=== PATIENT | female | born 1945 | race Caucasian/White ===

== ENCOUNTER → 2018-01-15 12:26 | Outpatient (CLI) | payer MEDICARE, OTHER, SELFPAY ==
--- NOTE | 2018-01-15 12:28 | ECHOD_ITS ---
Reason For Study: MURMUR Procedure This was a 2D Doppler, Color Flow transthoracic echocardiogram. The exam was of adequate technical quality. Exam performed portable in patient room. Left Ventricle Normal LV size. Left ventricular systolic function is normal. The estimated ejection fraction is 65 %. Normal diastology for age. No regional wall motion abnormalities noted. Right Ventricle Normal RV size. Normal systolic function. Atria Normal left atrium. Normal right atrium. No doppler evidence for ASD. Mitral Valve There is no mitral annular calcification. Normal mitral valve. Trivial mitral valve insufficiency. Tricuspid Valve Normal tricuspid valve. Mild tricuspid valve insufficiency. Right ventricular systolic pressure estimated to be 24 mmHg. Aortic Valve Trisinus/trileaflet aortic valve. Mild diffuse aortic valve thickening. Mild focal aortic valve calcification. Aortic sclerosis, no stenosis. Pulmonic Valve The pulmonic valve is not well visualized. Great Vessels Normal sized aortic root. Pericardium/Pleural No pericardial effusion. MMode/2D Measurements & Calculations LVIDd: 3.6 cm IVSd: 0.97 cm LVOT diam: 2.0 cm LVIDs: 2.6 cm LVPWd: 0.94 cm LVOT area: 3.0 cm2 RVDd: 3.1 cm FS: 27.6 % Ao root diam: 3.1 cm LAV(MOD-bp): 38.9 ml LA A4 area: 16.8 cm2 LAV(MOD-bp) Indexed: 23.2 ml/m2 LAV(MOD-sp2): 34.3 ml LAV(MOD-sp4): 38.6 ml RA A4 area: 14.5 cm2 Time Measurements MV dec time: 0.23 sec Doppler Measurements & Calculations MV E max trav: 62.5 cm/sec Ao V2 max: 131.4 cm/sec LV V1 max: 135.5 cm/sec MV A max trav: 80.3 cm/sec Ao max P.9 mmHg LV V1 max P.3 mmHg MV E/A: 0.78 GAMALIEL(V,D): 3.1 cm2 PA V2 max: 63.9 cm/sec TR max trav: 227.2 cm/sec TR max P.8 mmHg Interpretation Summary Left ventricular systolic function is normal. The estimated ejection fraction is 65 %. Trivial mitral valve insufficiency. Mild tricuspid valve insufficiency. Aortic sclerosis, no stenosis. Right ventricular systolic pressure estimated to be 24 mmHg. Normal diastology for age. Ordering Physician: Gerber Humphries Referring Physician: SAMANTHA SRINIVASAN Performed By: Lissy العلي RDCS, RVT
== END ==
PROVIDERS: Family Provider Family Medicine; PCP Family Medicine; Visit Provider Family Medicine
DX: R01.1 Cardiac murmur, unspecified (principal)
CPT/HCPCS: 93306

== ENCOUNTER → 2018-01-29 12:41 | Outpatient (CLI) | payer MEDICARE, OTHER, SELFPAY ==
[2018-01-29 14:15] LABS: Absolute Lymphocyte Count 1.58 X10^3/ul (0.83-4.51); Basophil# 0.02 X10^3/uL; Basophil% 0.3 % (0-1); Eosinophil# 0.13 X10^3/uL; Eosinophils% 2.1 % (0-5); Hematocrit 45.6 % (37-47); Lymphocyte # 1.58 X10^3/ul (4.0); Mean Corp Hgb Conc 32.9 g/gl (32-36); Mean Corpuscular Hgb 29.6 pg (27.0-32.0); Mean Corpuscular Volume 90.1 fL (81-99); Mean Platelet Vol. 11.5 fl (6.2-12.0); Monocyte% 9.5 % (0-10); Neutrophil # 3.98 X10^3/uL (2.7-7.7); Neutrophil % 62.9 % (47-70); POSITIVE COUNT NO; POSITIVE DIFFERENTIAL NO; POSITIVE MORPHOLOGY NO; Platelet Count 265 K/mm3 (150-450); RBC Distribution Width CV 13.4 % (11.6-14.6); RBC Distribution Width SD 43.8 fl (35.1-43.9); Red Blood Count 5.06 M/mm3 (4.2-5.4); White Blood Count 6.3 K/mm3 (4.4-11.0)
[2018-01-29 14:40] LABS: AST(SGOT) 17 U/L (15-37); Alanine Aminotransfer ALT/SGPT 32 U/L (13-56); Albumin, Serum 3.9 g/dL (3.2-5.0); Alkaline Phosphatase 86 U/L (45-117); BUN 15 mg/dL (7-18); BUN/Creat Ratio 16.2 RATIO (10-20); Calcium,Total 9.4 mg/dL (8.5-10.1); Chloride 103 mmol/L (98-107); Creatinine, Serum 0.93 mg/dL (0.55-1.02); EST Glomerular Filtration Rate 63 mL/min (>60); Est Glom Filt Rate - Afr Amer 76 mL/min (>60); Globulin 3.8 g/dL (2.2-4.2); Glucose 93 mg/dL (74-106); Potassium 3.9 mmol/L (3.5-5.1); Protein, Total 7.7 g/dL (6.4-8.2); Sodium Level 139 mmol/L (136-145)
[2018-01-29 14:41] LABS: Anion Gap 6 (5-15); Thyroid Stim Hormone (TSH) 1.49 uIU/mL (0.358-3.74)
== END ==
PROVIDERS: Family Provider Family Medicine; PCP Family Medicine; Visit Provider Family Medicine
DX: R53.81 Other malaise (principal); R53.83 Other fatigue
CPT/HCPCS: 36415; 80053; 84443; 85025

== ENCOUNTER 2019-01-04 19:29 | Emergency (ER) | payer MEDICARE, SELFPAY ==
[2018-05-11 09:46] VITALS: BMI 30.4
[2019-01-04 19:29] VITALS: BP 127/79; PULSE 88; RESP 20; TEMP 37.1; O2SAT 95; BMI 30.5
--- NOTE | 2019-01-04 19:55 | RAD_ITS ---
STUDY: X-RAY CHEST REASON FOR EXAM: Female, 73 years old. Chest tightness TECHNIQUE: Single AP portable view of the chest. COMPARISON: April 25, 2017 FINDINGS: There are interstitial fibrotic changes of the lungs. There is left lower lung granuloma. Follow There is no demonstrated pleural abnormality. Normal size heart. Normal mediastinum and soy. Normal visualized pulmonary arteries. There is atherosclerotic tortuosity of the aortic arch and descending thoracic aorta. There is demineralization of the osseous structures. Degenerative change of the spine. Normal visualized ribs, clavicles, and shoulders. There is no demonstrated abnormality of the visualized soft tissue structures of the upper abdomen. RAD/Chest 1 View (Portable) IMPRESSION: Degenerative changes, as described above. No demonstrated acute cardiopulmonary process. Electronically Signed: Jacobo Mohr MD at 20:37 EDT , Service support ,
[2019-01-04 20:27] VITALS: O2SAT 95
[2019-01-04] MEDS: Ipratropium/Albuterol Sulfate 3 ML AMPUL.NEB INHALATION (22:11)
[2019-01-04 22:12] VITALS: PULSE 75; RESP 16
[2019-01-04 22:27] VITALS: O2SAT 96
[2019-01-04] MEDS: predniSONE 20 MG Tablet 40 MG PO (22:27)
--- NOTE | 2019-01-04 22:51 | EKG12_ITS ---
Test Reason : SOB Blood Pressure : / mmHG Vent. Rate : 077 BPM Atrial Rate : 077 BPM P-R Int : 150 ms QRS Dur : 086 ms QT Int : 406 ms P-R-T Axes : 000 069 -07 degrees QTc Int : 459 ms Normal sinus rhythm Low voltage QRS Abnormal QRS-T angle, consider primary T wave abnormality Abnormal ECG Confirmed by NORMA MIDDLETON, ELDER ([id number]), food editor SAMUEL WOO ([id number]) on 01/07/2019 1:47:41 PM Referred By: RIKY Confirmed By:MARYANA GREEN MD
--- NOTE | 2019-01-04 23:11 | ED.VIS.GEN ---
History of Present Illness Chief Complaint: Cough Detail of Chief Complaint: Cough, congestion, wheezing Informant: Patient, Significant Other Onset: - - 10 days Quality: Wheezing, cough, Current Severity: Mild Maximum Severity: Moderate Narrative: Patient has history of asthma. She uses her pro-air inhaler twice a day. Patient reports cough, chills, and wheezing over the past 10 days. She was seen by her PCP at onset and states she took a Z-Jose and some prednisone. She was slightly improved on taking the medication but symptoms worsened again after completing the course. She states today she had some vomiting which was largely posttussive. She has not noted fever. - Past Medical History (1) Asthma Status: Chronic (2) HTN (hypertension) Status: Chronic (3) Obstructive sleep apnea Status: Chronic Past Medical History - Allergies and Home Meds Allergies/Adverse Reactions: Allergies strawberry Allergy (Verified 01/04/19 19:31) Food Allergy Primary Care Physician: Nabila Paris MD [Primary Care Provider] - 1 Week if not improving Prior records reviewed: Yes Past Medical History: - - Reviewed Surgical History: - - section Lives: Spouse/ Significant Other Smoking Status: Never smoker - Family History Sibling Family History: Family History (Last Reviewed 05/11/18 @ 15:52 by MARIPOSA Renteria) Father Heart disease Family History: Reports: Heart Disease - Her sister who is younger than she is has CAD. Paternal Family History: Family History (Last Reviewed 05/11/18 @ 15:52 by MARIPOSA Renteria) Father Heart disease Family History: Reports: Heart Disease Maternal Family History: Family History (Last Reviewed 05/11/18 @ 15:52 by MARIPOSA Renteria) Father Heart disease Family History: Reports: No pertinent history Review of Systems General: Reports: Chills. Denies: Fever Cardiovascular: Reports: - - Chest soreness from coughing Respiratory: Reports: Dyspnea, Cough, Sputum - Occasional yellow sputum production. Gastrointestinal: Denies: Abdominal pain, Nausea, Vomiting, Diarrhea Neurological: Denies: Headache Physical Exam Vital Signs/Narrative: Vital Signs Temp Pulse Resp BP Pulse Ox 01/04/19 22:27 96 01/04/19 22:12 75 16 01/04/19 20:27 95 01/04/19 19:29 98.7 F 88 20 H 127/79 H 95 General: Well nourished, Well developed ENT: Moist mucous membranes Cardiovascular: Regular rate, Regular rhythm Respiratory: No distress, - - Lungs are clear with slightly diminished air movement throughout. Abdomen: Soft, Nontender Extremities: Nontender, No edema Skin: Normal color, No rash Neurological: Alert, Oriented x3 Diagnostic/Tx/Re-eval Impressions Chest X-Ray 01/04/19 19:55 IMPRESSION: Degenerative changes, as described above. No demonstrated acute cardiopulmonary process. Electronically Signed: Jacobo Mohr MD at 20:37 EDT , Service support , 01/04/19 19:55 Chest 1 View (Portable) [RAD] Stat - EKG Initial EKG Interpretation: Sinus Rhythm, - - Sinus at [address] change. She does have inverted P waves noted in multiple leads. QTC is 459. - Medical Decision Making Patient was given a DuoNeb treatment along with p.o. prednisone. On repeat evaluation she felt like she was breathing significantly better. She will be treated with a prednisone burst along with Levaquin as she previously did not do well with Zithromax. Patient is given a spacer for her inhaler at home. ED Disposition - Plan for ED Patient: Disposition: Home or Assisted Living Diagnosis: Bronchitis Instructions: BRONCHITIS, Antiobiotic Treatment (Adult) Prescriptions: Prednisone [Deltasone] 40 mg PO DAILY #10 tab Prescription Printed Levofloxacin [Levaquin] 750 mg PO DAILY #4 tab Prescription Printed Referrals: Nabila Paris MD [Primary Care Provider] - 1 Week if not improving
[2019-01-04] MEDS: levoFLOXacin 750 MG Tablet PO (23:17)
== END 2019-01-04 23:19 | disposition home or self-care (01) ==
PROVIDERS: Emergency Provider Emergency Medicine; Family Provider Family Medicine; PCP Family Medicine
DX: J40 Bronchitis, not specified as acute or chronic (principal); I10 Essential (primary) hypertension; G47.33 Obstructive sleep apnea (adult) (pediatric)
CPT/HCPCS: 71045; 93005; 94640; 94760; 99283

== ENCOUNTER → 2019-05-13 12:38 | Outpatient (CLI) | payer MEDICARE, SELFPAY ==
[2019-05-13 14:41] LABS: Anion Gap 7 (5-15); BUN 20 mg/dL (7-18); BUN/Creat Ratio 24.9 RATIO (10-20); Chloride 106 mmol/L (98-107); EST Glomerular Filtration Rate 74 mL/min (>60); Est Glom Filt Rate - Afr Amer 89 mL/min (>60); Glucose 93 mg/dL (74-106); Sodium Level 140 mmol/L (136-145)
== END ==
PROVIDERS: Family Provider Family Medicine; PCP Family Medicine; Referring Provider Family Medicine; Visit Provider Family Medicine
DX: I10 Essential (primary) hypertension (principal)
CPT/HCPCS: 36415; 80048

== ENCOUNTER 2019-05-28 21:14 | Emergency (ER) | payer MEDICARE, SELFPAY ==
[2019-05-27 17:43] VITALS: BMI 30.5
[2019-05-28 21:15] VITALS: BP 100/57; PULSE 108; RESP 18; TEMP 36.4; O2SAT 96; BMI 28.7
--- NOTE | 2019-05-28 21:49 | ED.DCSUM_ITS ---
- ER Visit Summary Date of Service: 05/28/19 Chief Complaint: Nausea, vomiting and diarrhea History of Present Illness: The patient is a 74 F 3 of hypertension and asthma. Patient states since Thursday she has had nausea, vomiting diarrhea. Feels little dehydrated. No documented fever. Only abdominal cramping. Only prior abdominal surgery was for hysterectomy. Denies any dysuria or hematuria or frequency. Physical Examination: Older female no acute distress vital signs are stable afebrile. Clinically she looks mildly dehydrated. HEENT exam unremarkable except dry extremities. Pupils are unreactive laser motions are intact. No facial droop. Neck nontender no lymphadenopathy. Lungs clear to auscultation bilaterally. Heart tachycardic rate about 110 no murmur. Abdomen is soft. Nondistended. Normal bowel sounds no peritoneal signs. Minimal right upper quadrant tenderness. Right lower quadrant completely unremarkable. No signs of obstruction. Normal bowel sounds. Patient is moving all 4 extremities. Calves are nontender without edema or cords. Equal symmetrical texture artist strength. Dorsi plantarflexion intact. Skin unremarkable. Back nontender. Neurologically she is awake alert with no focal motor deficits. Answering questions and following commands. Test Results: CBC shows an elevated white count of 14,800. No bands. Normal hemoglobin of 15. Electrolytes show potassium of 3.2. Normal creatinine and gap. Lipase normal. Liver enzymes are elevated total bilirubin of 5. Direct bilirubin 3.75. Alkaline phosphatase of 401 ALT at 471 and AST at 387. A CAT scan of the abdomen pelvis was obtained with IV contrast which shows a duodenal diverticulum causing obstruction of the distal common bile duct. Emergency Department Course and Treatment: Nausea, vomiting and diarrhea down her fourth day. Clinically looks dehydrated. Pt will be treated with IV fluids and IV Zofran. Labs to be obtained. At this time I do not think she needs any imaging. He did total of 3 doses of Zofran. Currently her nausea is improved. Her abdomen is benign at 12:05 AM. Treatment Plan: I discussed with her general surgeon on-call. Patient needs an ERCP. We do not have anyone available to do that this weekend. I discussed this with the patient and she like to be transferred to [facility]. I have them on page. Disposition: Transfer to [facility] Impression: Nausea, vomiting and diarrhea Right upper quadrant abdominal pain. 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 It may contain incorrect words, spelling, and punctuation that were not noted in review of the chart prior to signing ED Disposition - Plan for ED Patient: Referrals: Nabila Paris MD [Primary Care Provider] -
[2019-05-28] MEDS: 0.9% Normal Saline 1,000 ML 1000 ML IV (21:58)
[2019-05-28] MEDS: Ondansetron 4 MG/2 ML Vial IV ×3 (21:58→23:53)
[2019-05-28 22:08] LABS: Absolute Lymphocyte Count 0.74 X10^3/uL (0.83-4.51); Absolute Neutrophil Count 13.2 X10^3/uL (2.0-7.7); Basophil# 0.03 X10^3/uL; Basophil% 0.2 % (0-1); Eosinophil# 0.36 X10^3/uL; Eosinophils% 2.4 % (0-5); Hematocrit 47.2 % (37-47); Hemoglobin 15.7 g/dL (12.0-15.0); Lymphocyte # 0.74 X10^3/ul (4.0); Mean Corp Hgb Conc 33.3 g/dL (32-36); Mean Corpuscular Hgb 29.6 pg (27.0-32.0); Mean Corpuscular Volume 88.9 fL (81-99); Monocyte# 0.43 X10^3/uL; Monocyte% 2.9 % (0-10); NRBC Flagged by Analyzer 0 % (0-5); Neutrophil # 13.16 X10^3/uL (2.7-7.7); Neutrophil % 89.2 % (47-70); Platelet Count 227 K/mm3 (150-450); RBC Distribution Width CV 13.2 % (11.6-14.6); RBC Distribution Width SD 42.5 fl (35.1-43.9); Red Blood Count 5.31 M/mm3 (4.2-5.4); White Blood Count 14.8 K/mm3 (4.4-11.0)
[2019-05-28 22:25] LABS: AST(SGOT) 387 U/L (15-37); Alanine Aminotransfer ALT/SGPT 471 U/L (13-56); Albumin, Serum 3.7 g/dL (3.2-5.0); Alkaline Phosphatase 401 U/L (45-117); Anion Gap 7 (5-15); BUN 18 mg/dL (7-18); BUN/Creat Ratio 17.8 RATIO (10-20); Bilirubin, Direct 3.75 mg/dL (0.00-0.30); Calcium,Total 9.4 mg/dL (8.5-10.1); Chloride 103 mmol/L (98-107); Creatinine, Serum 1.01 mg/dL (0.55-1.02); EST Glomerular Filtration Rate 57 mL/min (>60); Est Glom Filt Rate - Afr Amer 69 mL/min (>60); Estimated Creatinine Clearance 42.64 ml/min; Globulin 3.8 g/dL (2.2-4.2); Glucose 152 mg/dL (74-106); Lipase 101 U/L (73-393); Potassium 3.2 mmol/L (3.5-5.1); Protein, Total 7.5 g/dL (6.4-8.2); Sodium Level 137 mmol/L (136-145)
--- NOTE | 2019-05-28 22:41 | CT_ITS ---
STUDY: CT ABDOMEN AND PELVIS WITH CONTRAST REASON FOR EXAM: Female, 74 years old. Right upper quadrant pain. Elevated liver enzymes. Nausea and vomiting. Diarrhea. Symptoms since Thursday. RADIATION DOSAGE (If Supplied By Facility): CTDIvol = ( 016.97 ) mGy, DLP = ( 1040.72 ) mGycm TECHNIQUE: Transaxial images were obtained from the dome of the diaphragm to the symphysis pubis without oral contrast. IV 100mL Isovue-370 was administered. Sagittal and coronal images were reconstructed. Individualized dose optimization techniques were used for this CT. COMPARISON: None. FINDINGS: Minimal linear scarring versus atelectasis of the lung bases. The visualized portions of the heart are within normal limits. Normal liver. There is mild intra and extrahepatic biliary ductal dilatation without filling defect. Normal gallbladder. Normal spleen. Normal pancreas. Normal bilateral adrenal glands. There is a 1.5 x 1.7 x 1.7 cm soft tissue mass off the upper pole of the right kidney which straightens incomplete enhancement. Small cysts are noted in the lower renal cortex. No renal calculi or hydronephrosis. Normal right ureter. Normal left kidney. Normal left ureter. Normal visualized stomach. There is a duodenal diverticulum which invaginates into the pancreatic head. This is thought to be the cause of the mild biliary ductal dilatation. Otherwise normal small intestine. There is scattered colonic diverticuli without acute inflammatory change. There is no mass or obstruction. There is non-visualization of the appendix. There is diffuse atherosclerotic calcification of the abdominal aorta, without a demonstrated aneurysm. Normal inferior vena cava. Normal retroperitoneum. Normal urinary bladder. Normal vaginal cuff. There is no pelvic lymphadenopathy or mass. No free air or free fluid is seen within the peritoneal cavity. Normal abdominal wall. Normal osseous structures. CT/Abdomen/Pelvis W IV Cont ONLY IMPRESSION: 1. Duodenal diverticulum. This is thought to partially obstruct the distal CBD and cause mild biliary ductal dilatation. 2. Minimal linear atelectasis at the lung bases. 3. Scattered colonic diverticulosis. 4. Status post hysterectomy. 5. Degenerative changes of lumbar spine. 6. Atherosclerotic changes of the abdominal aorta. Electronically Signed: Leon Trevino DO at 23:31 EST Tel [phone], Service support ,
[2019-05-28 23:54] VITALS: BP 166/60; PULSE 74; RESP 18; O2SAT 97
--- NOTE | 2019-05-28 23:55 | ED.RN ---
PT ASSISTED TO THE BATHROOM WITH THIS NURSE'S HELP. IN THE BATHROOM, PT BEGAN VOMITING. PT RETURNED TO THE ROOM IN A W/C
[2019-05-29 00:51] VITALS: BP 119/78; PULSE 84; RESP 20; O2SAT 98
[2019-05-29 02:17] VITALS: BP 106/59; PULSE 72; RESP 18; O2SAT 98
[2019-05-29] MEDS: proMETHazine 25 MG/ML Syringe 6.25 MG IV (03:21)
[2019-05-29 04:13] VITALS: BP 120/72; PULSE 90; RESP 14; O2SAT 94
== END 2019-05-29 04:30 | disposition short-term general hospital (02) ==
PROVIDERS: Emergency Provider Emergency Medicine; Family Provider Family Medicine; PCP Family Medicine
DX: K57.10 Diverticulosis of small intestine without perforation or abscess without bleeding (principal); K83.1 Obstruction of bile duct; E86.0 Dehydration; R11.2 Nausea with vomiting, unspecified; R19.7 Diarrhea, unspecified; I10 Essential (primary) hypertension; J45.909 Unspecified asthma, uncomplicated; Z90.710 Acquired absence of both cervix and uterus
CPT/HCPCS: 74177; 80048; 80076; 83690; 85025; 96361; 96374; 96375; 96376; 99284; J7030; Q9967; A4216; J2405

== ENCOUNTER → 2020-02-13 11:57 | Outpatient (CLI) | payer MEDICARE, SELFPAY ==
[2020-02-07 13:48] VITALS: BMI 30.1
[2020-02-13 16:20] LABS: Anion Gap 3 (5-15); BUN 14 mg/dL (7-18); BUN/Creat Ratio 16.6 RATIO (10-20); Calcium,Total 9.1 mg/dL (8.5-10.1); Chloride 109 mmol/L (98-107); Creatinine, Serum 0.84 mg/dL (0.55-1.02); EST Glomerular Filtration Rate 70 mL/min (>60); Est Glom Filt Rate - Afr Amer 84 mL/min (>60); Glucose 99 mg/dL (74-106); Potassium 4.2 mmol/L (3.5-5.1); Sodium Level 138 mmol/L (136-145)
== END ==
PROVIDERS: PCP Family Medicine; Referring Provider Family Medicine; Visit Provider Family Medicine
DX: I10 Essential (primary) hypertension (principal)
CPT/HCPCS: 36415; 80048

== ENCOUNTER → 2020-04-02 07:26 | Outpatient (CLI) | payer MEDICARE, SELFPAY ==
[2020-02-07 13:48] VITALS: BMI 30.1
--- NOTE | 2020-04-02 07:31 | CT_ITS ---
STUDY: CT ABDOMEN AND PELVIS WITH CONTRAST REASON FOR EXAM: Female, 75 years old. NEOPLASM OF UNCERTAIN BEHAVIOR, RT KIDNEY RADIATION DOSAGE (If Supplied By Facility): CTDIvol = ( 18.45 ) mGy, DLP = ( 963.37 ) mGycm TECHNIQUE: Transaxial images were obtained from the dome of the diaphragm to the symphysis pubis without oral contrast. 100 CC ISOVUE 300 was administered. Sagittal and coronal images were reconstructed. Individualized dose optimization techniques were used for this CT. COMPARISON: 05/28/2019 FINDINGS: The visualized lung bases are unremarkable. The visualized portions of the heart are within normal limits. The liver is normal in size. There is an 8 mm enhancing lesion in the LEFT lobe of liver. This could be an adenoma or atypical hemangioma. Metastatic lesion cannot excluded. There is also a 17 mm hypodense lesion in the RIGHT lobe of liver. Again metastasis not excluded. There has been a cholecystectomy. Normal spleen. Normal pancreas. Normal bilateral adrenal glands. There is a 2 cm enhancing mass in the upper pole of the RIGHT kidney suspicious for malignancy. There are NO kidney stones. There is NO hydronephrosis. Normal visualized stomach. Normal small intestine. Normal colon. There is non-visualization of the appendix. There is diffuse atherosclerotic calcification of the abdominal aorta, without a demonstrated aneurysm. Normal inferior vena cava. Normal retroperitoneum. Normal urinary bladder. There has been a hysterectomy. There is NO ascites or free air, abscess or adenopathy. Normal abdominal wall. Normal osseous structures. CT/Abdomen/Pelvis W IV Cont ONLY IMPRESSION: The liver is normal in size. There is an 8 mm enhancing lesion in the LEFT lobe of liver. This could be an adenoma or atypical hemangioma. Metastatic lesion cannot excluded. There is also a 17 mm hypodense lesion in the RIGHT lobe of liver. Again metastasis not excluded. There has been a cholecystectomy. There is a 2 cm enhancing mass in the upper pole of the RIGHT kidney suspicious for malignancy. There are NO kidney stones. There is NO hydronephrosis. Normal visualized stomach. Normal small intestine. Normal colon. There is non-visualization of the appendix. There has been a hysterectomy. There is NO ascites or free air, abscess or adenopathy. Electronically Signed: Kamaljit Kerr MD at 5:56 EDT , Service support ,
[2020-04-02 07:40] LABS: CREATININE FINGERSTICK 0.7 mg/dL (0.55-1.02)
== END ==
LOC: CT 07:29
PROVIDERS: PCP Family Medicine; Referring Provider Urology; Visit Provider Urology
DX: D41.01 Neoplasm of uncertain behavior of right kidney (principal)
CPT/HCPCS: 74177; Q9967; A4216

== ENCOUNTER 2020-07-18 07:40 | Observation (INO) | payer MEDICARE, SELFPAY ==
[2020-02-07 13:48] VITALS: BMI 30.1
--- NOTE | 2020-07-16 14:15 | EKG12_ITS ---
Test Reason : PREOP Blood Pressure : / mmHG Vent. Rate : 071 BPM Atrial Rate : 071 BPM P-R Int : 146 ms QRS Dur : 084 ms QT Int : 398 ms P-R-T Axes : 024 077 045 degrees QTc Int : 432 ms Normal sinus rhythm Normal ECG Confirmed by NICOLE MIDDLETON, AVA ([id number]), editor producer SAMUEL WOO ([id number]) on 07/17/2020 10:56:19 AM Referred By: Joseph Ballard Confirmed By:AVA RIVERA MD
[2020-07-16 15:04] LABS: Hematocrit 49.7 % (37-47); Hemoglobin 15.8 g/dL (12.0-15.0); Mean Corp Hgb Conc 31.8 g/dL (32-36); Mean Corpuscular Hgb 28.9 pg (27.0-32.0); Mean Platelet Vol. 11.9 fl (6.2-12.0); Platelet Count 278 K/mm3 (150-450); RBC Distribution Width CV 13.2 % (11.6-14.6); RBC Distribution Width SD 43.9 fl (35.1-43.9); Red Blood Count 5.46 M/mm3 (4.2-5.4); White Blood Count 7.1 K/mm3 (4.4-11.0)
[2020-07-16 16:10] LABS: Anion Gap 6 (5-15); BUN 17 mg/dL (7-18); BUN/Creat Ratio 17.9 RATIO (10-20); Calcium,Total 9.2 mg/dL (8.5-10.1); Chloride 106 mmol/L (98-107); Creatinine, Serum 0.95 mg/dL (0.55-1.02); EST Glomerular Filtration Rate 61 mL/min (>60); Est Glom Filt Rate - Afr Amer 73 mL/min (>60); Glucose 90 mg/dL (74-106); Potassium 4.2 mmol/L (3.5-5.1); Sodium Level 141 mmol/L (136-145)
[2020-07-18] VITALS (15 sets, daily range): BP systolic 109–143; BP diastolic 48–83; PULSE 70–89; RESP 14–18; TEMP 36.2–37.2; O2SAT 89–98; BMI 31.5
--- NOTE | 2020-07-18 | KID_PTH ---
PATIENT: JASON DUNCAN LOC: MS3 U#:[id number] AGE/SX: 75/F ROOM: MS311 RE07/18/[address]: Dr. Joseph Ballard MD : 1945 BED: 1 DIS: 07/20/2020 SPEC #: [id number] RECD: 07/18/20 14:11 STATUS: NARESH GALAVIZ #: [id number] KULDIP: 07/18/20 00:[address]: Joseph Ballard DEPT: SURGICAL PATHOLOGY RECD BY: Al Martinez ENTERED: 07/19/20 07:47 SP TYPE: KIDNEY OTHR DR: Dr. 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 See cancer checklist below. AM:claudia 07/20/2020 COMMENT KIDNEY CANCER SUMMARY Procedure - partial nephrectomy Specimen laterality - right kidney Tumor site - not specified Tumor size - 2 x 1.8 x 1.5 cm Tumor focality - unifocal Histologic type - clear cell renal cell carcinoma Sarcomatoid features - not identified Rhabdoid features - not identified Histologic grade - (WHO) G1 Tumor necrosis - not identified Tumor extension - tumor limited to kidney Margins - uninvolved by invasive carcinoma Lymphvascular invasion - not identified Regional lymph nodes - not present Pathologic findings in non-neoplastic kidney - insufficient tissue Additional pathologic findings - minimal chronic inflammation. PATHOLOGIC STAGE: pT1 Nx Mx The above summary is in compliance with [employer] (CAP) Cancer Protocols Checklist and [place] Joint Committee on Cancer (AJCC), Staging Manual, 8th Ed. MICROSCOPIC DESCRIPTION Slides are reviewed. GROSS DESCRIPTION Received in fixative is one container labeled with the patient's name and designated right renal mass. The specimen consists of an ovoid, lobulated fragment of dark christian soft tissue measuring 2 x 1.5 x 1.8 cm and containing an attached fragment of yellow fatty tissue measuring 3 x 2 x 1 cm. The specimen is inked and serially sectioned to reveal yellow-christian cut surfaces with foci of hemorrhage. The specimen is submitted in its entirety in three cassettes. / AM:claudia 07/19/20 TC:0 CPT: 79920
[2020-07-18] MEDS: Lactated Ringers 1,000 ML 100 ML IV ×3 (06:43→09:30)
[2020-07-18] MEDS: Cefazolin 2 GM in 0.9% Normal Saline 100 ML IV (07:30)
--- NOTE | 2020-07-18 07:34 | HP.PCM_ITS ---
Problem List (1) Right renal mass Status: Acute History of Present Illness Date of Admission: 07/18/20 Chief Complaint: Right renal mass The patient is a 75 year old female with a history of a 2.5 cm renal mass that increasing in size so because of this and very likely this is a malignancy renal proceed with a right partial nephrectomy she does have a history of atrial fibrillation and her Eliquis has been on hold she understands not to go home and hold the Eliquis after discharge the risk of bleeding. Past Medical History Past Medical History (Chronic Problems): Chronic Problems (Last Reviewed 02/07/20 @ 14:[address] Bj Doyle MD) Renal lesion (Chronic) Paroxysmal atrial fibrillation (Chronic) Essential hypertension (Chronic) Asthma (Chronic) Obesity (Chronic) Hypokalemia (Chronic) Seasonal allergies (Chronic) Obstructive sleep apnea (Chronic) Noncompliance with CPAP treatment (Chronic) Medical History: Medical History (Last Reviewed 07/18/20 @ 07:[address] Joseph Ballard MD) Renal lesion (Chronic) N28.9 Paroxysmal atrial fibrillation (Chronic) I48.0 Essential hypertension (Chronic) I10 Asthma (Chronic) J45.909 Obesity (Chronic) E66.9 Hypokalemia (Chronic) E87.6 Seasonal allergies (Chronic) J30.2 Obstructive sleep apnea (Chronic) G47.33 Noncompliance with CPAP treatment (Chronic) Z91.14 Arthritis M19.90 Chronic cough R05 Hay fever J30.1 Shortness of breath R06.02 Bronchitis J40 Diarrhea R19.7 Eosinophilia (Resolved) D72.1 Gastroenteritis (Resolved) K52.9 Hypoxemia (Resolved) R09.02 Wheezing R06.2 Asthma with acute exacerbation in adult (Inactive) J45.901 Allergies dog dander Allergy (Verified 07/13/20 12:13) Unknown strawberry Allergy (Verified 07/13/20 12:13) Food Allergy tree and shrub pollen Allergy (Verified 07/13/20 12:13) Unknown Home Medications: Ambulatory Orders Medication Instructions Recorded Sertraline HCl [Zoloft] 50 mg PO DAILY 10/09/16 ipratropium bromide 0.03 % nasal 2 spray INTRANASAL Q6H PRN ml 07/18/19 spray sennosides 8.6 mg-docusate sodium 1 tab-cap PO BID PRN tab 07/18/19 50 mg tablet triamcinolone acetonide 0.1 % 1 applic TOPICAL TID PRN 07/18/19 topical cream apixaban 5 mg tablet 5 mg PO BID #60 tab 07/19/19 fluticasone propionate 50 2 spray INTRANASAL DAILY PRN 07/19/19 mcg/actuation nasal spray,suspension albuterol sulfate 90 mcg/actuation 2 puff INHALATION PRN PRN g 02/07/20 aerosol inhaler mometasone 100 mcg/actuation HFA 2 puff INHALATION BID PRN g 02/07/20 aerosol inhaler vit C 250 mg-vit E 200 unit-zinc 1 cap PO BID 02/07/20 ox 12.5 [id number]-yxpluw-zeax capsule metoprolol succinate 50 mg 50 mg PO DAILY #90 tab 07/09/20 tablet,extended release 24 hr Lisinopril 5 mg PO DAILY 07/13/20 Surgical History: Surgical History (Last Reviewed 02/07/20 @ 14:[address] 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 Bj Doyle MD) Father Heart disease Sister CAD (coronary artery disease) History Items: Heart Disease - Her sister who is younger than she is has CAD. Paternal Family History: Family History (Last Reviewed 02/07/20 @ 14:[address] Bj Doyle MD) Father Heart disease Sister CAD (coronary artery disease) History Items: Heart Disease Maternal Family History: Family History (Last Reviewed 02/07/20 @ 14:[address] Bj Doyle MD) Father Heart disease Sister CAD (coronary artery disease) History Items: No pertinent history Review of Systems Constitutional: Denies: Chills, Fever, Weight Change HEENT: Denies: Head Aches, Sinus Congestion, Sinus Drainage Cardiovascular: Denies: Chest Pain, Palpitations Respiratory: Denies: Cough, Shortness of breath at rest, Sputum production Gastrointestinal: Denies: Abdominal Pain, Nausea, Vomiting Genitourinary: Denies: Dysuria Musculoskeletal: Denies: Joint Pain, Joint Tenderness Skin: Denies: Rash, Wounds Neurological: Denies: Numbness, Tingling, Focal weakness Psychiatric: Denies: Anxiety, Depression, Homicidal Ideations, Suicidal Ideations Hematologic/ Lymphatic: Denies: Easy Bruising, Easy Bleeding VTE Information - Inpt Only VTE Present on Admission: No VTE Mechan Device Prophylaxis: SCD's - Physical Exam Vitals/I&O's: Vital Signs Temp Pulse Resp BP Pulse Ox 98.8 F 89 16 116/79 97 07/18/20 06:30 07/18/20 06:30 07/18/20 06:30 07/18/20 06:30 07/18/20 06:30 Oxygen Delivery Method Room Air Weight: 83.3 kg Body Mass Index (BMI) 31.5 General: Alert, Oriented x3, Cooperative HEENT: Atraumatic, PERRLA, EOMI, Normocephalic Neck: Supple, No JVD, Negative Carotid Bruits Lungs: Clear to auscultation, Normal air movement Cardiovascular: Regular rate, No murmurs Abdomen: Bowel Sounds Present, Soft, Non Tender Extremities: No edema, Capillary Refill Less than 3 Seconds Skin: No rashes, No breakdown Musculoskeletal: No Tenderness to Palpation of Joints or Extremities Neurological: Cranial nerves II-XII grossly intact Psych/Mental Status: Normal Affect, Appropriate Microbiology Past 72 Hours 07/16/20 14:00 Interface Orders SARS-CoV-2 Antigen (Rapid) - Final Current Medications Cefazolin Sodium 2 gm/ Sodium (Chloride) 110 mls @ 150 mls/hr IV PREOP ONE Stop: 07/18/20 08:13 Lactated Ringer's () 1,000 mls @ 100 mls/hr IV .Q10H [facility] Last Admin: 07/18/20 06:43 Dose: 100 mls/hr Documented by: Lactated Ringer's () 1,000 mls @ 100 mls/hr IV .Q10H [facility] Last Admin: 07/18/20 07:01 Dose: 100 mls/hr Documented by: Assessment/Plan All Active Problems (Last Reviewed 02/07/20 @ 14:[address] Bj Doyle MD) Right renal mass (Acute) Dehydration (Resolved) Diarrhea (Resolved) Eosinophilia (Resolved) Gastroenteritis (Resolved) Hypoxemia (Resolved) Plan to proceed with a right laparoscopic robotic assisted partial nephrectomy.
--- NOTE | 2020-07-18 07:37 | DCINST_ITS ---
Discharge Diet: Light diet - advance as tolerated Discharge Activity: Return to Normal Activity Lifting Restrictions: <10 lbs Call your doctor if your incision/area has: Continuous Slow Oozing, Sudden Increased Bleeding, Increased Pain/ Swelling, Increased Redness, Foul Smelling Discharge, Swelling at the incision site Call your doctor if you observe: Fever of 101 or Higher Suture Line Care: Avoid Pulling/Pushing, Avoid Pinching/Bending Additional Instructions: HOLD all blood thinners for 2 weeks Allergies/Adverse Reactions: Allergies dog dander Allergy (Verified 07/13/20 12:13) Unknown strawberry Allergy (Verified 07/13/20 12:13) Food Allergy tree and shrub pollen Allergy (Verified 07/13/20 12:13) Unknown Medications to take at Discharge Sertraline HCl [Zoloft] 50 mg PO DAILY 10/09/16 ipratropium bromide 0.03 % nasal spray 2 spray INTRANASAL Q6H PRN ml 07/18/19 sennosides 8.6 mg-docusate sodium 50 mg tablet 1 tab-cap PO BID PRN tab 0 07/18/19 triamcinolone acetonide 0.1 % topical cream 1 applic TOPICAL TID PRN 07/18/19 fluticasone propionate 50 mcg/actuation nasal spray,suspension 2 spray INTRANASAL DAILY PRN 07/19/19 albuterol sulfate 90 mcg/actuation aerosol inhaler 2 puff INHALATION PRN PRN g 02/07/20 mometasone 100 mcg/actuation HFA aerosol inhaler 2 puff INHALATION BID PRN g 02/07/20 vit C 250 mg-vit E 200 unit-zinc ox 12.5 ts-yecwii-hpouhl-zeax capsule 1 cap PO BID 02/07/20 metoprolol succinate 50 mg tablet,extended release 24 hr 50 mg PO DAILY #90 tab 07/09/20 Lisinopril 5 mg PO DAILY 07/13/20 Docusate Sodium [Colace] 100 mg PO BID #20 cap 07/18/20 Hydrocodone Bitart/Apap 5-325 [Haworth 5MG-325MG] 1 tablet PO Q4H PRN PRN 7 Days #20 tablet 07/18/20 The following prescriptions were given: Docusate Sodium [Colace] 100 mg PO BID #20 cap Transmission Status: Pending to [facility] Hydrocodone Bitart/Apap 5-325 [Haworth 5MG-325MG] 1 tablet PO Q4H PRN PRN 7 Days #20 tablet PRN Reason: Pain Transmission Status: Sent to [facility] Orders to be completed after discharge: 12 Lead EKG [CVS] Time Frame: 07/16/20, Location: None Selected Primary Care Physician: Nabila Paris MD [Primary Care Provider] - Test Results: Test results from this visit will be discussed in further detail at your follow- up appointment, if applicable. Please Follow Up With: Joseph Ballard MD When: in 2 weeks, please call to make an appointment.
--- NOTE | 2020-07-18 09:37 | PCM.OPRPT ---
Problem List (1) Right renal mass Status: Acute Report of Operation Date of Procedure: 07/18/20 Pre-Operative Diagnosis: Right renal mass Post-Operative Diagnosis: Same Surgery/Procedure Performed:: Laparoscopic robotic assisted right partial nephrectomy Description of Surgical Findings:: 75-year-old female was taken back to the operating room she underwent general anesthesia. Her right side was marked for the tumor was she underwent a timeout procedure. She underwent general anesthesia we placed a Blanchard catheter. Then she was placed in full flank with the table flexed all her pressure points padded and secured to the table appropriately. We then made an incision in the abdomen placed a Veress needle into the peritoneal cavity insufflated the peritoneal cavity CO2 gas we placed the car camera trocar right arm left arm and second left arm air seal port and also portal tract the liver. We docked the robot I first reflected the colon off the kidney I then kocherized the duodenum off the kidney I then identified the vena cava and went high above the vena cava and then reflected the liver off the kidney we used the extra port and a grasper to hold the liver off the kidney. I then dissected to the upper pole the kidney identified the tumor circumferentially dissected the tumor off the fat freed up the upper pole the kidney I then used the extra port fourth arm with the long Raptor to hold the kidney up in the air. I then did an off clamp resection of the tumor in the upper part of the kidney this was done by enucleate in the tumor off the kidney. Once the tumor was enucleated and off clamp action without clamping the vessels then this was tumors put in Endo Catch bag I then ran a 3 0 V-Loc stitch on the resection site placed FloSeal and Surgicel on this we lowered the pressure to 7 mmHg and there was no active bleeding. We then extracted the tumor through the air seal port we then closed the air seal port and our camera port which are took both 10 mm ports with a Pelon Viveros stitch. We looked back at the kidney and there was no active bleeding we irrigated around the kidney suction all the loose blood and then extracted all the ports and then closed the port sites with 4-0 Monocryl stitch. Patient anesthetic is being reversed and minimal blood loss and successful removal of a tumor in the upper part of the kidney. Type of Anesthesia:: General Drains: blanchard - Admit VTE Documentation VTE Present on Admission: No
[2020-07-18] MEDS: Bupivacaine Mpf 0.5% 30 ML VIAL (09:50)
[2020-07-18 10:54] LABS: Hematocrit 46.1 % (37-47); Hemoglobin 14.8 g/dL (12.0-15.0); Mean Corp Hgb Conc 32.1 g/dL (32-36); Mean Corpuscular Hgb 29.1 pg (27.0-32.0); Mean Corpuscular Volume 90.7 fL (81-99); Mean Platelet Vol. 11.3 fl (6.2-12.0); Platelet Count 229 K/mm3 (150-450); RBC Distribution Width CV 12.8 % (11.6-14.6); RBC Distribution Width SD 42.5 fl (35.1-43.9); Red Blood Count 5.08 M/mm3 (4.2-5.4); White Blood Count 10.1 K/mm3 (4.4-11.0)
[2020-07-18 11:14] LABS: Anion Gap 8 (5-15); BUN 16 mg/dL (7-18); BUN/Creat Ratio 19.2 RATIO (10-20); Calcium,Total 8.6 mg/dL (8.5-10.1); Chloride 108 mmol/L (98-107); Creatinine, Serum 0.83 mg/dL (0.55-1.02); EST Glomerular Filtration Rate 71 mL/min (>60); Est Glom Filt Rate - Afr Amer 85 mL/min (>60); Estimated Creatinine Clearance 49.02 ml/min; Glucose 169 mg/dL (74-106); Potassium 4.3 mmol/L (3.5-5.1); Sodium Level 140 mmol/L (136-145)
[2020-07-18] MEDS: Ketorolac 15 MG/ML Vial IV ×3 (13:47→23:55)
[2020-07-18] MEDS: Pantoprazole Sodium 20 MG Tablet PO (13:47)
[2020-07-18] MEDS: Sertraline 50 MG Tablet PO (13:47)
[2020-07-18] MEDS: Lactated Ringers 1,000 ML 125 ML IV ×2 (16:02→23:55)
[2020-07-18] MEDS: Ondansetron 4 MG/2 ML Vial IV (16:20)
[2020-07-18] MEDS: Acetaminophen 500 MG Tablet PO (16:22)
[2020-07-18] MEDS: Multivitamin (Healthy Eyes) Capsule 1 CAP PO (16:23)
[2020-07-18] MEDS: Albuterol 2.5 MG/3 ML VIAL.NEB. INHALATION (20:12)
[2020-07-18] MEDS: Budesonide Respules 0.5 MG/2 ML AMPUL.NEB. INHALATION (20:12)
[2020-07-18] MEDS: Docusate Sodium 100 MG Capsule PO (21:08)
[2020-07-18] MEDS: Morphine 2 MG/ML Syringe IV (21:09)
[2020-07-19] VITALS (7 sets, daily range): BP systolic 97–140; BP diastolic 52–70; PULSE 65–76; RESP 14–18; TEMP 36.8–37; O2SAT 92–95
[2020-07-19] MEDS: Ketorolac 15 MG/ML Vial IV ×3 (06:01→18:44)
[2020-07-19 06:42] LABS: Hematocrit 36.1 % (37-47); Hemoglobin 11.6 g/dL (12.0-15.0); Mean Corp Hgb Conc 32.1 g/dL (32-36); Mean Corpuscular Hgb 29.1 pg (27.0-32.0); Mean Corpuscular Volume 90.7 fL (81-99); Mean Platelet Vol. 11.2 fl (6.2-12.0); Platelet Count 192 K/mm3 (150-450); RBC Distribution Width CV 13.1 % (11.6-14.6); RBC Distribution Width SD 43.7 fl (35.1-43.9); Red Blood Count 3.98 M/mm3 (4.2-5.4); White Blood Count 7.2 K/mm3 (4.4-11.0)
[2020-07-19 07:17] LABS: Anion Gap 5 (5-15); BUN 14 mg/dL (7-18); BUN/Creat Ratio 18.1 RATIO (10-20); Calcium,Total 7.9 mg/dL (8.5-10.1); Chloride 110 mmol/L (98-107); Creatinine, Serum 0.78 mg/dL (0.55-1.02); EST Glomerular Filtration Rate 77 mL/min (>60); Est Glom Filt Rate - Afr Amer 93 mL/min (>60); Estimated Creatinine Clearance 40.68 ml/min; Glucose 97 mg/dL (74-106); Potassium 3.9 mmol/L (3.5-5.1); Sodium Level 141 mmol/L (136-145)
[2020-07-19] MEDS: Lactated Ringers 1,000 ML 125 ML IV (07:59)
[2020-07-19] MEDS: Pantoprazole Sodium 20 MG Tablet PO (09:34)
[2020-07-19] MEDS: Docusate Sodium 100 MG Capsule PO (09:34)
[2020-07-19] MEDS: Multivitamin (Healthy Eyes) Capsule 1 CAP PO ×2 (09:34→18:44)
[2020-07-19] MEDS: Metoprolol(XL)Succ 50 MG Tablet PO (09:35)
[2020-07-19] MEDS: Lisinopril 5 MG Tablet PO (09:36)
[2020-07-19] MEDS: Sertraline 50 MG Tablet PO (09:36)
--- NOTE | 2020-07-19 11:55 | CASEMGMT ---
RN CM SUPERVISOR WOOL SHEARING CM to room to meet with patient for initial transition planning/care coordination assessment. BENNIE NOE introduced self and role at [facility]. Pt voices understanding and consents to assessment at this time. Pt resting in bed in no distress at this time. Pt is A/O at this time and answers all questions appropriately. Care providers, pharmacy, and demographics verified/updated at this time. MOSQUERA form also reviewed/explained at this time re: Observation status for treatment of right renal mass. Explained hospitalization will be paid per insurance policy for Outpatient billing and condition will continue to be evaluated for Inpt necessity. Also let pt know that [facility] sends paper in the billing packet with their phone number if questions arise. Pt verbalizes understanding and denies having any questions. Form signed, copy made and placed in chart, and original given to pt. PCP: Dr Paris Specialists: Dr Ballard--urologist, Dr Doyle @ [facility]-cardiology Preferred Pharmacy: [facility] Retail Insurance: [employer] [facility] Prescription Benefit: Yes Living Will/HPOA: Has both LW and Healthcare POA, who is her , Brock LNOK: Brock Living Arrangements:Lives w/her in one-story home w/basement. One step to enter. Independent w/ADL's and IADL's. Transportation: Pt states drives self and states no transportation concerns at this time. will take her home @ d/c. DME: Has a CPAP. Pt states would like to get rails/grab bars installed. She was made aware these are not covered by insurance. She states she will talk with her to see if they get get these put in. HHC/SNF: No history of either. Denies needs for HHC and no needs identified. Pt also denies need for OP therapy. Pt wishes to return home and states has no concerns with going home at time of discharge. CM to follow for any discharge planning/needs. Pt voices no concerns/needs at this time. Advised pt to ask for CM if any questions/concerns/needs arise. Voices understanding. PLAN: Home w/spousal support and discharge plans in place. Ean CHASE RN, CM
--- NOTE | 2020-07-19 12:14 | PCM.PROGNOTE ---
Patient Problems: Active and Suspected Problems (Last Reviewed 07/18/20 @ 07:[address] Joseph Ballard MD) Right renal mass (Acute) Subjective: doing well sp partial nephrectomy - Physical Exam Vitals/I&O's: Vital Signs Temp Pulse Resp BP Pulse Ox 98.3 F 65 14 112/54 L 94 07/19/20 08:15 07/19/20 09:35 07/19/20 08:15 07/19/20 09:35 07/19/20 08:18 Oxygen Flow Rate (L/min) 2 Oxygen Delivery Method Nasal Cannula Weight: 83.3 kg Body Mass Index (BMI) 31.5 Intake and Output for Last 24 Hours 07/17/20 07/18/20 07/19/20 23:59 23:59 23:59 Intake Total 3483.76 / 3483.76 1250 / 1250 Output Total 335 / 585 700 / 700 Balance 3148.76 / 2898.76 550 / 550 General: Alert, Oriented x3, Cooperative HEENT: Atraumatic, PERRLA, EOMI, Normocephalic Neck: Supple, No JVD, Negative Carotid Bruits Lungs: Clear to auscultation, Normal air movement Cardiovascular: Regular rate, No murmurs Abdomen: Bowel Sounds Present, Soft, Non Tender Extremities: No edema, Capillary Refill Less than 3 Seconds Skin: No rashes, No breakdown Musculoskeletal: No Tenderness to Palpation of Joints or Extremities Neurological: Cranial nerves II-XII grossly intact Psych/Mental Status: Normal Affect, Appropriate Microbiology Past 72 Hours 07/16/20 14:00 Interface Orders SARS-CoV-2 Antigen (Rapid) - Final Laboratory Results 07/19/20 06:16: WBC 7.2, RBC 3.98 L, Hgb 11.6 L, Hct 36.1 L, MCV 90.7, MCH 29.1, MCHC 32.1, RDW Std Deviation 43.7, RDW Coeff of [place]rett 13.1, Plt Count 192, MPV 11.2 07/19/20 06:16: Sodium 141, Potassium 3.9, Chloride 110 H, Carbon Dioxide 26.0, Anion Gap 5, BUN 14, Creatinine 0.78, Estim Creat Clear Calc 40.68, Est GFR (MDRD) Af Amer 93, Est GFR (MDRD) Non-Af 77, BUN/Creatinine Ratio 18.1, Glucose 97, Calcium 7.9 L Current Medications Acetaminophen (Acetaminophen 500 Mg Tablet) 500 mg PO Q4H PRN PRN PRN Reason: Pain Score 1-10/10 /Headache Last Admin: 07/18/20 16:22 Dose: 500 mg Documented by: Albuterol Sulfate (Albuterol 2.5 Mg/3 Ml Vial.Neb.) 2.5 mg INHALATION Q4H PRN PRN Reason: SOB &/OR WHEEZING Last Admin: 07/18/20 20:12 Dose: 2.5 mg Documented by: Betamethasone Valerate (Betamethasone Valerate 0.1% Cream) 1 applic TOPICAL TID PRN PRN Reason: skin irritation Budesonide (Budesonide Respules 0.5 Mg/2 Ml Ampul.Neb.) 0.5 mg INHALATION Q12H.RT PRN PRN Reason: SOB &/OR WHEEZING Last Admin: 07/18/20 20:12 Dose: 0.5 mg Documented by: Docusate Sodium (Docusate Sodium 100 Mg Capsule) 100 mg PO BID [facility] Last Admin: 07/19/20 09:34 Dose: 100 mg Documented by: Fluticasone Propionate (Fluticasone 0.05% 1 [place] Nasal.Sry) 2 spray NASAL DAILY PRN PRN Reason: NASAL CONGESTION Sodium Chloride () 250 mls @ 15 mls/hr IV .[id number] PRN PRN Reason: Saline Flush Sodium Chloride () 250 mls @ 15 mls/hr IV .[id number] PRN PRN Reason: Additional IVPB Infusion Ketorolac Tromethamine (Ketorolac 15 Mg/Ml Vial) 15 mg IV Q6 [facility] Stop: 07/23/20 12:01 Last Admin: 07/19/20 06:01 Dose: 15 mg Documented by: Lisinopril (Lisinopril 5 Mg Tablet) 5 mg PO DAILY [facility] Last Admin: 07/19/20 09:36 Dose: 5 mg Documented by: Magnesium Hydroxide (Magnesium Hydroxide 30 Ml Udc) 15 ml PO DAILY [facility] Last Admin: 07/19/20 09:36 Dose: Not Given Documented by: Metoprolol Succinate (Metoprolol(Xl)Succ 50 Mg Tablet) 50 mg PO DAILY [facility] Last Admin: 01/28/21 09:35 Dose: 50 mg Documented by: Morphine Sulfate (Morphine 2 Mg/Ml Syringe) 2 mg IV Q2H PRN PRN PRN Reason: Pain Score 6-10 Last Admin: 07/18/20 21:09 Dose: 2 mg Documented by: Multivitamins/Minerals (Multivitamin (Healthy Eyes) Capsule) [facility] Last Admin: 07/19/20 09:34 Dose: 1 capsule Documented by: Non-Formulary Medication (Ipratropium [place]) 2 spray INTRANASAL Q6H PRN PRN Reason: NASAL CONGESTION Ondansetron HCl (Ondansetron 4 Mg/2 Ml Vial) 4 mg IV Q6H PRN PRN PRN Reason: Nausea Last Admin: 07/18/20 16:20 Dose: 4 mg Documented by: Pantoprazole Sodium (Pantoprazole Sodium 20 Mg Tablet) 20 mg PO DAILY [facility] Last Admin: 07/19/20 09:34 Dose: 20 mg Documented by: Senna/Docusate Sodium (Senna/Docusate Sodium 1 Tablet) 1 tablet PO BID PRN PRN Reason: Constipation Sertraline HCl (Sertraline 50 Mg Tablet) 50 mg PO DAILY [facility] Last Admin: 07/19/20 09:36 Dose: 50 mg Documented by: Sodium Chloride (0.9% Saline Lock 10 Ml Syringe) 10 - 40 ml IV UD PRN PRN Reason: SALINE FLUSH Medical Necessity - Tobacco Use Smoking Status: Never smoker Tobacco Use: Non-smoker Assessment/Plan All Active Problems (Last Reviewed 07/18/20 @ 07:[address] Joseph Ballard MD) Right renal mass (Acute) Dehydration (Resolved) Diarrhea (Resolved) Eosinophilia (Resolved) Gastroenteritis (Resolved) Hypoxemia (Resolved) discharge home tomorrow
[2020-07-19] MEDS: 0.9% Saline Lock 10 ML Syringe IV (18:45)
--- NOTE | 2020-07-19 18:56 | NURSING ---
reviewed and agree with all documentation by AARON Bird
[2020-07-20] MEDS: Ketorolac 15 MG/ML Vial IV ×3 (00:06→12:08)
[2020-07-20] MEDS: 0.9% Saline Lock 10 ML Syringe IV ×3 (00:07→12:08)
[2020-07-20 02:01] VITALS: BP 115/61; PULSE 72; RESP 16; TEMP 37.1; O2SAT 93
[2020-07-20 07:45] VITALS: BP 116/62; PULSE 73; RESP 18; TEMP 37.2; O2SAT 92; O2SAT 93
[2020-07-20] MEDS: Pantoprazole Sodium 20 MG Tablet PO (08:53)
[2020-07-20] MEDS: Lisinopril 5 MG Tablet PO (08:53)
[2020-07-20] MEDS: Sertraline 50 MG Tablet PO (08:53)
[2020-07-20] MEDS: Docusate Sodium 100 MG Capsule PO (08:54)
[2020-07-20 08:56] VITALS: BP 116/71; PULSE 71; RESP 16; TEMP 36.9; O2SAT 92
[2020-07-20 08:59] VITALS: BP 116/71; PULSE 71
[2020-07-20] MEDS: Multivitamin (Healthy Eyes) Capsule 1 CAP PO (08:59)
[2020-07-20] MEDS: Metoprolol(XL)Succ 50 MG Tablet PO (08:59)
[2020-07-20 13:10] VITALS: BP 116/67; PULSE 71; RESP 18; TEMP 36.9; O2SAT 93
== END 2020-07-20 13:11 | disposition home or self-care (01) ==
LOC: SDC 10:33 → MS3 07-19 09:20
PROVIDERS: Anesthesiology; Admitting Provider Urology; PCP Family Medicine; Referring Provider Urology; Visit Provider Urology
PROC: (CPT 50543; principal; 2020-07-18 07:10)
DX: C64.1 Malignant neoplasm of right kidney, except renal pelvis (principal); Z20.828 Contact with and (suspected) exposure to other viral communicable diseases; Z23 Encounter for immunization; I48.0 Paroxysmal atrial fibrillation; I10 Essential (primary) hypertension; J45.20 Mild intermittent asthma, uncomplicated; E66.9 Obesity, unspecified; G47.33 Obstructive sleep apnea (adult) (pediatric); M19.90 Unspecified osteoarthritis, unspecified site; F32.9 Major depressive disorder, single episode, unspecified; Z91.19 Patient's noncompliance with other medical treatment and regimen; Z79.899 Other long term (current) drug therapy; Z79.01 Long term (current) use of anticoagulants; Z68.31 Body mass index [BMI] 31.0-31.9, adult
CPT/HCPCS: 00862; 50543; S2900; 36415; 80048; 85027; 87426; 88305; 93005; 94640; 94762; 96361; 96374; 96375; 96376; 99218; C9803; G0008; J7120; 90686; A4216; G0378; G0379; J2405

== ENCOUNTER → 2020-12-04 11:27 | Outpatient (CLI) | payer MEDICARE, SELFPAY ==
[2020-08-14 14:14] VITALS: BMI 30.4
--- NOTE | 2020-12-04 11:41 | RAD_ITS ---
STUDY: X-RAY CHEST REASON FOR EXAM: Female, 75 years old. R KIDNEY CA,EXCEPT RENAL PELVIS TECHNIQUE: Frontal and lateral views of the chest. COMPARISON: 01/04/2019. FINDINGS: The lungs are hyperexpanded. There are coarsened interstitial markings suggestive of mild chronic fibrosis. No gross focal infiltrates. No gross effusions. Normal size heart. Normal mediastinum and soy. Normal visualized pulmonary arteries. Normal visualized aortic arch and descending thoracic aorta. There are diffuse degenerative changes of the visualized thoracic spine. Normal visualized ribs, clavicles, and shoulders. There is no demonstrated abnormality of the visualized soft tissue structures of the upper abdomen. RAD/Chest PA and Lateral IMPRESSION: There are findings consistent with COPD. There is no evidence of acute chest disease. Electronically Signed: Won Lu MD at 17:07 EDT , Service support ,
[2020-12-04 12:30] LABS: Hematocrit 46.8 % (37-47); Hemoglobin 15.2 g/dL (12.0-15.0); Mean Corp Hgb Conc 32.5 g/dL (32-36); Mean Corpuscular Volume 89.3 fL (81-99); Mean Platelet Vol. 11.5 fl (6.2-12.0); Platelet Count 266 K/mm3 (150-450); RBC Distribution Width CV 13.2 % (11.6-14.6); RBC Distribution Width SD 42.5 fl (35.1-43.9); Red Blood Count 5.24 M/mm3 (4.2-5.4)
[2020-12-04 13:27] LABS: Anion Gap 5 (5-15); BUN 17 mg/dL (7-18); BUN/Creat Ratio 18.6 RATIO (10-20); Calcium,Total 8.9 mg/dL (8.5-10.1); Chloride 107 mmol/L (98-107); Creatinine, Serum 0.91 mg/dL (0.55-1.02); EST Glomerular Filtration Rate 63 mL/min (>60); Est Glom Filt Rate - Afr Amer 77 mL/min (>60); Glucose 95 mg/dL (74-106); Potassium 4.1 mmol/L (3.5-5.1); Sodium Level 140 mmol/L (136-145)
== END ==
LOC: CT 11:30 → RAD 11:33
PROVIDERS: PCP Family Medicine; Referring Provider Urology; Visit Provider Urology
DX: C64.1 Malignant neoplasm of right kidney, except renal pelvis (principal)
CPT/HCPCS: 36415; 71046; 80048; 85027

== ENCOUNTER → 2021-04-11 | Outpatient (CLI) | payer MEDICARE, SELFPAY | END | disposition home or self-care (01) | PROVIDERS: PCP Family Medicine; Referring Provider Family Medicine; Visit Provider Family Medicine | DX: Z20.822 Contact with and (suspected) exposure to COVID-19 (principal) | CPT/HCPCS: 87635; U0005; U0003 ==

== ENCOUNTER → 2021-05-20 13:07 | Outpatient (CLI) | payer MEDICARE, SELFPAY ==
--- NOTE | 2021-05-20 13:09 | CT_ITS ---
EXAM: CT ABDOMEN AND PELVIS WITH INTRAVENOUS CONTRAST : 1945 CLINICAL INDICATION: RT KIDNEY CA TECHNIQUE: Helically acquired images were obtained of the abdomen and pelvis with intravenous contrast. This CT exam was performed using one or more of the following dose reduction techniques: automated exposure control, adjustment of the mA and/or kV according to patient size, and/or use of iterative reconstruction technique. This report was created using Vool[employer] report generation technology. CONTRAST: IV 75mL Isovue-300 COMPARISON: None. FINDINGS: LOWER THORAX: There is minimal scarring in the lung bases. No cardiomegaly. No significant pericardial effusion. ABDOMEN: LIVER: Unremarkable. Homogeneous. No focal mass. GALLBLADDER AND BILE DUCTS: There are surgical clips from a cholecystectomy. No intra- or extrahepatic biliary ductal dilation. PANCREAS: Unremarkable. No focal cystic or solid mass. SPLEEN: Unremarkable. Normal size without focal cystic or solid mass. ADRENALS: Unremarkable. No nodules. KIDNEYS AND URETERS: Unremarkable. Normal renal size and position. No hydronephrosis. STOMACH AND BOWEL: Unremarkable. No stomach or bowel distention. No focal inflammatory change. PELVIS: APPENDIX: No evidence of acute appendicitis. BLADDER: Unremarkable. REPRODUCTIVE: Unremarkable as visualized. No mass. ABDOMEN and PELVIS: INTRAPERITONEAL SPACE: Unremarkable. No ascites or other fluid collection. No free air. BONES/JOINTS: Unremarkable. No suspicious lytic or blastic abnormality. SOFT TISSUES: Unremarkable. No discrete abdominal or pelvic wall hernia. VASCULATURE: Unremarkable. Abdominal aorta is non-dilated. LYMPH NODES: Unremarkable. No enlarged lymph nodes. CT/Abdomen/Pelvis WITH Contrast IMPRESSION: No acute findings in the abdomen or pelvis. Individualized dose optimization techniques were used for this CT. at 1727 Reported and signed by: Sukumar Wilhelm MD Electronically Signed: Sukumar Wilhelm MD at 17:26 EST Tel , Service support ,
[2021-05-20 13:20] LABS: CREATININE FINGERSTICK 0.9 mg/dL (0.55-1.02); EGFR FINGERSTICK > 60.0000 mL/min (>60)
== END ==
PROVIDERS: PCP Family Medicine; Referring Provider Urology; Visit Provider Urology
DX: C64.1 Malignant neoplasm of right kidney, except renal pelvis (principal)
CPT/HCPCS: 74177; Q9967; A4216

== ENCOUNTER 2021-09-23 15:07 | Outpatient (CLI) | payer MEDICARE, SELFPAY | END 2021-09-23 23:59 | disposition home or self-care (01) | LOC: MFPLAB 15:07 | PROVIDERS: PCP Family Medicine; Visit Provider Family Medicine | DX: Z00.00 Encounter for general adult medical examination without abnormal findings (principal) ==

== ENCOUNTER → 2021-12-17 | Outpatient (CLI) | payer MEDICARE, SELFPAY ==
--- NOTE | 2021-12-17 10:13 | RAD_ITS ---
STUDY: X-RAY CHEST REASON FOR EXAM: Female, 76 years old. Personal history of other malignant neoplasm of kidney TECHNIQUE: PA and lateral views of the chest. COMPARISON: 12/04/2020 FINDINGS: 1 cm nodular opacity projected over the lower right lung worrisome for pulmonary nodule correlation with CT of the chest with contrast is recommended. There is no demonstrated pleural abnormality. Normal size heart. Normal mediastinum and soy. Normal visualized pulmonary arteries. Normal visualized aortic arch and descending thoracic aorta. Normal visualized thoracic spine. Normal visualized ribs, clavicles, and shoulders. There is no demonstrated abnormality of the visualized soft tissue structures of the upper abdomen. RAD/Chest PA and Lateral IMPRESSION: Possible right lower lobe pulmonary nodule and correlation with CT of the chest with contrast is recommended. Electronically Signed: Ryan Parkinson MD at 17:02 EDT ,
== END | disposition home or self-care (01) ==
LOC: RAD 10:11
PROVIDERS: PCP Family Medicine; Referring Provider Urology; Visit Provider Urology
DX: Z85.528 Personal history of other malignant neoplasm of kidney (principal)
CPT/HCPCS: 71046

== ENCOUNTER → 2022-01-02 | Outpatient (CLI) | payer MEDICARE, SELFPAY ==
--- NOTE | 2022-01-02 14:32 | CT_ITS ---
INDICATION: LUNG NODULE FOUND ON XRAY EXAMINATION: CT CHEST WITH CONTRAST - CT Chest W/ Contrast Injection TECHNIQUE: Helically acquired images were obtained of the chest following IV contrast. A radiation dose optimization technique was used for this scan. IV Contrast dosage and agent: 75 cc ISOVUE-300 COMPARISON: None. FINDINGS: LUNGS, PLEURA AND LARGE AIRWAYS: No masses, consolidation, or edema. No pleural effusion or thickening. No pneumothorax. Subtle scarring in both lung bases. THYROID: Heterogeneous thyroid nodule in the right lobe measuring 1.8 x 1.3 cm HEART AND PERICARDIUM: Heart size is normal. No pericardial effusion. VESSELS: Thoracic aorta is not dilated. No aortic dissection. No obvious central pulmonary embolism although this study was not performed with the pulmonary embolism protocol. MEDIASTINUM AND CORIE: No mediastinal or hilar adenopathy. Esophagus is unremarkable. No hiatal hernia. UPPER ABDOMEN: No acute pathology. BONES: No suspicious lytic or blastic abnormality. CT/Chest WITH Contrast IMPRESSION: No suspicious masses or nodules. Lungs are adequately inflated and clear. Subtle scarring in both lung bases. Electronically Signed: Mu Adair DO at 5:33 EDT ,
[2022-01-02 15:11] LABS: CREATININE FINGERSTICK < 0.9 mg/dL (0.55-1.02); EGFR FINGERSTICK > 60.0000 mL/min (>60)
== END | disposition home or self-care (01) ==
PROVIDERS: PCP Family Medicine; Referring Provider Urology; Visit Provider Urology
DX: Z01.812 Encounter for preprocedural laboratory examination (principal); R91.8 Other nonspecific abnormal finding of lung field
CPT/HCPCS: 71260; Q9967

== ENCOUNTER → 2022-04-30 | Outpatient (CLI) | payer MEDICARE, SELFPAY ==
--- NOTE | 2022-04-30 08:04 | NM_ITS ---
CLINICAL: 77-year-old female with history of thyroid nodularity. I-123 THYROID UPTAKE and SCAN COMPARISON: None available FINDINGS: The patient was administered a 323 uCi I-123 capsule by mouth. The 4-hour I-123 radioactive iodine thyroidal uptake was calculated to be 9.5 % (normal 5 to 25 %). The 24-hour I-123 radioactive iodine thyroidal uptake was calculated to be 32.8 % (normal 5 to 40 %). The I-123 thyroid scan demonstrates homogeneous radiopharmaceutical concentration throughout right lobe of a vaguely U-shaped thyroid gland. Diffuse hypofunction is defined throughout the left lobe thyroid parenchyma relative to the right. NM/Thyroid Image Quant Measure IMPRESSION: 1. NORMAL 4- and 24-hour I-123 radioactive iodine thyroidal uptakes. 2. The I-123 thyroid scan is consistent with hypofunction throughout the left lobe thyroid colloid which may be secondary to localized thyroiditis, diffuse parenchymal infiltration. Correlation with thyroid ultrasound is recommended. Electronically Signed: Ryan Willett, at 21:00 EST ,
== END | disposition home or self-care (01) ==
LOC: NM 08:02
PROVIDERS: PCP Family Medicine; Referring Provider Family Medicine; Visit Provider Family Medicine
DX: E04.1 Nontoxic single thyroid nodule (principal)
CPT/HCPCS: 78014; A9516

== ENCOUNTER → 2022-05-09 | Outpatient (CLI) | payer MEDICARE, SELFPAY ==
--- NOTE | 2022-05-09 15:17 | US_ITS ---
STUDY: THYROID ULTRASOUND REASON FOR EXAM: Female, 77 years old. Thyroid nodule. TECHNIQUE: Ultrasound evaluation of the thyroid was performed with real-time and static yin-scale imaging. COMPARISON: Nuclear medicine thyroid scan, April 30, 2022. CT of the chest, January 02, 2022 FINDINGS: RIGHT LOBE: The right lobe of the thyroid gland measures 4.9 x 2.4 x 2.6 cm. There is a heterogeneous echotexture. In the lower pole there is a solid iso to mildly hyperechoic nodule measuring 2.7 x 1.7 x 1.5 cm. This contains internal cystic changes. This is wider than it is tall and poorly marginated. Posterior to this nodule is a 1.6 x 1.3 x 1.5 cm heterogenous isoechoic nodule which is relatively round in shape and slightly taller than it is wide. This is poorly marginated. LEFT LOBE: The left lobe of the thyroid gland measures 3.9 x 1.3 x 1.7 cm. There is a heterogeneous echotexture. In the upper pole there is a 0.5 x 0.4 x 0.5 cm isoechoic nodule. This is wider than it is tall and demonstrates a hyperechoic rim. In the lower pole there is a 0.3 x 0.2 x 0.2 cm cyst. ISTHMUS: The isthmus measures 0.5 cm. In the left isthmus there is a 0.4 x 0.6 x 0.3 cm minimally hypoechoic nodule. This is wider than is tall and smoothly marginated The regional lymph nodes are normal. US/Thyroid IMPRESSION: 1. Small cyst or small nodule in the left thyroid. This does not account for the difference in function seen on the nuclear medicine study. Neither require follow-up due to their small size. 2. Large nodule in the right thyroid this is considered mildly suspicious, TR 3, by TI-RADS categorization FNA is recommended. 3. A second right nodule posterior to the larger nodule. This is moderately suspicious, TR 4. FNA is also recommended. Electronically Signed: Leon Trevino DO at 21:49 EST ,
== END | disposition home or self-care (01) ==
LOC: US 15:16
PROVIDERS: PCP Family Medicine; Referring Provider Family Medicine; Visit Provider Family Medicine
DX: E04.1 Nontoxic single thyroid nodule (principal)
CPT/HCPCS: 76536

== ENCOUNTER → 2022-06-04 | Outpatient (CLI) | payer MEDICARE, SELFPAY ==
[2022-06-04 14:11] LABS: Free T3 2.7 pg/mL (2.18-3.98); T4 Total, Thyroxin 10.4 ug/dL (4.8-13.9); Thyroid Stim Hormone (TSH) 1.26 uIU/mL (0.358-3.74)
== END | disposition home or self-care (01) ==
LOC: PAVLAB 13:33
PROVIDERS: PCP Family Medicine; Referring Provider Surgery; Visit Provider Surgery
DX: E04.1 Nontoxic single thyroid nodule (principal)
CPT/HCPCS: 36415; 84436; 84443; 84481

== ENCOUNTER → 2022-10-21 | Outpatient (CLI) | payer MEDICARE, SELFPAY ==
[2022-10-21 11:04] LABS: Anion Gap 4 (5-15); BUN 15 mg/dL (7-18); Chloride 110 mmol/L (98-107); Cholesterol 183 mg/dL (200); Creatinine, Serum 0.79 mg/dL (0.55-1.02); EST Glomerular Filtration Rate 75 mL/min (>60); Est Glom Filt Rate - Afr Amer 90 mL/min (>60); Glucose 101 mg/dL (74-106); High Density Lipoprotein 33 mg/dL; Potassium 3.8 mmol/L (3.5-5.1); Sodium Level 142 mmol/L (136-145); Triglycerides 185 mg/dL; Very Low Density Lipoprotein 37 mg/dL (5-40)
== END | disposition home or self-care (01) ==
LOC: MFPLAB 09:02
PROVIDERS: PCP Family Medicine; Visit Provider Family Medicine
DX: I10 Essential (primary) hypertension (principal)
CPT/HCPCS: 36415; 80048; 80061

== ENCOUNTER 2023-06-13 16:30 | Emergency (ER) | payer MEDICARE, SELFPAY ==
[2023-06-13 16:31] VITALS: BP 143/73; PULSE 95; RESP 17; TEMP 36.7; O2SAT 95; BMI 29.8
--- NOTE | 2023-06-13 16:41 | EX.ED.DYSGE1 ---
HPI <THALIA Urena - Last Filed: 06/13/23 17:31> History of Present Illness Chief Complaint: Cold Sx Narrative Narrative: 78-year-old female with PMH of HTN, A-fib, asthma presents with 1 week of productive cough and wheezing. Last night she had a subjective fever. She states yesterday she went to urgent care was prescribed a Z-Jose and Medrol Dosepak. She is taken 2 doses but does not feel better so presents for evaluation. She denies chest pain. No GI symptoms. She does not smoke but states she has asthma from her parents smoking when she was a child. PFSH <THALIA Urena - Last Filed: 06/13/23 17:31> [facility] Medical History Arthritis Asthma Asthma with acute exacerbation in adult Bronchitis Chronic cough Chronic neck and back pain COVID-19 Diarrhea Eosinophilia Essential hypertension Gastroenteritis Hay fever Hypokalemia Hypoxemia Noncompliance with CPAP treatment Obesity Obstructive sleep apnea Paroxysmal atrial fibrillation Renal lesion Right renal mass Right shoulder strain Seasonal allergies Shortness of breath Shoulder pain Strain of right rotator cuff capsule Wheezing Home Medications sertraline 50 mg tablet 50 mg PO DAILY 10/09/16 [History Last Taken Unknown] cyclobenzaprine 5 mg tablet 5 mg PO TID PRN muscle spasm #30 tabs 07/10/21 [Rx Last Taken Unknown] famotidine 10 mg tablet (Acid Orthophotography Technician (famotidine)) 10 mg PO DAILY 07/10/21 [History Last Taken Unknown] methylprednisolone 4 mg tablets in a dose pack (Medrol (Jose)) 4 mg PO DAILY #21 tabs 07/10/21 [Rx Last Taken Unknown] dexamethasone 6 mg tablet 6 mg PO DAILY #5 tabs 04/14/22 [Rx Last Taken Unknown] lisinopril 5 mg tablet 5 mg PO DAILY #90 tabs 07/01/22 [Rx Last Taken Unknown] apixaban 5 mg tablet (Eliquis) See Rx Instructions .Route .COMPLEX #60 tabs 12/15/22 [Rx Last Taken Unknown] metoprolol succinate 50 mg tablet,extended release 24 hr 50 mg PO DAILY #90 tabs 12/29/22 [Rx Last Taken Unknown] azithromycin 250 mg tablet See Rx Instructions PO .COMPLEX #6 tabs 06/12/23 [Rx Last Taken Unknown] methylprednisolone 4 mg tablets in a dose pack (Medrol (Jose)) 4 mg PO PER PKG DIR 6 days #21 tabs 06/12/23 [Rx Last Taken Unknown] albuterol sulfate 90 mcg/actuation aerosol inhaler (Ventolin HFA) 1 - 2 puff inhalation Q4H PRN PRN Wheezing 30 days #6.7 grams 06/13/23 [Rx Last Taken Unknown] Allergy/AdvReac Type Severity Reaction Status Date / Time dog dander Allergy Unknown Verified 06/13/23 16:33 strawberry Allergy Food Verified 06/13/23 16:33 Allergy tree and shrub pollen Allergy Unknown Verified 06/13/23 16:33 Family History Father Heart disease Sister CAD (coronary artery disease) stent Surgical History H/O section History of cholecystectomy (05/2019) History of hysterectomy Social History Smoking Status: Never smoker second hand exposure: No alcohol intake: current alcohol intake frequency: holidays/special occasions only substance use type: does not use caffeine: Yes Type: coffee Number of servings: 1 what type of physical activity do you participate in: none ROS <THALIA Urena - Last Filed: 06/13/23 17:31> ROS ED ROS Narrative Constitutional: Positive for fever, malaise. CVS: Negative for palpitations, chest pain, syncope. Respiratory: Positive for cough. GI: Negative for abdominal pain, nausea, vomiting. EXAM <THALIA Urena - Last Filed: 06/13/23 17:31> Physical Exam Narrative Exam Narrative: CONST: Patient sitting in no acute distress. EYES: Normal inspection. NECK: Normal inspection. RESP: No respiratory distress, CTAB. CVS: Regular rate and rhythm, no murmur, no gallop. SKIN: Color normal, no rash, warm, dry, intact. EXTREMITIES: Normal appearance, no pedal edema. NEURO: Oriented x4. PSYCH: Normal affect. Const Vital Signs: 06/13/23 16:31 06/13/23 16:48 Temperature 98.1 F Temperature Source Temporal Pulse Rate 95 Respiratory Rate 17 Respiratory Effort Short of Breath Respiratory Pattern Normal Blood Pressure 143/73 H Blood Pressure Mean 96 Pulse Ox 95 Oxygen Delivery Method Room Air <Dr. Tc Chanel MD - Last Filed: 06/13/23 17:06> Physical Exam Const Vital Signs: 06/13/23 16:31 06/13/23 16:48 Temperature 98.1 F Temperature Source Temporal Pulse Rate 95 Respiratory Rate 17 Respiratory Effort Short of Breath Respiratory Pattern Normal Blood Pressure 143/73 H Blood Pressure Mean 96 Pulse Ox 95 Oxygen Delivery Method Room Air MDM <THALIA Urena - Last Filed: 06/13/23 17:31> [facility] Narrative Medical decision making narrative: Patient reports 1 week of cough and wheezing. She has a history of asthma. She has taken 2 doses of azithromycin and a Medrol Dosepak but does not feel improved. She appears well and nontoxic. Afebrile with normal vital signs. She is speaking in full sentences in no distress and has clear lung sounds. Heart is regular rate and rhythm with no murmurs. Differential includes viral URI versus pneumonia. CXR shows no acute process and COVID/flu is negative. I recommended she continue the treatment plan of Z-Jose and Medrol Dosepak and I refilled her albuterol inhaler. Return precautions were discussed and she was discharged in stable condition. I have personally performed a face to face assessment of the patient and have reviewed the LIU Note. I performed a substantive portion of the visit including all aspects of the following. My anderson findings include: History is 78-year-old female URI symptoms since Thursday. Cough and wheezing. Treated in urgent care no testing done. Started on a Zithromax Z-JOSE she is on day 2 of that and a Medrol Dosepak. Denies vomiting or diarrhea. Exam is [well-appearing 78-year-old. Vital signs stable afebrile. HEENT exam unremarkable. Neck nontender no JVD. No distress. Lungs clear to auscultation bilaterally. Heart regular rhythm no murmur. Rate about 90. Chest wall and ribs nontender. Abdomen soft nontender. Moving all 4 extremities. Calves are nontender without edema. Neurologically she is awake and alert no focal motor deficits.] Medical Decision Making [patient most likely has a viral URI. Chest x-ray 2 views AP and lateral interpreted ourselves showed no pneumonia. Viral studies are pending. Will keep her on the Medrol Dosepak. She can finish the antibiotic.] Other additions or changes: [None] Lab Data Attestation: I reviewed the patient's lab results. Radiography Diagnostic Testing: Clinical Impression(s) from Imaging Studies Chest X-Ray 06/13/23 16:50 IMPRESSION: Emphysema without pneumonia or atelectasis. Electronically Signed: Ryan Parkinson MD at 17:27 EST , <Dr. Tc Chanel MD - Last Filed: 06/13/23 17:06> [facility] Narrative Medical decision making narrative: Patient reports 1 week of cough and wheezing. She has a history of asthma. She has taken 2 doses of azithromycin and a Medrol Dosepak but does not feel improved. She appears well and nontoxic. Afebrile with normal vital signs. She is speaking in full sentences in no distress and has clear lung sounds. Heart is regular rate and rhythm with no murmurs. Differential includes viral URI versus pneumonia. I have personally performed a face to face assessment of the patient and have reviewed the LIU Note. I performed a substantive portion of the visit including all aspects of the following. My anderson findings include: History is 78-year-old female URI symptoms since Thursday. Cough and wheezing. Treated in urgent care no testing done. Started on a Zithromax Z-JOSE she is on day 2 of that and a Medrol Dosepak. Denies vomiting or diarrhea. Exam is [well-appearing 78-year-old. Vital signs stable afebrile. HEENT exam unremarkable. Neck nontender no JVD. No distress. Lungs clear to auscultation bilaterally. Heart regular rhythm no murmur. Rate about 90. Chest wall and ribs nontender. Abdomen soft nontender. Moving all 4 extremities. Calves are nontender without edema. Neurologically she is awake and alert no focal motor deficits.] Medical Decision Making [patient most likely has a viral URI. Chest x-ray 2 views AP and lateral interpreted ourselves showed no pneumonia. Viral studies are pending. Will keep her on the Medrol Dosepak. She can finish the antibiotic.] Other additions or changes: [None] History & Record Review Discussion w/independent historian: Patient Additional record(s) reviewed:: Prior inpatient record, Prior outpatient record, Prior ED visit and Prior labs Radiography Chest X-Ray - ED: 2 View, Heart, Lungs, Mediastinum, Bony Structures, No Acute Disease and Chronic Changes Diagnostic Testing: Clinical Impression(s) from Imaging Studies Chest X-Ray 06/13/23 16:50 IMPRESSION: Emphysema without pneumonia or atelectasis. Electronically Signed: Ryan Parkinson MD at 17:27 EST , Chest x-ray, 2 views, AP and lateral shows no acute abnormality. No pneumonia. No effusion. Normal cardiac silhouette. Interpreted by myself. Discharge Plan Triage Chief Complaint: Cold Sx ED Midlevel Provider: Dinora Moura ED Provider: Tc Chanel Dx/Rx/DC Orders Clinical Impression: History of asthma, Viral upper respiratory tract infection Instructions: ED Bronchitis with Wheezing (Adult) Prescriptions: New albuterol sulfate [Ventolin HFA] 90 mcg/actuation HFA aerosol inhaler 1 - 2 puff inhalation Q4H PRN PRN (Reason: Wheezing) 30 Days Qty: 6.7 0RF No Action famotidine [Acid Orthophotography Technician (famotidine)] 10 mg tablet 10 mg PO DAILY methylprednisolone [Medrol (Jose)] 4 mg tablets,dose pack 4 mg PO DAILY Qty: 21 0RF Rx Instructions: per package instructions cyclobenzaprine 5 mg tablet 5 mg PO TID PRN (Reason: muscle spasm) Qty: 30 0RF dexamethasone 6 mg tablet 6 mg PO DAILY Qty: 5 0RF azithromycin 250 mg tablet See Rx Instructions PO .COMPLEX Qty: 6 0RF Rx Instructions: take 500 mg today (day 1), then 250 mg for 4 days (days 2-5) PO methylprednisolone [Medrol (Jose)] 4 mg tablets,dose pack 4 mg PO PER PKG DIR 6 Days Qty: 21 0RF sertraline 50 MG tablet 50 mg PO DAILY lisinopril 5 mg tablet 5 mg PO DAILY Qty: 90 3RF Rx Instructions: Take 1 tablet by mouth once daily Eliquis 5 mg tablet See Rx Instructions .ROUTE .COMPLEX Qty: 60 12RF Dose Instruction: Take 1 tablet by mouth twice daily Rx Instructions: Take 1 tablet by mouth twice daily metoprolol succinate 50 mg tablet extended release 24 hr 50 mg PO DAILY Qty: 90 3RF Primary Care Provider: Nabila Paris Referrals: Nabila Paris MD [Primary Care Provider] - Activity Restrictions/Additional Instructions: Continue the azithromycin and Medrol Dosepak prescribed by urgent care. I refilled your albuterol inhaler. If you become significantly more short of breath return to the ER. Disposition Disposition: Home, Self Care
--- NOTE | 2023-06-13 16:50 | RAD_ITS ---
STUDY: X-RAY CHEST REASON FOR EXAM: Female, 78 years old. cough TECHNIQUE: PA and lateral views of the chest. COMPARISON: 12/17/2021 FINDINGS: There is hyperinflation of the lungs consistent with chronic obstructive lung disease (COPD). There is no demonstrated pleural abnormality. Normal size heart. Normal mediastinum and soy. Normal visualized pulmonary arteries. Normal visualized aortic arch and descending thoracic aorta. Normal visualized thoracic spine. Normal visualized ribs, clavicles, and shoulders. There is no demonstrated abnormality of the visualized soft tissue structures of the upper abdomen. RAD/Chest PA and Lateral IMPRESSION: Emphysema without pneumonia or atelectasis. Electronically Signed: Ryan Parkinson MD at 17:27 EST ,
== END 2023-06-13 17:32 | disposition home or self-care (01) ==
PROVIDERS: Emergency Provider Emergency Medicine; PCP Family Medicine; Visit Provider Emergency Medicine
DX: J06.9 Acute upper respiratory infection, unspecified (principal); I48.0 Paroxysmal atrial fibrillation; Z11.52 Encounter for screening for COVID-19; I10 Essential (primary) hypertension; J45.909 Unspecified asthma, uncomplicated; Z79.01 Long term (current) use of anticoagulants; Z79.899 Other long term (current) drug therapy
CPT/HCPCS: 71046; 87428; 99282

== ENCOUNTER 2024-04-07 02:27 | Emergency (ER) | payer MEDICARE, SELFPAY ==
[2024-04-07 02:28] VITALS: BP 163/80; PULSE 63; RESP 18; TEMP 36.2; O2SAT 96; BMI 31.4
[2024-04-07] MEDS: diazePAM 5 MG Tablet 2.5 MG PO (03:00)
[2024-04-07] MEDS: Gabapentin 300 MG Capsule PO (03:01)
[2024-04-07] MEDS: HYDROcodone Bitartrate/Apap 5/325 Tablet PO (03:01)
--- NOTE | 2024-04-07 03:15 | RAD_ITS ---
EXAM: XR LEFT HIP WITH PELVIS WHEN PERFORMED, 2 OR 3 VIEWS CLINICAL INDICATION: pain TECHNIQUE: Two or three views of the left hip with pelvis when performed. COMPARISON: No relevant prior studies available. FINDINGS: BONES/JOINTS: Diffuse demineralization of the osseous structures. No displaced fracture. No destructive or sclerotic lesions. Note that overlapping bowel shadows may however obscure fine detail. Sacroiliac joint is unremarkable. No widening of the pubic symphysis. The articular structures are unremarkable. SOFT TISSUES: Unremarkable. No soft tissue swelling or gas. RAD/HIP, UNI W/ Pelvis 2-3 Views IMPRESSION: No evidence of displaced pelvic or hip fracture. Follow up with additional imaging if clinically indicated. Electronically Signed: Scotty Gomez MD at 4:08 EDT ,
--- NOTE | 2024-04-07 04:07 | EX.ED.DYSGE1 ---
HPI History of Present Illness Chief Complaint: Back Informant: patient and spouse/S.O. Narrative Narrative: Patient is a 79-year-old female with past medical history of hypertension paroxysmal atrial fibrillation currently on Eliquis as well as asthma. She states that she recently saw her family doctor secondary to pain in her right low back/hip and received a cortisone injection. She states that she is a 9-year-old grandson and has been going to his baseball games and climbing up and down the bleachers. She denies any direct trauma or fall but states that she now has noticed pain in the left buttock/hip region that radiates down her left leg. She states she cannot sleep this evening so she comes in for evaluation. She denies any loss of bowel or bladder control or IV drug use. [facility] Medical History COVID-19 Strain of right rotator cuff capsule Right shoulder strain Chronic neck and back pain Shoulder pain Right renal mass Renal lesion Paroxysmal atrial fibrillation Essential hypertension Gastroenteritis Diarrhea Hay fever Arthritis Asthma Shortness of breath Chronic cough Bronchitis Wheezing Eosinophilia Obesity Hypokalemia Asthma with acute exacerbation in adult Hypoxemia Noncompliance with CPAP treatment Obstructive sleep apnea Seasonal allergies Home Medications ?Medication ?Instructions ?Recorded ?Last Taken ?Type sertraline 50 mg tablet 50 mg PO DAILY 10/09/16 Unknown History cyclobenzaprine 5 mg tablet 5 mg PO TID PRN muscle spasm #30 07/10/21 Unknown Rx tabs famotidine 10 mg tablet (Acid 10 mg PO DAILY 07/10/21 Unknown History Accounts Payable Technician (famotidine)) methylprednisolone 4 mg tablets in 4 mg PO DAILY #21 tabs 07/10/21 Unknown Rx a dose pack (Medrol (Jose)) dexamethasone 6 mg tablet 6 mg PO DAILY #5 tabs 04/14/22 Unknown Rx azithromycin 250 mg tablet See Rx Instructions PO .COMPLEX #6 06/12/23 Unknown Rx tabs albuterol sulfate 90 mcg/actuation 1 - 2 puff inhalation Q4H PRN PRN 06/13/23 Unknown Rx aerosol inhaler (Ventolin HFA) Wheezing 30 days #6.7 grams lisinopril 5 mg tablet 5 mg PO DAILY #90 tabs 06/26/23 Unknown Rx metoprolol succinate 50 mg 50 mg PO DAILY #90 tabs 12/21/23 Unknown Rx tablet,extended release 24 hr apixaban 5 mg tablet (Eliquis) 5 mg PO BID #60 tabs 03/11/24 Unknown Rx diazepam 2 mg tablet (Valium) 2 mg PO TID PRN muscle spasm/pain 04/07/24 Unknown Rx 5 days #15 tabs gabapentin 300 mg capsule 300 mg PO TID 14 days #42 caps 04/07/24 Unknown Rx hydrocodone-acetaminophen 5-325mg 1 tab PO Q6H PRN pain 5 days #20 04/07/24 Unknown Rx 5mg-325mg tabs Allergy/AdvReac Type Severity Reaction Status Date / Time dog dander Allergy Unknown Verified 06/13/23 16:33 strawberry Allergy Food Verified 06/13/23 16:33 Allergy tree and shrub pollen Allergy Unknown Verified 06/13/23 16:33 Family History Father Heart disease Sister CAD (coronary artery disease) stent Surgical History H/O section History of cholecystectomy (05/2019) History of hysterectomy Social History Smoking Status: Never smoker second hand exposure: No alcohol intake: current alcohol intake frequency: holidays/special occasions only substance use type: does not use caffeine: Yes Type: coffee Number of servings: 1 what type of physical activity do you participate in: none ROS ROS ED Constitutional Constitutional ED: Denies chills or fever(s) ENT ENT ED: Denies sore throat Cardiovascular Cardiovascular: Denies chest pain Respiratory/Chest Respiratory/Chest: Denies cough or dyspnea Gastrointestinal Gastrointestinal: Denies abdominal pain, diarrhea, nausea or vomiting Genitourinary Genitourinary ED: Denies dysuria Musculoskeletal Musculoskeletal: Reports back pain and other Details: Positive left hip/buttock pain Integumentary Denies Abrasions or rash Neurologic Neurologic: Denies headache(s) or paresthesias Hematologic/Lymphatic Hematologic/Lymphatic: Reports easy bleeding and easy bruising EXAM Physical Exam Const Vital Signs: 04/07/24 02:28 04/07/24 04:24 Temperature 97.2 F L 97.2 F L Temperature Source Oral Pulse Rate 63 65 Respiratory Rate 18 18 Blood Pressure 163/80 H 143/75 H Blood Pressure Mean 107 97 Pulse Ox 96 96 Oxygen Delivery Method Room Air Positive well nourished and well developed General Appearance ED: well developed; Negative for pallor HEENT HEENT Narrative: Normocephalic atraumatic Eyes PERRL and EOMs intact bilaterally Neck supple Resp normal respiratory effort and clear to auscultation bilaterally Cardio regular rate and regular rhythm Back/Spine Back/Spine Narrative: No bony deformity or step-off of the thoracic or lumbar spine no midline tenderness to palpation No saddle anesthesia. Negative straight leg raise. No clonus or Babinski. Patellar reflexes are plus 1 out of 4 bilaterally. Extremity Extremity Narrative: Pelvis is stable there is no shortening or external rotation of either lower extremity There is pain with palpation along the left piriformis muscle belly that worsens with hip flexion. There is a positive Daniel sign noted. No overlying soft tissue changes to suggest trauma or infection. Compartments are soft and compressible going against compartment syndrome. Neuro oriented x3, CN's II-XII intact bilaterally and no sensory deficits noted Sensorium / Orientation: alert Psych mental status grossly normal Skin no rashes or lesions noted and no wounds General Skin Exam: Negative for jaundice or pallor MDM MDM MDM Narrative Medical decision making narrative: Patient arrived to ER hypertensive but has a past medical history of this. She denied any recent trauma but there has been excessive activity with her walking up and down bleachers. Also she reported that she was having right hip/leg pain previously which could lead to a compensation injury on left. She denied any loss of bowel or bladder control or IV drug use going against cauda equina or epidural abscess. There is no recent surgical procedure to suggest discitis. She has no overlying erythema or warmth to suggest cellulitis or abscess. She has not had a fever or sick symptoms going against concern for a septic joint. The patient's exam is most consistent piriformis syndrome as there is tenderness to palpation over this muscle belly with positive Daniel sign. An x-ray was obtained to rule out avulsion fracture or spontaneous/pathologic fracture or avascular necrosis. This revealed no acute findings. After receiving [place] gabapentin and Valium she had improvement of her pain and was able to walk better. Therefore at this time as symptoms can be more musculoskeletal in nature and not infectious or neurologic I do not feel there is need for further workup and she is otherwise safe for discharge History & Record Review Discussion w/independent historian: Patient and Significant other Radiography Diagnostic Testing: Clinical Impression(s) from Imaging Studies Hip/Pelvis X-Ray 04/07/24 03:15 IMPRESSION: No evidence of displaced pelvic or hip fracture. Follow up with additional imaging if clinically indicated. Electronically Signed: Scotty Gomez MD at 4:08 EDT , Left hip x-ray with 1 view pelvis as interpreted by the emergency medicine physician reveals arthritic changes without acute fracture or dislocation or joint effusion Discharge Plan Triage Chief Complaint: Back ED Provider: Demetrius Cam Dx/Rx/DC Orders Clinical Impression: Piriformis syndrome, Essential hypertension, Paroxysmal atrial fibrillation, Current use of medical terminologist anticoagulation, Asthma Instructions: Back Exercises: Hip Rotator Stretch, ED Back Sprain/Strain Prescriptions: New gabapentin 300 mg capsule 300 mg PO TID 14 Days Qty: 42 0RF diazepam [Valium] 2 mg tablet 2 mg PO TID PRN (Reason: muscle spasm/pain) 5 Days Qty: 15 0RF hydrocodone-acetaminophen 5-325 mg tablet 1 tab PO Q6H PRN (Reason: pain) 5 Days Qty: 20 0RF No Action famotidine [Acid Accounts Payable Technician (famotidine)] 10 mg tablet 10 mg PO DAILY methylprednisolone [Medrol (Jose)] 4 mg tablets,dose pack 4 mg PO DAILY Qty: 21 0RF Rx Instructions: per package instructions cyclobenzaprine 5 mg tablet 5 mg PO TID PRN (Reason: muscle spasm) Qty: 30 0RF dexamethasone 6 mg tablet 6 mg PO DAILY Qty: 5 0RF azithromycin 250 mg tablet See Rx Instructions PO .COMPLEX Qty: 6 0RF Rx Instructions: take 500 mg today (day 1), then 250 mg for 4 days (days 2-5) PO sertraline 50 MG tablet 50 mg PO DAILY albuterol sulfate [Ventolin HFA] 90 mcg/actuation HFA aerosol inhaler 1 - 2 puff inhalation Q4H PRN PRN (Reason: Wheezing) 30 Days Qty: 6.7 0RF lisinopril 5 mg tablet 5 mg PO DAILY Qty: 90 3RF Rx Instructions: Take 1 tablet by mouth once daily metoprolol succinate 50 mg tablet extended release 24 hr 50 mg PO DAILY Qty: 90 3RF Eliquis 5 mg tablet 5 mg PO BID Qty: 60 12RF Primary Care Provider: Nabila Paris Referrals: Nabila Paris MD [Primary Care Provider] - Activity Restrictions/Additional Instructions: Please continue to stretch and heat the low back/hip to help reduce pain and speed healing. Take the prescribed medications as directed for pain control. If you develop a fever over 100.4 you notice soft tissue skin changes or you have any further concerns please return for repeat evaluation Print Language: Swedish Disposition Disposition: Home, Self Care Discharge Date/Time: 04/07/24 04:31
[2024-04-07 04:24] VITALS: BP 143/75; PULSE 65; RESP 18; TEMP 36.2; O2SAT 96
== END 2024-04-07 04:31 | disposition home or self-care (01) ==
PROVIDERS: Emergency Provider Emergency Medicine; PCP Family Medicine; Visit Provider Emergency Medicine
DX: G57.02 Lesion of sciatic nerve, left lower limb (principal); I48.0 Paroxysmal atrial fibrillation; I10 Essential (primary) hypertension; Z79.01 Long term (current) use of anticoagulants; Z79.899 Other long term (current) drug therapy; Z86.16 Personal history of COVID-19
CPT/HCPCS: 73502; 99283

== ENCOUNTER 2024-04-12 12:22 | Emergency (ER) | payer MEDICARE, SELFPAY ==
[2024-04-12 12:23] VITALS: BP 152/79; PULSE 66; RESP 15; TEMP 36.1; O2SAT 97
--- NOTE | 2024-04-12 14:04 | RAD_ITS ---
STUDY: X-RAY - LEFT FOOT CLINICAL: Female, 79 years old. Left foot pain following trauma. TECHNIQUE: 3 view(s) of the foot. COMPARISON: None. FINDINGS: There is a plantar calcaneal spur. Normal visualized subtalar, talonavicular, calcaneocuboid, tarsal and tarsometatarsal articulations. Normal metatarsi. Normal metatarsophalangeal joint of the great toe. Normal tibial and fibular sesamoid bones. Normal interphalangeal joint of the great toe. Normal phalanges of the great toe. Normal second through fifth metatarsophalangeal joints. Normal interphalangeal joints and phalanges of the lesser toes. The soft tissue structures are unremarkable. RAD/Foot min 3 Views IMPRESSION: No acute abnormality is seen. Electronically Signed: Darren Ayala MD at 14:28 EDT ,
--- NOTE | 2024-04-12 14:05 | EDS_ITS ---
HPI History of Present Illness Chief Complaint: Lower Extremity Injury Narrative Narrative: 79-year-old female past medical history of atrial fibrillation, hypertension, on Eliquis presents with pain in her left foot with bruising and pain in her left hip that she had from a fall 2 days ago. She relates history that she was having right hip pain initially. She received a Kenalog injection from her primary care provider, but ended up vomiting from it. She started having pain in her left hip. It is mainly in her buttocks and radiates downward on the side of her leg. She came to the emergency department about a week ago and was diagnosed with piriformis syndrome. She was doing okay, but 2 days ago went to her garage to get an ice cream cone, and had a mechanical fall. She denies hitting her head or loss of consciousness. Since then she has had pain in her lateral left foot with bruising, and continued pain in her left hip. She has been able to ambulate. She denies any loss of bowel or bladder, no red flags for cauda equina. No back pain. [facility] Medical History COVID-19 Strain of right rotator cuff capsule Right shoulder strain Chronic neck and back pain Shoulder pain Right renal mass Renal lesion Paroxysmal atrial fibrillation Essential hypertension Gastroenteritis Diarrhea Hay fever Arthritis Asthma Shortness of breath Chronic cough Bronchitis Wheezing Eosinophilia Obesity Hypokalemia Asthma with acute exacerbation in adult Hypoxemia Noncompliance with CPAP treatment Obstructive sleep apnea Seasonal allergies Home Medications ?Medication ?Instructions ?Recorded ?Last Taken ?Type sertraline 50 mg tablet 50 mg PO DAILY 10/09/16 Unknown History cyclobenzaprine 5 mg tablet 5 mg PO TID PRN muscle spasm #30 07/10/21 Unknown Rx tabs famotidine 10 mg tablet (Acid 10 mg PO DAILY 07/10/21 Unknown History Rn Occupational (famotidine)) methylprednisolone 4 mg tablets in 4 mg PO DAILY #21 tabs 07/10/21 Unknown Rx a dose pack (Medrol (Jose)) dexamethasone 6 mg tablet 6 mg PO DAILY #5 tabs 04/14/22 Unknown Rx azithromycin 250 mg tablet See Rx Instructions PO .COMPLEX #6 06/12/23 Unknown Rx tabs albuterol sulfate 90 mcg/actuation 1 - 2 puff inhalation Q4H PRN PRN 06/13/23 Unknown Rx aerosol inhaler (Ventolin HFA) Wheezing 30 days #6.7 grams lisinopril 5 mg tablet 5 mg PO DAILY #90 tabs 06/26/23 Unknown Rx metoprolol succinate 50 mg 50 mg PO DAILY #90 tabs 12/21/23 Unknown Rx tablet,extended release 24 hr apixaban 5 mg tablet (Eliquis) 5 mg PO BID #60 tabs 03/11/24 Unknown Rx diazepam 2 mg tablet (Valium) 2 mg PO TID PRN muscle spasm/pain 04/07/24 Unknown Rx 5 days #15 tabs gabapentin 300 mg capsule 300 mg PO TID 14 days #42 caps 04/07/24 Unknown Rx hydrocodone-acetaminophen 5-325mg 1 tab PO Q6H PRN pain 5 days #20 04/07/24 Unknown Rx 5mg-325mg tabs Allergy/AdvReac Type Severity Reaction Status Date / Time dog dander Allergy Unknown Verified 04/12/24 12:22 strawberry Allergy Food Verified 04/12/24 12:22 Allergy tree and shrub pollen Allergy Unknown Verified 04/12/24 12:22 Family History Father Heart disease Sister CAD (coronary artery disease) stent Surgical History History of hysterectomy History of cholecystectomy (05/2019) H/O section Social History Smoking Status: Never smoker second hand exposure: No alcohol intake: current alcohol intake frequency: holidays/special occasions only substance use type: does not use caffeine: Yes Type: coffee Number of servings: 1 what type of physical activity do you participate in: none ROS ROS ED ROS Narrative Constitutional: No fever, no chills. HEENT: No sore throat. No neck pain. No loss of vision. No rhinorrhea. Cardiovascular: No chest pain. No palpitations. No pedal edema. Respiratory: No cough, no shortness of breath. Abdominal: No abdominal pain. No nausea. No vomiting. Genitourinary: No dysuria. No hematuria. Musculoskeletal: No myalgias. Left buttocks and hip pain. Left foot pain. Neurologic: No headaches. No dizziness. No lightheadedness. Skin: No rash. Positive bruising across dorsum of left foot laterally. Psychiatric: No depression. No anxiety. EXAM Physical Exam Narrative Exam Narrative: Afebrile. Vital signs noted. Focused examination reveals no pain with logrolling of femur. Positive tenderness to palpation left sciatic notch. Flexion extension left hip and left knee intact. Palpable dorsalis pedis pulse left. Positive ecchymosis with mild tenderness across dorsum of left foot. No palpable Achilles tendon deficit. No pain at the base of the fifth metatarsal. No malleoli tenderness, left. Const Vital Signs: 04/12/24 12:23 Temperature 97 F L Temperature Source Temporal Pulse Rate 66 Respiratory Rate 15 Blood Pressure 152/79 H Blood Pressure Mean 103 Pulse Ox 97 Oxygen Delivery Method Room Air MDM MDM MDM Narrative Medical decision making narrative: Differential diagnosis includes but not limited to foot contusion versus fracture of left foot. Regarding her hip pain, differential includes continued pain from piriformis syndrome/sciatica. I have low suspicion for hip fracture or pelvic fracture based on her physical examination although as those are in the differential as well. I discussed the use of [id number] medications for her pain. X-rays were obtained of the left hip and pelvis as well as the left foot to rule out fracture. X-rays of the left hip and pelvis interpreted by myself independently show degenerative changes but no evidence of acute fracture. I reviewed the radiology report which confirms my independent interpretation. On my interpretation of the three-view foot x-rays, left, there is no evidence of an acute fracture. I reviewed the radiology report which confirms my independent interpretation as well. Patient was given morphine for analgesia here in the emergency department. States initially she did have improvement of her pain. In discussing home medications, when she was seen in the emergency department last time, she was put on diazepam, gabapentin, and Cameron. I do not feel that she needs additional narcotic pain medication and she was told that the benzodiazepines should be continued by her primary care provider. At this point in time, I feel she can be discharged to follow-up. Return instructions to the emergency department were reviewed. Disposition is discharged home in stable condition. History & Record Review Discussion w/independent historian: Patient and Family () Radiography Diagnostic Testing: Clinical Impression(s) from Imaging Studies Foot X-Ray 04/12/24 14:04 IMPRESSION: No acute abnormality is seen. Electronically Signed: Darren Ayala MD at 14:28 EDT , Hip/Pelvis X-Ray 04/12/24 14:10 IMPRESSION: Degenerative changes. No acute abnormality is seen. Stable examination. Electronically Signed: Darren Ayala MD at 14:30 EDT , Discharge Plan Triage Chief Complaint: Lower Extremity Injury ED Provider: Lj Rizvi Dx/Rx/DC Orders Clinical Impression: Sciatica, Hip pain, left, Contusion of foot, left Instructions: ED Foot Contusion, ED Sciatica Prescriptions: No Action famotidine [Acid Rn Occupational (famotidine)] 10 mg tablet 10 mg PO DAILY methylprednisolone [Medrol (Jose)] 4 mg tablets,dose pack 4 mg PO DAILY Qty: 21 0RF Rx Instructions: per package instructions cyclobenzaprine 5 mg tablet 5 mg PO TID PRN (Reason: muscle spasm) Qty: 30 0RF dexamethasone 6 mg tablet 6 mg PO DAILY Qty: 5 0RF azithromycin 250 mg tablet See Rx Instructions PO .COMPLEX Qty: 6 0RF Rx Instructions: take 500 mg today (day 1), then 250 mg for 4 days (days 2-5) PO sertraline 50 MG tablet 50 mg PO DAILY albuterol sulfate [Ventolin HFA] 90 mcg/actuation HFA aerosol inhaler 1 - 2 puff inhalation Q4H PRN PRN (Reason: Wheezing) 30 Days Qty: 6.7 0RF gabapentin 300 mg capsule 300 mg PO TID 14 Days Qty: 42 0RF diazepam [Valium] 2 mg tablet 2 mg PO TID PRN (Reason: muscle spasm/pain) 5 Days Qty: 15 0RF hydrocodone-acetaminophen 5-325 mg tablet 1 tab PO Q6H PRN (Reason: pain) 5 Days Qty: 20 0RF lisinopril 5 mg tablet 5 mg PO DAILY Qty: 90 3RF Rx Instructions: Take 1 tablet by mouth once daily metoprolol succinate 50 mg tablet extended release 24 hr 50 mg PO DAILY Qty: 90 3RF Eliquis 5 mg tablet 5 mg PO BID Qty: 60 12RF Primary Care Provider: Nabila Paris Referrals: Nabila Paris MD [Primary Care Provider] - As soon as possible Activity Restrictions/Additional Instructions: Continue the medications you are prescribed from the ED. You are given diazepam, gabapentin, and hydrocodone-acetaminophen. Print Language: Persian Disposition Disposition: Home, Self Care
--- NOTE | 2024-04-12 14:10 | RAD_ITS ---
STUDY: X-RAY - PELVIS AND LEFT HIP REASON FOR EXAM: Female, 79 years old. Trauma TECHNIQUE: 3 views of the pelvis and hip. COMPARISON: Comparison is made with prior study April 07, 2024. FINDINGS: There is a non-specific bowel gas pattern. Normal visualized soft tissue structures. There is a 1.2 cm rounded sclerotic density in the medial aspect of the right iliac bone most likely representing a small bone island. Normal bilateral superior and inferior pubic rami. There are degenerative changes of the pubic symphysis with articular narrowing and sclerosis. Normal bilateral ischial tuberosities. Normal visualized femoral head. Normal acetabulum. There is moderate articular joint space narrowing of the hip. RAD/HIP, UNI W/ Pelvis 2-3 Views IMPRESSION: Degenerative changes. No acute abnormality is seen. Stable examination. Electronically Signed: Darren Ayala MD at 14:30 EDT ,
[2024-04-12] MEDS: Morphine 4 MG/ML Syringe IM (14:25)
[2024-04-12 15:27] VITALS: BP 135/74; PULSE 65; RESP 16; TEMP 37; O2SAT 99
== END 2024-04-12 15:28 | disposition home or self-care (01) ==
PROVIDERS: Emergency Provider Emergency Medicine; PCP Family Medicine; Visit Provider Emergency Medicine
DX: S90.32XA Contusion of left foot, initial encounter (principal); I48.0 Paroxysmal atrial fibrillation; W18.30XA Fall on same level, unspecified, initial encounter; Y92.007 Garden or yard of unspecified non-institutional (private) residence as the place of occurrence of the external cause; Y93.89 Activity, other specified; Y99.8 Other external cause status; M25.552 Pain in left hip; M54.32 Sciatica, left side; I10 Essential (primary) hypertension; Z79.01 Long term (current) use of anticoagulants; Z79.899 Other long term (current) drug therapy; Z86.16 Personal history of COVID-19
CPT/HCPCS: 73502; 73630; 96372; 99282

== ENCOUNTER 2024-04-21 12:12 | Emergency (ER) | payer MEDICARE, SELFPAY ==
[2024-04-21 12:13] VITALS: BP 85/72; PULSE 96; RESP 19; TEMP 36.4; O2SAT 95
--- NOTE | 2024-04-21 13:20 | CT_ITS ---
STUDY: CT ABDOMEN AND PELVIS WITHOUT CONTRAST REASON FOR EXAM: Female, 79 years old. left hip buttock pain RADIATION DOSAGE (If Supplied By Facility): CTDIvol = ( 10.39 ) mGy, DLP = ( 571.01 ) mGycm TECHNIQUE: Transaxial images were obtained from the dome of the diaphragm to the symphysis pubis without oral contrast, and without intravenous contrast. Sagittal and coronal images were reconstructed. Individualized dose optimization techniques were used for this CT. COMPARISON: 05/20/2021. FINDINGS: The visualized lung bases are unremarkable. The visualized portions of the heart are within normal limits. Normal liver. There are surgical clips in the gallbladder fossa consistent with a prior cholecystectomy. Normal spleen. Normal pancreas. Normal bilateral adrenal glands. No acute abnormality of the kidneys. Stable postsurgical changes in the upper pole of the right kidney. 1 mm nonobstructing right lower pole renal stone. No hydronephrosis. Evaluation of the GI tract is limited by absence of oral contrast. Cannot exclude stomach wall thickening. No dilated loops of bowel or evidence for obstruction. Cannot exclude segmental thickening of the goel of the small or large bowel. Cannot exclude enteritis or colitis. Moderate diffuse fecal retention. Diverticulosis without definite diverticulitis. Appendix within normal limits. There is diffuse atherosclerotic calcification of the abdominal aorta, without a demonstrated aneurysm. Normal inferior vena cava. Normal retroperitoneum. Normal urinary bladder. There is absence of the uterus consistent with a prior hysterectomy. Normal abdominal wall. There are diffuse degenerative changes of the visualized lumbar spine. CT/Abdomen/Pelvis without Cont IMPRESSION: No definite acute or significant abnormality seen. Electronically Signed: Won Lu MD at 14:18 EDT ,
[2024-04-21] MEDS: HYDROmorphone 0.5 MG/0.5 ML SYRINGE IM (13:28)
[2024-04-21] MEDS: Ketorolac 30 MG/ML Syringe IM (13:28)
[2024-04-21 15:01] VITALS: BP 163/94; PULSE 74; RESP 14; TEMP 36.8; O2SAT 98
--- NOTE | 2024-04-21 15:10 | EDS_ITS ---
HPI History of Present Illness Chief Complaint: Back Informant: patient and family Narrative Narrative: 79-year-old female presenting to the emergency room with left buttock pain. Patient states that she has been to her primary care doctor the emergency department several times recently for buttock pain. The patient is a very poor historian and is not able to provide a linear story of the events. I see that the patient was seen in the emergency department and at that time had atraumatic buttock pain was felt to have piriformis syndrome. She had a fall and came back and was diagnosed with sciatica. She has had a Kenalog injection through primary care. She states she has been taking gabapentin as well as hydrocodone is not helping. She is unable to sleep last night. She notes some pain in the leg but is unable to really tell me if it is radiating from the buttock. She notes an injury to her foot when I ask if the leg is hurting her. She denies any muscle weakness or sensory changes. She denies any low back or midline pain. She points directly over the left buttock as the area that hurts. The patient has not been taking anti-inflammatories due to current apixaban use. She denies any constipation sedation issues. [facility] Medical History COVID-19 Strain of right rotator cuff capsule Right shoulder strain Chronic neck and back pain Shoulder pain Right renal mass Renal lesion Paroxysmal atrial fibrillation Essential hypertension Gastroenteritis Diarrhea Hay fever Arthritis Asthma Shortness of breath Chronic cough Bronchitis Wheezing Eosinophilia Obesity Hypokalemia Asthma with acute exacerbation in adult Hypoxemia Noncompliance with CPAP treatment Obstructive sleep apnea Seasonal allergies Home Medications ?Medication ?Instructions ?Recorded ?Last Taken ?Type sertraline 50 mg tablet 50 mg PO DAILY 10/09/16 Unknown History cyclobenzaprine 5 mg tablet 5 mg PO TID PRN muscle spasm #30 07/10/21 Unknown Rx tabs famotidine 10 mg tablet (Acid 10 mg PO DAILY 07/10/21 Unknown History [employer] (famotidine)) methylprednisolone 4 mg tablets in 4 mg PO DAILY #21 tabs 07/10/21 Unknown Rx a dose pack (Medrol (Jose)) dexamethasone 6 mg tablet 6 mg PO DAILY #5 tabs 04/14/22 Unknown Rx azithromycin 250 mg tablet See Rx Instructions PO .COMPLEX #6 06/12/23 Unknown Rx tabs albuterol sulfate 90 mcg/actuation 1 - 2 puff inhalation Q4H PRN PRN 06/13/23 Unknown Rx aerosol inhaler (Ventolin HFA) Wheezing 30 days #6.7 grams lisinopril 5 mg tablet 5 mg PO DAILY #90 tabs 06/26/23 Unknown Rx metoprolol succinate 50 mg 50 mg PO DAILY #90 tabs 12/21/23 Unknown Rx tablet,extended release 24 hr apixaban 5 mg tablet (Eliquis) 5 mg PO BID #60 tabs 03/11/24 Unknown Rx diazepam 2 mg tablet (Valium) 2 mg PO TID PRN muscle spasm/pain 04/07/24 Unknown Rx 5 days #15 tabs gabapentin 300 mg capsule 300 mg PO TID 14 days #42 caps 04/07/24 Unknown Rx hydrocodone-acetaminophen 5-325mg 1 tab PO Q6H PRN pain 5 days #20 04/07/24 Unknown Rx 5mg-325mg tabs oxycodone-acetaminophen 5 mg-325 1 tab PO Q6H PRN pain 3 days #12 04/21/24 Unknown Rx mg tablet (Percocet) tabs prednisone 20 mg tablet See Rx Instructions .Route 04/21/24 Unknown Rx .COMPLEX #24 tabs Allergy/AdvReac Type Severity Reaction Status Date / Time dog dander Allergy Unknown Verified 04/21/24 12:13 strawberry Allergy Food Verified 04/21/24 12:13 Allergy tree and shrub pollen Allergy Unknown Verified 04/21/24 12:13 Family History Father Heart disease Sister CAD (coronary artery disease) stent Surgical History History of hysterectomy History of cholecystectomy (05/2019) H/O section Social History Smoking Status: Never smoker second hand exposure: No alcohol intake: current alcohol intake frequency: holidays/special occasions only substance use type: does not use caffeine: Yes Type: coffee Number of servings: 1 what type of physical activity do you participate in: none ROS ROS ED Constitutional Constitutional ED: Denies chills, fever(s) or weight loss Eyes Eyes: Denies change in vision or diplopia ENT ENT ED: Denies ear pain, rhinorrhea or sore throat Cardiovascular Cardiovascular: Denies chest pain, orthopnea, palpitations or racing heartbeat Respiratory/Chest Respiratory/Chest: Denies cough, dyspnea or orthopnea Gastrointestinal Gastrointestinal: Denies abdominal pain, diarrhea, nausea or vomiting Genitourinary Genitourinary ED: Denies dysuria, hematuria or urinary frequency Musculoskeletal Musculoskeletal: Reports other Details: See history of present illness ; Denies arthralgias, back pain or myalgias Integumentary Denies abscess or rash Neurologic Neurologic: Denies headache(s) or weakness Psychiatric Psychiatric: Denies anxiety, depression, suicidal ideation or suicidal thoughts Endocrine Endocrinology: Denies polydipsia, polyphagia or polyuria Allergic/Immunologic Allergic/Immunologic ED: Denies mouth swelling, tongue swelling or urticaria EXAM Physical Exam Const Vital Signs: 04/21/24 12:13 04/21/24 15:01 Temperature 97.5 F L 98.3 F Temperature Source Temporal Pulse Rate 96 74 Respiratory Rate 19 H 14 Blood Pressure 85/72 L 163/94 H Blood Pressure Mean 76 117 Pulse Ox 95 98 Oxygen Delivery Method Room Air Positive well nourished and well developed General Appearance ED: well developed HEENT Reports normocephalic, head/scalp atraumatic and moist mucous membranes Eyes PERRL and EOMs intact bilaterally Neck no lymphadenopathy, supple and no JVD Resp normal respiratory effort and clear to auscultation bilaterally Cardio regular rate, regular rhythm and no murmurs GI normal to inspection, nondistended, normoactive bowel sounds and non-tender Palpation: soft Back/Spine no CVA tenderness and normal ROM Extremity Extremity Narrative: Patient with focal buttock tenderness near the piriformis muscle on the left side. There is no rash or contusion or swelling noted. Bony prominence of the greater trochanter is nontender. There is no midline lumbar pain. No iliac crest pain. Neurovascularly she is intact distally with no deficits normal strength. General Extremety ED: Negative for edema General Extremity: Negative for edema Neuro oriented x3 and CN's II-XII intact bilaterally Sensorium / Orientation: alert Motor Exam: strength 5/5 throughout Deep Tendon Reflexes: Rt Patellar (L4): 2+, Lt Patellar (L4): 2+, Rt Ankle (S1): 2+ and Lt Ankle (S1): 2+ Deep Tendon Reflexes Back: Rt Patellar (L4): 2+, Lt Patellar (L4): 2+, Rt Ankle (S1): 2+ and Lt Ankle (S1): 2+ Psych mental status grossly normal Mood & Affect: Negative for depressed or tearful Skin no rashes or lesions noted and no wounds MDM MDM MDM Narrative Medical decision making narrative: Differential diagnosis includes but not limited to muscle hematoma tendinitis muscle spasm fracture radiculopathy shingles A CT of the pelvis without contrast was obtained. I do not see any large hematoma. Might be some calcifications just adjacent to her ischial tuberosity on the left but no definitive fracture. Patient received a dose of Toradol as well as Dilaudid here in the department. I spoke with her primary care doctor. Provider prescribed a tapering dose of prednisone and I will change her to oxycodone. We talked about not mixing the hydrocodone and the oxycodone as well as adverse effects from oxycodone the patient notes understanding. If she is not improving when she sees primary care early next week we will talk about physical therapy versus referral to pain management/orthopedics. Patient is comfortable with this plan History & Record Review Discussion w/independent historian: Patient and Significant other Radiography Diagnostic Testing: Clinical Impression(s) from Imaging Studies Abdomen/Pelvis CT 04/21/24 13:20 IMPRESSION: No definite acute or significant abnormality seen. Electronically Signed: Won Lu MD at 14:18 EDT , Discharge Plan Triage Chief Complaint: Back ED Provider: Rayshawn Diaz Dx/Rx/DC Orders Clinical Impression: Piriformis syndrome of left side, Left buttock pain Instructions: ED Sciatica Prescriptions: New oxycodone-acetaminophen [Percocet] 5-325 mg tablet 1 tab PO Q6H PRN (Reason: pain) 3 Days Qty: 12 0RF prednisone 20 mg tablet See Rx Instructions .ROUTE .COMPLEX Qty: 24 0RF Rx Instructions: 3 tabs p.o. daily x 4 days then 2 tabs p.o. daily x 4 days then 1 tab p.o. daily x 4 days No Action famotidine [Acid [employer] (famotidine)] 10 mg tablet 10 mg PO DAILY methylprednisolone [Medrol (Jose)] 4 mg tablets,dose pack 4 mg PO DAILY Qty: 21 0RF Rx Instructions: per package instructions cyclobenzaprine 5 mg tablet 5 mg PO TID PRN (Reason: muscle spasm) Qty: 30 0RF dexamethasone 6 mg tablet 6 mg PO DAILY Qty: 5 0RF azithromycin 250 mg tablet See Rx Instructions PO .COMPLEX Qty: 6 0RF Rx Instructions: take 500 mg today (day 1), then 250 mg for 4 days (days 2-5) PO sertraline 50 MG tablet 50 mg PO DAILY albuterol sulfate [Ventolin HFA] 90 mcg/actuation HFA aerosol inhaler 1 - 2 puff inhalation Q4H PRN PRN (Reason: Wheezing) 30 Days Qty: 6.7 0RF gabapentin 300 mg capsule 300 mg PO TID 14 Days Qty: 42 0RF diazepam [Valium] 2 mg tablet 2 mg PO TID PRN (Reason: muscle spasm/pain) 5 Days Qty: 15 0RF hydrocodone-acetaminophen 5-325 mg tablet 1 tab PO Q6H PRN (Reason: pain) 5 Days Qty: 20 0RF lisinopril 5 mg tablet 5 mg PO DAILY Qty: 90 3RF Rx Instructions: Take 1 tablet by mouth once daily metoprolol succinate 50 mg tablet extended release 24 hr 50 mg PO DAILY Qty: 90 3RF Eliquis 5 mg tablet 5 mg PO BID Qty: 60 12RF Primary Care Provider: Nabila Paris Referrals: Nabila Paris MD [Primary Care Provider] - 5-7 Days Activity Restrictions/Additional Instructions: Do not take the Percocet (oxycodone) if you are taking the hydrocodone. It is one of the other as they can be additive and cause respiratory depression sedation constipation etc. You are being prescribed prednisone. This can cause some indigestion or inflammation of the stomach lining. I would recommend discontinuing if that occurs. Please see your family doctor early next week. If you are not improving they may recommend physical therapy or referral to pain management Print Language: Anguillan Disposition Disposition: Home, Self Care Discharge Date/Time: 04/21/24 15:05
== END 2024-04-21 15:05 | disposition home or self-care (01) ==
PROVIDERS: Emergency Provider Emergency Medicine; PCP Family Medicine; Visit Provider Emergency Medicine
DX: G57.02 Lesion of sciatic nerve, left lower limb (principal); I48.0 Paroxysmal atrial fibrillation; G47.33 Obstructive sleep apnea (adult) (pediatric); Z79.51 Long term (current) use of inhaled steroids; Z79.01 Long term (current) use of anticoagulants; Z86.16 Personal history of COVID-19
CPT/HCPCS: 74176; 96372; 99282

== ENCOUNTER 2024-05-04 16:45 | Outpatient (RCR) | payer MEDICARE, SELFPAY ==
--- NOTE | 2024-06-07 09:49 | HP.PT.NRP ---
Patient Information Patient Information: JASON DUNCAN was seen in my office for initial evaluation on 05/04/24. The following Plan of Care was established for this patient: POC Established Initial Frequency: 1x/Week Initial Duration: 2 Months Anticipated Interventions Patient/Client Instruction: Educate patient on: Condition and Plan of Care For the Purpose of:: To decrease pain, To increase ROM, To improve nutrient delivery to tissue, To improve muscle performance and motor function, To improve ability to perform ADL's, To increase tolerance to activity/condition/position, To improve performance and independence with ADL's, To decrease level of supervision to perform tasks, To improve ability of physical actions for home/community/work/leisure, To improve gait and locomotor functions, To improve health of tissue, To decrease soft tissue restriction, To increase flexibility/ROM, To improve balance and To improve safety with gait Therapeutic Exercise to Include: Strength training, Endurance training, Balance training, Body mechanics, Postural training, Flexibilty training, Gait and locomotor training, Passive ROM, Active ROM and Dynamic Lumbar Stabilization For the Purpose of:: To decrease pain, To increase ROM, To improve nutrient delivery to tissue, To increase oxygenation perfusion, To improve muscle performance and motor function, To improve ability to perform ADL's, To increase tolerance to activity/condition/position, To improve performance and independence with ADL's, To decrease level of supervision to perform tasks, To improve ability of physical actions for home/community/work/leisure, To improve gait and locomotor functions, To improve health of tissue, To decrease soft tissue restriction, To increase flexibility/ROM, To improve endurance, To improve balance and To improve safety with gait Functional Training to Include: Gait training For the Purpose of:: To improve gait and locomotor functions and To improve safety with gait Manual Therapy Techniques to Include: Passive ROM and Soft tissue mobilization For the Purpose of:: To decrease pain, To decrease swelling/inflammation, To increase ROM, To improve nutrient delivery to tissue, To improve muscle performance and motor function, To improve ability to perform ADL's, To improve health of tissue, To decrease soft tissue restriction and To increase flexibility/ROM Cryotherapy (ice pack, ice massage): Yes Thermo therapy (hot pack): Yes Ultrasound (thermal/non thermal): Yes For the Purpose of:: To decrease pain, To decrease swelling/inflammation, To increase ROM, To improve nutrient delivery to tissue, To improve muscle performance and motor function, To improve ability to perform ADL's, To improve performance and independence with ADL's, To decrease level of supervision to perform tasks, To improve ability of physical actions for home/community/work/leisure, To improve gait and locomotor functions, To improve health of tissue, To decrease soft tissue restriction and To increase flexibility/ROM Last Seen Last Seen: This patient was last seen in our office 05/04/24. Pertinent comments regarding their Physical therapy will appear below: [facility] At this point I will be discontinuing this patient from physical therapy. I would be happy to see this patient again in the future if found appropriate by the physician. Thank you! Valerie Richey, JOSS Balance/Gait/Functional tests Balance/Special Test Scores Lower Extremity Functional Score: 31
== END 2024-05-04 19:00 | disposition home or self-care (01) ==
LOC: PT 16:45
PROVIDERS: PCP Family Medicine; Referring Provider Family Medicine; Visit Provider Family Medicine
DX: S76.319D Strain of muscle, fascia and tendon of the posterior muscle group at thigh level, unspecified thigh, subsequent encounter (principal)
CPT/HCPCS: 97161

== ENCOUNTER → 2024-12-01 | Outpatient (CLI) | payer MEDICARE, SELFPAY ==
--- NOTE | 2024-12-01 12:33 | RAD_ITS ---
PROCEDURE: FOOT MIN 3 VIEWS 12/01/2024 REASON FOR EXAM: RIGHT FOOT PAIN AFTER FALL TECHNIQUE: 3 views of the right foot. COMPARISON: None FINDINGS: Bones: No visible fracture. No suspicious bone lesion. Joints: Normal alignment. Soft tissues: Soft tissue swelling. Other: RAD/Foot min 3 Views IMPRESSION: Soft tissue swelling. Reading Location: [place] [id number]
--- OUTSIDE RECORDS SUMMARY | 2024-12-01 20:49 | XMS RPT_ITS | CCD ---
Author Organization [facility]ini[facility] Care Team Providers Care Dynamometer Tester Engine Name Role Phone Sujata Santa LPN Unavailable Unavailab Dr. Nabila Santacruz Primary Care Provider Dr. Nabila Paris Referring Provider [phone] THALIA Edward Attending Provider Dr. Jonh Heller Attending Provider THALIA Edward Referring Provider Dr. Nabila Paris Primary Care Provider Dr. Nabila Paris Referring Provider [phone] THALIA Edward Attending Provider THALIA Harris Attending Provider Dr. Minnie House Attending Provider Dr. Nabila Paris Primary Care Provider Dr. Nabila Paris Referring Provider [phone] THALIA Arroyo Attending Provider JoNabila howe Primary Care Unavailable Demetrius Cam Attending Unavailable Wellington, Nabila S Primary Care Unavailable Rayshawn Diaz Attending Unavailable Wellington, Nabila S Primary Care Unavailable Lj Rizvi Attending Unavailable Josandraiff, Nabila S Primary Care Unavailable Jolliff, Nabila S Attending Unavailable Chanoiff, Nabila S Referring Unavailable Josandraiff, Nabila S Referring Unavailable Chanoiff, Nabila S Primary Care Unavailable Saravanan Edward Attending Unavailable Dr. Nabila Paris MD Primary Care Provider [phone] Dr. Nabila Paris MD Referring Provider [phone] Saravanan Edward Attending Provider [phone] Marcos Arroyo Attending Provider [phone] Ganesh Lock MD Primary Care Provider [phone] Marcos Arroyo Referring Provider Allergies Allergy Classification Reported Allergen(s) Allergy Type Date of Onset Reaction(s) Facility (1 source) STRAWBERRIES AND FRESH FRUIT; Translations: [STRAWBERRIES AND FRESH FRUIT] food allergy 7 [facility] Work Phone: (9 sources) strawberry allergenic extract Drug Allergy 2 Food Allergy [facility] (10 sources) Tree and shrub pollen; Translations: [tree and shrub pollen] Allergy to substance 2 Unknown [facility] (9 sources) dog dander Allergy to substance 2 Unknown [facility] (3 sources) Chocolate Drug allergy (disorder) 5 Other [facility] (1 source) strawberry allergenic extract Drug Allergy 5 [facility] (1 source) dog dander Drug allergy (disorder) 5 [facility] Medications Current Medications Medication Drug Class(es) Dates Sig (Normalized) Sig (Original) [id number] actuat albuterol 0.09 mg/actuat metered dose inhaler (20 sources) beta2-Adrenergic Agonist Start: 06-13-2023 Albuterol Sulfate (Ventolin Hfa) 90 mcg/actuation HFA aerosol inhaler Active 1 - 2 NMA INHALATION EVERY 4 HOURS NEEDED as needed for Wheezing 6.7 June 13, 2023 1:00am Start: 06-13-2023 take 1 puff(s) by in halation every four hours as needed Albuterol Sulfate (Ventolin Hfa) 90 mcg/actuation HFA aerosol inhaler Active 1 - 2 PUFF INHALATION EVERY 4 HOURS NEEDED 6.7 June 13, 2023 12:00am Start: 02-07-2020 End: 07-10-2021 Albuterol Sulfate 90 mcg/act uation HFA aerosol inhaler Discontinued 2 NMA INHALATION NEEDED as needed for Sob &/Or Wheezing February 07, 2020 1:53pm July 10, 2021 3:41pm Start: 02-07-2020 End: 07-10-2021 Albuterol Sulfate Discontinu ed 2 PUFF INHALATION NEEDED February 07, 2020 12:53pm July 10, 2021 2:41pm Start: 07-18-2019 End: 02-07-2020 Albuterol Sulfate 90 mcg/act uation HFA aerosol inhaler Discontinued 2 NMA INHALATION Q4H as needed for Wheezing July 18, 2019 10:32am February 07, 2020 1:55pm Start: 07-18-2019 End: 02-07-2020 take 1 puff(s) by inhalation every four hours Albuterol Sulfate Discontinued 2 PUFF INHALATION Q4H July 18, 2019 9:32am February 07, 2020 12:55pm Start: 01-04-2019 End: 07-18-2019 Albuterol Sulfate 90 mcg/act uation HFA aerosol inhaler Discontinued 2 NMA INHALATION TWICE A DAY as needed for Wheezing May 27, 2019 6:41pm July 18, 2019 10:35am Start: 01-04-2019 End: 07-18-2019 take 1 puff(s) by inhalation twice daily Albuterol Sulfate Discontinued 2 PUFF INHALATION TWICE A DAY May 27, 2019 5:41pm July 18, 2019 9:35am Start: 05-11-2018 End: 05-11-2018 Albuterol Sulfate 90 mcg/act uation HFA aerosol inhaler Discontinued 1 - 2 NMA INHALATION EVERY 4 HOURS NEEDED as needed for Sob &/Or Wheezing May 11, 2018 11:18am May 11, 2018 11:25am Start: 05-11-2018 End: 05-11-2018 take 1 puff(s) by inhalation every four hours as needed Albuterol Sulfate Discontinued 1 - 2 PUFF INHALATION EVERY 4 HOURS NEEDED May 11, 2018 10:18am May 11, 2018 10:25am Start: 05-11-2018 End: 05-11-2018 take 1 puff(s) by inhalation every four hours as needed Albuterol Sulfate Discontinued 1 - 2 PUFF INHALATION EVERY 4 HOURS NEEDED May 11, 2018 11:18am May 11, 2018 11:25am Start: 04-28-2017 End: 05-11-2018 take 1 puff(s) by inhalation every four hours as needed Albuterol Sulfate Discontinued 1 - 2 PUFF INHALATION EVERY 4 HOURS NEEDED April 28, 2017 10:33am May 11, 2018 10:18am Start: 04-25-2017 End: 05-11-2018 Albuterol Sulfate 90 MCG inh aler Discontinued 1 - 2 NMA INHALATION EVERY 4 HOURS NEEDED as needed for Sob &/Or Wheezing April 28, 2017 11:33am May 11, 2018 11:18am Start: 04-25-2017 End: 04-28-2017 take 1 puff(s) by inhalation every four hours as needed Albuterol Sulfate (Proair Hfa) 90 MCG inhaler Discontinued 1 - 2 PUFF INHALATION EVERY 4 HOURS NEEDED April 24, 2017 11:00pm April 28, 2017 10:33am Start: 03-11-2017 PROAIR HFA AER S as directed ALBUTEROL SULFATE AERS [id number] Saravanan VÁSQUEZ Start: 10-26-2014 End: 03-11-2017 take 2 puff(s) by inhalation every four hours as needed for wheezing VENTOLIN HFA 108 (90 Base) MCG/ACT AERS 2 puffs INH q 4 hours PRN wheezing ALBUTEROL SULFATE [id number] Saravanan VÁSQUEZ Start: 10-26-2014 take 2 puff(s) by in halation every four hours as needed for wheezing VENTOLIN HFA 108 (90 Base) MCG/ACT AERS 2 puffs INH q 4 hours PRN wheezing ALBUTEROL SULFATE [id number] Mk Garcia End: 08-23-2015 VENTOLIN HFA 108 (90 Base) M CG/ACT AERS 2 puffs q 4 hrs prn ALBUTEROL SULFATE [id number] Nunu Awanr VENTOLIN HFA 108 (90 Base) MCG/ACT AERS 2 puffs q 4 hrs prn ALBUTEROL SULFATE [id number] Mk Garcia azithromycin 250 mg oral tablet (11 sources) Macrolide Antimicrobial Start: 06-12-2023 End: 08-22-2024 Azithromycin 250 mg tablet Active 0 PO .COMPLEX August 22, 2024 1:00am For 250 mg dose pack: take 500 mg today (day 1), then 250 mg for 4 days (days 2-5) PO Start: 04-19-2022 End: 06-04-2022 Azithromycin (Zithromax Z-Pa k) 250 mg tablet Discontinued 0 PO .COMPLEX April 19, 2022 12:00am June 04, 2022 2:09pm For 250 mg dose pack: take 500 mg today (day 1), then 250 mg for 4 days (days 2-5) PO benzonatate 200 mg oral capsule (2 sources) Non-narcotic Antitussive Start: 08-22-2024 take 1 capsule by mouth three times daily as needed for cough Benzonatate 200 mg capsule Active 200 mg PO THREE TIMES A DAY as needed for cough August 22, 2024 1:00am gabapentin 300 mg oral capsule (4 sources) Anti-epileptic Agent Start: 04-07-2024 End: 08-22-2024 take 1 capsule by mouth three times daily as needed Gabapentin 300 mg capsule Active 300 mg PO THREE TIMES A DAY as needed August 22, 2024 5:23pm sertraline 50 mg oral tablet (10 sources) Serotonin Reuptake Inhibitor Start: 10-09-2016 take 1 tablet by mouth once daily Sertraline 50 MG tablet Active 50 mg PO DAILY October 09, 2016 12:00am Completed/Discontinued Medications Medication Drug Class(es) Dates Sig (Normalized) Sig (Original) acetaminophen 325 mg / HYDROcodone bitartrate 5 mg oral tablet (11 sources) Opioid Agonist Start: 04-07-2024 End: 08-22-2024 Hydrocodone-Acetami nophen 5-325 mg tablet Discontinued 1 {tbl} PO EVERY 6 HOURS as needed for pain 08 11April 07, 2024 August 22, 2024 5:23pm Start: 07-18-2020 End: 07-25-2020 Hydrocodone-Acetaminophen 1 TABLET tablet Discontinued 1 {tbl} PO EVERY 4 HOURS NEEDED as needed for Pain 08 01July 18, 2020 July 24, 2020 1:00am July 25, 2020 1:02am Start: 07-18-2020 End: 07-25-2020 take 1 tablet by mouth every four hours as needed Hydrocodone-Acetaminophen Discontinued 1 TABLET PO EVERY 4 HOURS NEEDED 08 01July 18, 2020 July 25, 2020 12:02am acetaminophen 325 mg / oxyCODONE hydrochloride 5 mg oral tablet (2 sources) Opioid Agonist Start: 04-21-2024 End: 08-22-2024 Oxycodone-Acetaminophen (Percocet) 5-325 mg tablet Discontinued 1 {tbl} PO EVERY 6 HOURS as needed for pain 12 April 21, 2024 August 22, 2024 5:23pm amoxicillin 875 mg / clavulanate 125 mg oral tablet (4 sources) Penicillin-class Antibacterial Start: 04-16-2023 End: 04-26-2023 Amoxicillin-Pot Clavulanate 875-125 mg tablet Discontinued 1 {tbl} PO Q12H 20 April 16, 2023 12:00am April 25, 2023 12:00am April 26, 2023 12:04am Start: 04-16-2023 End: 04-26-2023 take 1 tablet by mouth every twelve hours Amoxicillin-Pot Clavulanate Discontinued 1 TABLET PO Q12H 20 April 15, 2023 11:00pm April 25, 2023 11:04pm Start: 03-11-2017 AUGMENTIN 875- 125 MG TABS 1 tablet twice daily AMOXICILLIN-POT CLAVULANATE [id number] Saravanan VÁSQUEZ apixaban 5 mg oral tablet (20 sources) Factor Xa Inhibitor Start: 08-14-2020 End: 03-11-2024 take 1 tablet by mouth twice daily Apixaban (Eliquis) 5 mg tablet Discontinued 5 mg PO TWICE A DAY 60 March 11, 2024 3:07pm March 11, 2024 3:07pm Start: 08-14-2020 End: 08-14-2020 take 1 tablet by mouth once Apixaban (Eliquis) 5 mg ta blet Discontinued 5 mg PO ONCE August 14, 2020 1:00am August 14, 2020 3:24pm Start: 07-19-2019 End: 07-18-2020 take 1 tablet by mouth twice daily Apixaban (Eliquis) 5 mg tablet Discontinued 5 mg PO TWICE A DAY 60 July 19, 2019 1:00am July 18, 2020 8:38am aspirin 81 mg delayed release oral tablet (9 sources) Platelet Aggregation Inhibitor, Nonsteroidal Anti-inflammatory Drug Start: 05-27-2019 End: 02-07-2020 take 1 tablet by mouth once daily Aspirin 81 mg tablet,delayed release (DR/EC) Discontinued 81 mg PO DAILY May 27, 2019 1:00am February 07, 2020 1:54pm cyclobenzaprine hydrochloride 5 mg oral tablet (9 sources) Muscle Relaxant Start: 07-10-2021 End: 08-22-2024 take 1 tablet by mouth three times daily as needed for muscle spasms Cyclobenzaprine 5 mg tablet Discontinued 5 mg PO THREE TIMES A DAY as needed for muscle spasm July 10, 2021 1:00am August 22, 2024 5:22pm dexamethasone 6 mg oral tablet (6 sources) Corticosteroid Start: 04-14-2022 End: 08-22-2024 take 1 tablet by mouth once daily Dexamethasone 6 mg tablet Discontinued 6 mg PO DAILY April 14, 2022 12:00am August 22, 2024 5:22pm diazePAM 2 mg oral tablet (2 sources) Benzodiazepine Start: 04-07-2024 End: 08-22-2024 take 1 tablet by mouth three times daily as needed for pain Diazepam (Valium) 2 mg tablet Discontinued 2 mg PO THREE TIMES A DAY as needed for muscle spasm/pain 15 April 07, 2024 12:00am August 22, 2024 5:22pm docusate sodium 100 mg oral capsule (9 sources) Start: 07-18-2020 End: 08-14-2020 take 1 capsule by mouth twice daily Docusate Sodium 100 MG capsule Discontinued 100 mg PO TWICE A DAY July 18, 2020 1:00am August 14, 2020 3:15pm docusate sodium 50 mg / sennosides, care home 8.6 mg oral tablet (9 sources) Start: 07-18-2019 End: 08-14-2020 Sennosides-Docusate Sodium (Senexon-S) 8.6-50 mg tablet Discontinued 1 NMA PO TWICE A DAY as needed for Constipation July 18, 2019 1:00am August 14, 2020 3:15pm famotidine 10 mg oral tablet (9 sources) Histamine-2 Receptor Antagonist Start: 07-10-2021 End: 08-22-2024 take 1 tablet by mouth once daily Famotidine (Acid Administrative Fellow (Famotidine)) 10 mg tablet Discontinued 10 mg PO DAILY July 10, 2021 1:00am August 22, 2024 5:22pm fluticasone propionate 0.05 mg/actuat metered dose nasal spray (20 sources) Corticosteroid Start: 07-18-2019 End: 07-10-2021 take 50 ug nasal route once daily as needed Fluticasone Propionate (Allergy Relief (Fluticasone)) 50 mcg/actuation spray,suspension Discontinued 2 NMA INTRANASAL DAILY as needed for Nasal Congestion July 19, 2019 2:26pm July 10, 2021 3:41pm administer into each nostril Start: 07-18-2019 End: 07-10-2021 take 1 spray(s) nasal route once daily Fluticasone Propionate (Allergy Relief (Fluticasone)) 50 mcg/actuation spray,suspension Discontinued 2 SPRAY INTRANASAL DAILY July 19, 2019 1:26pm July 10, 2021 2:41pm administer into each nostril Start: 04-28-2017 End: 05-27-2019 Fluticasone Propionate 1 SPR AY spray,suspension Discontinued 2 NMA NASAL DAILY April 28, 2017 1:00am May 27, 2019 6:42pm Start: 04-28-2017 End: 05-27-2019 Fluticasone Propionate Disco ntinued 2 SPRAY NASAL DAILY April 28, 2017 12:00am May 27, 2019 5:42pm Start: 03-11-2017 FLONASE SUSP a s directed FLUTICASONE PROPIONATE SUSP [id number] Saravanan VÁSQUEZ hydroCHLOROthiazide 12.5 mg / lisinopril 10 mg oral tablet (19 sources) Thiazide Diuretic, Angiotensin Converting Enzyme Inhibitor Start: 05-27-2019 End: 07-19-2019 Lisinopril-Hydrochlorothiazi de 10-12.5 mg tablet Discontinued 1 {tbl} PO DAILY May 27, 2019 1:00am July 19, 2019 2:50pm Start: 05-27-2019 End: 07-19-2019 take 1 tablet by mouth once daily Lisinopril-Hydrochlorothiazide Discontin ued 1 TABLET PO DAILY May 27, 2019 12:00am July 19, 2019 1:50pm Start: 06-17-2013 End: 04-28-2017 take 1 tablet by mouth once daily Lisinopril-Hydrochlorothiazide (Zestoret ic) 1 TABLET tablet Discontinued 1 {tbl} PO DAILY June 17, 2013 1:00am April 28, 2017 11:28am ipratropium bromide 0.021 mg/actuat metered dose nasal spray (11 sources) Anticholinergic Start: 07-18-2019 End: 07-10-2021 Ipratropium Marshall 0.03 % spray,non-aerosol Discontinued 2 NMA INTRANASAL EVERY 6 HOURS as needed for Nasal Congestion July 18, 2019 1:00am July 10, 2021 3:41pm administer into each nostril Start: 07-18-2019 End: 07-10-2021 take 1 spray(s) nasal route every six hours Ipratropium Marshall Discontinued 2 SPRAY INTRANASAL EVERY 6 HOURS July 18, 2019 12:00am July 10, 2021 2:41pm administer into each nostril End: 08-23-2015 IPRATROPIUM BROMIDE 0.03 % S OLN IPRATROPIUM BROMIDE [id number] Nunu Zamudio levoFLOXacin 750 mg oral tablet (11 sources) Quinolone Antimicrobial Start: 01-04-2019 End: 05-27-2019 take 1 tablet by mouth once daily Levofloxacin 750 MG tablet Discontinued 750 mg PO DAILY January 04, 2019 12:00am May 27, 2019 6:41pm Start: 08-23-2015 End: 11-21-2015 take 1 tablet by mouth once daily LEVAQUIN 500 MG TABS One tablet PO daily LEVOFLOXACIN [id number] Nunu Zamudio lisinopril 5 mg oral tablet (20 sources) Angiotensin Converting Enzyme Inhibitor Start: 07-19-2019 End: 06-13-2024 take 1 tablet by mouth once daily Lisinopril 5 mg tablet Discontinued 5 mg PO DAILY June 26, 2023 10:00am June 13, 2024 10:55am Take 1 tablet by mouth once daily Start: 04-28-2017 End: 05-27-2019 take 1 tablet by mouth once daily Lisinopril 10 MG tablet Discontinued 10 mg PO DAILY April 28, 2017 1:00am May 27, 2019 6:41pm Start: 03-11-2017 LISINOPRIL TAB S as directed LISINOPRIL TABS [id number] Saravanan VÁSQUEZ loratadine 10 mg oral tablet (11 sources) Start: 04-28-2017 End: 05-27-2019 take 1 tablet by mouth once daily Loratadine 10 MG tablet Discontinued 10 mg PO DAILY April 28, 2017 1:00am May 27, 2019 6:42pm End: 03-11-2017 take 1 tablet by mouth once daily LORATADINE 10 MG TABS One tablet by mouth daily LORATADINE [id number] Mk Garcia methylPREDNISolone 4 mg oral tablet (15 sources) Corticosteroid Start: 07-10-2021 End: 08-22-2024 take 1 tablet by mouth once Methylprednisolone (Medrol (Gale)) 4 mg tablets,dose pack Discontinued 4 mg PO per package directions 10 12June 12, 2023 1:00am June 17, 2023 1:00am June 18, 2023 1:05am 24 hr metoprolol succinate 50 mg extended release oral tablet (20 sources) beta-Adrenergic Nannette Start: 02-07-2020 End: 12-21-2023 take 1 tablet by mouth once daily Metoprolol Succinate 50 mg tablet extended release 24 hr Discontinued 50 mg PO DAILY December 29, 2022 11:29am December 21, 2023 10:52am Start: 07-19-2019 End: 02-07-2020 take 1 capsule by mouth once daily Metoprolol Succinate 50 mg capsule,sprinkle,ER 24hr Discontinued 50 mg PO DAILY July 19, 2019 1:00am February 07, 2020 1:52pm 120 actuat mometasone furoate 0.1 mg/actuat metered dose inhaler (20 sources) Corticosteroid Start: 05-27-2019 End: 07-10-2021 Mometasone (Asmanex Hfa) 100 mcg/actuation HFA aerosol inhaler Discontinued 2 NMA INHALATION TWICE A DAY as needed for Sob &/Or Wheezing February 07, 2020 1:55pm July 10, 2021 3:41pm Start: 05-27-2019 End: 07-10-2021 take 1 puff(s) by inhalation twice daily Mometasone (Asmanex Hfa) 100 mcg/actuation HFA aerosol inhaler Discontinued 2 PUFF INHALATION TWICE A DAY February 07, 2020 12:55pm July 10, 2021 2:41pm Start: 07-21-2017 End: 05-11-2018 Mometasone (Asmanex Hfa) 100 mcg/actuation HFA aerosol inhaler Discontinued 2 NMA INHALATION Q12H July 21, 2017 1:00am May 11, 2018 10:54am Start: 07-21-2017 End: 05-11-2018 take 1 puff(s) by inhalation every twelve hours Mometasone (Asmanex Hfa) 100 mcg/actuation HFA aerosol inhaler Discontinued 2 PUFF INHALATION Q12H July 21, 2017 12:00am May 11, 2018 9:54am NAPROXEN SODIUM TABS (1 source) Nonsteroidal Anti-inflammatory Drug NAPROXEN SODIUM TABS prn NAPROXEN SODIUM TABS [id number] Mk Garcia omeprazole 20 mg oral tablet (2 sources) Proton Pump Inhibitor Start: 04-24-20 15 End: 03-11-20 17 [facility] OMEPRAZOLE 20 MG TBEC one tablet in the morning for GERD OMEPRAZOLE [id number] Mk Garcia predniSONE 20 mg oral tablet (20 sources) Corticosteroid Start: 04-21-20 24 End: 08-23-19 25 take 3 tablets by mouth once daily, then take 2 tablets by mouth once daily, then take 1 tablet by mouth once daily Prednisone 20 mg tablet Discontinued 0 .ROUTE .COMPLEX April 21, 2024 12:00am August 22, 2024 5:23pm 3 tabs p.o. daily x 4 days then 2 tabs p.o. daily x 4 days then 1 tab p.o. daily x 4 days Start: 01-04-2019 End: 05-27-2019 take 2 tablets by mouth once daily at mealtime Prednisone 20 MG tablet Discontinued 40 mg PO DAILY January 04, 2019 12:00am May 27, 2019 6:42pm With food Start: 01-04-2019 End: 05-27-2019 take 40 mg by mouth once daily at mealtime Prednisone Discontinued 40 MG PO DAILY January 03, 2019 11:00pm May 27, 2019 5:42pm With food Start: 04-28-2017 End: 06-16-2017 Prednisone 10 MG tablet Discontinued 10 mg PO DIRECTED April 28, 2017 1:00am June 16, 2017 10:53am TAKE 4 TABLETS BY MOUTH DAILY WITH FOOD FOR 3 DAYS, THEN TAKE 3 TABLETS BY MOUTH DAILY WITH FOOD FOR 3 DAYS, THEN TAKE 2 TABLETS BY MOUTH DAILY WITH FOOD FOR 3 DAYS, THEN TAKE 1 TABLETS BY MOUTH DAILY WITH FOOD FOR 3 DAYS, THEN STOP Start: 08-23-2015 End: 08-28-2015 take 3 tablets by mouth once daily PREDNISONE 20 MG TABS Take 3 tablets by mouth daily for 5 days. PREDNISONE [id number] Tanesha Bullard CNP triamcinolone acetonide 1 mg/ml topical cream (9 sources) Corticosteroid Start: 07-18-2019 End: 07-10-2021 Triamcinolone Acetonide 0.1 % cream Discontinued 1 NMA TOPICAL THREE TIMES A DAY as needed for skin irritation July 18, 2019 1:00am July 10, 2021 3:41pm Vit C-E-Zinc Ni-Hdwc-Bxg-Zeax (Icaps Areds2) 250 mg-200 unit -12.5 mg-1 mg capsule (9 sources) Start: 02-07-2020 End: 07-10-2021 take 1 capsule by mouth twice daily Vit C-E-Zinc Dy-Pwcr-Ddx-Zeax (Icaps Areds2) 250 mg-200 unit -12.5 mg-1 mg capsule Discontinued 1 CAP PO TWICE A DAY February 07, 2020 1:53pm July 10, 2021 3:41pm Start: 02-07-2020 End: 07-10-2021 Vit C-E-Zinc Fg-Sdia-Qll-Jung x (Icaps Areds2) 250 mg-200 unit -12.5 mg-1 mg capsule Discontinued 1 NMA PO TWICE A DAY February 07, 2020 12:00am July 10, 2021 3:41pm Start: 02-07-2020 End: 07-10-2021 take 1 capsule by mouth twice daily Vit C-E-Zinc Qw-Saib-Bmd-Zeax (Icaps Areds2) 250 mg-200 unit -12.5 mg-1 mg capsule Discontinued 1 CAP PO TWICE A DAY February 06, 2020 11:00pm July 10, 2021 2:41pm Start: 02-07-2020 End: 07-10-2021 take 1 capsule by mouth twice daily Vit C-E-Zinc Gv-Rfiq-Gev-Zeax (Icaps Areds2) 250 mg-200 unit -12.5 mg-1 mg capsule Discontinued 1 CAP PO TWICE A DAY February 07, 2020 12:00am July 10, 2021 3:41pm Problems Active Problems Problem Classification Problem Date Documented Da te Episodic/Chronic Acute bronchitis (4 sources) Acute bronchitis; Translations: [Acute bronchitis, unspecified] 06-12-2023 Episodic Asthma (20 sources) Asthma; Translations: [Unspecified asthma with (acute) exacerbation] 07-18-2019 Chronic Cardiac dysrhythmias (9 sources) Paroxysmal atrial fibrillation; Translations: [Paroxysmal atrial fibrillation] 07-18-2020 Chronic Chronic obstructive pulmonary disease and bronchiectasis (19 sources) Bronchitis; Translations: [Bronchitis, not specified as acute or chronic] Onset: 08-23-2015 08-23-2015 Episodic Diseases of white blood cells (9 sources) Eosinophil count raised; 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 Essential hypertension (9 sources) Essential hypertension; Translations: [Essential (primary) hypertension] 07-18-2020 Chronic Fluid and electrolyte disorders (18 sources) Dehydration; Translations: [Dehydration] 01-04-2019 Episodic Noninfectious gastroenteritis (9 sources) Gastroenteritis; Translations: [Noninfective gastroenteritis and colitis, unspecified] 07-18-2019 Episodic Other aftercare (2 sources) Long-term current use of anticoagulant; Translations: [custodial (current) use of anticoagulants] 04-15-2024 Episodic Other and ill-defined heart disease (3 sources) Heart disease; Translations: [Heart disease, unspecified] Chronic Other connective tissue disease (1 source) Gluteal tendinitis, unspecified hip; Translations: [Gluteal tendinitis, unspecified hip] Onset: 06-09-2024 Episodic Other connective tissue disease (2 sources) Pain in buttock; Translations: [Myalgia, other site] 04-29-2024 Episodic Other diseases of kidney and ureters (9 sources) Renal mass; Translations: [Other specified disorders of kidney and ureter] 01-20-2022 Chronic Other diseases of kidney and ureters (9 sources) Kidney lesion; Translations: [Disorder of kidney and ureter, unspecified] 01-20-2022 Episodic Other gastrointestinal disorders (9 sources) Diarrhea; Translations: [Diarrhea, unspecified] 01-04-2019 Episodic Other injuries and conditions due to external causes (1 source) Injury of right foot; Translations: [Unspecified injury of right foot, initial encounter] 12-01-2024 Episodic Other lower respiratory disease (9 sources) Hypoxemia; Translations: [Hypoxemia] 07-18-2019 Episodic Other lower respiratory disease (3 sources) H/O: asthma; Translations: [Personal history of other diseases of the respiratory system] 06-13-2023 Episodic Other nervous system disorders (4 sources) Piriformis syndrome; Translations: [Lesion of sciatic nerve, left lower limb] 04-29-2024 Chronic Other non-traumatic joint disorders (9 sources) Shoulder pain; Translations: [Pain in unspecified shoulder] 01-20-2022 Episodic Other non-traumatic joint disorders (2 sources) Hip pain; Translations: [Pain in left hip] 04-20-2024 Episodic Other nutritional; endocrine; and metabolic disorders (9 sources) Obesity; Translations: [Obesity, unspecified] 01-04-2019 Chronic Other upper respiratory disease (9 sources) Seasonal allergic rhinitis; Translations: [Other seasonal allergic rhinitis] 01-04-2019 Chronic Other upper respiratory infections (8 sources) Acute sinusitis; Translations: [Acute sinusitis, unspecified] 04-16-2023 Episodic Pneumonia (except that caused by tuberculosis or sexually transmitted disease) (8 sources) Pneumonia; Translations: [Pneumonia, unspecified organism] Episodic Residual codes; unclassified (9 sources) Obstructive sleep apnea syndrome; Translations: [Obstructive sleep apnea (adult) (pediatric)] 01-04-2019 Chronic Residual codes; unclassified (9 sources) Unable to comply with treatment; Translations: [Patient's other noncompliance with medication regimen] 01-04-2019 Episodic Spondylosis; intervertebral disc disorders; other back problems (11 sources) Chronic pain; Translations: [Cervicalgia] 01-20-2022 Episodic Sprains and strains (20 sources) Strain of rotator cuff of shoulder; Translations: [Strain of muscle(s) and tendon(s) of the rotator cuff of right shoulder, initial encounter] Episodic Superficial injury; contusion (2 sources) Contusion of left foot; Translations: [Contusion of left foot, initial encounter] 04-20-2024 Episodic Thyroid disorders (6 sources) Thyroid nodule; Translations: [Nontoxic single thyroid nodule] Chronic Unclassified (1 source) Obstructive sleep apnea of adult; Translations: [Obstructive sleep apnea (adult) (pediatric)] Onset: 04-24-2015 04-24-2015 Chronic Unclassified (1 source) Low back pain, unspecified; Translations: [Low back pain, unspecified] Onset: 04-28-2024 Viral infection (10 sources) Disease caused by 2019-nCoV; Translations: [COVID-19] Episodic Past or Other Problems Problem Classification Problem Date Documented Da te Episodic/Chronic Abdominal pain (1 source) Pelvic and perineal pain; Translations: [Pelvic and perineal pain] Onset: 05-11-2024 Episodic Other connective tissue disease (1 source) Pain in left foot; Translations: [Pain in left foot] Onset: 05-03-2024 Episodic Other lower respiratory disease (3 sources) Wheezing; Translations: [Chronic cough] Onset: 09-13-2014 03-11-2017 Episodic Unclassified (2 sources) Hypersomnia; Translations: [Hypersomnia, unspecified] Onset: 10-26-2014 Resolved: 04-24-2015 04-24-2015 Episodic Results Test Name Value Interpretation Reference Range Facility Urgent Care Visit Reporton 0 08-22-2024 Urgent Care Visit Report [facility] [address], [address] [place] [address] OFFICE VISIT Date of Service: 08/22/24 MR#: [id number] Acct: [id number] Name: PETRA DUNCAN Med Rep #: [id number] : 1945 Provider: THALIA Shrestha Age/Sex: 79/F Location: [facility] [place] Status: Signed Intake Vital Signs 04/21/24 12:13 08/22/24 16:32 Height 5 ft 4 in BP 102/64 Position Sitting Pulse 63 Temp 97.9 F Temp Source Oral Pulse Oximetry (%) 95 Oxygen Delivery Method room air Intake Visit Reasons: COUGH, CONGESTION Chief Complaint: congested, cough Accompanied by: Self Allergies chocolate Allergy (Verified 08/22/24 16:22) Other dog dander Allergy (Verified 08/22/24 16:22) Unknown strawberry Allergy (Verified 08/22/24 16:22) Food Allergy tree and shrub pollen Allergy (Verified 08/22/24 16:22) Unknown Medications ???Medication ???Instructions ???Recorded ???Confirmed ???Type sertraline 50 mg tablet 50 mg PO DAILY 10/09/16 08/22/24 H istory albuterol sulfate 90 mcg/actuation 1 - 2 puff inhalation Q4H PRN [place] N 06/13/23 08/22/24 Rx aerosol inhaler (Ventolin HFA) Wheezing 30 days #6.7 grams metoprolol succinate 50 mg 50 mg PO DAILY #90 tabs 12/21/23 0 08/22/24 Rx tablet,extended release 24 hr apixaban 5 mg tablet (Eliquis) 5 mg PO BID #60 tabs 03/11/2409/13 Rx lisinopril 5 mg tablet 5 mg PO DAILY #90 tabs 06/13/24 Rx azithromycin 250 mg tablet See Rx Instructions PO .COMPLEX #6 08/22/24 08/22/24 Rx tabs benzonatate 200 mg capsule 200 mg PO TID PRN cough #20 caps 0 08/22/24 08/22/24 Rx gabapentin 300 mg capsule 300 mg PO TID PRN 08/22/24 Histor y Have you fallen in the past year?: No Nurse's Note: Patient has a cough, congestion and wheezing and ears plugged for a week now. [facility] Medical History COVID-19 Strain of right rotator cuff capsule Right shoulder strain Chronic neck and back pain Shoulder pain Right renal mass Renal lesion Paroxysmal atrial fibrillation Essential hypertension Gastroenteritis Diarrhea Hay fever Arthritis Asthma Shortness of breath Chronic cough Bronchitis Wheezing Eosinophilia Obesity Hypokalemia Asthma with acute exacerbation in adult Hypoxemia Noncompliance with CPAP treatment Obstructive sleep apnea Seasonal allergies Surgical History History of hysterectomy History of cholecystectomy (05/2019) H/O section Family History Father Heart disease Sister CAD (coronary artery disease) stent Social History Smoking Status: Never smoker second hand exposure: No alcohol intake: current alcohol intake frequency: holidays/special occasions only substance use type: does not use caffeine: Yes Type: coffee Number of servings: 1 what type of physical activity do you participate in: none HPI HPI Chief Complaint: congested, cough Details: PETRA DUNCAN, is a 79 F who presents to the office today for [facility] evaluation at the [facility] for approximately 1-week history of progressively worsening facial pressure/congestion with purulent postnasal drip/cough and bilateral ear pressure. No complaints of fever, chills, myalgias, fatigue, runny nose, or nausea/vomiting/diarrhea. No complaints of chest pain/shortness of breath/dyspnea on exertion. No close contacts with similar complaints. No other associated symptoms and no other alleviating/aggravating factors. ROS Const Constitutional: No other (as above) Exam Const General: cooperative, healthy appearing and no acute distress Nutritional Appearance: average body habitus Orientation: alert, awake and oriented x3 HENMT Head: normal to inspection Ears: hearing grossly normal bilaterally, external ears normal, TM's normal bilaterally and EAC's normal Nose: external nose normal, nares normal, septum normal and no nasal discharge Face and sinus: normal facial exam, sinuses nontender, and face symmetric Mouth: oral mucosae normal, lip normal, tongue normal and oropharynx normal Throat: posterior oropharynx normal, tonsils normal, uvula midline and postnasal drainage not appreciated Eyes General: appearance normal, both eyes and all related structures Neck Neck: normal visual inspection, full ROM, no meningeal signs, supple and no lymphadenopathy Neck mass: No Thyroid: thyroid normal Chest Chest palpation inspection: normal inspection of the chest Resp Effort Inspection: normal respiratory effort and able to speak in complete sentences Auscultation: Bilateral: Clear to Auscultation Cardio Palpation: normal PMI Rate: regular (more content not included)... Normal [facility] Abdomen/Pelvis without Conto n 04-21-2024 Abdomen/Pelvis without Cont [facility] Imaging Services [address] [place], [place] [address] Abdomen/Pelvis without Cont MR#: [id number] Acct: [id number] Name: PETRA DUNCAN Rep #: [id number] : 1945 F 79 From: Won ledbetter MD PCP: Dr. Nabila Paris MD Status: REG ER Study: Abdomen/Pelvis without Cont Date of Exam: 03/24 07/15 Exam# [id number] Ordering Dr: Rayshawn Diaz DO [id number] STUDY: CT ABDOMEN AND PELVIS WITHOUT CONTRAST REASON FOR EXAM: Female, 79 years old. left hip buttock pain RADIATION DOSAGE (If Supplied By Facility): CTDIvol = ( 10.39 ) mGy, DLP = ( 571.01 ) mGycm TECHNIQUE: Transaxial images were obtained from the dome of the diaphragm to the symphysis pubis without oral contrast, and without intravenous contrast. Sagittal and coronal images were reconstructed. Individualized dose optimization techniques were used for this CT. COMPARISON: 05/20/2021. FINDINGS: The visualized lung bases are unremarkable. The visualized portions of the heart are within normal limits. Normal liver. There are surgical clips in the gallbladder fossa consistent with a prior cholecystectomy. Normal spleen. Normal pancreas. Normal bilateral adrenal glands. No acute abnormality of the kidneys. Stable postsurgical changes in the upper pole of the right kidney. 1 mm nonobstructing right lower pole renal stone. No hydronephrosis. Evaluation of the GI tract is limited by absence of oral contrast. Cannot exclude stomach wall thickening. No dilated loops of bowel or evidence for obstruction. Cannot exclude segmental thickening of the goel of the small or large bowel. Cannot exclude enteritis or colitis. Moderate diffuse fecal retention. Diverticulosis without definite diverticulitis. Appendix within normal limits. There is diffuse atherosclerotic calcification of the abdominal aorta, without a demonstrated aneurysm. Normal inferior vena cava. Normal retroperitoneum. Normal urinary bladder. There is absence of the uterus consistent with a prior hysterectomy. Normal abdominal wall. There are diffuse degenerative changes of the visualized lumbar spine. CT/Abdomen/Pelvis without Cont IMPRESSION: No definite acute or significant abnormality seen. Electronically Signed: Won Lu MD at 14:18 EDT , CC: Dr. Nabila Paris MD; Dr. Rayshawn Diaz DO Unit Controller: Signed Normal [facility] Emergency Department Summary on 04-21-2024 Emergency Department Summary [facility] Medical Records Department [address] [place] [address] Emergency Department Summary 04/21/24 MR#: [id number] Acct: [id number] Name: PETRA DUNCAN Rep #: [id number] : 1945 79 From: Rayshawn Diaz DO PCP: Dr. Nabila Paris MD Status:DEP ER Location: ED HPI History of Present Illness Chief Complaint: Back Informant: patient and family Narrative Narrative: 79-year-old female presenting to the emergency room with left buttock pain. Patient states that she has been to her primary care doctor the emergency department several times recently for buttock pain. The patient is a very poor historian and is not able to provide a linear story of the events. I see that the patient was seen in the emergency department and at that time had atraumatic buttock pain was felt to have piriformis syndrome. She had a fall and came back and was diagnosed with sciatica. She has had a Kenalog injection through primary care. She states she has been taking gabapentin as well as hydrocodone is not helping. She is unable to sleep last night. She notes some pain in the leg but is unable to really tell me if it is radiating from the buttock. She notes an injury to her foot when I ask if the leg is hurting her. She denies any muscle weakness or sensory changes. She denies any low back or midline pain. She points directly over the left buttock as the area that hurts. The patient has not been taking anti-inflammatories due to current apixaban use. She denies any constipation sedation issues. [facility] Medical History COVID-19 Strain of right rotator cuff capsule Right shoulder strain Chronic neck and back pain Shoulder pain Right renal mass Renal lesion Paroxysmal atrial fibrillation Essential hypertension Gastroenteritis Diarrhea Hay fever Arthritis Asthma Shortness of breath Chronic cough Bronchitis Wheezing Eosinophilia Obesity Hypokalemia Asthma with acute exacerbation in adult Hypoxemia Noncompliance with CPAP treatment Obstructive sleep apnea Seasonal allergies Home Medications ???Medication ???Instructions ???Recorded ???Last Taken ???Type sertraline 50 mg tablet 50 mg PO DAILY 10/09/16 Unknown History cyclobenzaprine 5 mg tablet 5 mg PO TID PRN muscle spasm #30 07/10/21 Unknown Rx tabs famotidine 10 mg tablet (Acid 10 mg PO DAILY 07/10/21 Unknown History Administrative Fellow (famotidine)) methylprednisolone 4 mg tablets in 4 mg PO DAILY #21 tabs 07/10/21 Unknown Rx a dose pack (Medrol (Gale)) dexamethasone 6 mg tablet 6 mg PO DAILY #5 tabs 04/14/22 Unknown Rx azithromycin 250 mg tablet See Rx Instructions PO .COMPLEX #6 06/12/23 Unknown Rx tabs albuterol sulfate 90 mcg/actuation 1 - 2 puff inhalation Q4H PRN PRN 06/13/23 Unknown Rx aerosol inhaler (Ventolin HFA) Wheezing 30 days #6.7 grams lisinopril 5 mg tablet 5 mg PO DAILY #90 tabs 06/26/23 Unknown Rx metoprolol succinate 50 mg 50 mg PO DAILY #90 tabs 12/21/23 Unknown Rx tablet,extended release 24 hr apixaban 5 mg tablet (Eliquis) 5 mg PO BID #60 tabs 03/11/24 Unknown Rx diazepam 2 mg tablet (Valium) 2 mg PO TID PRN muscle spasm/pain 04/07/24 Unknown Rx 5 days #15 tabs gabapentin 300 mg capsule 300 mg PO TID 14 days #42 caps 04/07/24 Unknown Rx hydrocodone-acetaminophen 5-325mg 1 tab PO Q6H PRN pain 5 days #20 04/07/24 Unknown Rx 5mg-325mg tabs oxycodone-acetaminophen 5 mg-325 1 tab PO Q6H PRN pain 3 days #12 04/21/24 Unknown Rx mg tablet (Percocet) tabs prednisone 20 mg tablet See Rx Instructions .Route 04/21/24 Unknown Rx .COMPLEX #24 tabs Allergy/AdvReac Type Severity Reaction Status Date / Time dog dander Allergy Unknown Verified 04/21/24 12:13 strawberry Allergy Food Verified 04/21/24 12:13 Allergy tree and shrub pollen Allergy Unknown Verified 04/21/24 12:13 Family History Father Heart disease Sister CAD (coronary artery disease) stent Surgical History History of hysterectomy History of cholecystectomy (05/2019) H/O section Social History Smoking Status: Never smoker second hand exposure: No alcohol intake: current alcohol intake frequency: holidays/special occasions only substance use type: does not use caffeine: Yes Type: coffee Number of servings: 1 what type of physical activity do you participate in: none ROS ROS ED Constitutional Constitutional ED: Denies chills, fever(s) or weight loss Eyes Eyes: Denies change in vision or diplopia ENT ENT ED: Denies ear pain, rhinorrhea or sore throat Cardiovascular Cardiovascular: Denies chest pain, orthopnea, palpitations or racing (more content not included)... Normal [facility] Emergency Department Summary on 04-12-2024 Emergency Department Summary [facility] Medical Records Department [address] [place] [address] Emergency Department Summary 04/12/24 MR#: [id number] Acct: [id number] Name: PETRA DUNCAN Rep #: [id number] : 1945 79 From: Lj Rizvi MD PCP: Dr. Nabila Paris MD Status:REG ER Location: ED HPI History of Present Illness Chief Complaint: Lower Extremity Injury Narrative Narrative: 79-year-old female past medical history of atrial fibrillation, hypertension, on Eliquis presents with pain in her left foot with bruising and pain in her left hip that she had from a fall 2 days ago. She relates history that she was having right hip pain initially. She received a Kenalog injection from her primary care provider, but ended up vomiting from it. She started having pain in her left hip. It is mainly in her buttocks and radiates downward on the side of her leg. She came to the emergency department about a week ago and was diagnosed with piriformis syndrome. She was doing okay, but 2 days ago went to her garage to get an ice cream cone, and had a mechanical fall. She denies hitting her head or loss of consciousness. Since then she has had pain in her lateral left foot with bruising, and continued pain in her left hip. She has been able to ambulate. She denies any loss of bowel or bladder, no red flags for cauda equina. No back pain. [facility] Medical History COVID-19 Strain of right rotator cuff capsule Right shoulder strain Chronic neck and back pain Shoulder pain Right renal mass Renal lesion Paroxysmal atrial fibrillation Essential hypertension Gastroenteritis Diarrhea Hay fever Arthritis Asthma Shortness of breath Chronic cough Bronchitis Wheezing Eosinophilia Obesity Hypokalemia Asthma with acute exacerbation in adult Hypoxemia Noncompliance with CPAP treatment Obstructive sleep apnea Seasonal allergies Home Medications ???Medication ???Instructions ???Recorded ???Last Taken ???Type sertraline 50 mg tablet 50 mg PO DAILY 10/09/16 Unknown History cyclobenzaprine 5 mg tablet 5 mg PO TID PRN muscle spasm #30 07/10/21 Unknown Rx tabs famotidine 10 mg tablet (Acid 10 mg PO DAILY 07/10/21 Unknown History Administrative Fellow (famotidine)) methylprednisolone 4 mg tablets in 4 mg PO DAILY #21 tabs 07/10/21 Unknown Rx a dose pack (Medrol (Gale)) dexamethasone 6 mg tablet 6 mg PO DAILY #5 tabs 04/14/22 Unknown Rx azithromycin 250 mg tablet See Rx Instructions PO .COMPLEX #6 06/12/23 Unknown Rx tabs albuterol sulfate 90 mcg/actuation 1 - 2 puff inhalation Q4H PRN PRN 06/13/23 Unknown Rx aerosol inhaler (Ventolin HFA) Wheezing 30 days #6.7 grams lisinopril 5 mg tablet 5 mg PO DAILY #90 tabs 06/26/23 Unknown Rx metoprolol succinate 50 mg 50 mg PO DAILY #90 tabs 12/21/23 Unknown Rx tablet,extended release 24 hr apixaban 5 mg tablet (Eliquis) 5 mg PO BID #60 tabs 03/11/24 Unknown Rx diazepam 2 mg tablet (Valium) 2 mg PO TID PRN muscle spasm/pain 04/07/24 Unknown Rx 5 days #15 tabs gabapentin 300 mg capsule 300 mg PO TID 14 days #42 caps 04/07/24 Unknown Rx hydrocodone-acetaminophen 5-325mg 1 tab PO Q6H PRN pain 5 days #20 04/07/24 Unknown Rx 5mg-325mg tabs Allergy/AdvReac Type Severity Reaction Status Date / Time dog dander Allergy Unknown Verified 04/12/24 12:22 strawberry Allergy Food Verified 04/12/24 12:22 Allergy tree and shrub pollen Allergy Unknown Verified 04/12/24 12:22 Family History Father Heart disease Sister CAD (coronary artery disease) stent Surgical History History of hysterectomy History of cholecystectomy (05/2019) H/O section Social History Smoking Status: Never smoker second hand exposure: No alcohol intake: current alcohol intake frequency: holidays/special occasions only substance use type: does not use caffeine: Yes Type: coffee Number of servings: 1 what type of physical activity do you participate in: none ROS ROS ED ROS Narrative Constitutional: No fever, no chills. HEENT: No sore throat. No neck pain. No loss of vision. No rhinorrhea. Cardiovascular: No chest pain. No palpitations. No pedal edema. Respiratory: No cough, no shortness of breath. Abdominal: No abdominal pain. No nausea. No vomiting. Genitourinary: No dysuria. No hematuria. Musculoskeletal: No myalgias. Left buttocks and hip pain. Left foot pain. Neurologic: No headaches. No dizziness. No lightheadedness. Skin: No rash. Positive bruising across dorsum of left foot laterally. Psychiatric: No depression. No anxiety. EXAM Physical Exam Narrative Exam Narrative: Afebrile. Vital signs noted. Focused examin (more content not included)... Normal [facility] Foot min 3 Viewson 4 Foot min 3 Views [facility] Imaging Services [address] [place], [place] [id number] Foot min 3 Views MR#: [id number] Acct: [id number] Name: PETRA DUNCAN Rep #: [id number] : 1945 F 79 From: Darren bryant MD PCP: Dr. Nabila Paris MD Status: REG ER Study: Foot min 3 Views Date of Exam: 04/12/24 Exam# [id number] Ordering Dr: Lj Rizvi MD [id number] STUDY: X-RAY - LEFT FOOT CLINICAL: Female, 79 years old. Left foot pain following trauma. TECHNIQUE: 3 view(s) of the foot. COMPARISON: None. FINDINGS: There is a plantar calcaneal spur. Normal visualized subtalar, talonavicular, calcaneocuboid, tarsal and tarsometatarsal articulations. Normal metatarsi. Normal metatarsophalangeal joint of the great toe. Normal tibial and fibular sesamoid bones. Normal interphalangeal joint of the great toe. Normal phalanges of the great toe. Normal second through fifth metatarsophalangeal joints. Normal interphalangeal joints and phalanges of the lesser toes. The soft tissue structures are unremarkable. RAD/Foot min 3 Views IMPRESSION: No acute abnormality is seen. Electronically Signed: Darren Ayala MD at 14:28 EDT , CC: Dr. Lj Rizvi MD; Dr. Nabila Paris MD Unit Controller: Signed Normal [facility] HIP, UNI W/ Pelvis 2-3 Views on 04-12-2024 HIP, UNI W/ Pelvis 2-3 Views [facility] Imaging Services [address] [place] [address] HIP, UNI W/ Pelvis 2-3 Views MR#: [id number] Acct: [id number] Name: PETRA DUNCAN Rep #: [id number] : 1945 F 79 From: Darren bryant MD PCP: Dr. Nabila Paris MD Status: REG ER Study: HIP, UNI W/ Pelvis 2-3 Views Date of Exam: Exam# [id number] Ordering Dr: Lj Rizvi MD [id number] STUDY: X-RAY - PELVIS AND LEFT HIP REASON FOR EXAM: Female, 79 years old. Trauma TECHNIQUE: 3 views of the pelvis and hip. COMPARISON: Comparison is made with prior study April 07, 2024. FINDINGS: There is a non-specific bowel gas pattern. Normal visualized soft tissue structures. There is a 1.2 cm rounded sclerotic density in the medial aspect of the right iliac bone most likely representing a small bone island. Normal bilateral superior and inferior pubic rami. There are degenerative changes of the pubic symphysis with articular narrowing and sclerosis. Normal bilateral ischial tuberosities. Normal visualized femoral head. Normal acetabulum. There is moderate articular joint space narrowing of the hip. RAD/HIP, UNI W/ Pelvis 2-3 Views IMPRESSION: Degenerative changes. No acute abnormality is seen. Stable examination. Electronically Signed: Darren Ayala MD at 14:30 EDT , CC: Dr. Lj Rizvi MD; Dr. Nabila Paris MD Unit Controller: Signed Normal [facility] Emergency Department Summary on 04-07-2024 Emergency Department Summary [facility] Medical Records Department [address] [place] [address] Emergency Department Summary 04/07/24 MR#: [id number] Acct: [id number] Name: PETRA DUNCAN Rep #: [id number] : 1945 79 From: Demetrius Cam DO PCP: Dr. Nabila Paris MD Status:DEP ER Location: ED HPI History of Present Illness Chief Complaint: Back Informant: patient and spouse/S.O. Narrative Narrative: Patient is a 79-year-old female with past medical history of hypertension paroxysmal atrial fibrillation currently on Eliquis as well as asthma. She states that she recently saw her family doctor secondary to pain in her right low back/hip and received a cortisone injection. She states that she is a 9-year-old grandson and has been going to his baseball games and climbing up and down the bleachers. She denies any direct trauma or fall but states that she now has noticed pain in the left buttock/hip region that radiates down her left leg. She states she cannot sleep this evening so she comes in for evaluation. She denies any loss of bowel or bladder control or IV drug use. [facility] Medical History COVID-19 Strain of right rotator cuff capsule Right shoulder strain Chronic neck and back pain Shoulder pain Right renal mass Renal lesion Paroxysmal atrial fibrillation Essential hypertension Gastroenteritis Diarrhea Hay fever Arthritis Asthma Shortness of breath Chronic cough Bronchitis Wheezing Eosinophilia Obesity Hypokalemia Asthma with acute exacerbation in adult Hypoxemia Noncompliance with CPAP treatment Obstructive sleep apnea Seasonal allergies Home Medications ???Medication ???Instructions ???Recorded ???Last Taken ???Type sertraline 50 mg tablet 50 mg PO DAILY 10/09/16 Unknown History cyclobenzaprine 5 mg tablet 5 mg PO TID PRN muscle spasm #30 07/10/21 Unknown Rx tabs famotidine 10 mg tablet (Acid 10 mg PO DAILY 07/10/21 Unknown History Administrative Fellow (famotidine)) methylprednisolone 4 mg tablets in 4 mg PO DAILY #21 tabs 07/10/21 Unknown Rx a dose pack (Medrol (Gale)) dexamethasone 6 mg tablet 6 mg PO DAILY #5 tabs 04/14/22 Unknown Rx azithromycin 250 mg tablet See Rx Instructions PO .COMPLEX #6 06/12/23 Unknown Rx tabs albuterol sulfate 90 mcg/actuation 1 - 2 puff inhalation Q4H PRN PRN 06/13/23 Unknown Rx aerosol inhaler (Ventolin HFA) Wheezing 30 days #6.7 grams lisinopril 5 mg tablet 5 mg PO DAILY #90 tabs 06/26/23 Unknown Rx metoprolol succinate 50 mg 50 mg PO DAILY #90 tabs 12/21/23 Unknown Rx tablet,extended release 24 hr apixaban 5 mg tablet (Eliquis) 5 mg PO BID #60 tabs 03/11/24 Unknown Rx diazepam 2 mg tablet (Valium) 2 mg PO TID PRN muscle spasm/pain 04/07/24 Unknown Rx 5 days #15 tabs gabapentin 300 mg capsule 300 mg PO TID 14 days #42 caps 04/07/24 Unknown Rx hydrocodone-acetaminophen 5-325mg 1 tab PO Q6H PRN pain 5 days #20 04/07/24 Unknown Rx 5mg-325mg tabs Allergy/AdvReac Type Severity Reaction Status Date / Time dog dander Allergy Unknown Verified 06/13/23 16:33 strawberry Allergy Food Verified 06/13/23 16:33 Allergy tree and shrub pollen Allergy Unknown Verified 06/13/23 16:33 Family History Father Heart disease Sister CAD (coronary artery disease) stent Surgical History H/O section History of cholecystectomy (05/2019) History of hysterectomy Social History Smoking Status: Never smoker second hand exposure: No alcohol intake: current alcohol intake frequency: holidays/special occasions only substance use type: does not use caffeine: Yes Type: coffee Number of servings: 1 what type of physical activity do you participate in: none ROS ROS ED Constitutional Constitutional ED: Denies chills or fever(s) ENT ENT ED: Denies sore throat Cardiovascular Cardiovascular: Denies chest pain Respiratory/Chest Respiratory/Chest: Denies cough or dyspnea Gastrointestinal Gastrointestinal: Denies abdominal pain, diarrhea, nausea or vomiting Genitourinary Genitourinary ED: Denies dysuria Musculoskeletal Musculoskeletal: Reports back pain and other Details: Positive left hip/buttock pain Integumentary Denies Abrasions or rash Neurologic Neurologic: Denies headache(s) or paresthesias Hematologic/Lymphatic Hematologic/Lymphatic: Reports easy bleeding and easy bruising EXAM Physical Exam Const Vital Signs: 04/07/24 02:28 04/07/24 04:24 Temperature 97.2 F L 97.2 F L Temperature Source Oral Pulse Rate 63 65 Respiratory Rate 18 18 Blood Pressure 163/80 H 143/75 H Blood Pressure Mean 107 97 Pulse Ox 96 96 Oxygen (more content not included)... Normal [facility] HIP, UNI W/ Pelvis 2-3 Views on 04-07-2024 HIP, UNI W/ Pelvis 2-3 Views [facility] Imaging Services [address] [place], [place] [id number] HIP, UNI W/ Pelvis 2-3 Views MR#: [id number] Acct: [id number] Name: PETRA DUNCAN Rep #: [id number] : 1945 F 79 From: Scotty Gomez MD PCP: Dr. Nabila Paris MD Status: REG ER Study: HIP, UNI W/ Pelvis 2-3 Views Date of Exam: Exam# [id number] Ordering Dr: Demetrius Cam DO [id number] EXAM: XR LEFT HIP WITH PELVIS WHEN PERFORMED, 2 OR 3 VIEWS CLINICAL INDICATION: pain TECHNIQUE: Two or three views of the left hip with pelvis when performed. COMPARISON: No relevant prior studies available. FINDINGS: BONES/JOINTS: Diffuse demineralization of the osseous structures. No displaced fracture. No destructive or sclerotic lesions. Note that overlapping bowel shadows may however obscure fine detail. Sacroiliac joint is unremarkable. No widening of the pubic symphysis. The articular structures are unremarkable. SOFT TISSUES: Unremarkable. No soft tissue swelling or gas. RAD/HIP, UNI W/ Pelvis 2-3 Views IMPRESSION: No evidence of displaced pelvic or hip fracture. Follow up with additional imaging if clinically indicated. Electronically Signed: Scotty Gomez MD at 4:08 EDT , CC: Dr. Nabila Paris MD; Demetrius Cam DO Unit Controller: Signed Normal [facility] Influenza virus A and B and SARS-CoV-2 (COVID-19) Ag panel - Upper respiratory specimOrdered By: Dinora Moura on 06-13-2023 SARS-CoV-2 (COVID-19) RNA YISSEL+probe Ql (Resp) [facility] Basophil percentageOrdered B y: Dr. Paris on 10-21-2022 Chloride [Moles/Vol] 110 mmol/L 98-107 [facility] Cholesterol [Mass/Vol] 183 mg/dL <200 [facility] Comment on above: <200 mg/dL Desirable 200-240 mg/dL Borderline >240 mg/dL High Risk Glucose [Mass/Vol] 101 mg/dL 74-106 [facility] Comment on above: Fasting Glucose resu lt from 100 to 125 mg/dL suggests IMPAIRED HOMEOSTASIS per A.D.A. criteria. Potassium [Moles/Vol] 3.8 mmol/L 3.5-5.1 [facility] Sodium [Moles/Vol] 142 mmol/L 136-145 [facility] Triglyceride [Mass/Vol] 185 mg/dL <199 [facility] Comment on above: The drugs N-Acetylcy steine and Metamizole may falsely depress this assay.Serum Triglycerides Reference Interval Normal <150 mg/dL Borderline high 150 - 199 mg/dL High 200 - 499 mg/dL Very High > or = 500 mg/dL Laboratory - Chemistry and C hemistry - challengeOrdered By: Dr. Paris on 10-21-2022 CO2 [Moles/Vol] 28.0 mmol/L 21.0-32.0 [facility] Urea nitrogen/Creatinine [Mass ratio] 19.0 mg/mg 10-20 [facility] No Panel InformationOrdered By: Dr. Paris on 10-21-2022 Estimated GFR (MDRD) Amer 90 mL/min >60 [facility] Comment on above: GFR Calc Estimated GFR (MDRD) Non-Af Amer 75 mL/min >60 [facility] Comment on above: Non- GFR Calc Serum or plasma calcium itzel urement (mass/volume)Ordered By: Dr. Paris on 10-21-2022 Calcium [Mass/Vol] 9.0 mg/dL 8.5-10.1 [facility] Serum or plasma cholesterol in HDL measurement (mass/volume)Ordered By: Dr. Paris on 10-21-2022 Cholesterol in HDL [Mass/Vol] 33 mg/dL >40 [facility] Comment on above: The drugs N-Acetylcy steine and Metamizole may falsely depress this assay. Reference Range HDL <40 mg/dL Low HDL Cholesterol HDL >or= 60 mg/dL High HDL Cholesterol Serum or plasma cholesterol in VLDL measurement (mass/volume)Ordered By: Dr. Paris on 10-21-2022 Cholesterol in VLDL [Mass/Vol] 37 mg/dL 5-40 [facility] Serum or plasma creatinine m easurement (mass/volume)Ordered By: Dr. Paris on 10-21-2022 Creatinine [Mass/Vol] 0.79 mg/dL 0.55-1.02 [facility] Comment on above: The validity of the calculated GFR & GFRAA in patients over 70 years has not been determined. Clinical correlation is essential. Serum or plasma low density lipoprotein (LDL) cholesterol measurement (mass/volume)Ordered By: Dr. Paris on 10-21-2022 Cholesterol in LDL [Mass/Vol] 113 mg/dL 0-130 [facility] Serum or plasma urea nitroge n measurement (mass/volume)Ordered By: Dr. Paris on 10-21-2022 Urea nitrogen [Mass/Vol] 15 mg/dL 7-18 [facility] Thin prep Papanicolaou smear with manual screeningOrdered By: Dr. Paris on 10-21-2022 Thin prep Papanicolaou smear with manual screening 4 5-15 [facility] Laboratory - Chemistry and C hemistry - challengeon 06-04-2022 T4 [Mass/Vol] 10.4 ug/dL 4.8-13.9 [facility] Work Phone: No Panel Informationon 06-04 Free Triiodothyronine (T3) pg/dL 2.7 pg/mL 2.18-3.98 [facility] Work Phone: Thyroid Stimulating Hormone (TSH) 1.26 uIU/mL 0.358-3.74 [facility] Work Phone: Laboratory - Microbiology an d Antimicrobial susceptibilityon 04-14-2022 SARS-CoV-2 (COVID-19) RNA YISSEL+probe Ql (Unsp spec) Detected [facility] Work Phone: No Panel Informationon 04-14 Influenza Types A,B Rapid (Clinic) Not detected [facility] Work Phone: Basophil percentageon 2021 Basophil percentage < 0.9 mg/dL 0.55-1.02 [facility] Work Phone: No Panel Informationon 01-02 Bedside Estimated GFR (eGFR) > 60.0000 mL/min >60 [facility] Work Phone: CNOVon 04-12-2021 CNOV Office Visit (UCWSTR ) -- PETRA DUNCAN ([id number]) 1945 F Date Time Provider Department 04/12/21 5:45 PM [facility] During your visit today, we recorded the following information about you: Temperature Pulse Respiration Blood pressure 97 degrees 66/minute 18/minute 118/78 Weight 86.3 kg Shubham Smith APRN.INTERNATIONAL STUDENT ADVISOR 04/12/2021 6:24 PM Signed Subjective HPI Nontoxic-appearing female presents urgent care chief complaint possible strep throat. Duration of symptoms 5 days. Associated symptoms sinus pressure sore throat cough nasal drainage. Patient states negative COVID-19 test yesterday. States most predominant symptom today is sinus pressure and sore throat. Denies use of any OTC medications. States URI symptoms are improving sore throat is staying consistent. Denies any known sick contacts. Denies any significant pain. Denies any difficulty swallowing handling secretions or decreased range of motion neck. Denies any fever body aches chills nausea vomiting abdominal pain chest pain shortness of breath or change in bowel or bladder habit. Past medical history prescription medication use allergies reviewed. .Patient presents with: Sore Throat: ST and congestion x 5 days PAST MEDICAL HISTORY Diagnosis Date - Anxiety - Asthma - Encounter for removal of pancreatic stent - HTN (hypertension) - Paroxysmal A-fib (HCC) when in hospital- 05/2019 - Sleep apnea wears cpap PAST SURGICAL HISTORY Procedure Laterality Date - SECTION HX 1972 - CHOLECYSTECTOMY 06/04/2019 laparoscopic - HYSTERECTOMY ALLERGIES [facility] MEDICATIONS triamcinolone (KENALOG) 0.025 % cream Apply 1 application to affected area twice daily. ondansetron (ZOFRAN) 4 mg tablet Take 1 tablet by mouth every 8 hours as needed. acetaminophen (TYLENOL) 325 mg tablet Take 3 tablets by mouth every 6 hours as needed. aspirin 81 mg chewable tablet Take 81 mg by mouth once daily. mometasone 100 mcg/actuation HFAA Inhale 100 mcg as instructed twice daily. 1 puff Ipratropium Marshall (ATROVENT) 0.03 % nasal spray Use 2 Sprays in the nose every 12 hours. albuterol HFA (PROVENTIL HFA, VENTOLIN HFA) 90 mcg/actuation inhaler Inhale 2 Puffs as instructed. LISINOPRIL-HYDROCHLOROTHIA ZIDE ORAL Take 10 mg by mouth once daily. 10/12.5 mg NAPROXEN ORAL Take by mouth. sertraline (ZOLOFT) 50 mg ORAL tablet Take 50 mg by mouth once daily. FAMILY HISTORY Problem Relation Age of Onset - Heart disease Father - Heart Attack Sister Social History Tobacco Use - Smoking status: Never Smoker - Smokeless tobacco: Never Used Vaping Use - Vaping Use: Never used Substance Use Topics - Alcohol use: Yes Comment: Occasionally - Drug use: Never BP 118/78 Pulse 66 Temp 36.1 ?C (97 ?F) (Tympanic) Resp 18 Wt 86.3 kg (190 lb 3.2 oz) SpO2 97% BMI 32.65 kg/m? Review of Systems Constitutional: Negative for chills, fever and malaise/fatigue. HENT: Positive for congestion and sore throat. Negative for ear discharge, ear pain and sinus pain. Eyes: Negative for blurred vision, pain, discharge and redness. Respiratory: Positive for cough. Negative for sputum production, shortness of breath, wheezing and stridor. Cardiovascular: Negative for chest pain. Gastrointestinal: Negative for abdominal pain, diarrhea, nausea and vomiting. Musculoskeletal: Negative for myalgias. Skin: Negative for itching and rash. Neurological: Negative for dizziness and headaches. Objective Physical Exam Constitutional: General: She is not in acute distress. Appearance: She is not diaphoretic. HENT: Head: Normocephalic. Mouth/Throat: Lips: [place]. Mouth: Mucous membranes are moist. Pharynx: Oropharynx is clear. Uvula midline. Posterior oropharyngeal erythema present. No pharyngeal swelling, oropharyngeal exudate or uvula swelling. Eyes: Conjunctiva/sclera: Conjunctivae normal. Pupils: Pupils are equal, round, and reactive to light. Cardiovascular: Rate and Rhythm: Normal rate and regular rhythm. Heart sounds: Normal heart sounds. Pulmonary: Effort: Pulmonary effort is normal. No tachypnea, accessory muscle usage or respiratory distress. Breath sounds: Normal breath sounds. No stridor. Abdominal: Palpations: Abdomen is soft. Tenderness: There is no abdominal tenderness. Musculoskeletal: Cervical back: Normal range of motion and neck supple. No rigidity or tenderness. Lymphadenopathy: Cervical: No cervical adenopathy. Skin: General: Skin is warm and dry. Neurological: Mental Status: She is alert and oriented to person, place, and time. ASSESSMENT/PLAN: 1. Pharyngitis, unspecified etiology - ICD9: 462, ICD10: J02.9 - STREP A MOLECULAR (POC) Strep test negative. Will treat conservatively at this time. URI-like symptoms are improving. Red flags reevaluation discussed. Pat (more content not included)... Normal [facility] ANES Dee 07-11-2019 ANES POST HNO ID: [id number] Author: Cristofer Tafoya Service: Anesthesiology Author Type: Physician Type: Anesthesia PostOp Filed: 07/11/2019 8:27 PM Note Text: POST ANESTHESIA EVALUATION NOTE SERVICE DATE: 07/11/2019 SERVICE TIME: 8:26 PM : 1945 Vitals: 07/11/19 1229 07/11/19 1516 Temp: 36.4 ?C (97.5 ?F) 36.2 ?C (97.2 ?F) 07/11/19 1516 07/11/19 1530 07/11/19 1545 07/11/19 1600 BP: 132/73 124/88 141/82 138/73 07/11/19 1530 07/11/19 1545 07/11/19 1600 07/11/19 1615 Pulse: 81 68 63 66 07/11/19 1530 07/11/19 1545 07/11/19 1600 07/11/19 1615 Resp: 16 21 11 14 07/11/19 1530 07/11/19 1545 07/11/19 1600 07/11/19 1615 SpO2: 98% 97% 96% 98% Validated Vital Signs: Yes POST ANES STATUS: No apparent anesthetic complications. The patient is appropriately hydrated with stable respiratory and cardiovascular status. Patient has safe and adequate airway control. The patient has appropriate pain relief and no significant post operative nausea or vomiting. The patient has achieved baseline mental status. Intra-Operative Events: No Significant Anesthesia Events Further assessment by Anesthesia Service: None Other Remarks: SIGNATURE: Cristofer Tafoya MD PATIENT NAME: Petra Duncan DATE: July 11, 2019 TIME: 8:26 PM PAGER/CONTACT # Normal [facility] ANES PREOPon 07-11-2019 ANES PREOP HNO ID: [id number] Author: Jean Claude Murhpy Service: Anesthesiology Author Type: Physician Type: Anesthesia PreOp Filed: 07/11/2019 12:29 PM Note Text: ANESTHESIOLOGY DAY OF SURGERY NOTE SERVICE DATE: 07/11/2019 SERVICE TIME: 12:03 PM : 1945 Procedure(s) (LRB): ERCP (N/A) Surgeon(s): Rikki Castillo Estimated body mass index is 29.18 kg/m? as calculated from the following: Height as of 07/07/19: 162.6 cm (5' 4). Weight as of 07/07/19: 77.1 kg (170 lb). Most recent hematocrit and potassium results: Hematocrit 35.9 06/05/2019 Potassium 3.4 06/05/2019 ANES DOS/PREOP NOTE: Vitals: There were no vitals filed for this visit. ACTIVE PROBLEM LIST Biliary Obstruction PAST MEDICAL HISTORY Diagnosis Date - Anxiety - Asthma - Encounter for removal of pancreatic stent - HTN (hypertension) - Paroxysmal A-fib (HCC) when in hospital- 05/2019 - Sleep apnea wears cpap PAST SURGICAL HISTORY Procedure Laterality Date - SECTION HX 1973 - CHOLECYSTECTOMY 06/04/2019 laparoscopic - HYSTERECTOMY FAMILY HISTORY Problem Relation Age of Onset - Heart disease Father - Heart Attack Sister Social History: Social History Tobacco Use - Smoking status: Never Smoker - Smokeless tobacco: Never Used Substance Use Topics - Alcohol use: Yes Frequency: Monthly or less Comment: Occasionally - Drug use: Never No current facility-administered medications on file prior to encounter. Current Outpatient Medications on File Prior to Encounter Medication Sig - acetaminophen (TYLENOL) 325 mg tablet Take 3 tablets by mouth every 6 hours as needed. - aspirin 81 mg chewable tablet Take 81 mg by mouth once daily. - mometasone 100 mcg/actuation HFAA Inhale 100 mcg as instructed twice daily. 1 puff - Ipratropium Marshall (ATROVENT) 0.03 % nasal spray Use 2 Sprays in the nose every 12 hours. - albuterol HFA (PROVENTIL HFA, VENTOLIN HFA) 90 mcg/actuation inhaler Inhale 2 Puffs as instructed. - LISINOPRIL-HYDROCHLOROTHIA ZIDE ORAL Take 10 mg by mouth once daily. 10/12.5 mg - NAPROXEN ORAL Take by mouth. - sertraline (ZOLOFT) 50 mg ORAL tablet Take 50 mg by mouth once daily. No current facility-administered medications for this encounter. Allergies: ALLERGIES Allergen Reactions - [facility] Hives DOS EXAM: Adequate NPO status: Yes Anesthetic risks, benefits, alternatives, personnel and consent discussed: Yes Patient agrees to proceed: Yes Previous Anesthesia: No history of adverse event. Airway Assessment: MP 2; Neck ROM: Full ROM without neurologic symptoms; Airway Evaluation: No significant abnormalities Symptoms of Sleep Apnea: Hypertension and Age over 50 (74 year old) Dentition: Dentures: both Additional Physical Exam: Lungs: Patient health status unchanged since recent history and physical. See history and physical for exam findings. Cardiac: Patient health status unchanged since recent history and physical. See history and physical for exam findings. Additional Pertinent Findings: N/A Blood Products: Not anticipated for this procedure. Anesthetic Plan: General, Standard ASA Monitors Pain Management Plan: Parenteral or Oral ASA Class: 3 Other Medical Problems: Per patient, primary team did not start OAC for afib/RVR last admission/discharge in anticipation of upcoming ERCP/stent removal today. Pt. To F/U with cardiology DARRIN after discharge for OAC determination once OK with GI. D/w patient, voices understanding. Chronic Beta Nannette medication administered within 24 hours: N/A I have interviewed and examined the patient. I have reviewed the medical record and/or the pre-anesthesia evaluation, pertinent labs, and test results. Significant changes in the patient's condition since the History and Physical, not otherwise documented in primary service progress notes: No This contains updated information obtained within 48 hours of Surgery/Procedure. SIGNATURE: Jean Claude Murphy MD PATIENT NAME: Petra Duncan DATE: July 11, 2019 TIME: 12:03 PM CSN: [id number] [facility] OPERATIVE NOon 07-11-2019 OPERATIVE NO HNO ID: [id number] Author: Rikki Castillo Service: Gastroenterology Author Type: Physician Type: Operative Report Filed: 07/11/2019 4:22 PM Note Text: OPERATIVE/PROCEDURE REPORT LOG ID: [id number] Surgery/Procedure Date: 07/11/2019 Incision/Procedure Start Time: 2:02 PM Incision Close/Procedure End Time: 3:05 PM Surgeon(s)/Proceduralist(s ) and Server Administrator(s): Surgeon(s) and Role: * Rikki Castillo - Primary No Additional Staff Procedure(s): Endoscopic Retrograde Cholangiopancreatography (ERCP) with stent retrieval, balloon dilation, cholangiogram Anesthesia: General Brief History: 74F who p/w 5 day hx of epigastric pain and nausea in early May 2019. Did have jaundice initially but no fever or weight loss. CT showed mild IHBD dilation and MRCP confirmed multiple stones in CBD. Tbili peaked at 6.5 and lipase never tested. Had ERCP on 06/02 and noted to have large duodenal diverticulum and small amount of CBD sludge. 10F, 7cm CBD stent placed. She had lap isadora on 06/04 and is now here for stent removal. The risks, benefits and alternatives of the procedure were explained to the patient/responsible accompanying adult. This includes, but is not limited to, bleeding and infection. The risk of perforation is 1:1000 and the risk of post-procedural pancreatitis is 3-5%. There is also a small risk of allergic reaction(s) due to sedatives, need for hospitalization, need for transfusions and need for surgery. The patient understands this and is amenable to proceeding. Procedure Details: The patient was placed in the prone position on the fluoroscopy table. A bite block was placed and medications administered as above. The Olympus side-viewing duodenoscope was introduced into the oropharynx and we intubated the esophagus with ease. We proceeded down to the second part of the duodenum. The ampulla was again seen located within a diverticulum, at the 7 o'clock position. The stent was seen on fluoroscopy but could barely be seen endoscopically. It appeared to have migrated proximally into the CBD. We attempted removal initially with a rat tooth forceps but this caused it to migrate further into the duct. We then cannulated using a sphincterotome and left a wire in place. We used a 12/15mm extraction balloon to try to retrieve the stent. Unfortunately, it would not come through. We then used a CRE balloon dilated to 10mm but again the distal tip of the stent kept getting stuck in the wall of the CBD. We used a trapezoid basket which did not help. We attempted to grasp the distal flap of the stent using biopsy forceps but this did not help. Eventually, we performed CRE balloon dilation of the ampulla to 12mm. We used the balloon again and placed in between the distal and proximal flaps on the stent. We were eventually able to pull out the stent enough for it to be seen. We then used rat tooth forceps to grasp it and pull it out. We then re-cannulated using a sphincterotome. Cholangiogram was obtained without any filling defects seen. Several balloon sweeps were clear. Occlusion cholangiogram was clear at the end of the case. The scope was then withdrawn and the patient tolerated the procedure well. She was given Indocin 100mg [place] at the end of the case. Pre-Op/Pre-Procedure Diagnosis: Choledocholithiasis, duodenal diverticulum Post-Op/Post-Procedure Diagnosis: - Proximal migration of existing plastic stent into CBD - Various maneuvers used to retrieve stent including ampullary balloon dilation - no filling defects or stones in CBD Specimens: See above EBL: None Complications: None Recommendations: No further GI follow up required If the patient experiences abdominal pain, please check lipase and inform the endoscopist as they may be at risk for post-ERCP pancreatitis. I/primary surgeon/proceduralist performed the entire procedure. Rikki Castillo MD MPH [facility] SIGNATURE: Rikki Castillo MD MPH [facility] PATIENT NAME: Petra Duncan DATE: July 11, 2019 TIME: 3:15 PM PAGER/CONTACT #: [phone] [facility] PT EDon 07-11-2019 PT ED HNO ID: [id number] Author: Azra Argueta) BENNIE Cabrera Service: ? Author Type: Registered Nurse Type: Patient Education Filed: 07/11/2019 12:35 PM Note Text: PRE OP LEARNING ASSESSMENT PROCEDURE/SURGERY: READINESS TO LEARN COGNITIVE ABILITY: Alert and oriented MOTIVATION TO LEARN: Eager FAMILY SUPPORT: High - Very involved in pt care PATIENT LEARNS BEST BY: Verbal Instruction FACTORS AFFECTING LEARNING: None PHYSICAL LIMITATIONS AFFECTING LEARNING: None Electronically Signed By: Azra Cabrera RN In Department: [place] SURGERY OR [facility] XR ERCP READ ONLYon 07-11-19 XR ERCP READ ONLY * * *Final Report* * * DATE OF EXAM: Jul 11 2019 3:18PM [id number] - XR ERCP READ ONLY / PROCEDURE REASON: STENT REMOVAL * * * * Physician Interpretation * * * * EXAM TITLE: XR ERCP READ ONLY DATE: 07/11/2019 INDICATION: History common bile duct stones. COMPARISON: MRCP dated 05/31/2019 Study consists of 10 images showing an endoscope within second portion of duodenum. A biliary stent was in place. Contrast is injected into the common bile duct and a balloon tipped catheter was pulled through the common bile duct. In addition, there was inflation of a balloon in the distal common bile duct. At one point during the procedure, the biliary stent was removed. IMPRESSION: ERCP for removal of common bile duct stones. Unit Controller: PSCB Transcribe Date/Time: Jul 11 2019 3:36P Dictated by : FERNY MENDOZA MD This examination was interpreted and the report reviewed and electronically signed by: FERNY MENDOZA MD on Jul 11 2019 3:40PM EST [facility] HISTORY PHYSICALon 0 HISTORY PHYSICAL HNO ID: [id number] Author: Hayley Rubio APRN.[facility] Service: ? Author Type: Nurse Practitioner Type: HANDP Filed: 07/07/2019 2:19 PM Note Text: HISTORY AND PHYSICAL EXAMINATION SERVICE DATE: 07/07/2019 SERVICE TIME: 1335 PRIMARY CARE PHYSICIAN: Nabila Paris MD REASON FOR VISIT: Petra Duncan is a 74 year old female who is scheduled for ERCP [[id number]] Petra Duncan is a 74 year old female who is scheduled for presurgical testing at the request of Dr. Rikki Castillo for routine HANDP. The patient has the following: ACTIVE PROBLEM LIST Biliary Obstruction Subjective CHIEF COMPLAINT: Pancreatic stent HPI: Petra is a 74 year old female who presents for presurgical testing. She states she had abdominal pain and nausea in early May and presented to the ER. She was found to have biliary duct dilation and multiple small stones within the common bile duct. She had an ERCP with stent placed and then ultimately a cholecystectomy June 04. She is scheduled to have the stent removed. She denies abdominal pain, fever, and chills. After discussion with the surgeon, pt is agreeable to surgical intervention. PAST MEDICAL HISTORY Diagnosis Date - Anxiety - Asthma - Encounter for removal of pancreatic stent - HTN (hypertension) - Paroxysmal A-fib (HCC) when in hospital- 05/2019 - Sleep apnea wears cpap PAST SURGICAL HISTORY Procedure Laterality Date - SECTION HX 1972 - CHOLECYSTECTOMY 06/04/2019 laparoscopic - HYSTERECTOMY FAMILY HISTORY Problem Relation Age of Onset - Heart disease Father - Heart Attack Sister SOCIAL HISTORY: Social History Tobacco Use - Smoking status: Never Smoker - Smokeless tobacco: Never Used Substance Use Topics - Alcohol use: Yes Frequency: Monthly or less Comment: Occasionally - Drug use: Never Prior to Admission medications as of 07/07/19 1350 Medication Sig Last Dose Taking acetaminophen (TYLENOL) 325 mg tablet Take 3 tablets by mouth every 6 hours as needed. Taking Yes aspirin 81 mg chewable tablet Take 81 mg by mouth once daily. Taking Yes mometasone 100 mcg/actuation HFAA Inhale 100 mcg as instructed twice daily. 1 puff Taking Yes albuterol HFA (PROVENTIL HFA, VENTOLIN HFA) 90 mcg/actuation inhaler Inhale 2 Puffs as instructed. Taking Yes LISINOPRIL-HYDROCHLOROTHIA ZIDE ORAL Take 10 mg by mouth once daily. 10/12.5 mg Taking Yes Ipratropium Marshall (ATROVENT) 0.03 % nasal spray Use 2 Sprays in the nose every 12 hours. NAPROXEN ORAL Take by mouth. sertraline (ZOLOFT) 50 mg ORAL tablet Take 50 mg by mouth once daily. No medication comments found. ALLERGIES Allergen Reactions - [facility] Hives REVIEW OF SYSTEMS: PAIN ASSESSMENT: General: Denies fever, chills, and unexpected weight change. Neuro: Denies dizziness and headaches. Respiratory: + asthma + sleep apnea- wears cpap. Denies COPD. No history of current cough or dyspnea, or pneumonia in the past 6 weeks. Cardiovascular: + HTN + hx paroxysmal afib 05/29/2019 Denies HLD. No history of angina, CHF, SD, cardiac surgery or stents. GI: Denies abd pain and N/V/D. See HPI : Denies dysuria. 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 Endocrine: No history of diabetes or thyroid disease Hematology/Oncology: Denies history of bleeding or clotting disorder. Denies history of cancer. Psych: Denies anxiety. + depression Musculoskeletal: Denies joint pain and swelling. Skin: Denies open sores and rashes. Objective PHYSICAL EXAM: VITALS: BP 113/72 Pulse 87 Temp 98.8 Resp 18 Ht 5' 4 (1.63m) Wt 170 lb (77.1kg) SpO2 94% BMI 29.17 kg/(m2). General: NAD. Cooperative. Skin: Skin is warm, no rashes, and no open sores. HEENT: Normocephalic. Cardiovascular: Normal S1 AND S2, no rubs, murmurs or gallops. No JVD. Pulse regular. Lungs: Normal breath sounds, no wheezes or crackles. Abdomen: Soft, non-tender, +BS throughout Extremities: No edema. Neurological: Alert and oriented to person, place, and time. Pulses: radial/pedal pulses +2 Bilaterally Diagnostic tests reviewed for today's visit: Lab Value Units Date High Low HB 11.7 g/dL 06/05/2019 15.7 11.2 HCT 35.9 % 06/05/2019 44.9 34.1 WBC 7.62 thou/c* 06/05/2019 10.04 3.98 PLT 196 thou/c* 06/05/2019 369 182 NA 142 mEq/L 06/05/2019 145 136 K 3.4 mEq/L 06/05/2019 5.1 3.5 GLUC 99 mg/dL 06/05/2019 99 70 BUN 12 mg/dL 06/05/2019 18 7 CREAT 0.80 mg/dL 06/05/2019 0.95 0.51 ALT 92 U/L 06/05/2019 78 12 AST 35 U/L 06/05/2019 37 15 TBILI 1.1 mg/dL 06/05/2019 1.0 0.2 Most recent labs METS: Climb a flight of stairs or walk up a hill (5.50 METs) Patient denies any chest pain or undue shortness of breath with the above physical activity. ANESTHESIA FINDINGS: Intubation History: No history of difficult intubation Significant Anesthesia Considerations: None Patient has the following medical conditions which may affect matthew-operative course Asthma - Medication(s) reviewed and discussed the importance of compliance. Instructed pt to bring inhalers with her day of surgery. HTN - Well controlled, pt on lisinopril/HCTHZ, BP 113/72, instructed pt to take medication morning of surgery. FLORI - Patient is using CPAP/BIPAP Advised to bring CPAP/BIPAP machine to hospital RED DOT- pt was admitted in May for abdominal pain had cholecystectomy, ERCP and stent placed. Went into transient atrial fibrillation with RVR, returned to NSR. Per charger operator note pt needs ischemic work up and anticoagulation. ECHO was ordered and done during admission. EF> 61%- no significant valve disease. Recommended 5 mg eliquis BID and follow up with charger operator- per charger operator note in [facility] from 05/31/2019. Eliquis was never started prior to discharge- pt discharged on 06/05/2019. Does not have appt with [place] charger operator until August. Does anesthesia want any further work up? Or cardiac clearance? Assessment/Plan PLAN Diagnosis: Encounter for removal of pancreatic stent [Z46.89] Planned Procedure: ERCP [4181] CONSULTS: No consults pending. The Following Tests/Procedures Have Been Initiated: No orders in [facility], written, or scanned Planned Anesthetic: General Instructions Given to Patient: Patient given verbal and written preop instructions and voices comprehension and compliance. SIGNATURE: Hayley Rubio APRN.INTERNATIONAL STUDENT ADVISOR PATIENT NAME: Petra Duncan DATE: July 07, 2019 TIME: 1:34 PM PAGER/CONTACT #: [facility] PROGRESSon 07-07-2019 PROGRESS HNO ID: [id number] Author: Sydni Otto Service: General Surgery Author Type: Nurse Practitioner Type: Progress Notes Filed: 07/07/2019 3:07 PM Note Text: Discussed case with Dr. Aragon. Ok to proceed with surgery. Eliquis has not been started. Patient should follow up with charger operator to discusses possible anticoagulation after surgery. [facility] PROGRESS HNO ID: [id number] Author: Hayley (Dynamometer Tester Engine) ZENON Rubio.MARCIO Service: ? Author Type: Nurse Practitioner Type: Progress Notes Filed: 07/07/2019 2:19 PM Note Text: RED DOT- pt was admitted in May for abdominal pain had cholecystectomy, ERCP and stent placed. Went into transient atrial fibrillation with RVR, returned to NSR. Per charger operator note pt needs ischemic work up and anticoagulation. ECHO was ordered and done during admission. EF> 61%- no significant valve disease. Recommended 5 mg eliquis BID and follow up with charger operator- per charger operator note in epic from 05/31/2019. Eliquis was never started prior to discharge- pt discharged on 06/05/2019. Does not have appt with [place] charger operator until August. Does anesthesia want any further work up? Or cardiac clearance? [facility] PT EDon 07-06-2019 PT ED HNO ID: [id number] Author: Anna AguirreRn) BENNIE Archibald Service: Nursing Author Type: Registered Nurse Type: Patient Education Filed: 07/06/2019 1:22 PM Note Text: PRE OP LEARNING ASSESSMENT PROCEDURE/SURGERY: READINESS TO LEARN COGNITIVE ABILITY: Alert and oriented MOTIVATION TO LEARN: Interested FAMILY SUPPORT: High - Very involved in pt care PATIENT LEARNS BEST BY: Multiple Methods FACTORS AFFECTING LEARNING: None PHYSICAL LIMITATIONS AFFECTING LEARNING: None Electronically Signed By: Anna Archibald RN In Department: [place] SURGERY OR [facility] HOSPon 06-29-2019 HOSP Patient:Natalya Duncan ra MRN: Height:5' 4(1.626 m) Weight:170 lb (77.111 kg) Outpatient Medications as of 07/11/19: acetaminophen (TYLENOL) 325 mg tablet aspirin 81 mg chewable tablet mometasone 100 mcg/actuation HFAA Ipratropium Marshall (ATROVENT) 0.03 % nasal spray albuterol HFA (PROVENTIL HFA, VENTOLIN HFA) 90 mcg/actuation inhaler LISINOPRIL-HYDROCHLOROTHIA ZIDE ORAL NAPROXEN ORAL sertraline (ZOLOFT) 50 mg ORAL tablet Admission/Clinic Administered Medications as of 07/11/19: Patient has no admission medications. Problem List: Biliary obstruction [K83.1] Allergies: [facility] Date Verified: 07/11/19 Lab Values No results within the last 30 days for the following basenames: K,HCT Progress Notes ([facility]): Sophy Aguilar 07/08/2019 11:31 AM Signed Called the patient and left a voice message reminding the patient about the time, date, location, and prep for her appointment. I also reminded the patient to be at her appointment a 1 ? before and to bring a sales warehouse driver. Sophy Aguilar Progress Notes (PRE SURG TESTING [facility]): Hayley Rubio APRN.MARCIO, RAS 07/07/2019 1:34 PM Signed PATIENT PREOPERATIVE INSTRUCTIONS Rikki Castillo MD has scheduled you for your procedure at this surgery center: [facility]: [phone], [address], [place] [address] Please read below carefully for your personalized instructions. Arrive at main entrance of hospital. Follow the sign to the blue elevators, the surgery welcome center will be on the left hand side. Arrival Time for Surgery: 07/11/2019 2pm ARRIVE 12 pm Please be aware that emergency situations arise, which may delay or change your surgical time. If this happens, we will notify you as soon as possible and regret any inconvenience. Blood Thinning Medications: - You may take Tylenol (Acetaminophen) or any of your pain medications that do not contain aspirin or NSAIDS as needed. - Stop NSAIDS (Ibuprofen, Advil, Aleve, Motrin, Celebrex, Mobic, etc.) 7 days before surgery, as directed by your surgeon. IF YOU TAKE ANY OF THE FOLLOWING BLOOD THINNERS, PLEASE CONTACT YOUR SURGEON AND THE PHYSICIAN WHO PRESCRIBES IT FOR YOU IN ORDER TO GET PERIOPERATIVE INSTRUCTIONS SOON POSSIBLE. BLOOD THINNERS: Aspirin , Coumadin, Plavix, Eliquis, Pradaxa, Xarelto, Lovenox, Brilinta, Effient, Savaysa, Arixtra, etc - Stop Vitamin E, fish oil, multivitamins, Marijuana, CBD oil and other over the counter herbals and dietary supplements 7 days before surgery. Dietary Restrictions: - No solid food after midnight. - You may have 12 ounces of clear liquids (water, clear juices such as apple juice or gatorade, carbonated beverages, clear tea, black coffee, jello) until 2 hours before scheduled arrival at facility. - -Okay for clear liquids until 10 am Medications: Approved medications to take the morning of surgery with a sip of water: Blood pressure, heart, thyroid, psych/mood, seizure, and pain medications excluding NSAIDS. Use inhalers as prescribed. Please bring inhalers with you day of surgery. If you start any new medications after today's visit, please contact the surgeon's office. Important Reminders: - If you use CPAP/BIPAP, bring the machine with you to the surgery center. - If you are prescribed inhalers for breathing, continue using them. - Candy, mints, and tobacco products are NOT permitted the morning of surgery. - Hearing aids, dentures and glasses may be worn the morning of surgery. - NO jewelry, body piercings, makeup, hairpins or contacts are to be worn the day of surgery. If you develop symptoms such as a fever, cold, or flu, or have other changes to your health within TWO DAYS of scheduled surgery or the morning of surgery, please contact the surgery center above. Personal Belongings: -Please have photo ID and insurance cards. -If you do not have a copy of advance directives on file with us, please bring a copy with you on the day of surgery. - Leave ALL valuables and money at home or with family members. For Outpatient Procedures: - YOU MUST HAVE A RESPONSIBLE FERRY TERMINAL SUPERVISOR TAKE YOU HOME. A OPTION TRADER OR GLASS FURNACE OPERATOR CANNOT BE MADE A RESPONSIBLE FERRY TERMINAL SUPERVISOR. - We recommend that a responsible person stays with you overnight to take care of you. - You cannot stay in a hotel alone after outpatient surgery. You will not be permitted to have your surgery, if you do not have someone to take care of you. Hayley Rubio APRN.MARCIO Rubio APRN.ZENON BUCKLEY.MARCIO 07/07/2019 2:19 PM Signed HISTORY AND PHYSICAL EXAMINATION SERVICE DATE: 07/07/2019 SERVICE TIME: 1335 PRIMARY CARE PHYSICIAN: Nabila Paris MD REASON FOR VISIT: Petra Duncan is a 74 year old female who is scheduled for ERCP [1671] Petra Duncan is a 74 year old female who is scheduled for presurgical testing at the request of Dr. Rikki Castillo for routine HANDP. The patient has the following: ACTIVE PROBLEM LIST Biliary Obstruction Subjective CHIEF COMPLAINT: Pancreatic stent HPI: Petra is a 74 year old female who presents for presurgical testing. She states she had abdominal pain and nausea in early May and presented to the ER. She was found to have biliary duct dilation and multiple small stones within the common bile duct. She had an ERCP with stent placed and then ultimately a cholecystectomy June 04. She is scheduled to have the stent removed. She denies abdominal pain, fever, and chills. After discussion with the surgeon, pt is agreeable to surgical intervention. PAST MEDICAL HISTORY Diagnosis Date - Anxiety - Asthma - Encounter for removal of pancreatic stent - HTN (hypertension) - Paroxysmal A-fib (HCC) when in hospital- 05/2019 - Sleep apnea wears cpap PAST SURGICAL HISTORY Procedure Laterality Date - SECTION HX 1973 - CHOLECYSTECTOMY 06/04/2019 laparoscopic - HYSTERECTOMY FAMILY HISTORY Problem Relation Age of Onset - Heart disease Father - Heart Attack Sister SOCIAL HISTORY: Social History Tobacco Use - Smoking status: Never Smoker - Smokeless tobacco: Never Used Substance Use Topics - Alcohol use: Yes Frequency: Monthly or less Comment: Occasionally - Drug use: Never Prior to Admission medications as of 07/07/19 1350 Medication Sig Last Dose Taking acetaminophen (TYLENOL) 325 mg tablet Take 3 tablets by mouth every 6 hours as needed. Taking Yes aspirin 81 mg chewable tablet Take 81 mg by mouth once daily. Taking Yes mometasone 100 mcg/actuation HFAA Inhale 100 mcg as instructed twice daily. 1 puff Taking Yes albuterol HFA (PROVENTIL HFA, VENTOLIN HFA) 90 mcg/actuation inhaler Inhale 2 Puffs as instructed. Taking Yes LISINOPRIL-HYDROCHLOROTHIA ZIDE ORAL Take 10 mg by mouth once daily. 10/12.5 mg Taking Yes Ipratropium Marshall (ATROVENT) 0.03 % nasal spray Use 2 Sprays in the nose every 12 hours. NAPROXEN ORAL Take by mouth. sertraline (ZOLOFT) 50 mg ORAL tablet Take 50 mg by mouth once daily. No medication comments found. ALLERGIES Allergen Reactions - [facility] Hives REVIEW OF SYSTEMS: PAIN ASSESSMENT: General: Denies fever, chills, and unexpected weight change. Neuro: Denies dizziness and headaches. Respiratory: + asthma + sleep apnea- wears cpap. Denies COPD. No history of current cough or dyspnea, or pneumonia in the past 6 weeks. Cardiovascular: + HTN + hx paroxysmal afib 05/29/2019 Denies HLD. No history of angina, CHF, SD, cardiac surgery or stents. GI: Denies abd pain and N/V/D. See HPI : Denies dysuria. 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 Endocrine: No history of diabetes or thyroid disease Hematology/Oncology: Denies history of bleeding or clotting disorder. Denies history of cancer. Psych: Denies anxiety. + depression Musculoskeletal: Denies joint pain and swelling. Skin: Denies open sores and rashes. Objective PHYSICAL EXAM: VITALS: BP 113/72 Pulse 87 Temp 98.8 Resp 18 Ht 5' 4 (1.63m) Wt 170 lb (77.1kg) SpO2 94% BMI 29.17 kg/(m2). General: NAD. Cooperative. Skin: Skin is warm, no rashes, and no open sores. HEENT: Normocephalic. Cardiovascular: Normal S1 AND S2, no rubs, murmurs or gallops. No JVD. Pulse regular. Lungs: Normal breath sounds, no wheezes or crackles. Abdomen: Soft, non-tender, +BS throughout Extremities: No edema. Neurological: Alert and oriented to person, place, and time. Pulses: radial/pedal pulses +2 Bilaterally Diagnostic tests reviewed for today's visit: Lab Value Units Date High Low HB 11.7 g/dL 06/05/2019 15.7 11.2 HCT 35.9 % 06/05/2019 44.9 34.1 WBC 7.62 thou/c* 06/05/2019 10.04 3.98 PLT 196 thou/c* 06/05/2019 369 182 NA 142 mEq/L 06/05/2019 145 136 K 3.4 mEq/L 06/05/2019 5.1 3.5 GLUC 99 mg/dL 06/05/2019 99 70 BUN 12 mg/dL 06/05/2019 18 7 CREAT 0.80 mg/dL 06/05/2019 0.95 0.51 ALT 92 U/L 06/05/2019 78 12 AST 35 U/L 06/05/2019 37 15 TBILI 1.1 mg/dL 06/05/2019 1.0 0.2 Most recent labs METS: Climb a flight of stairs or walk up a hill (5.50 METs) Patient denies any chest pain or undue shortness of breath with the above physical activity. ANESTHESIA FINDINGS: Intubation History: No history of difficult intubation Significant Anesthesia Considerations: None Patient has the following medical conditions which may affect matthew-operative course Asthma - Medication(s) reviewed and discussed the importance of compliance. Instructed pt to bring inhalers with her day of surgery. HTN - Well controlled, pt on lisinopril/HCTHZ, BP 113/72, instructed pt to take medication morning of surgery. FLORI - Patient is using CPAP/BIPAP Advised to bring CPAP/BIPAP machine to hospital RED [facility]- pt was admitted in May for abdominal pain had cholecystectomy, ERCP and stent placed. Went into transient atrial fibrillation with RVR, returned to R. Per charger operator note pt needs ischemic work up and anticoagulation. ECHO was ordered and done during admission. EF> 61%- no significant valve disease. Recommended 5 mg eliquis BID and follow up with charger operator- per charger operator note in [facility] from 05/31/2019. Eliquis was never started prior to discharge- pt discharged on 06/05/2019. Does not have appt with [place] charger operator until August. Does anesthesia want any further work up? Or cardiac clearance? Assessment/Plan PLAN Diagnosis: Encounter for removal of pancreatic stent [Z46.89] Planned Procedure: ERCP [1671] CONSULTS: No consults pending. The Following Tests/Procedures Have Been Initiated: No orders in [facility], written, or scanned Planned Anesthetic: General Instructions Given to Patient: Patient given verbal and written preop instructions and voices comprehension and compliance. SIGNATURE: Hayley Rubio APRN.CNP PATIENT NAME: Petra Duncan DATE: July 07, 2019 TIME: 1:34 PM PAGER/CONTACT #: Hayley Rubio APRN.RAS BUCKLEY 07/07/2019 2:19 PM Signed RED [place]- pt was admitted in May for abdominal pain had cholecystectomy, ERCP and stent placed. Went into transient atrial fibrillation with RVR, returned to NSR. Per charger operator note pt needs ischemic work up and anticoagulation. ECHO was ordered and done during admission. EF> 61%- no significant valve disease. Recommended 5 mg eliquis BID and follow up with charger operator- per charger operator note in epic from 05/31/2019. Eliquis was never started prior to discharge- pt discharged on 06/05/2019. Does not have appt with [place] charger operator until August. Does anesthesia want any further work up? Or cardiac clearance? Normal [facility] CNOVon 06-23-2019 CNOV Office Visit ([facility] 5) -- SEBASTIÁNPETRA WILLIAM Med ([id number]) 1945 F Date Time Provider Department 06/23/19 4:00 PM NURSE CARTER PATRICK ACC 359 [facility] During your visit today, we recorded the following information about you: Pulse Respiration Blood pressure Weight 88/minute 20/minute 118/64 79.4 kg Height 1.676 m Danette Webb APRN.CNP 06/23/2019 7:36 PM Signed Patient referred by: SELF Patient presents with: Post Op: lap isadora HPI: This is a post operative visit. Ms. Duncan was accompanied by her sister for this visit. Ms. Duncan reports feeling good since the surgery. Appetite is fair. Having soft brown BMs. Reports itching with urination and thinks she may have UTI. Ms. Duncan denies c/o CP, SOB or palpitations. PAST MEDICAL HISTORY Diagnosis Date - Asthma - HTN (hypertension) PAST SURGICAL HISTORY Procedure Laterality Date - CHOLECYSTECTOMY 06/04/2019 laparoscopic - HYSTERECTOMY FAMILY HISTORY Problem Relation Age of Onset - Heart disease Father Social History Tobacco Use - Smoking status: Never Smoker - Smokeless tobacco: Never Used Substance Use Topics - Alcohol use: Yes Comment: Occasionally - Drug use: Never Current Outpatient Medications Medication Sig - acetaminophen (TYLENOL) 325 mg tablet Take 3 tablets by mouth every 6 hours as needed. - senna-docusate (SENNA-S) 8.6-50 mg per tablet Take 1 tablet by mouth twice daily as needed for Constipation. - aspirin 81 mg chewable tablet Take 81 mg by mouth once daily. - mometasone 100 mcg/actuation HFAA Inhale 100 mcg as instructed twice daily. - Ipratropium Marshall (ATROVENT) 0.03 % nasal spray Use 2 Sprays in the nose every 12 hours. - albuterol HFA (PROVENTIL HFA, VENTOLIN HFA) 90 mcg/actuation inhaler Inhale 2 Puffs as instructed. - LISINOPRIL-HYDROCHLOROTHIA ZIDE ORAL Take 10 mg by mouth once daily. 10/12.5 mg - NAPROXEN ORAL Take by mouth. - sertraline (ZOLOFT) 50 mg ORAL tablet Take 50 mg by mouth once daily. No current facility-administered medications for this visit. ALLERGIES Allergen Reactions - [facility] Hives REVIEW OF SYSTEMS: GENERAL: No weight loss, malaise or fevers GI: Negative for abdominal pain, nausea , vomiting, diarrhea, constipation and signs of jaundice Positive for none PHYSICAL EXAM: BP 118/64 Pulse 88 Resp 20 Ht 5' 6 (1.68m) Wt 175 lb (79.4kg) BMI 28.26 kg/(m2). GENERAL APPEARANCE: Well appearing, alert, in no acute distress, well-hydrated, well nourished.. ABDOMEN: Normal abdominal exam, Abdomen soft, non-tender. Bowel sounds normal. No masses, organomegaly. Lap sites well healed NEURO: Alert, oriented x3, no asterixis, speech clear and articulate and HOPKINS DATA: Diagnostic tests reviewed for today's visit: Most recent labs Most recent imaging Pathology report reviewed Greater than 50% of the direct patient contact time was spent in counseling or coordination of care. ASSESSMENT / PLAN 1. Urgency of micturition C/O itching with urination. Follow up UA results - URINALYSIS WITH MICROSCOPIC; Future 2. Status post laparoscopic cholecystectomy - Ms. Duncan is doing well following surgery. We discussed the need for numerous follow up visits. Mr. Castillo's office contacted for follow up appointment for stent removal. States they will call patient with date tomorrow. Ms. Duncan was given a copy of her cariology consult with recommendations included. She reports her PCP stated she did not need to be on anticoagulation. Encouraged Ms. Duncan to follow up with cardiology and PCP with printed recommendations. She was also encouraged to have PCP follow up with renal US. Both Ms. Duncan and her sister verbalized understanding of the need for these follow up appointments. Otherwise, she can follow up with the [facility] on an as needed basis. Danette Webb APRN.MARCIO Webb APRN.CNP 06/23/2019 7:28 PM Signed You are doing well following your gallbladder surgery. Please follow up with Gastroenterology for ERCP and stent removal in 2-4 weeks. Also, please follow up with Cardiology/PCP regarding the need for oral anticoagulation, Eliquis, for atrial fibrillation and your PCP for follow up renal ultrasound. You voiced concern for itching with urination and I have ordered a urinalysis. Please complete this darrin. Referring Provider: SELF [200] Allergies As of Date: 06/23/2019 Noted Allergy Reaction STRAWBERRY 06/23/2019 4 - Hives Date Reviewed: 06/23/2019 Reviewed by: Sindy (Frank) Blessing - Fully Assessed Reason for Visit: Post Op [174] Cmt: lap isadora Primary Visit Diagnosis:Urgency of micturition [R39.15] Other Visit Diagnosis:Status post laparoscopic cholecystectomy [Z90.49] Order(s):URINALYSIS WITH MICROSCOPIC [SQUAWMIC] Order #: [id number] FUTURE Prescriptions as of 06/23/2019 Sig: ACETAMINOPHEN 325 MG TABLET Take 3 tablets by mouth every* SENNOSIDES 8.6 MG-DOCUSATE SO* Take 1 tablet by mouth twice * ASPIRIN 81 MG CHEWABLE TABLET Take 81 mg by mouth once jass* MOMETASONE 100 MCG/ACTUATION * Inhale 100 mcg as instructed * IPRATROPIUM BROMIDE 0.03 % NA* Use 2 Sprays in the nose ever* ALBUTEROL SULFATE HFA 90 MCG/* Inhale 2 Puffs as instructed. * LISINOPRIL-HYDROCHLOROTHIA ZID* Take 10 mg by mouth once jass* * NAPROXEN ORAL Take by mouth. * SERTRALINE 50 MG TABLET Take 50 mg by mouth once jass* Problem List As Of Date 06/23/2019 Noted Resolved Biliary obstruction [K83.1] 05/29/2019 Other instructions from your clinician: You are doing well following your gallbladder surgery. Please follow up with Gastroenterology for ERCP and stent removal in 2-4 weeks. Also, please follow up with Cardiology/PCP regarding the need for oral anticoagulation, Eliquis, for atrial fibrillation and your PCP for follow up renal ultrasound. You voiced concern for itching with urination and I have ordered a urinalysis. Please complete this darrin. Disposition: Return if symptoms worsen or fail to improve. Follow-up and Disposition History Recorded Encounter Status:Closed by DANETTE WEBB CNP on 06/23/19 [facility] PROGRESSon 06-23-2019 PROGRESS HNO ID: [id number] Author: Danette Webb Service: ? Author Type: Nurse Practitioner Type: Progress Notes Filed: 06/23/2019 7:36 PM Note Text: Patient referred by: SELF Patient presents with: Post Op: lap isadora HPI: This is a post operative visit. Ms. Duncan was accompanied by her sister for this visit. Ms. Duncan reports feeling good since the surgery. Appetite is fair. Having soft brown BMs. Reports itching with urination and thinks she may have UTI. Ms. Duncan denies c/o CP, SOB or palpitations. PAST MEDICAL HISTORY Diagnosis Date - Asthma - HTN (hypertension) PAST SURGICAL HISTORY Procedure Laterality Date - CHOLECYSTECTOMY 06/04/2019 laparoscopic - HYSTERECTOMY FAMILY HISTORY Problem Relation Age of Onset - Heart disease Father Social History Tobacco Use - Smoking status: Never Smoker - Smokeless tobacco: Never Used Substance Use Topics - Alcohol use: Yes Comment: Occasionally - Drug use: Never Current Outpatient Medications Medication Sig - acetaminophen (TYLENOL) 325 mg tablet Take 3 tablets by mouth every 6 hours as needed. - senna-docusate (SENNA-S) 8.6-50 mg per tablet Take 1 tablet by mouth twice daily as needed for Constipation. - aspirin 81 mg chewable tablet Take 81 mg by mouth once daily. - mometasone 100 mcg/actuation HFAA Inhale 100 mcg as instructed twice daily. - Ipratropium Marshall (ATROVENT) 0.03 % nasal spray Use 2 Sprays in the nose every 12 hours. - albuterol HFA (PROVENTIL HFA, VENTOLIN HFA) 90 mcg/actuation inhaler Inhale 2 Puffs as instructed. - LISINOPRIL-HYDROCHLOROTHIA ZIDE ORAL Take 10 mg by mouth once daily. 10/12.5 mg - NAPROXEN ORAL Take by mouth. - sertraline (ZOLOFT) 50 mg ORAL tablet Take 50 mg by mouth once daily. No current facility-administered medications for this visit. ALLERGIES Allergen Reactions - [place] Hives REVIEW OF SYSTEMS: GENERAL: No weight loss, malaise or fevers GI: Negative for abdominal pain, nausea , vomiting, diarrhea, constipation and signs of jaundice Positive for none PHYSICAL EXAM: BP 118/64 Pulse 88 Resp 20 Ht 5' 6 (1.68m) Wt 175 lb (79.4kg) BMI 28.26 kg/(m2). GENERAL APPEARANCE: Well appearing, alert, in no acute distress, well-hydrated, well nourished.. ABDOMEN: Normal abdominal exam, Abdomen soft, non-tender. Bowel sounds normal. No masses, organomegaly. Lap sites well healed NEURO: Alert, oriented x3, no asterixis, speech clear and articulate and HOPKINS DATA: Diagnostic tests reviewed for today's visit: Most recent labs Most recent imaging Pathology report reviewed Greater than 50% of the direct patient contact time was spent in counseling or coordination of care. ASSESSMENT / PLAN 1. Urgency of micturition C/O itching with urination. Follow up UA results - URINALYSIS WITH MICROSCOPIC; Future 2. Status post laparoscopic cholecystectomy - Ms. Duncan is doing well following surgery. We discussed the need for numerous follow up visits. Mr. Castillo's office contacted for follow up appointment for stent removal. States they will call patient with date tomorrow. Ms. Duncan was given a copy of her cariology consult with recommendations included. She reports her PCP stated she did not need to be on anticoagulation. Encouraged Ms. Duncan to follow up with cardiology and PCP with printed recommendations. She was also encouraged to have PCP follow up with renal US. Both Ms. Duncan and her sister verbalized understanding of the need for these follow up appointments. Otherwise, she can follow up with the EGS clinic on an as needed basis. Danette Webb, ZENON.INTERNATIONAL STUDENT ADVISOR Normal [facility] CNCOon 06-10-2019 CNCO Letter Text Normal [facility] Basic Panelon 06-05-2019 Creatinine [Mass/Vol] 0.80 mg/dL Normal 0.51-0.95 [facility] Comment on above: Performed By: #### P 14 #### [facility] [address] [place], [place] [address] Glucose [Mass/Vol] 99 mg/dL Normal 70-99 [facility] Comment on above: Performed By: #### P 14 #### [facility] [address] [place], [place] [address] Anion gap [Moles/Vol] 8 mmol/L Normal 8-16 [facility] Comment on above: Performed By: #### P 14 #### [address] [address] Calcium [Mass/Vol] 8.6 mg/dL Normal 8.5-10.1 [facility] Comment on above: Performed By: #### P 14 #### [address] [address] CO2 [Moles/Vol] 28 mmol/L Normal 21-32 [facility] Comment on above: Performed By: #### P 14 #### [facility] [address] [place], [place] [address] Urea nitrogen [Mass/Vol] 12 mg/dL Normal 7-18 [facility] Comment on above: Performed By: #### P 14 #### [facility] [address] [place], [place] [address] Chloride [Moles/Vol] 109 mmol/L High 98-107 [facility] Comment on above: Performed By: #### P 14 #### [facility] [address] [place], [place] [address] Potassium [Moles/Vol] 3.4 mmol/L Low 3.5-5.1 [facility] Comment on above: Performed By: #### P 14 #### [address] [address] Sodium [Moles/Vol] 142 mmol/L Normal 136-145 [facility] Comment on above: Performed By: #### P 14 #### [facility] [address] [place] [address] CASE MANAGEMon 06-05-2019 CASE MANAGEM HNO ID: [id number] Author: Iman (Rn) BENNIE Casillas Service: Care Management Author Type: Registered Nurse Type: Care Mgt Progress Note Filed: 06/05/2019 12:53 PM Note Text: CARE MANAGEMENT DISCHARGE NOTE SERVICE DATE: 06/05/2019 SERVICE TIME: 12:51 PM LOS: 7 days Admission Date: 05/29/2019 DISCHARGE ARRANGEMENT (list agency and phone number) Home Provider: clarice Phone: [phone] CAREGIVER ASSESSMENT: Caregiver is ready, willing and able to meet the patient's needs as recommended by the inter-professional team? No Caregiver Needed Patient's transition needs and plan for meeting these needs: home, self care Does the patient have an acute stroke diagnosis, or has the patient had a stroke during this admission? No HANDOFF COMMUNICATION: RN to giv DC instructions at bedside TRANSPORTATION ARRANGEMENTS: Car family to transport ADDITIONAL CONTACT RESOURCES: n/a Patient will DC home with self care- no needs, family to transport. SIGNATURE: Iman Casillas RN PATIENT NAME: Petra Duncan DATE: June 05, 2019 TIME: 12:51 PM PAGER/CONTACT #: [phone] Normal [facility] Hemogram/Diffon 06-05-2019 Abs Immature Grans 0.11 thou/cmm High 0.00-0.05 [facility] Comment on above: Performed By: #### P 14 #### [facility] [address] [place] [address] Abs Neut (ANC) 4.86 thou/cmm Normal 1.56-6.13 [facility] Comment on above: Performed By: #### P 14 #### [place] [address] Abs. Baso 0.05 thou/cmm Normal 0.01-0.08 [facility] Comment on above: Performed By: #### P 14 #### [address] [place], [place] [address] Abs. [place] 0.68 thou/cmm Normal 0.27-0.70 [facility] Comment on above: Performed By: #### P 14 #### [facility] [address] [place] [address] Basophils/100 WBC (Bld) 0.7 % Normal [facility] Comment on above: Performed By: #### P 14 #### [facility] [address] [place] [address] Eosinophils (Bld) [#/Vol] 0.30 thou/cmm Normal 0.00-0.31 [facility] Comment on above: Performed By: #### P 14 #### [facility] [address] [place] [address] Eosinophils/100 WBC (Bld) 3.9 % Normal [facility] Comment on above: Performed By: #### P 14 #### [facility] [address] [place] [address] Erythrocyte distribution width (RBC) [Ratio] 14.1 % Normal 11.7-14.4 [facility] Comment on above: Performed By: #### P 14 #### [facility] [address] [place] [address] Hematocrit (Bld) [Volume fraction] 35.9 % Normal 34.1-44.9 [facility] Comment on above: Performed By: #### P 14 #### [facility] [address] [place] [address] Hemoglobin (Bld) [Mass/Vol] 11.7 g/dL Normal 11.2-15.7 [facility] Comment on above: Performed By: #### P 14 #### [facility] [address] [place] [address] Immature Grans 1.40 % Normal [facility] Comment on above: Performed By: #### P 14 #### [facility] [address] [place] [address] Lymphocytes (Bld) [#/Vol] 1.62 thou/cmm Normal 1.18-3.74 [facility] Comment on above: Performed By: #### P 14 #### [facility] [address] [place], [place] [address] Lymphocytes/100 WBC (Bld) 21.3 % Normal [facility] Comment on above: Performed By: #### P 14 #### [facility] [address] [place], [place] [address] MCH (RBC) [Entitic mass] 29.5 pg Normal 25.6-32.2 [facility] Comment on above: Performed By: #### P 14 #### [facility] [address] [place], [place] [address] MCHC (RBC) [Mass/Vol] 32.6 % Normal 31.6-34.8 [facility] Comment on above: Performed By: #### P 14 #### [facility] [address] [place] [address] MCV (RBC) [Entitic vol] 90.7 fL Normal 79.4-94.8 [facility] Comment on above: Performed By: #### P 14 #### [facility] [address] [place] [address] Monocytes/100 WBC (Bld) 8.9 % Normal [facility] Comment on above: Performed By: #### P 14 #### [facility] [address] [place] [address] Platelet mean volume (Bld) [Entitic vol] 12.3 fL Normal 9.4-12.3 [facility] Comment on above: Performed By: #### P 14 #### [facility] [address] [place], [place] [address] Platelets (Bld) [#/Vol] 196 thou/cmm Normal 182-369 [facility] Comment on above: Performed By: #### P 14 #### [facility] [address] [place], [place] [address] RBC (Bld) [#/Vol] 3.96 mil/cmm Normal 3.93-5.22 [facility] Comment on above: Performed By: #### P 14 #### [facility] [address] [place] [address] RDW SD 46.4 fl High 36.4-46.3 [facility] Comment on above: Performed By: #### P 14 #### [facility] [address] [place], [place] [address] Seg Neutrophil 63.8 % Normal [facility] Comment on above: Performed By: #### P 14 #### [facility] [address] [place], [place] [address] WBC (Bld) [#/Vol] 7.62 thou/cmm Normal 3.98-10.04 [facility] Comment on above: Performed By: #### P 14 #### [facility] [address] [place], [place] [address] Hepatic Panelon 06-05-2019 ALP [Catalytic activity/Vol] 184 U/L High 45-117 [facility] Comment on above: Performed By: #### P 14 #### [facility] [address] [place], [place] [address] Bilirubin [Mass/Vol] 1.1 mg/dL High 0.2-1.0 [facility] Comment on above: Performed By: #### P 14 #### [facility] [address] [place], [place] [address] Protein [Mass/Vol] 5.8 g/dL Low 6.4-8.2 [facility] Comment on above: Performed By: #### P 14 #### [facility] [address] [place], [place] [address] AST [Catalytic activity/Vol] 35 U/L Normal 15-37 [facility] Comment on above: Performed By: #### P 14 #### [facility] [address] [place], [place] [address] ALT [Catalytic activity/Vol] 92 U/L High 12-78 [facility] Comment on above: Performed By: #### P 14 #### [facility] [address] [place], [place] [address] Bilirubin [Mass/Vol] 0.76 mg/dL High 0.00-0.20 [facility] Comment on above: Performed By: #### P 14 #### [facility] [address] [place], [place] [address] Albumin [Mass/Vol] 2.4 g/dL Low 3.4-5.0 [facility] Comment on above: Performed By: #### P 14 #### [facility] [address] [place], [place] [address] MDRD GFRon 06-05-2019 GFR/1.73 sq M predicted among non-blacks MDRD (S/P/Bld) [Vol rate/Area] mL/min/{1.73_m2} Normal >60mL/min/1 .73m2 [facility] Comment on above: Result Comment: If t he patient is , multiply the result by 1.210. Performed By: #### G FR #### [address] [address] PROGRESSon 06-05-2019 PROGRESS HNO ID: [id number] Author: Jean Claude Cohen Service: General Surgery Author Type: Resident Type: Progress Notes Filed: 06/05/2019 8:59 AM Note Text: -- Attestation signed by Jessica Kimball at 06/05/2019 3:52 PM == ==== SURGERY STAFF: I have personally seen and evaluated this patient and participated in the anderson components of this encounter. I discussed the management of this case with the resident and independently confirmed the findings and plan of care as documented either attached or in their separate note from today. Any corrections or additional notes are made as needed. Jessica Kimball MD June 05, 2019 == ==== -- EG Surgery Progress Note SERVICE DATE: 06/05/2019 SUBJECTIVE: No acute events. Feels well. Minimal post-operative pain. Tolerating diet DIET REGULAR OBJECTIVE: Vitals: Temp (24hrs), Av.9 ?C (98.4 ?F), Min:36.4 ?C (97.5 ?F), Max:37.3 ?C (99.1 ?F) BP 127/77 Pulse 71 Temp 37.3 ?C (99.1 ?F) (Oral) Resp 18 Ht 167.6 cm (5' 6) Wt 79.5 kg (175 lb 3.2 oz) SpO2 91% BMI 28.28 kg/m? O2 Therapy: Room Air IANDO: Date 06/04/19699 - 06/05/1965806/05/19699 - 06/06/19 0659 Shift 2435-7981 9076-3805 1406-8345 24 Hour Total 6868-2994 6711-6375 2901-9834 24 Hour Total INTAKE IV 1200 1200 OR Crystalloid intake (mL) 900 900 Volume (mL) (lactated ringers infusion) 300 300 Shift Total 1200 1200 OUTPUT Urine 100 100 Void (ml) 100 100 Shift Total 100 100 Weight (kg) 79.5 79.5 79.5 79.5 79.5 79.5 79.5 79.5 MEDICATIONS Current Facility-Administered Medications Medication Dose Route Frequency - acetaminophen 975 mg tab(s) (TYLENOL) 975 mg ORAL QID - senna-docusate 8.6-50 mg 1 tablet (SENNA-S) 1 tablet ORAL BID - albuterol HFA 90 mcg/actuation 2 Puff (PROVENTIL HFA, VENTOLIN HFA) 2 Puff INHALATION q 6 H PRN - Ipratropium [place] 2 [place] nasal spray (ATROVENT) 2 [place] NASAL q 12 H - sertraline 50 mg tab(s) (ZOLOFT) 50 mg ORAL DAILY - heparin 5,000 Units injection 5,000 Units SUBCUTANEOUS q 12 H - ondansetron (PF) 4 mg injection (ZOFRAN) 4 mg INTRAVENOUS q 6 H PRN - oxyCODONE IR 5 mg tab(s) (ROXICODONE) 5 mg ORAL q 6 H PRN - piperacillin-tazobactam iv piggyback 3.375 g in dextrose (iso-osmotic) 50 mL (ZOSYN) 3.375 g INTRAVENOUS q 6 H - mometasone 220 mcg/ actuation (14) 1 Puff inhaler (ASMANEX) 1 Puff INHALATION DAILY Labs: Recent Labs 06/05/19 0519 06/03/19 0346 NA 142 140 K 3.4* 3.9 CHLOR 109* 107 CO2 28 27 BUN 12 12 CREAT 0.80 0.70 GLUC 99 101* ANION 8 10 CA 8.6 8.7 ALB 2.4* 2.4* AST 35 32 ALT 92* 113* ALKPHOS 184* 253* TBILI 1.1* 1.3* WBC 7.62 -- HB 11.7 -- HCT 35.9 -- PLT 196 -- Exam: Gen - laying in bed, NAD, AANDOx3 HEENT - EOMI, mucus membranes moist, PEERL Neuro - motor/sensory/gaming department head grossly intact CV - HR and BP WNL on monitors. Resp - respirations unlabored. Abd - soft, non distended, minimal RUQ tenderness. Incisions appear well with skin glue. Back - Non tender. EXT - HOPKINS, no edema. ASSESSMENT AND PLAN: Active Hospital Problems Diagnosis Date Noted - Biliary obstruction 05/29/2019 74 year old female with choledocholithiasis s/p ERCP. Lap isadora 06/04. - diet as tolerates. - okay for discharge home. Pain scripts and instructions in chart/discharge instructions. - follow up with EGS clinic in 2 weeks. Jean Claude Cohen MD General Surgery, PGY-4 Pager - below 06/05/19 Emergency General Surgery Service Pager: For questions or concerns Mon-Fri 6a-5p please page [phone]. After 5pm and on Weekends and Holidays, please page [phone] if in ICU or [phone] if on RNF. ' [facility] ANES Dee 06-04-2019 ANES POST HNO ID: [id number] Author: Mk Muñoz Service: Anesthesiology Author Type: Physician Type: Anesthesia PostOp Filed: 06/04/2019 12:10 PM Note Text: POST ANESTHESIA EVALUATION NOTE SERVICE DATE: 06/04/2019 SERVICE TIME: 12:10 PM : 1945 Vitals: 06/04/19 0730 06/04/19 0936 06/04/19 1015 06/04/19 1129 Temp: 36.8 ?C (98.2 ?F) 36.8 ?C (98.2 ?F) 36.4 ?C (97.5 ?F) 36.9 ?C (98.4 ?F) 06/04/19 1000 06/04/19 1015 06/04/19 1030 06/04/19 1129 BP: 114/96 141/81 142/83 140/74 06/04/19 1000 06/04/19 1015 06/04/19 1030 06/04/19 1129 Pulse: 84 68 67 68 06/04/19 1000 06/04/19 1015 06/04/19 1030 06/04/19 1129 Resp: 15 13 15 18 06/04/19 1000 06/04/19 1015 06/04/19 1030 06/04/19 1129 SpO2: 96% 97% 97% 99% Validated Vital Signs: Yes POST ANES STATUS: No apparent anesthetic complications. The patient is appropriately hydrated with stable respiratory and cardiovascular status. Patient has safe and adequate airway control. The patient has appropriate pain relief and no significant post operative nausea or vomiting. The patient has achieved baseline mental status. Intra-Operative Events: No Significant Anesthesia Events Further assessment by Anesthesia Service: None Other Remarks: SIGNATURE: Mk Muñoz MD PATIENT NAME: Petra Duncan DATE: June 04, 2019 TIME: 12:10 PM PAGER/CONTACT #: [facility] ANES PREOPon 06-04-2019 ANES PREOP HNO ID: [id number] Author: Mk Muñoz Service: Anesthesiology Author Type: Physician Type: Anesthesia PreOp Filed: 06/04/2019 7:56 AM Note Text: ANESTHESIOLOGY DAY OF SURGERY NOTE SERVICE DATE: 06/04/2019 SERVICE TIME: 7:53 AM : 1945 Procedure(s) (LRB): LAPAROSCOPIC CHOLECYSTECTOMY (N/A) Surgeon(s): Jessica Kimball Estimated body mass index is 28.28 kg/m? as calculated from the following: Height as of this encounter: 167.6 cm (5' 6). Weight as of this encounter: 79.5 kg (175 lb 3.2 oz). Most recent hematocrit and potassium results: Hematocrit 37.0 05/31/2019 Potassium 3.9 06/03/2019 ANES DOS/PREOP NOTE: Vitals: 06/03/19200906/03/19 2335 06/04/19 0715 06/04/19 0730 BP: 102/52 125/78 128/72 133/69 Pulse: 76 75 74 73 Resp: 18 16 18 18 Temp: 36.7 ?C (98.1 ?F) 36.7 ?C (98.1 ?F) 37.3 ?C (99.1 ?F) 36.8 ?C (98.2 ?F) TempSrc: Oral Oral Oral Temporal SpO2: 94% 94% 92% 93% Weight: Height: ACTIVE PROBLEM LIST Biliary Obstruction PAST MEDICAL HISTORY Diagnosis Date - Asthma - HTN (hypertension) PAST SURGICAL HISTORY Procedure Laterality Date - HYSTERECTOMY FAMILY HISTORY Problem Relation Age of Onset - Heart disease Father Social History: Social History Tobacco Use - Smoking status: Never Smoker - Smokeless tobacco: Never Used Substance Use Topics - Alcohol use: Not on file Comment: Occasionally - Drug use: Not on file No current facility-administered medications on file prior to encounter. Current Outpatient Medications on File Prior to Encounter Medication Sig - aspirin 81 mg chewable tablet Take 81 mg by mouth once daily. - mometasone 100 mcg/actuation HFAA Inhale 100 mcg as instructed twice daily. - albuterol HFA (PROVENTIL HFA, VENTOLIN HFA) 90 mcg/actuation inhaler Inhale 2 Puffs as instructed. - LISINOPRIL-HYDROCHLOROTHIA ZIDE ORAL Take 10 mg by mouth once daily. 10/.5 mg - sertraline (ZOLOFT) 50 mg ORAL tablet Take 50 mg by mouth once daily. - Ipratropium [place] (ATROVENT) 0.03 % nasal spray Use 2 Sprays in the nose every 12 hours. - NAPROXEN ORAL Take by mouth. Current Facility-Administered Medications Medication Dose Route Frequency Provider Last Rate Last Dose - [MAR Hold due to Transfer] albuterol HFA 90 mcg/actuation 2 Puff (PROVENTIL HFA, VENTOLIN HFA) 2 Puff INHALATION q 6 H PRN Danay Pozo MD - [MAR Hold due to Transfer] Ipratropium [place] 2 [place] nasal spray (ATROVENT) 2 [place] NASAL q 12 H Danay Pozo MD 2 [place] at 06/03/192102 - [MAR Hold due to Transfer] sertraline 50 mg tab(s) (ZOLOFT) 50 mg ORAL DAILY Danay Pozo MD 50 mg at 06/03/19 0801 - [MAR Hold due to Transfer] heparin 5,000 Units injection 5,000 Units SUBCUTANEOUS q 12 H Danay Pozo MD 5,000 Units at 06/01/192007 - [MAR Hold due to Transfer] ondansetron (PF) 4 mg injection (ZOFRAN) 4 mg INTRAVENOUS q 6 H PRN Danay Pozo MD 4 mg at 06/01/192007 - [MAR Hold due to Transfer] oxyCODONE IR 5 mg tab(s) (ROXICODONE) 5 mg ORAL q 6 H PRN Danay Pozo MD 5 mg at 06/03/192109 - [MAR Hold due to Transfer] piperacillin-tazobactam iv piggyback 3.375 g in dextrose (iso-osmotic) 50 mL (ZOSYN) 3.375 g INTRAVENOUS q 6 H Danay Pozo MD 100 mL/hr at 06/04/19 0514 3.375 g at 06/04/19 0514 - [MAR Hold due to Transfer] mometasone 220 mcg/ actuation (14) 1 Puff inhaler (ASMANEX) 1 Puff INHALATION DAILY Danay Pozo MD 1 Puff at 06/03/19 0801 Allergies: ALLERGIES No Known Allergies DOS EXAM: Adequate NPO Status: Yes Anesthetic Risks, Benefits, Alternatives, Personnel and Consent Discussed: Yes Patient agrees to proceed: Yes Previous Anesthesia: No history of adverse event Airway Assessment: MP 2; Neck ROM: Full ROM without neurologic symptoms; Airway Evaluation: No significant abnormalities Symptoms of Sleep Apnea: None Dentition: Dentures: both Additional Physical Exam: Lungs: Patient health status unchanged since recent history and physical. See history and physical for exam findings. Cardiac: Patient health status unchanged since recent history and physical. See history and physical for exam findings. Additional Pertinent Findings: N/A Blood Products: Not anticipated for this procedure Anesthetic Plan: General Anesthetic Monitoring: Standard ASA Monitors Pain Management Plan: Parenteral or Oral ASA Class: 3 Other Medical Problems: HTN, Asthma, pAfib Chronic Beta Nannette medication administered within 24 hours: N/A I have interviewed and examined the patient. I have reviewed the medical record and/or the pre-anesthesia evaluation, pertinent labs, and test results. Significant changes in the patient's condition since the History and Physical, not otherwise documented in primary service progress notes: No This contains updated information obtained within 48 hours of Surgery/Procedure. SIGNATURE: Mk Muñoz MD PATIENT NAME: Petra Duncan DATE: June 04, 2019 TIME: 7:53 AM CSN: [id number] [facility] NURSING PROGon 06-04-2019 NURSING PROG HNO ID: [id number] Author: Gena AguirreRnRoberto Armendariz RN Service: ? Author Type: Registered Nurse Type: Nursing Progress Note Filed: 06/04/2019 7:59 AM Note Text: Partial denture plate taken back to pt room. [facility] OPERATIVE NOon 06-04-2019 OPERATIVE NO HNO ID: [id number] Author: Jessica Kimball Service: General Surgery Author Type: Physician Type: Operative Report Filed: 06/04/2019 3:43 PM Note Text: OPERATIVE/PROCEDURE REPORT LOG ID: [id number] Surgery/Procedure Date: 06/04/2019 Incision/Procedure Start Time: 8:15 AM Incision Close/Procedure End Time: 9:31 AM Surgeon(s)/Proceduralist(s ) and Server Administrator(s): Surgeon(s) and Role: * Jessica Kimball - Primary * Shubham Webster - Resident - Assisting Procedure(s): laparoscopic cholecystectomy Anesthesia: General Indications:acute cholecysitis Pre-Op/Pre-Procedure Diagnosis: acute cholecystitis Post-Op/Post-Procedure Diagnosis: Same as above Findings: Friable, inflamed gallbladder with multiple stones Procedure Details: The patient was brought to the operating room and identified by name and date of . The procedure of laparoscopic cholecystectomy, possible open cholecystectomy, and possible cholangiogram was confirmed with the patient, nursing, anesthesia, and surgical teams. The patient was intubated by the anesthesiologist and given general anesthesia. The patient was continued on antibiotics intravenously. The abdomen was prepped with a single use applicator of ChloraPrep which was allowed to dry for three minutes and draped after allowing the prep solution to dry. A time out was performed, again identifying the patient and the procedure. The skin at the inferior border of the umblicus was anesthetized with 2-3 mL of 0.25% bupivicaine. A small incision was made along the inferior skin fold of the umbilicus. Gilberto clamps were placed on either side of the midline and the linea alba was incised with a 15 blade. The peritoneum was opened under direct vision. Two stay sutures of 0-Vicryl were placed into the fascia and a Sayda port was introduced and secured with the stay sutures. . After injection of 1-2 mL of 0.25% bupivicaine,small incisions were made with an 11 blade and three 5 mm ports were placed under direct vision in the upper midline to the right of the falciform ligament, the right midclavicular line at the lower edge of the liver, and the right anterior axillary line. The abdomen was inspected. The abdominal viscera were normal with the exception of the gallbladder. The gallbladder was placed on superior and lateral traction using graspers placed at the fundus and on Will's pouch to expose the triangle of Calot. The gallbladder was full of stones. The peritoneum over the cystic duct and artery was opened, and the peritoneal dissection was carried over the lower lateral and medial sides of the gallbladder bed. The cystic duct and cystic artery were freed from fat. They were circumferentially dissected free to obtain the critical view of the liver bed. The cystic duct was traced to its junction with the common bile duct. The common bile duct was not dilated. The cystic duct was cleared of surrounding lymphatics and nerves and clipped near its junction with the gallbladder. The cystic duct was then divided and controlled with an 0 PDS Endo-Loop. and cut with scissors. The cystic artery was clipped proximally and distally with a 5 mm clip clinical rehabilitation coordinator. Two clips were left on the proximal side, and the artery was divided with scissors. The gallbladder was removed from the liver bed with cautery dissection. Bleeding during the procedure was minimal. The gallbladder was placed in a catch bag introduced through the umbilical port and removed from the abdomen without difficulty. The liver bed was inspected again. Hemostasis was good and achieved with Rosales. No bile leak was observed. The clips were seen to be secure. The liver and upper abdomen were irrigated with normal saline, and the saline was suctioned out. The ports were then withdrawn under direct vision. The umbilical fascia was closed with two absorbable figure of eight #0 sutures and the stay sutures were tied together.The port sites were injected with 0.25% Marcaine prior to skin closure. The 5 mm port sites were closed with subcuticular 4-0 absorbable suture and the umbilical port site was closed with absorbable 3-0 subcutaneousand 4-0 subcuticular sutures. Skin glue (Sure-Close) was then applied to all incisions. The patient was awakened and returned to the recovery area in good condition. Estimated Blood Loss: 25 mls Specimens: The gallbladder was sent to pathology for permanent section. Medications: 20 mL of 0.25% bupivicaine Implantable Devices: None Drains: None Complications: None Counts: Sponge, needle, instrument, and towel counts were correct Wound class: Class 2, operative wound clean-contaminated, gastrointestinal/biliary tract entered without significant spillage Attestation: The attending surgeon was present throughout the operation and accomplished the procedure with the assistance of the resident SIGNATURE: Jessica Kimball MD PATIENT NAME: Petra Duncan DATE: June 04, 2019 TIME: 3:41 PM PAGER/CONTACT #: [facility] PROGRESSon 06-04-2019 PROGRESS HNO ID: [id number] Author: Lacho Romo Service: Hospital Medicine Author Type: Physician Type: Progress Notes Filed: 06/04/2019 12:45 PM Note Text: INPATIENT PROGRESS NOTE SERVICE DATE: 06/04/2019 SERVICE TIME: 12:28 PM PRIMARY SERVICE: Hospitalist Subjective CHIEF COMPLAINT: Abdominal pain INTERVAL HPI: Pt states she had surgery this AM and pain controlled. Denies N/V. Current Facility-Administered Medications Medication Dose Route Frequency - albuterol HFA 90 mcg/actuation 2 Puff (PROVENTIL HFA, VENTOLIN HFA) 2 Puff INHALATION q 6 H PRN - Ipratropium Marshall 2 [place] nasal spray (ATROVENT) 2 [place] NASAL q 12 H - sertraline 50 mg tab(s) (ZOLOFT) 50 mg ORAL DAILY - heparin 5,000 Units injection 5,000 Units SUBCUTANEOUS q 12 H - ondansetron (PF) 4 mg injection (ZOFRAN) 4 mg INTRAVENOUS q 6 H PRN - oxyCODONE IR 5 mg tab(s) (ROXICODONE) 5 mg ORAL q 6 H PRN - piperacillin-tazobactam iv piggyback 3.375 g in dextrose (iso-osmotic) 50 mL (ZOSYN) 3.375 g INTRAVENOUS q 6 H - mometasone 220 mcg/ actuation (14) 1 Puff inhaler (ASMANEX) 1 Puff INHALATION DAILY - acetaminophen 975 mg tab(s) (TYLENOL) 975 mg ORAL QID - senna-docusate 8.6-50 mg 1 tablet (SENNA-S) 1 tablet ORAL BID ROS: All remaining ROS >14 were negative Objective PHYSICAL EXAM: BP 140/74 Pulse 68 Temp (Src) 98.4 (Oral) Resp 18 Ht 5' 6 (1.68m) Wt 175 lb 3.2 oz (79.5kg) SpO2 99% BMI 28.29 kg/(m2). O2 Therapy: Nasal Cannula, Liters: 3 Physical Exam Performed GENERAL: Alert, no distress, cooperative NECK: No jugulovenous distention, No carotid bruits, Carotid pulse normal contour, Supple LUNGS: Lungs clear to auscultation, Good diaphragmatic excursion CARDIAC: Normal S1 and S2; no rubs, murmurs, or gallops ABDOMEN: Abdomen soft, Appropriate tenderness around the incision site, BS normal, No masses or organomegaly EXTREMITIES: Extremities normal, no deformities, edema, clubbing or skin discoloration. Good capillary refill., No ulcers DATA: Diagnostic tests reviewed for today's visit: Most recent labs and imaging results. Assessment/Plan 74 y/o female Choledocholithiasis s/p ERCP and S/p Lap Isadora POD#0. Elevated LFT's - Afebrile with SAT's 99% on 3 liters - f/u on General surgery recs FEN -Stable lytes with GFR >60 Heme - Stable H/H and WBC: Normal Renal lesion concerning for renal cell carcinoma - Pt will need renal US as outpt and pt is Aware Paroxysmal Atrial fib with LEEROY score of 2 and Vascular Score is 4, Hx of HTN - Rate controlled - s/p Cardiology evaluation - s/p Echo with EF of 61 - Pt will need Eliquis upon discharge and pt will Also need Ischemic work up once stable as outpt. Hx of Sleep Apnea - Pt will need CPAP per PCP DVT propholax - Continue with Hep 5K bid Medication and Non-Pharmacologic VTE Prophylaxis/Anticoagulants Anticoagulant AND Antiplatelet Medications (From admission, onward) Start Dose Route Frequency Ordered Stop 05/29/19 1000 heparin 5,000 Units injection (Medical Risk Categories) 5,000 Units SUBCUTANEOUS EVERY 12 HOURS 05/29/19 0934 -- 05/29/19 0945 pneumatic compression stockings ([place]) 05/29/19 0945 activity - mobilize patient ([place]) VTE Prophylaxis: VTE prophylaxis appropriate SIGNATURE: Lacho Romo MD PATIENT NAME: Petra Duncan DATE: June 04, 2019 TIME: 12:28 PM PAGER: Jadon Olivera [facility] PROGRESS HNO ID: [id number] Author: Jean Claude Cohen Service: General Surgery Author Type: Resident Type: Progress Notes Filed: 06/04/2019 9:10 AM Note Text: -- Attestation signed by Jessica Kimball at 06/04/2019 3:40 PM == ==== SURGERY STAFF: I have personally seen and evaluated this patient and participated in the anderson components of this encounter. I discussed the management of this case with the resident and independently confirmed the findings and plan of care as documented either attached or in their separate note from today. Any corrections or additional notes are made as needed. Jessica Kimball MD June 04, 2019 == ==== -- EG Surgery Progress Note SERVICE DATE: 06/04/2019 SUBJECTIVE: No acute events. Feels well. Minimal abdominal pain. Tolerating diet DIET NPO OBJECTIVE: Vitals: Temp (24hrs), Av.9 ?C (98.4 ?F), Min:36.7 ?C (98.1 ?F), Max:37.3 ?C (99.1 ?F) BP 133/69 Pulse 73 Temp 36.8 ?C (98.2 ?F) (Temporal) Resp 18 Ht 167.6 cm (5' 6) Wt 79.5 kg (175 lb 3.2 oz) SpO2 93% BMI 28.28 kg/m? O2 Therapy: Room Air IANDO: Date 06/03/19699 - 06/04/1965806/04/19699 - 06/05/19658 Shift 1456-3569 0908-2353 8348-7510 24 Hour Total 8883-0495 8121-5132 8845-2033 24 Hour Total INTAKE PO 440 440 PO 440 440 Shift Total 440 440 OUTPUT Urine Urine Not Saved. 2 x 2 x Shift Total Weight (kg) 79.5 79.5 79.5 79.5 79.5 79.5 79.5 79.5 MEDICATIONS Current Facility-Administered Medications Medication Dose Route Frequency - bupivacaine injection (SENSORCAINE) X (OR/PROCEDURE) PRN - [MAR Hold due to Transfer] albuterol HFA 90 mcg/actuation 2 Puff (PROVENTIL HFA, VENTOLIN HFA) 2 Puff INHALATION q 6 H PRN - [MAR Hold due to Transfer] Ipratropium Marshall 2 [place] nasal spray (ATROVENT) 2 [place] NASAL q 12 H - [MAR Hold due to Transfer] sertraline 50 mg tab(s) (ZOLOFT) 50 mg ORAL DAILY - [MAR Hold due to Transfer] heparin 5,000 Units injection 5,000 Units SUBCUTANEOUS q 12 H - [MAR Hold due to Transfer] ondansetron (PF) 4 mg injection (ZOFRAN) 4 mg INTRAVENOUS q 6 H PRN - [MAR Hold due to Transfer] oxyCODONE IR 5 mg tab(s) (ROXICODONE) 5 mg ORAL q 6 H PRN - [MAR Hold due to Transfer] piperacillin-tazobactam iv piggyback 3.375 g in dextrose (iso-osmotic) 50 mL (ZOSYN) 3.375 g INTRAVENOUS q 6 H - [MAR Hold due to Transfer] mometasone 220 mcg/ actuation (14) 1 Puff inhaler (ASMANEX) 1 Puff INHALATION DAILY Labs: Recent Labs 06/03/19 0346 NA 140 K 3.9 CHLOR 107 CO2 27 BUN 12 CREAT 0.70 GLUC 101* ANION 10 CA 8.7 ALB 2.4* AST 32 ALT 113* ALKPHOS 253* TBILI 1.3* Exam: Gen - laying in bed, NAD, AANDOx3 HEENT - EOMI, mucus membranes moist, PEERL Neuro - motor/sensory/gaming department head grossly intact CV - HR and BP WNL on monitors. Resp - respirations unlabored. Abd - soft, non distended, minimally tender epigastric. Back - Non tender. EXT - HOPKINS, no edema. ASSESSMENT AND PLAN: Active Hospital Problems Diagnosis Date Noted - Biliary obstruction 05/29/2019 74 year old female with choledocholithiasis s/p ERCP. - NPO for OR. - Tbili down after ERCP. - OR today. - will follow up post-op. - will likely be okay for discharge home this evening vs tomorrow AM. SIGNATURE: Jean Claude Rinaldi MD PATIENT NAME: Petra Duncan DATE: June 04, 2019 TIME: 9:08 AM Pager: below Emergency General Surgery Service Pager: For questions or concerns Mon-Fri 6a-5p please page [phone]. After 5pm and on Weekends and Holidays, please page [phone] if in ICU or [phone] if on RNF. ' Normal [facility] Surgical Tissue Examon 06-04 Surgical Tissue Exam Test performed at [facility] [place] [address] NAME: PETRA DUNCAN REQUESTING: JESSICA KIMBALL M.D. COPY TO: LACHO ROMO FINAL DIAGNOSIS: GALLBLADDER, EXCISION - CHRONIC CHOLECYSTITIS AND CHOLELITHIASIS. OPERATIVE PROCEDURE: Laparoscopic cholecystectomy CLINICAL INFORMATION: Cholecystitis [K81.9] GROSS DESCRIPTION: Gallbladder Received in formalin labeled gallbladder is a gallbladder measuring 8.0 x 2.5 x 2.0 cm. The serosal surface appears christian-pink and fibrotic. The cystic duct lumen appears dilated measuring 0.7 cm in diameter. A perforation is not evident. The specimen is opened to reveal a lumen packed with mixed fragmented calculi. Several small calculi are impacted within the cystic duct. The wall of the gallbladder measures 2 mm in thickness. The mucosal surface shows diffuse areas of denudation due to calculi impaction. A lesion is not seen. Powderer sections are submitted in formalin in one cassette. ARH:oleksandr JAMIL M.D., PATHOLOGIST (Electronic signature on file) Signed out: 06/08/2019 16:45 PRINTED: 06/08/2019 Page 1 of 1 Normal [facility] Comment on above: Performed By: #### P 14 #### [address] [place] [address] US KIDNEY/BLADDERon 06-04-20 19 US KIDNEY/BLADDER * * *Final Report* * * DATE OF EXAM: Jun 04 2019 3:08PM [facility] 1055 - US KIDNEY/BLADDER / PROCEDURE REASON: Kidney cancer suspected, suspicious mass, eval * * * * Physician Interpretation * * * * EXAMINATION: RENAL ULTRASOUND CLINICAL HISTORY: Right renal mass TECHNIQUE: Sonography of the kidneys and urinary bladder was performed. Images were obtained and stored in a permanent archive. MQ: [id number] COMPARISON: 05/31/2019 MRI abdomen RESULT: Right Kidney: -Renal length: 11.4 cm -Parenchyma: Normal parenchymal echogenicity. Normal parenchymal thickness. -Collecting system: No hydronephrosis. -Calculus: No echogenic, shadowing calculus. -Lesion: 2.2 x 1.9 x 1.5 cm inhomogeneous hypoechoic mass superior medial pole the right kidney corresponding to the abnormality on MRI. Internal vascular flow is seen. Left Kidney: -Renal length: 10.6 cm -Parenchyma: Normal parenchymal echogenicity. Normal parenchymal thickness. -Collecting system: No hydronephrosis. -Calculus: No echogenic, shadowing calculus. -Lesion: None. Bladder: Normal sonographic appearance. IMPRESSION: 2.2 x 1.9 x 1.5 cm inhomogeneous hypoechoic mass superior medial pole the right kidney corresponding to the abnormality on MRI. Internal vascular flow is seen. Renal cell carcinoma should be considered until proven otherwise Unit Controller: VIRA Transcribe Date/Time: Jun 05 2019 1:59P Dictated by : SANJAY DOBSON MD This examination was interpreted and the report reviewed and electronically signed by: SANJAY DOBSON MD on Jun 05 2019 2:02PM EST Normal [facility] ANES Dee 06-03-2019 ANES POST HNO ID: [id number] Author: Moses Barahona Service: Anesthesiology Author Type: Physician Type: Anesthesia PostOp Filed: 06/02/2019 11:41 PM Note Text: POST ANESTHESIA EVALUATION NOTE SERVICE DATE: 06/02/2019 SERVICE TIME: 2340 : 1945 Vitals: 06/02/19 1457 06/02/19 1654 06/02/19 1729 06/02/19 1811 Temp: 36.3 ?C (97.3 ?F) 36.6 ?C (97.9 ?F) 36.4 ?C (97.5 ?F) 36.6 ?C (97.9 ?F) 06/02/19 1723 06/02/19 1730 06/02/19 1745 06/02/191810 BP: 113/74 118/72 125/70 127/65 06/02/19 1730 06/02/19 1745 06/02/19 1800 06/02/191810 Pulse: 66 67 71 69 06/02/19 17306/02/19 1745 06/02/19 1800 06/02/19 181 Resp: 13 12 15 20 06/02/19 17306/02/19 17406/02/19 1800 06/02/191810 SpO2: 96% 96% 97% 92% Validated Vital Signs: Yes POST ANES STATUS: No apparent anesthetic complications. The patient is appropriately hydrated with stable respiratory and cardiovascular status. Patient has safe and adequate airway control. The patient has appropriate pain relief and no significant post operative nausea or vomiting. The patient has achieved baseline mental status. Intra-Operative Events: No Significant Anesthesia Events Further assessment by Anesthesia Service: None Other Remarks: Per report, pt met criteria for discharge from PACU SIGNATURE: Moses Barahona MD PATIENT NAME: Petra Duncan DATE: June 02, 2019 TIME: 11:41 PM PAGER/CONTACT #: Joselin [facility] CONSULTon 06-03-2019 CONSULT HNO ID: [id number] Author: Minerva Burton MD Service: General Surgery Author Type: Resident Type: Consults Filed: 06/03/2019 12:48 AM Note Text: -- Attestation signed by Jessica Kimball at 06/04/2019 3:39 PM == ==== SURGERY STAFF: I have personally seen and evaluated this patient and participated in the anderson components of this encounter. I discussed the management of this case with the resident and independently confirmed the findings and plan of care as documented either attached or in their separate note from today. Any corrections or additional notes are made as needed. Jessica Kimball MD June 04, 2019 == ==== -- HISTORY AND PHYSICAL EXAMINATION / CONSULTATION NOTE SERVICE DATE: 06/03/2019 SERVICE TIME: 12:43 AM PRIMARY CARE PHYSICIAN: Nabila Paris MD Subjective CHIEF COMPLAINT: Abdominal pain, N/V HPI: This is a 74 year old female who presented to the hospital with abdominal pain, nausea, and vomiting for several days. She was found to have transaminitis and CT abdomen and pelvis showed mild intra-and extrahepatic biliary ductal dilation with duodenal diverticulum which maybe impinging on biliary duct. MRCP was significant for: multiple small stones within the common bile duct. ?The common bile duct measures upper limits of normal in size. ?No intrahepatic bile duct Dilatation. Multiple too numerous to count less than 5 mm stones within a distended gallbladder. ?The gallbladder wall is not thickened and there is no surrounding edema. ERCP was performed by doctor Castillo 06/02 and general surgery consulted for laparoscopic cholecystectomy. Pt states she is feeling significantly better after the ERCP and is eating dinner on examination. She would like to proceed with the cholecystectomy as soon as possible so that she can get home. Last admit - none FUNCTIONAL STATUS: Independent PAST MEDICAL HISTORY Diagnosis Date - Asthma - HTN (hypertension) PAST SURGICAL HISTORY Procedure Laterality Date - HYSTERECTOMY FAMILY HISTORY Problem Relation Age of Onset - Heart disease Father Social History Tobacco Use - Smoking status: Never Smoker - Smokeless tobacco: Never Used Substance Use Topics - Alcohol use: Not on file Comment: Occasionally - Drug use: Not on file aspirin 81 mg chewable tablet, Take 81 mg by mouth once daily., Disp: , Rfl: mometasone 100 mcg/actuation HFAA, Inhale 100 mcg as instructed twice daily., Disp: , Rfl: albuterol HFA (PROVENTIL HFA, VENTOLIN HFA) 90 mcg/actuation inhaler, Inhale 2 Puffs as instructed., Disp: , Rfl: LISINOPRIL-HYDROCHLOROTHIA ZIDE ORAL, Take 10 mg by mouth once daily. 10/12.5 mg , Disp: , Rfl: sertraline (ZOLOFT) 50 mg ORAL tablet, Take 50 mg by mouth once daily., Disp: , Rfl: predniSONE (DELTASONE) 20 mg tablet, Take 2 tablets by mouth once daily., Disp: 6 tablet, Rfl: 0 Ipratropium Marshall (ATROVENT) 0.03 % nasal spray, Use 2 Sprays in the nose every 12 hours., Disp: , Rfl: betamethasone dipropionate 0.05 % cream, Apply 1 application to affected area twice daily., Disp: 30 g, Rfl: 0 NAPROXEN ORAL, Take by mouth., Disp: , Rfl: ALLERGIES No Known Allergies COMPLETE REVIEW OF SYSTEMS: See HPI Objective PHYSICAL EXAM: GENERAL: Alert, no distress, cooperative SKIN: Skin color, texture, turgor normal. No rashes or lesions. LUNGS: Unlabored breathing on O2 Therapy: Room Air on Liters: 3 sating at SpO2: 92 % CARDIAC: Regular rate and rhythm as above, ABDOMEN: Benign, Soft, non-tender, No masses, hepatosplenomegaly and No lymphadenopathy EXTREMITIES: ROM of all joint grossly normal: strength grossly normal bilaterally. No deformities noted. BP 127/65 Pulse 69 Temp (Src) 97.9 (Oral) Resp 20 Ht 5' 6 (1.68m) Wt 175 lb 3.2 oz (79.5kg) SpO2 92% BMI 28.29 kg/(m2). O2 Therapy: Room Air, Liters: 3 Temp (24hrs), Av.6 ?C (97.9 ?F), Min:36.3 ?C (97.3 ?F), Max:37.1 ?C (98.8 ?F) Body mass index is 28.28 kg/m?. DATA: Diagnostic tests reviewed for today's visit: Recent Results (from the past 48 hour(s)) COMPREHENSIVE METABOLIC PANEL (AK,AV,EU,FV,HL,MARK,MM,SP) Collection Time: 06/01/19 5:46 AM Result Value Ref Range Sodium 137 136 - 145 mEq/L Potassium 3.9 3.5 - 5.1 mEq/L Chloride 108 (H) 98 - 107 mEq/L CO2 24 21 - 32 mEq/L Glucose 96 70 - 99 mg/dL BUN 14 7 - 18 mg/dL Creatinine 0.73 0.51 - 0.95 mg/dL Calcium 8.6 8.5 - 10.1 mg/dL Albumin 2.4 (L) 3.4 - 5.0 g/dL Protein, Total 5.8 (L) 6.4 - 8.2 g/dL AST 39 (H) 15 - 37 U/L ALT 145 (H) 12 - 78 U/L Alkaline Phosphatase 263 (H) 45 - 117 U/L Bilirubin, Total 2.6 (H) 0.2 - 1.0 mg/dL Anion Gap 9 8 - 16 MDRD GFR Collection Time: 06/01/19 5:46 AM Result Value Ref Range eGFR >60 >60mL/min/1.73m2 ECHO Collection Time: 06/02/19 7:58 AM Result Value Ref Range Thermodynamicist Echocardiography Report: Transthoracic Echo [facility] Date of service: 06/02/2019 7:58:00 AM Ordering physician: CHALINO FRANCISCO Indication: Nonsustained atrial fibrillation Technologist: Sahara Cruz Interpreting physician: Kam Gibbs MD PATIENT: Name: PETRA DUNCAN : 1945 Age: 74 years Gender: F History of hypertension. Primary rhythm: sinus. Height: 167.60 cm BSA: 1.92 m? Weight: 79.47 kg BMI: 28.3 kg/m? Heart rate 63 bpm Blood pressure 97/77 mmHg Color Doppler was utilized to interrogate the cardiac valves assessed and spectral Doppler was utilized to determine the flow velocities and pressure gradients reported in this exam. Myocardial strain analysis was performed in this exam to aid in the assessment of cardiac function. MEASUREMENTS: Value Indexed Normal Max aortic dimension 3.1 cm Ao < 3.8 Left atrium diameter 3.3 cm (M-Mode) Left atrial volume 59 ml (biplane A-L) 31 ml/m? Sona <= 34 LV ID (diastole) 4.6 cm (2D) 2.41 cm/m? LV ID (systole) 2.5 cm (2D) 1.30 cm/m? IVS, leaflet tips 0.8 cm (2D) Posterior wall thickness 0.7 cm (2D) Left ventricular mass 113 g (2D) 59 g/m? Global peak long strain -19.3 % LV stroke volume 36 ml (2D biplane) LV end diastolic volume 59 ml (2D biplane) 30.6 ml/m? 29<=EDVi<62 LV end systolic volume 23 ml (2D biplane) 11.8 ml/m? Ejection Fraction 61 % (2D biplane) EF > 54 FINDINGS: LEFT VENTRICLE The left ventricle is normal in size. There is no left ventricular hypertrophy. Left ventricular systolic function is normal. Global LV myocardial strain is normal. Normal left ventricular diastolic function. Mitral annular lateral E/e': 7.9. Mitral annular septal E/e': 7.9. Wall Motion: All scored segments are n ormal. RIGHT VENTRICLE The right ventricle is normal in size. Right ventricular systolic function is normal. RV systolic tissue Doppler velocity is 11.0 cm/s. Tricuspid annular displacement is 3.0 cm. Estimated right ventricular systolic pressure is 32 mmHg consistent with normal pulmonary artery pressures. Estimated right atrial pressure is 8 mmHg based on IVC assessment. LEFT ATRIUM The left atrial cavity is normal in size. RIGHT ATRIUM The right atrial cavity is normal in size. Inferior Vena Cava: The inferior vena cava appears dilated measuring 2.2 cm. The vessel decreases greater than 50 percent with inspiration. MITRAL VALVE There is mild mitral annular calcification observed posterior. There is trace mitral valve regurgitation. There is mild calcification. The pressure half time is 51 msec. The peak mitral E/A ratio is 1.16. The average mitral E/e' ratio is 7.9. The mitral flow deceleration time is 174 msec. TRICUSPID VALVE The t ricuspid valve leaflets are structurally normal. There is trace (trace - 1+) tricuspid valve regurgitation. AORTIC VALVE There is no aortic valve stenosis. There is no aortic valve regurgitation. Tricuspid aortic valve. There is mild thickening. There is mild calcification. The LVOT diameter is 2.0 cm. PULMONIC VALVE The pulmonic valve cusps are structurally normal. There is trace pulmonic valve regurgitation. AORTA The visualized aorta is normal in size. Measurements - Sinus: 2.8 cm. Mid ascending aorta 3.1 cm. PULMONARY ARTERIES The pulmonary arteries are unseen or not interrogated. PERICARDIUM There is no pericardial effusion. CONCLUSIONS: - Exam indication: Nonsustained atrial fibrillation - The left ventricle is normal in size. There is no left ventricular hypertrophy. Left ventricular systolic function is normal. EF = 61 ? 5% (2D biplane) Normal left ventricular diastolic function. - The right ventricle is normal in size. Right ventricu lar systolic function is normal. - No significant valve disease. - The patient has not had a prior CC echocardiographic exam for comparison. Final Narrative See Link below for Image LVEF ECHO Collection Time: 06/02/19 7:58 AM Result Value Ref Range LV Ejection Fraction 61 % ] Assessment/Plan This is a 74 year old female who presents with choledocholithiasis s/p ERCP 06/02. - Med mgmt per primary - Plan for lap isadora at midnight - Pt currently on zosyn - NPO at midnight - Consent on chart Staff Surgeon: Dr. Metzger Emergency General Surgery Service Pager: For questions or concerns Mon-Fri 6a-5p please page [phone]. After 5pm and on Weekends and Holidays, please page [phone] if in ICU or [phone] if on RNF. SIGNATURE: Minerva Burton MD PATIENT NAME: Petra Duncan DATE: June 03, 2019 TIME: 12:43 AM PAGER/CONTACT #: [phone] Normal [facility] CONSULT PROGon 06-03-2019 CONSULT PROG HNO ID: [id number] Author: Jamison Graff Service: Gastroenterology Author Type: Physician Server Administrator Type: Consult Progress Note Filed: 06/03/2019 10:37 AM Note Text: GI CONSULT PROGRESS NOTE SERVICE DATE: 06/03/2019 SERVICE TIME: 10:29 AM CONSULTING SERVICE: Gastroenterology Subjective INTERVAL HISTORY: No acute events overnight, Afebrile, VSS 1-Day s/p ERCP with sphincterotomy and biliary 10F, 7cm stent placement in CBD Findings: 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; Small amount of CBD sludge but no stones seen - No abdominal pain this morning- lipase WNL - LFTs and Bilirubin trending down - NPO for lap isadora today per surgery MEDICATIONS: Current Facility-Administered Medications Medication Dose Route Frequency - albuterol HFA 90 mcg/actuation 2 Puff (PROVENTIL HFA, VENTOLIN HFA) 2 Puff INHALATION q 6 H PRN - Ipratropium Marshall 2 [place] nasal spray (ATROVENT) 2 [place] NASAL q 12 H - sertraline 50 mg tab(s) (ZOLOFT) 50 mg ORAL DAILY - heparin 5,000 Units injection 5,000 Units SUBCUTANEOUS q 12 H - ondansetron (PF) 4 mg injection (ZOFRAN) 4 mg INTRAVENOUS q 6 H PRN - oxyCODONE IR 5 mg tab(s) (ROXICODONE) 5 mg ORAL q 6 H PRN - piperacillin-tazobactam iv piggyback 3.375 g in dextrose (iso-osmotic) 50 mL (ZOSYN) 3.375 g INTRAVENOUS q 6 H - mometasone 220 mcg/ actuation (14) 1 Puff inhaler (ASMANEX) 1 Puff INHALATION DAILY - perflutren lipid microspheres 1.1 mg/mL 1.3 mL injection (DEFINITY) 1.3 mL INTRAVENOUS DIRECTED PRN Objective PHYSICAL EXAM: VITALS:BP 106/53 Pulse 68 Temp 36.8 ?C (98.2 ?F) (Oral) Resp 18 Ht 167.6 cm (5' 6) Wt 79.5 kg (175 lb 3.2 oz) SpO2 93% BMI 28.28 kg/m? ABDOMEN: soft, non-tender, non-distended, normoactive bowel sounds DATA: Diagnostic tests reviewed for today's visit: Most recent labs and imaging results. Impression/Recommendations 1. Transaminitis: with intra, extra hepatic biliary ductal dilation - 1-Day s/p ERCP with 10 F, 7cm plastic stent in CBD - Will need repeat ERCP for stent removal in 6-weeks --- Will need to schedule at time of discharge - Patient to have lap cholecystectomy today with general surgery Thank you for allowing us to participate in the care of this patient SIGNATURE: Jamison Graff PA-C PATIENT NAME: Petra Duncan DATE: June 03, 2019 TIME: 10:28 AM PAGER/CONTACT #: [phone] Normal [facility] Comprehensive Panelon 2018 ALP [Catalytic activity/Vol] 253 U/L High 45-117 [facility] Comment on above: Performed By: #### C BC1 #### [address] [address] Bilirubin [Mass/Vol] 1.3 mg/dL High 0.2-1.0 [facility] Comment on above: Performed By: #### C BC1 #### [address] [address] Creatinine [Mass/Vol] 0.70 mg/dL Normal 0.51-0.95 [facility] Comment on above: Performed By: #### C BC1 #### [address] [address] Protein [Mass/Vol] 5.6 g/dL Low 6.4-8.2 [facility] Comment on above: Performed By: #### C BC1 #### [facility] [address] [place], [place] [address] ALT [Catalytic activity/Vol] 113 U/L High 12-78 [facility] Comment on above: Performed By: #### C BC1 #### [facility] [address] [place], [place] [address] AST [Catalytic activity/Vol] 32 U/L Normal 15-37 [facility] Comment on above: Performed By: #### C BC1 #### [facility] [address] [place], [place] [address] Glucose [Mass/Vol] 101 mg/dL High 70-99 [facility] Comment on above: Performed By: #### C BC1 #### [facility] [address] [place], [place] [address] Albumin [Mass/Vol] 2.4 g/dL Low 3.4-5.0 [facility] Comment on above: Performed By: #### C BC1 #### [facility] [address] [place], [place] [address] Anion gap [Moles/Vol] 10 mmol/L Normal 8-16 [facility] Comment on above: Performed By: #### C BC1 #### [facility] [address] [place], [place] [address] Calcium [Mass/Vol] 8.7 mg/dL Normal 8.5-10.1 [facility] Comment on above: Performed By: #### C BC1 #### [facility] [address] [place], [place] [address] CO2 [Moles/Vol] 27 mmol/L Normal 21-32 [facility] Comment on above: Performed By: #### C BC1 #### [facility] [address] [place], [place] [address] Urea nitrogen [Mass/Vol] 12 mg/dL Normal 7-18 [facility] Comment on above: Performed By: #### C BC1 #### [facility] [address] [place], [place] [address] Chloride [Moles/Vol] 107 mmol/L Normal 98-107 [facility] Comment on above: Performed By: #### C BC1 #### [facility] [address] [place], [place] [address] Potassium [Moles/Vol] 3.9 mmol/L Normal 3.5-5.1 [facility] Comment on above: Performed By: #### C BC1 #### [facility] [address] [place], [place] [address] Sodium [Moles/Vol] 140 mmol/L Normal 136-145 [facility] Comment on above: Performed By: #### C BC1 #### [facility] [address] [place], [place] [address] Lipase Bloodon 06-03-2019 Lipase Blood 80 U/L Normal 73-393 [facility] Comment on above: Performed By: #### P 14 #### [facility] [address] [place] [address] PROGRESSon 06-03-2019 PROGRESS HNO ID: [id number] Author: Danay Pozo MD Service: Hospital Medicine Author Type: Physician Type: Progress Notes Filed: 06/03/2019 7:43 PM Note Text: Discussed with patient about the lesion in kidney, patient understands she will need outpatient evaluation through her pcp. Will order renal ultrasound. Normal [facility] PROGRESS HNO ID: [id number] Author: Danay Pozo MD Service: Hospital Medicine Author Type: Physician Type: Progress Notes Filed: 06/03/2019 6:30 PM Note Text: DEPARTMENT OF HOSPITAL MEDICINE PROGRESS NOTE SERVICE DATE: 06/03/2019 SERVICE TIME: 8:26 AM Hospital Medicine/Primary Attending: Danay Siegel MD NIGHT AND WEEKEND COVERAGE: After 7pm please page [phone] CHIEF COMPLAINT: Abdominal pain SUBJECTIVE: Pt seen and examined. S/p ercp yesterday, no abdominal pain - nausea or emesis. Tolerated diet following procedure but, npo again for cholecystectomy today OBJECTIVE: PHYSICAL EXAM: BP 105/66 Pulse 75 Temp (Src) 98.6 (Oral) Resp 14 Ht 5' 6 (1.68m) Wt 175 lb 3.2 oz (79.5kg) SpO2 95% BMI 28.29 kg/(m2). O2 Therapy: Room Air General - AANDOx3, NAD, Calm CV - RRR S1 S2, No M/R/G RESP - CTA B/L No wheezes, ronchi, rales ABD - soft, NT, ND +BS EXT - no gross joint deformity, no clubbing, cyanosis, edema NEURO - CN II-XII grossly intact, no focal deficits MEDICATIONS: Current Facility-Administered Medications Medication Dose Route Frequency - [MAR Hold due to Transfer] albuterol HFA 90 mcg/actuation 2 Puff (PROVENTIL HFA, VENTOLIN HFA) 2 Puff INHALATION q 6 H PRN - [MAR Hold due to Transfer] Ipratropium [place] 2 [place] nasal spray (ATROVENT) 2 [place] NASAL q 12 H - [MAR Hold due to Transfer] sertraline 50 mg tab(s) (ZOLOFT) 50 mg ORAL DAILY - [MAR Hold due to Transfer] heparin 5,000 Units injection 5,000 Units SUBCUTANEOUS q 12 H - [MAR Hold due to Transfer] ondansetron (PF) 4 mg injection (ZOFRAN) 4 mg INTRAVENOUS q 6 H PRN - [MAR Hold due to Transfer] oxyCODONE IR 5 mg tab(s) (ROXICODONE) 5 mg ORAL q 6 H PRN - [MAR Hold due to Transfer] piperacillin-tazobactam iv piggyback 3.375 g in dextrose (iso-osmotic) 50 mL (ZOSYN) 3.375 g INTRAVENOUS q 6 H - [MAR Hold due to Transfer] mometasone 220 mcg/ actuation (14) 1 Puff inhaler (ASMANEX) 1 Puff INHALATION DAILY - [AUG Hold due to Transfer] perflutren lipid microspheres 1.1 mg/mL 1.3 mL injection (DEFINITY) 1.3 mL INTRAVENOUS DIRECTED PRN DATA: Diagnostic tests reviewed for today's visit: CBC: No results for input(s): WBC, RBC, HB, HCT, PLT, MCV, MCH, MPV, RDW in the last 24 hours. Coags: No results for input(s): INR, APTT in the last 24 hours. Invalid input(s): PT BMP: Recent Labs 06/03/19 0346 NA 140 K 3.9 CHLOR 107 CO2 27 BUN 12 CREAT 0.70 GLUC 101* CMP: Recent Labs 06/03/19 0346 NA 140 K 3.9 CHLOR 107 CO2 27 BUN 12 CREAT 0.70 GLUC 101* TPROT 5.6* CA 8.7 TBILI 1.3* ALKPHOS 253* ALT 113* AST 32 ANION 10 Cardiac Enzymes: No results for input(s): CK, MB, CKMB, TROPT in the last 24 hours. Liver Function, Amylase, Lipase: Recent Labs 06/03/19 0346 TPROT 5.6* ALB 2.4* ALT 113* AST 32 ALKPHOS 253* TBILI 1.3* LIPASE 80 MG/PHOS: No results for input(s): MG, P in the last 24 hours. Renal Panel: Recent Labs 06/03/19 0346 CREAT 0.70 BUN 12 GLUC 101* CA 8.7 CHLOR 107 K 3.9 CO2 27 NA 140 Heme: No results for input(s): RETICP, ABSRETIC, LD, REJI, FE, TIBC, TRANSFERSAT in the last 24 hours. 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 ? ? #new onset a fibrillation , paroxysmal - back in NSR - Echo pending -eliquis prior to discharge? ? #HTN Lisinopril on hold due to low SBP. SBP < 110 off of lisinopril # INcidental lesion in right upper pole kidney , concerning for renal cell carcinoma - will need further evaluation - discussed with patient reg follow up ? Medication and Non-Pharmacologic VTE Prophylaxis/Anticoagulants Anticoagulant AND Antiplatelet Medications (From admission, onward) Start Dose Route Frequency Ordered Stop 05/29/19 1000 [MAR Hold due to Transfer] heparin 5,000 Units injection (Medical Risk Categories) (MAR Hold due to Transfer since Thu06/03/2019 at 1519. Reason: Hold Unreviewed Transfer Orders.) 5,000 Units SUBCUTANEOUS EVERY 12 HOURS 05/29/19 0934 -- 05/29/19 0945 pneumatic compression stockings (al,de) 05/29/19 0945 activity - mobilize patient ([place], [place]) Lines, Drains, and Airways Line Peripheral 06/02/19 1538 Left Hand 20 Gauge 1 day VTE Prophylaxis: Other - held for isadora tomorrow Disposition: Home Functional Status Prior to Admit: Medical Necessity for Continued Hospitalization Plan of care discussed with: Provider, RN, Patient SIGNATURE: Danay Siegel MD PATIENT NAME: Petra Duncan DATE: June 03, 2019 TIME: 6:26 PM PAGER/CONTACT #: Team color pager Normal [facility] ANES PREOPon 06-02-2019 ANES PREOP HNO ID: [id number] Author: Danielito Porter Service: Anesthesiology Author Type: Physician Type: Anesthesia PreOp Filed: 06/02/2019 2:42 PM Note Text: ANESTHESIOLOGY DAY OF SURGERY NOTE SERVICE DATE: 06/02/2019 SERVICE TIME: 2:40 PM : 1945 Procedure(s) (LRB): ERCP (Left) Surgeon(s): Rikki Castillo Estimated body mass index is 28.28 kg/m? as calculated from the following: Height as of this encounter: 167.6 cm (5' 6). Weight as of this encounter: 79.5 kg (175 lb 3.2 oz). Most recent hematocrit and potassium results: Hematocrit 37.0 05/31/2019 Potassium 3.9 06/01/2019 ANES DOS/PREOP NOTE: Vitals: 06/01/19 0736 06/01/19 1107 06/01/19 1900 06/02/19 0700 BP: 107/53 118/74 125/63 97/77 Pulse: 66 67 72 72 Resp: 18 18 18 18 Temp: 37.2 ?C (99 ?F) 37.1 ?C (98.8 ?F) 37.2 ?C (99 ?F) 37.1 ?C (98.8 ?F) TempSrc: Oral Oral Oral Oral SpO2: 93% 95% 92% 92% Weight: Height: ACTIVE PROBLEM LIST Biliary Obstruction PAST MEDICAL HISTORY Diagnosis Date - Asthma - HTN (hypertension) PAST SURGICAL HISTORY Procedure Laterality Date - HYSTERECTOMY FAMILY HISTORY Problem Relation Age of Onset - Heart disease Father Social History: Social History Tobacco Use - Smoking status: Never Smoker - Smokeless tobacco: Never Used Substance Use Topics - Alcohol use: Not on file Comment: Occasionally - Drug use: Not on file No current facility-administered medications on file prior to encounter. Current Outpatient Medications on File Prior to Encounter Medication Sig - aspirin 81 mg chewable tablet Take 81 mg by mouth once daily. - mometasone 100 mcg/actuation HFAA Inhale 100 mcg as instructed twice daily. - albuterol HFA (PROVENTIL HFA, VENTOLIN HFA) 90 mcg/actuation inhaler Inhale 2 Puffs as instructed. - LISINOPRIL-HYDROCHLOROTHIA ZIDE ORAL Take 10 mg by mouth once daily. 04/02.5 mg - sertraline (ZOLOFT) 50 mg ORAL tablet Take 50 mg by mouth once daily. - predniSONE (DELTASONE) 20 mg tablet Take 2 tablets by mouth once daily. - Ipratropium Marshall (ATROVENT) 0.03 % nasal spray Use 2 Sprays in the nose every 12 hours. - betamethasone dipropionate 0.05 % cream Apply 1 application to affected area twice daily. - NAPROXEN ORAL Take by mouth. Current Facility-Administered Medications Medication Dose Route Frequency Provider Last Rate Last Dose - [MAR Hold due to Transfer] perflutren lipid microspheres 1.1 mg/mL 1.3 mL injection (DEFINITY) 1.3 mL INTRAVENOUS DIRECTED PRN Chalino Francisco - [MAR Hold due to Transfer] albuterol HFA 90 mcg/actuation 2 Puff (PROVENTIL HFA, VENTOLIN HFA) 2 Puff INHALATION q 6 H PRN Navid Ric - [MAR Hold due to Transfer] Ipratropium Marshall 2 [place] nasal spray (ATROVENT) 2 [place] NASAL q 12 H Navid Ric 2 [place] at 06/02/19 0900 - [MAR Hold due to Transfer] aspirin 81 mg chewable tab(s) 81 mg ORAL DAILY Navid Ric 81 mg at 06/01/19 0854 - [MAR Hold due to Transfer] sertraline 50 mg tab(s) (ZOLOFT) 50 mg ORAL DAILY Navid Ric 50 mg at 06/02/19 0900 - [MAR Hold due to Transfer] heparin 5,000 Units injection 5,000 Units SUBCUTANEOUS q 12 H Navid Ric 5,000 Units at 06/01/192007 - [MAR Hold due to Transfer] ondansetron (PF) 4 mg injection (ZOFRAN) 4 mg INTRAVENOUS q 6 H PRN Navid Ric 4 mg at 06/01/192007 - [MAR Hold due to Transfer] oxyCODONE IR 5 mg tab(s) (ROXICODONE) 5 mg ORAL q 6 H PRN Navid Ric 5 mg at 05/30/19 0523 - [MAR Hold due to Transfer] piperacillin-tazobactam iv piggyback 3.375 g in dextrose (iso-osmotic) 50 mL (ZOSYN) 3.375 g INTRAVENOUS q 6 H Navid Ric 100 mL/hr at 06/02/19 0512 3.375 g at 06/02/19 0512 - [MAR Hold due to Transfer] mometasone 220 mcg/ actuation (14) 1 Puff inhaler (ASMANEX) 1 Puff INHALATION DAILY Navid Larios 1 Puff at 06/02/19 0900 Allergies: ALLERGIES No Known Allergies DOS EXAM: Adequate NPO status: Yes Anesthetic risks, benefits, alternatives, personnel and consent discussed: Yes Patient agrees to proceed: Yes Previous Anesthesia: No history of adverse event. Airway Assessment: MP 2; Neck ROM: Full ROM without neurologic symptoms; Airway Evaluation: No significant abnormalities Symptoms of Sleep Apnea: Hypertension and Age over 50 (74 year old) Dentition: Dentures: both Additional Physical Exam: Lungs: Patient health status unchanged since recent history and physical. See history and physical for exam findings. Cardiac: Patient health status unchanged since recent history and physical. See history and physical for exam findings. Additional Pertinent Findings: N/A Blood Products: Not anticipated for this procedure. Anesthetic Plan: General, Standard ASA Monitors Pain Management Plan: Parenteral or Oral ASA Class: 3 Other Medical Problems: HTN, Asthma, Gallstone obstructive jaundice, New onset afib - paroxysmal, now in NSR Chronic Beta Nannette medication administered within 24 hours: N/A I have interviewed and examined the patient. I have reviewed the medical record and/or the pre-anesthesia evaluation, pertinent labs, and test results. Significant changes in the patient's condition since the History and Physical, not otherwise documented in primary service progress notes: No This contains updated information obtained within 48 hours of Surgery/Procedure. SIGNATURE: Danielito Porter MD PATIENT NAME: Petra Duncan DATE: June 02, 2019 TIME: 2:40 PM CSN: [id number] Normal [facility] CONSULT PROGon 06-02-2019 CONSULT PROG HNO ID: [id number] Author: Liya Hutchison (Pa) Service: Gastroenterology Author Type: Physician Server Administrator Type: Consult Progress Note Filed: 06/02/2019 9:55 AM Note Text: MRCP 05/31 Results: Multiple small stones within the common bile duct. ?The common bile duct measures upper limits of normal in size. ?No intrahepatic bile duct dilatation. Multiple too numerous to count less than 5 mm stones within a distended gallbladder. ?The gallbladder wall is not thickened and there is no surrounding edema. 2.2 cm lesion medial upper pole of the right kidney of unclear etiology. ? A solid mass is a consideration and further evaluation with ultrasound and/or pre and postcontrast CT scan is recommended. ?(The patient did have outside CT scan dated 05/28/2019 which is most concerning for solid lesion such as renal cell carcinoma.) 2 lesions noted in the liver. ?These are of unclear etiology. ?Findings on the outside CT scan are inconclusive. ?The lesion in the left lobe of the liver most likely represents a hemangioma. ?The lesion in the dome of the right lobe of the liver is nonspecific. Trace right-sided pleural effusion. Spoke with patient today and discussed results of MRCP. Also talked with patient about ERCP, explained the procedure, went over risks/benefits. Patient showed verbal understanding and she agreed to have ERCP done. ERCP ordered, will be today, time TBD. Dr. Castillo will be the advanced endoscopist performing procedure. He is aware of the plan. Liya Hutchison PA-C Gastroenterology Normal [facility] NURSING PROGon 06-02-2019 NURSING PROG HNO ID: [id number] Author: Sophia (Rn) BENNIE Reid Service: ? Author Type: Registered Nurse Type: Nursing Progress Note Filed: 06/02/2019 12:06 PM Note Text: Attempted to call back to [facility] for report, hold for 5 min will attempt to call back prior to patient being picked up Normal [facility] OPERATIVE NOon 06-02-2019 OPERATIVE NO HNO ID: [id number] Author: Rikki Castillo Service: Gastroenterology Author Type: Physician Type: Operative Report Filed: 06/02/2019 5:37 PM Note Text: OPERATIVE/PROCEDURE REPORT LOG ID: [id number] Surgery/Procedure Date: 06/02/2019 Incision/Procedure Start Time: 3:52 PM Incision Close/Procedure End Time: 4:21 PM Surgeon(s)/Proceduralist(s ) and Server Administrator(s): Surgeon(s) and Role: * Rikki Castillo - Primary No Additional Staff Procedure(s): Endoscopic Retrograde Cholangiopancreatography (ERCP) with sphincterotomy, cholangiogram, stent placement Anesthesia: General Brief History: 74F who p/w 5 day hx of epigastric pain and nausea. Did have jaundice initially but no fever or weight loss. CT showed mild IHBD dilation and MRCP confirmed multiple stones in CBD. Tbili peaked at 6.5 and lipase never tested. The risks, benefits and alternatives of the procedure were explained to the patient/responsible accompanying adult. This includes, but is not limited to, bleeding and infection. The risk of perforation is 1:1000 and the risk of post-procedural pancreatitis is 3-5%. There is also a small risk of allergic reaction(s) due to sedatives, need for hospitalization, need for transfusions and need for surgery. The patient understands this and is amenable to proceeding. Procedure Details: The patient was placed in the prone position on the fluoroscopy table. A bite block was placed and medications administered as above. The Olympus side-viewing duodenoscope was introduced into the oropharynx and we intubated the esophagus with ease. We proceeded down to the second part of the duodenum. The could not be found initially due to a large 3cm duodenal diverticulum on the medial wall. The ampulla was eventually located at the 7 o'clock position but at least 1cm inside the diverticulum. It could only be seen by placing the scope inside the tic itself. We were able to easily obtain access to the common bile duct (CBD) using a short-wire Dreamtome and wire-guided cannulation. Contrast injection confirmed placement fluoroscopically. I personally interpreted all fluoroscopy images. A generous sphincterotomy was performed and no immediate complications were noted. The CBD was dilated to 14mm. We then used a 12/15mm extraction balloon to sweep the CBD. A small amount of sludge but no stones were seen. Due to the difficult position of the ampulla within the diverticulum, and because of the need for likely surgery, we elected to place a stent to allow for ongoing drainage. A 10F, 7cm plastic stent was deployed in good position. The scope was then withdrawn and the patient tolerated the procedure well. 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 I/primary surgeon/proceduralist performed the entire procedure. Rikki Castillo MD MPH [facility] SIGNATURE: Rikki Castillo MD MPH [facility] PATIENT NAME: Petra Duncan DATE: June 02, 2019 TIME: 5:32 PM PAGER/CONTACT #: [phone] Normal [facility] PROGRESSon 06-02-2019 PROGRESS HNO ID: [id number] Author: Danay Pozo MD Service: Hospital Medicine Author Type: Physician Type: Progress Notes Filed: 06/02/2019 7:23 PM Note Text: DEPARTMENT OF HOSPITAL MEDICINE PROGRESS NOTE SERVICE DATE: 06/02/2019 SERVICE TIME: 8:21 AM Hospital Medicine/Primary Attending: Danay Siegel MD NIGHT AND WEEKEND COVERAGE: After 7pm please page [phone] CHIEF COMPLAINT: jaundice SUBJECTIVE: Pt seen and examined. Awaiting ERCP later today. OBJECTIVE: PHYSICAL EXAM: BP 127/65 Pulse 69 Temp (Src) 97.9 (Oral) Resp 20 Ht 5' 6 (1.68m) Wt 175 lb 3.2 oz (79.5kg) SpO2 92% BMI 28.29 kg/(m2). O2 Therapy: Room Air, Liters: 3 General - AANDOx3, NAD, Calm CV - RRR S1 S2, No M/R/G RESP - CTA B/L No wheezes, ronchi, rales ABD - soft, NT, ND +BS EXT - no gross joint deformity, no clubbing, cyanosis, edema NEURO - CN II-XII grossly intact, no focal deficits MEDICATIONS: Current Facility-Administered Medications Medication Dose Route Frequency - albuterol HFA 90 mcg/actuation 2 Puff (PROVENTIL HFA, VENTOLIN HFA) 2 Puff INHALATION q 6 H PRN - Ipratropium [place] 2 [place] nasal spray (ATROVENT) 2 [place] NASAL q 12 H - aspirin 81 mg chewable tab(s) 81 mg ORAL DAILY - sertraline 50 mg tab(s) (ZOLOFT) 50 mg ORAL DAILY - heparin 5,000 Units injection 5,000 Units SUBCUTANEOUS q 12 H - ondansetron (PF) 4 mg injection (ZOFRAN) 4 mg INTRAVENOUS q 6 H PRN - oxyCODONE IR 5 mg tab(s) (ROXICODONE) 5 mg ORAL q 6 H PRN - piperacillin-tazobactam iv piggyback 3.375 g in dextrose (iso-osmotic) 50 mL (ZOSYN) 3.375 g INTRAVENOUS q 6 H - mometasone 220 mcg/ actuation (14) 1 Puff inhaler (ASMANEX) 1 Puff INHALATION DAILY - perflutren lipid microspheres 1.1 mg/mL 1.3 mL injection (DEFINITY) 1.3 mL INTRAVENOUS DIRECTED PRN DATA: Diagnostic tests reviewed for today's visit: CBC: No results for input(s): WBC, RBC, HB, HCT, PLT, MCV, MCH, MPV, RDW in the last 24 hours. Coags: No results for input(s): INR, APTT in the last 24 hours. Invalid input(s): PT BMP: No results for input(s): NA, K, CHLOR, CO2, BUN, CREAT, GLUC in the last 24 hours. CMP: No results for input(s): NA, K, CHLOR, CO2, BUN, CREAT, GLUC, TPROT, CA, MG, ALBUMIN, TBILI, ALKPHOS, ALT, AST, ANION in the last 24 hours. Cardiac Enzymes: No results for input(s): CK, MB, CKMB, TROPT in the last 24 hours. Liver Function, Amylase, Lipase: No results for input(s): TPROT, ALB, ALT, AST, ALKPHOS, TBILI, AMYLASE, LIPASE, LACTATE in the last 24 hours. MG/PHOS: No results for input(s): MG, P in the last 24 hours. Renal Panel: No results for input(s): ALBUMIN, CREAT, BUN, GLUC, CA, P, CHLOR, K, CO2, NA in the last 24 hours. Heme: No results for input(s): RETICP, ABSRETIC, LD, REJI, FE, TIBC, TRANSFERSAT in the last 24 hours. 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 ? #new onset a fibrillation , paroxysmal - back in NSR - Echo pending -eliquis prior to discharge ? #HTN Lisinopril on hold due to low SBP. Resume if BP goes up . # INcidental lesion in right upper pole kidney - will need further evaluation - discuss with patient and PCP reg follow up ? Medication and Non-Pharmacologic VTE Prophylaxis/Anticoagulants Anticoagulant AND Antiplatelet Medications (From admission, onward) Start Dose Route Frequency Ordered Stop 05/29/19 1000 aspirin 81 mg chewable tab(s) 81 mg ORAL DAILY 05/29/19 0934 -- 05/29/19 1000 heparin 5,000 Units injection (Medical Risk Categories) 5,000 Units SUBCUTANEOUS EVERY 12 HOURS 05/29/19 0934 -- 05/29/19 0945 pneumatic compression stockings (al,de) 05/29/19 0945 activity - mobilize patient ([place], [place]) Lines, Drains, and Airways Line Peripheral 05/29/19 1527 Right Antecubital 22 Gauge 4 days Peripheral 06/02/19 1538 Left Hand 20 Gauge less than 1 day VTE Prophylaxis: Heparin 5000 units Sub Q BID Disposition: Home Functional Status Prior to Admit: Medical Necessity for Continued Hospitalization Plan of care discussed with: Provider, RN, Patient SIGNATURE: Danay Siegel MD PATIENT NAME: Petra Duncan DATE: June 02, 2019 TIME: 7:21 PM PAGER/CONTACT #: Team color pager Normal [facility] XR ERCP READ ONLYon 06-02-20 XR ERCP READ ONLY * * *Final Report* * * DATE OF EXAM: Jun 02 2019 4:30PM IDO [id number] - XR ERCP READ ONLY / PROCEDURE REASON: CHOLEDOCHOLITHIASIS * * * * Physician Interpretation * * * * INTRAOPERATIVE FLUOROSCOPIC EXAMINATION; ERCP DATE: 06/02/2019 4:30 PM COMPARISON: MRI examination of the abdomen without contrast/MRCP dated 05/31/2019 HISTORY: ENCOUNTER: Not applicable TECHNIQUE: Images from fluoroscopic examination of the biliary system during endoscopic retrograde cholangiography were submitted for interpretation. Fluoroscopic Radiation Summary: Plane A, Air Kerma: 49.4 mGy Dose Area Product (DAP): 9786.5 mGy*cm Fluoro time: 1:38 min:sec RESULT: Examination is limited due to fluoroscopic technique. 5 fluoroscopic image(s) were submitted for interpretation. Sequential fluoroscopic images demonstrate retrograde opacification of the common bile duct. There is indeterminate nonobstructive filling defect at the inferior aspect of the common bile duct, corresponding to previously demonstrated common bile duct stones. No discrete contrast extravasation. No intrahepatic biliary ductal dilation. Final fluoroscopic image demonstrates successful placement of ERCP stent. The superior aspect of the stent overlies the superior portion of the common bile duct and inferior aspect of the stent overlies the duodenal lumen. IMPRESSION: Nonobstructive filling defect involving the inferior aspect of the common bile duct, corresponding to previously demonstrated common bile duct stones. Successful placement of ERCP stent. Please refer to operative notes for full details. Unit Controller: PSCB Transcribe Date/Time: Jun 03 2019 12:20P Dictated by : LEIDA POTTS MD This examination was interpreted and the report reviewed and electronically signed by: LEIDA POTTS MD on Jun 03 2019 12:23PM EST Normal [facility] CONSULT PROGon 06-01-2019 CONSULT PROG HNO ID: [id number] Author: Liya Hutchison (Pa) Service: Gastroenterology Author Type: Physician Server Administrator Type: Consult Progress Note Filed: 06/01/2019 3:56 PM Note Text: GI CONSULT PROGRESS NOTE SERVICE DATE: 06/01/2019 SERVICE TIME: 3:54 PM CONSULTING SERVICE: Gastroenterology Subjective INTERVAL HISTORY: Patient asx from GI standpoint. Tolerating diet. Awaiting MRCP results. MEDICATIONS: Current Facility-Administered Medications Medication Dose Route Frequency - albuterol HFA 90 mcg/actuation 2 Puff (PROVENTIL HFA, VENTOLIN HFA) 2 Puff INHALATION q 6 H PRN - Ipratropium [place] 2 [place] nasal spray (ATROVENT) 2 [place] NASAL q 12 H - aspirin 81 mg chewable tab(s) 81 mg ORAL DAILY - sertraline 50 mg tab(s) (ZOLOFT) 50 mg ORAL DAILY - heparin 5,000 Units injection 5,000 Units SUBCUTANEOUS q 12 H - ondansetron (PF) 4 mg injection (ZOFRAN) 4 mg INTRAVENOUS q 6 H PRN - oxyCODONE IR 5 mg tab(s) (ROXICODONE) 5 mg ORAL q 6 H PRN - piperacillin-tazobactam iv piggyback 3.375 g in dextrose (iso-osmotic) 50 mL (ZOSYN) 3.375 g INTRAVENOUS q 6 H - mometasone 220 mcg/ actuation (14) 1 Puff inhaler (ASMANEX) 1 Puff INHALATION DAILY - perflutren lipid microspheres 1.1 mg/mL 1.3 mL injection (DEFINITY) 1.3 mL INTRAVENOUS DIRECTED PRN Objective PHYSICAL EXAM: Cardiovascular:?S1 and S2 appreciated, RRR, no murmur appreciated Respiratory:?Lungs clear to auscultation bilaterally Abdomen: soft, non-tender, non-distended, normoactive bowel sounds? VITALS:BP 118/74 Pulse 67 Temp 37.1 ?C (98.8 ?F) (Oral) Resp 18 Ht 167.6 cm (5' 6) Wt 79.5 kg (175 lb 3.2 oz) SpO2 95% BMI 28.28 kg/m? ABDOMEN: DATA: Diagnostic tests reviewed for today's visit: Most recent labs and imaging results. CBC, Coags, BMP, Mg, Phos Recent Labs 06/01/1948 05/31/190 05/30/19 1312 05/30/19 0750 05/30/19 0518 WBC -- 4.94 -- -- 9.80 HB -- 12.3 -- -- 13.9 HCT -- 37.0 -- -- 43.1 PLT -- 146* -- -- 125* NA 137 138 137 138 138 K 3.9 4.0 4.0 3.6 3.4* CHLOR 108* 110* 107 108* 106 CO2 24 25 25 23 26 BUN 14 15 20* 19* 20* CREAT 0.73 0.76 0.86 0.95 0.96* GLUC 96 92 93 94 104* CA 8.6 8.3* 8.3* 8.5 8.6 MG -- -- -- 2.1 2.1 P -- -- -- -- 2.1* Liver Function, Amylase, AND Lipase Recent Labs 06/01/19 0546 05/31/19 0430 05/30/19 0518 TPROT 5.8* 5.7* 6.1* ALB 2.4* 2.4* 2.6* ALT 145* 176* 286* AST 39* 50* 117* ALKPHOS 263* 273* 310* TBILI 2.6* 4.3* 6.4* Impression/Recommendations 1) Transaminitis: with intra, extra hepatic biliary ductal dilation. LFT's trending down. 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 Normal liver, gallbladder, pancreas. No evidence of cirrhosis. ?- MRCP ordered - pending ?- Acute Hepatitis panel ordered - negative ?- Hep B/Hep C labs ordered - negative ?- LFT's trending dowm ?- Patient may need ERCP for evaluation of CBD obstruction and elevated T bili, will await MRCP results ? 2) N/V: patient denied any recent N/V. ?- Well controlled with Zofran ?- Diet as tolerated ? 3) Diarrhea: has stopped. Patient denied. ?- Monitor BM's SIGNATURE: Liya Hutchison PA-C PATIENT NAME: Petra Duncan DATE: June 01, 2019 TIME: 3:54 PM PAGER/CONTACT #: [phone] Normal [facility] Comprehensive Panelon 2018 ALP [Catalytic activity/Vol] 263 U/L High 45-117 [facility] Comment on above: Performed By: #### C BC1 #### [facility] [address] [place], [place] [address] Bilirubin [Mass/Vol] 2.6 mg/dL High 0.2-1.0 [facility] Comment on above: Performed By: #### C BC1 #### [facility] [address] [place], [place] [address] Protein [Mass/Vol] 5.8 g/dL Low 6.4-8.2 [facility] Comment on above: Performed By: #### C BC1 #### [facility] [address] [place], [place] [address] AST [Catalytic activity/Vol] 39 U/L High 15-37 [facility] Comment on above: Performed By: #### C BC1 #### [facility] [address] [place], [place] [address] ALT [Catalytic activity/Vol] 145 U/L High 12-78 [facility] Comment on above: Performed By: #### C BC1 #### [facility] [address] [place], [place] [address] Creatinine [Mass/Vol] 0.73 mg/dL Normal 0.51-0.95 [facility] Comment on above: Performed By: #### C BC1 #### [facility] [address] [place], [place] [address] Albumin [Mass/Vol] 2.4 g/dL Low 3.4-5.0 [facility] Comment on above: Performed By: #### C BC1 #### [facility] [address] [place], [place] [address] Anion gap [Moles/Vol] 9 mmol/L Normal 8-16 [facility] Comment on above: Performed By: #### C BC1 #### [facility] [address] [place], [place] [address] Calcium [Mass/Vol] 8.6 mg/dL Normal 8.5-10.1 [facility] Comment on above: Performed By: #### C BC1 #### [facility] [address] [place], [place] [address] CO2 [Moles/Vol] 24 mmol/L Normal 21-32 [facility] Comment on above: Performed By: #### C BC1 #### [facility] [address] [place], [place] [address] Glucose [Mass/Vol] 96 mg/dL Normal 70-99 [facility] Comment on above: Performed By: #### C BC1 #### [facility] [address] [place], [place] [address] Urea nitrogen [Mass/Vol] 14 mg/dL Normal 7-18 [facility] Comment on above: Performed By: #### C BC1 #### [facility] [address] [place], [place] [address] Chloride [Moles/Vol] 108 mmol/L High 98-107 [facility] Comment on above: Performed By: #### C BC1 #### [facility] [address] [place], [place] [address] Potassium [Moles/Vol] 3.9 mmol/L Normal 3.5-5.1 [facility] Comment on above: Performed By: #### C BC1 #### [address] [address] Sodium [Moles/Vol] 137 mmol/L Normal 136-145 [facility] Comment on above: Performed By: #### C BC1 #### [address] [address] Hep B Core Ab,Totalon 2018 Hep B Core Ab,Total Positive Abnormal NEGAT [facility] Comment on above: Result Comment: Perf orming Laboratory: [facility] [address] [place] [address] Performed By: #### C BC1 #### [address] [address] NURSING PROGon 06-01-2019 NURSING PROG HNO ID: [id number] Author: Iman (Rn) Leighton, RN Service: Nursing Author Type: Registered Nurse Type: Nursing Progress Note Filed: 06/01/2019 9:13 AM Note Text: GM, Sorry to bother you. There was an edit to Macario's EKG on 06/[address] Todd. Are there any needed interventions on my part based on the edit? Iman [id number]V. Aragon at 09[address] [facility] NURSING PROG HNO ID: [id number] Author: Iman (Rn) Leighton, RN Service: Nursing Author Type: Registered Nurse Type: Nursing Progress Note Filed: 06/01/2019 9:02 AM Note Text: Macario has slight CHILEL and would like acetaminophen. None ordered at this time. [id number] Sent to Jadon at 0902 [facility] PROGRESSon 06-01-2019 PROGRESS HNO ID: [id number] Author: Danay Pozo MD Service: Hospital Medicine Author Type: Physician Type: Progress Notes Filed: 06/02/2019 10:17 AM Note Text: DEPARTMENT OF HOSPITAL MEDICINE PROGRESS NOTE SERVICE DATE: 06/01/2019 SERVICE TIME: 5:22 PM Hospital Medicine/Primary Attending: Danay Siegel MD NIGHT AND WEEKEND COVERAGE: After 7pm please page [phone] CHIEF COMPLAINT: Nausea and emesis SUBJECTIVE: Pt seen and examined. No emesis, but continues to have nausea. OBJECTIVE: PHYSICAL EXAM: BP 118/74 Pulse 67 Temp (Src) 98.8 (Oral) Resp 18 Ht 5' 6 (1.68m) Wt 175 lb 3.2 oz (79.5kg) SpO2 95% BMI 28.29 kg/(m2). O2 Therapy: Room Air General - AANDOx3, NAD, Calm CV - RRR S1 S2, No M/R/G RESP - CTA B/L No wheezes, ronchi, rales ABD - soft, NT, ND +BS EXT - no gross joint deformity, no clubbing, cyanosis, edema NEURO - CN II-XII grossly intact, no focal deficits MEDICATIONS: Current Facility-Administered Medications Medication Dose Route Frequency - albuterol HFA 90 mcg/actuation 2 Puff (PROVENTIL HFA, VENTOLIN HFA) 2 Puff INHALATION q 6 H PRN - Ipratropium [place] 2 [place] nasal spray (ATROVENT) 2 [place] NASAL q 12 H - aspirin 81 mg chewable tab(s) 81 mg ORAL DAILY - sertraline 50 mg tab(s) (ZOLOFT) 50 mg ORAL DAILY - heparin 5,000 Units injection 5,000 Units SUBCUTANEOUS q 12 H - ondansetron (PF) 4 mg injection (ZOFRAN) 4 mg INTRAVENOUS q 6 H PRN - oxyCODONE IR 5 mg tab(s) (ROXICODONE) 5 mg ORAL q 6 H PRN - piperacillin-tazobactam iv piggyback 3.375 g in dextrose (iso-osmotic) 50 mL (ZOSYN) 3.375 g INTRAVENOUS q 6 H - mometasone 220 mcg/ actuation (14) 1 Puff inhaler (ASMANEX) 1 Puff INHALATION DAILY - perflutren lipid microspheres 1.1 mg/mL 1.3 mL injection (DEFINITY) 1.3 mL INTRAVENOUS DIRECTED PRN DATA: Diagnostic tests reviewed for today's visit: CBC: No results for input(s): WBC, RBC, HB, HCT, PLT, MCV, MCH, MPV, RDW in the last 24 hours. Coags: No results for input(s): INR, APTT in the last 24 hours. Invalid input(s): PT BMP: Recent Labs 06/01/19 0546 NA 137 K 3.9 CHLOR 108* CO2 24 BUN 14 CREAT 0.73 GLUC 96 CMP: Recent Labs 06/01/19 0546 NA 137 K 3.9 CHLOR 108* CO2 24 BUN 14 CREAT 0.73 GLUC 96 TPROT 5.8* CA 8.6 TBILI 2.6* ALKPHOS 263* ALT 145* AST 39* ANION 9 Cardiac Enzymes: No results for input(s): CK, MB, CKMB, TROPT in the last 24 hours. Liver Function, Amylase, Lipase: Recent Labs 06/01/19 0546 TPROT 5.8* ALB 2.4* ALT 145* AST 39* ALKPHOS 263* TBILI 2.6* MG/PHOS: No results for input(s): MG, P in the last 24 hours. Renal Panel: Recent Labs 06/01/19 0546 CREAT 0.73 BUN 14 GLUC 96 CA 8.6 CHLOR 108* K 3.9 CO2 24 NA 137 Heme: No results for input(s): RETICP, ABSRETIC, LD, REJI, FE, TIBC, TRANSFERSAT in the last 24 hours. 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 May need ERCP based on that -LFTs slightly down - on zosyn #new onset a fibrillation , paroxysmal - back in NSR - Echo pending -eliquis prior to discharge #HTN Lisinopril on hold due to low SBP. Resume if BP goes up . Medication and Non-Pharmacologic VTE Prophylaxis/Anticoagulants Anticoagulant AND Antiplatelet Medications (From admission, onward) Start Dose Route Frequency Ordered Stop 05/29/19 1000 aspirin 81 mg chewable tab(s) 81 mg ORAL DAILY 05/29/19 0934 -- 05/29/19 1000 heparin 5,000 Units injection (Medical Risk Categories) 5,000 Units SUBCUTANEOUS EVERY 12 HOURS 05/29/19 0934 -- 05/29/19 0945 pneumatic compression stockings ([place], [place]) 05/29/19 0945 activity - mobilize patient ([place]) Lines, Drains, and Airways Line Peripheral 05/29/19 1527 Right Antecubital 22 Gauge 3 days VTE Prophylaxis: Heparin 5000 units Sub Q BID Disposition: Home Functional Status Prior to Admit: Medical Necessity for Continued Hospitalization mrcp /may need ercp Plan of care discussed with: Provider, RN, Patient SIGNATURE: Danay Siegel MD PATIENT NAME: Petra Duncan DATE: June 01, 2019 TIME: 5:22 PM PAGER/CONTACT #: Team color pager Normal [facility] CONSULT PROGon 05-31-2019 CONSULT PROG HNO ID: [id number] Author: Liya Hutchison (Pa) Service: Gastroenterology Author Type: Physician Server Administrator Type: Consult Progress Note Filed: 05/31/2019 10:35 AM Note Text: GI CONSULT PROGRESS NOTE SERVICE DATE: 05/31/2019 SERVICE TIME: 10:32 AM CONSULTING SERVICE: Gastroenterology Subjective INTERVAL HISTORY: Patient has no complaints. Patiently waiting for MRCP. MEDICATIONS: Current Facility-Administered Medications Medication Dose Route Frequency - albuterol HFA 90 mcg/actuation 2 Puff (PROVENTIL HFA, VENTOLIN HFA) 2 Puff INHALATION q 6 H PRN - Ipratropium [place] 2 [place] nasal spray (ATROVENT) 2 [place] NASAL q 12 H - aspirin 81 mg chewable tab(s) 81 mg ORAL DAILY - sertraline 50 mg tab(s) (ZOLOFT) 50 mg ORAL DAILY - heparin 5,000 Units injection 5,000 Units SUBCUTANEOUS q 12 H - ondansetron (PF) 4 mg injection (ZOFRAN) 4 mg INTRAVENOUS q 6 H PRN - oxyCODONE IR 5 mg tab(s) (ROXICODONE) 5 mg ORAL q 6 H PRN - piperacillin-tazobactam iv piggyback 3.375 g in dextrose (iso-osmotic) 50 mL (ZOSYN) 3.375 g INTRAVENOUS q 6 H - mometasone 220 mcg/ actuation (14) 1 Puff inhaler (ASMANEX) 1 Puff INHALATION DAILY - perflutren lipid microspheres 1.1 mg/mL 1.3 mL injection (DEFINITY) 1.3 mL INTRAVENOUS DIRECTED PRN Objective PHYSICAL EXAM: Cardiovascular: S1 and S2 appreciated, RRR, no murmur appreciated Respiratory: Lungs clear to auscultation bilaterally Abdomen: soft, non-tender, non-distended, normoactive bowel sounds VITALS:BP 117/61 Pulse 85 Temp 37.4 ?C (99.3 ?F) (Oral) Resp 18 Ht 167.6 cm (5' 6) Wt 79.5 kg (175 lb 3.2 oz) SpO2 92% BMI 28.28 kg/m? ABDOMEN: DATA: Diagnostic tests reviewed for today's visit: Most recent labs and imaging results. CBC, Coags, BMP, Mg, Phos Recent Labs 05/31/19 0430 05/30/19 1312 05/30/19 0750 05/30/19 0518 WBC 4.94 -- -- 9.80 HB 12.3 -- -- 13.9 HCT 37.0 -- -- 43.1 PLT 146* -- -- 125* NA 138 137 138 138 K 4.0 4.0 3.6 3.4* CHLOR 110* 107 108* 106 CO2 25 25 23 26 BUN 15 20* 19* 20* CREAT 0.76 0.86 0.95 0.96* GLUC 92 93 94 104* CA 8.3* 8.3* 8.5 8.6 MG -- -- 2.1 2.1 P -- -- -- 2.1* CSF AND Dilantin Liver Function, Amylase, AND Lipase Recent Labs 05/31/19 0430 05/30/19 0518 05/29/19 1010 TPROT 5.7* 6.1* -- ALB 2.4* 2.6* -- ALT 176* 286* -- AST 50* 117* -- ALKPHOS 273* 310* -- TBILI 4.3* 6.4* -- LACT -- -- 1.9 Cardiac Enzymes Impression/Recommendations 1) Transaminitis: with intra, extra hepatic biliary ductal dilation. LFT's trending down. 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 Normal liver, gallbladder, pancreas. No evidence of cirrhosis. - MRCP ordered - Acute Hepatitis panel ordered - pending - Hep B/Hep C labs ordered - pending - Could consider autoimmune workup if hepatitis negative - Denied excessive tylenol/EtOH abuse, illicit drug use - LFT's trending dowm - Patient may need ERCP for evaluation of CBD obstruction and elevated T bili, will await MRCP results ? 2) N/V: patient denied any recent N/V. - Well controlled with Zofran - Diet as tolerated ? 3) Diarrhea: has stopped. Patient denied. - Monitor BM's SIGNATURE: Liya Hutchison PA-C PATIENT NAME: Petra Duncan DATE: May 31, 2019 TIME: 10:32 AM PAGER/CONTACT #: [phone] Normal [facility] Comprehensive Panelon 2018 Creatinine [Mass/Vol] 0.76 mg/dL Normal 0.51-0.95 [facility] Comment on above: Performed By: #### C BC1 #### [facility] [address] [place], [place] [address] ALP [Catalytic activity/Vol] 273 U/L High 45-117 [facility] Comment on above: Performed By: #### C BC1 #### [address] [address] Bilirubin [Mass/Vol] 4.3 mg/dL High 0.2-1.0 [facility] Comment on above: Performed By: #### C BC1 #### [facility] [address] [place], [place] [address] Protein [Mass/Vol] 5.7 g/dL Low 6.4-8.2 [facility] Comment on above: Performed By: #### C BC1 #### [facility] [address] [place], [place] [address] ALT [Catalytic activity/Vol] 176 U/L High 12-78 [facility] Comment on above: Performed By: #### C BC1 #### [facility] [address] [place], [place] [address] AST [Catalytic activity/Vol] 50 U/L High 15-37 [facility] Comment on above: Performed By: #### C BC1 #### [facility] [address] [place], [place] [address] Albumin [Mass/Vol] 2.4 g/dL Low 3.4-5.0 [facility] Comment on above: Performed By: #### C BC1 #### [facility] [address] [place], [place] [address] Anion gap [Moles/Vol] 7 mmol/L Low 8-16 [facility] Comment on above: Performed By: #### C BC1 #### [facility] [address] [place], [place] [address] CO2 [Moles/Vol] 25 mmol/L Normal 21-32 [facility] Comment on above: Performed By: #### C BC1 #### [facility] [address] [place], [place] [address] Urea nitrogen [Mass/Vol] 15 mg/dL Normal 7-18 [facility] Comment on above: Performed By: #### C BC1 #### [facility] [address] [place], [place] [address] Calcium [Mass/Vol] 8.3 mg/dL Low 8.5-10.1 [facility] Comment on above: Performed By: #### C BC1 #### [facility] [address] [place], [place] [address] Glucose [Mass/Vol] 92 mg/dL Normal 70-99 [facility] Comment on above: Performed By: #### C BC1 #### [facility] [address] [place], [place] [address] Chloride [Moles/Vol] 110 mmol/L High 98-107 [facility] Comment on above: Performed By: #### C BC1 #### [facility] [address] [place], [place] [address] Potassium [Moles/Vol] 4.0 mmol/L Normal 3.5-5.1 [facility] Comment on above: Performed By: #### C BC1 #### [facility] [address] [place], [place] [address] Sodium [Moles/Vol] 138 mmol/L Normal 136-145 [facility] Comment on above: Performed By: #### C BC1 #### [facility] [address] [place] [address] Direct Bilirubinon 9 Bilirubin [Mass/Vol] 3.68 mg/dL High 0.00-0.20 [facility] Comment on above: Performed By: #### C BC1 #### [facility] [address] [place] [address] Hemogramon 05-31-2019 Erythrocyte distribution width (RBC) [Ratio] 13.8 % Normal 11.7-14.4 [facility] Comment on above: Performed By: #### C BC1 #### [facility] [address] [place] [address] Hematocrit (Bld) [Volume fraction] 37.0 % Normal 34.1-44.9 [facility] Comment on above: Performed By: #### C BC1 #### [place] [address] Hemoglobin (Bld) [Mass/Vol] 12.3 g/dL Normal 11.2-15.7 [facility] Comment on above: Performed By: #### C BC1 #### [facility] [address] [place] [address] MCH (RBC) [Entitic mass] 30.1 pg Normal 25.6-32.2 [facility] Comment on above: Performed By: #### C BC1 #### [facility] [address] [place] [address] MCHC (RBC) [Mass/Vol] 33.2 % Normal 31.6-34.8 [facility] Comment on above: Performed By: #### C BC1 #### [facility] [address] [place] [address] MCV (RBC) [Entitic vol] 90.7 fL Normal 79.4-94.8 [facility] Comment on above: Performed By: #### C BC1 #### [place] [address] Platelet mean volume (Bld) [Entitic vol] 12.5 fL High 9.4-12.3 [facility] Comment on above: Performed By: #### C BC1 #### [facility] [address] [place] [address] Platelets (Bld) [#/Vol] 146 thou/cmm Low 182-369 [facility] Comment on above: Performed By: #### C BC1 #### [place] [address] RBC (Bld) [#/Vol] 4.08 mil/cmm Normal 3.93-5.22 [facility] Comment on above: Performed By: #### C BC1 #### [place] [address] RDW SD 46.5 fl High 36.4-46.3 [facility] Comment on above: Performed By: #### C BC1 #### [place] [address] WBC (Bld) [#/Vol] 4.94 thou/cmm Normal 3.98-10.04 [facility] Comment on above: Performed By: #### C BC1 #### [place] [address] Hepatitis Acute Panelon 05-22 HB Core Ab IgM Negative Normal Negative [facility] Comment on above: Performed By: #### C BC1 #### [place] [address] Hep.B Surface Ag Negative Normal Negative [facility] Comment on above: Performed By: #### C BC1 #### [place] [address] HAV Ab IgM Negative Normal Negative [facility] Comment on above: Performed By: #### C BC1 #### [place] [address] Hepatitis C Ab Negative Normal Negative [facility] Comment on above: Performed By: #### C BC1 #### [place] [address] MRI PANC/YAHAIRA WO IVCONon 05-22 MRI PANC/YAHAIRA WO IVCON * * *Final Report* * * DATE OF EXAM: May 31 2019 7:12PM [facility] 0729 - MRI PANC/YAHAIRA WO IVCON / PROCEDURE REASON: Abn liver function tests (LFTs) * * * * Physician Interpretation * * * * EXAM TITLE: MRI PANC/YAHAIRA WO IVCON DATE: 05/31/2019 INDICATION: Abnormal liver function studies. COMPARISON: Outside CT scan dated 05/28/2019 THE STUDY IS LIMITED DUE TO PATIENT'S INABILITY TO SUSPEND RESPIRATION ON MOST OF THE SEQUENCES. A series of T1 and T2 weighted axial, coronal, sagittal images were acquired through the upper abdomen without intravenous contrast. Lung bases: Trace right-sided pleural effusion with probable atelectasis at the right lung base. Liver: 9 mm cyst versus hemangioma posterior right lobe of the liver segment 7. 7 mm cyst versus hemangioma left lobe of the liver segment IVb.. Gallbladder/bile ducts: Multiple too numerous to count stones within the gallbladder. These measure under 5 mm in diameter. Common bile duct measures up to 6 mm at the level the common hepatic duct. Multiple small stones are noted within the common bile duct. Pancreas: Unremarkable. Large duodenal diverticulum extending off the medial aspect of the descending duodenum. Adrenal glands: Unremarkable. Spleen: Unremarkable. Kidneys: Questionable solid mass measuring 2.2 cm in the upper pole the right kidney medially. Bowel: No dilated bowel. Ascites: None. Retroperitoneum: No significant additional findings. Bony structures: Unremarkable. IMPRESSION: Multiple small stones within the common bile duct. The common bile duct measures upper limits of normal in size. No intrahepatic bile duct dilatation. Multiple too numerous to count less than 5 mm stones within a distended gallbladder. The gallbladder wall is not thickened and there is no surrounding edema. 2.2 cm lesion medial upper pole of the right kidney of unclear etiology. A solid mass is a consideration and further evaluation with ultrasound and/or pre and postcontrast CT scan is recommended. (The patient did have outside CT scan dated 05/28/2019 which is most concerning for solid lesion such as renal cell carcinoma.) 2 lesions noted in the liver. These are of unclear etiology. Findings on the outside CT scan are inconclusive. The lesion in the left lobe of the liver most likely represents a hemangioma. The lesion in the dome of the right lobe of the liver is nonspecific. Trace right-sided pleural effusion. Unit Controller: VIRA Transcribe Date/Time: Jun 02 2019 6:38A Dictated by : FERNY MENDOZA MD This examination was interpreted and the report reviewed and electronically signed by: FERNY MENDOZA MD on Jun 02 2019 6:53AM EST Normal [facility] NURSING PROGon 05-31-2019 NURSING PROG HNO ID: [id number] Author: Iman (Rn) BENNIE Manzanares Service: Nursing Author Type: Registered Nurse Type: Nursing Progress Note Filed: 05/31/2019 10:30 AM Note Text: Radiology is down to one MRI machine. Ms. Duncan is 5th in line, pending any emergencies. Radiology anticipates performing her test today, pending said emergencies. Normal [facility] PROGRESSon 05-31-2019 PROGRESS HNO ID: [id number] Author: Shital Shahid) MARCIO Fernandez Service: Cardiovascular Disease Author Type: Nurse Practitioner Type: Progress Notes Filed: 05/31/2019 10:47 AM Note Text: PROGRESS NOTE CARDIOLOGY SERVICE SERVICE DATE: 05/31/2019 SERVICE TIME: 10:39 AM Subjective INTERIM HISTORY: Mrs. Duncan is a 74-year-old female with a past medical history significant for hypertension, asthma and obstructive sleep apnea. Presented to [facility] from [facility] after presenting with nausea vomiting for about 4-5 days. LFTs were elevated testing identified dilatation of common bile duct she was transferred for further assessment. She was seen in consultation by Dr. Aragon for transient paroxysmal atrial fibrillation which occurred in the evening time when sleeping without her CPAP. TSH was normal magnesium normal potassium and phosphorus were low and replaced. She is seen this morning offering no complaints of chest pain, palpitations, tach palpitations syncope nor near syncope. Her abdominal pain is improved she remains on IV fluids continuous. Surgery is following workup is in progress. Cardiac telemetry did not identify any further recurrence of the A. fib. This is a new diagnosis for patient. She has an elevated chads Vascor of 4. Dr. Aragon is recommending oral anticoagulation with Eliquis once cleared by surgery for no procedures. This was discussed with patient today she is agreeable. She prefers cardiac follow-up closer to home in [place]. Would recommend sending prescription once okayed to the [facility] pharmacy for checking of xix-yr-zmeups cost and providing a free 30 day prescription. Maintenance therapy can be deferred to the outpatient charger operator of her choice closer to home. CARDIAC STATUS: Tele SR HR 70's No CP No SOB No NATHALY No palpitations No Dizziness Objective PHYSICAL EXAM: Body mass index is 28.28 kg/m?. O2 Therapy: Room Air No data recorded Patient Vitals for the past 24 hrs: BP Temp Temp src Pulse Resp SpO2 05/31/19 0749 117/61 37.4 ?C (99.3 ?F) Oral 85 18 92 % 05/30/19 2246 110/56 37.3 ?C (99.1 ?F) Oral 92 18 92 % 05/30/19 1900 114/61 37.2 ?C (99 ?F) Oral 83 18 99 % 05/30/19 1400 103/60 ? ? 81 20 92 % Pleasant, comfortable, not in acute distress. Awake, alert, oriented times 3. Moves all extremities. SKIN: No rash or lumps. HEENT: Normocephalic, face symmetrical. LUNGS: Clear to auscultation bilaterally. CARDIAC: PMI present, RRR, S1 and S2, no S3 or S4, no additional heart sounds or murmurs. ABDOMEN: Soft, tender, bowel sounds present. EXTREMITIES: No edema. PULSES: Peripheral pulses present. MEDICATIONS: Current Facility-Administered Medications Medication Dose Route Frequency - albuterol HFA 90 mcg/actuation 2 Puff (PROVENTIL HFA, VENTOLIN HFA) 2 Puff INHALATION q 6 H PRN - Ipratropium Marshall 2 [place] nasal spray (ATROVENT) 2 [place] NASAL q 12 H - aspirin 81 mg chewable tab(s) 81 mg ORAL DAILY - sertraline 50 mg tab(s) (ZOLOFT) 50 mg ORAL DAILY - heparin 5,000 Units injection 5,000 Units SUBCUTANEOUS q 12 H - ondansetron (PF) 4 mg injection (ZOFRAN) 4 mg INTRAVENOUS q 6 H PRN - oxyCODONE IR 5 mg tab(s) (ROXICODONE) 5 mg ORAL q 6 H PRN - piperacillin-tazobactam iv piggyback 3.375 g in dextrose (iso-osmotic) 50 mL (ZOSYN) 3.375 g INTRAVENOUS q 6 H - mometasone 220 mcg/ actuation (14) 1 Puff inhaler (ASMANEX) 1 Puff INHALATION DAILY - perflutren lipid microspheres 1.1 mg/mL 1.3 mL injection (DEFINITY) 1.3 mL INTRAVENOUS DIRECTED PRN DATA: Diagnostic tests reviewed for today's visit: Most recent labs and imaging results. Past 72 Hour Labs: Recent Labs 05/31/19 0430 05/30/19 0750 TROPI -- -- <0.015 WBC 4.94 -- -- RBC 4.08 -- -- HB 12.3 -- -- HCT 37.0 -- -- MCV 90.7 -- -- MCH 30.1 -- -- MCHC 33.2 -- -- PLT 146* -- -- MPV 12.5* -- -- GLUC 92 < > 94 BUN 15 < > 19* CREAT 0.76 < > 0.95 NA 138 < > 138 K 4.0 < > 3.6 CHLOR 110* < > 108* CO2 25 < > 23 TPROT 5.7* -- -- ALB 2.4* -- -- CA 8.3* < > 8.5 ALKPHOS 273* -- -- TBILI 4.3* -- -- AST 50* -- -- ALT 176* -- -- MG -- -- 2.1 < > = values in this interval not displayed. Last Lab Drawn: No results found for this basename: TSH,PROBNP,TG,HDL,LDL,CHOL Assessment/Plan Active Problems: 1. Abdominal pain-surgery following for increase in LFTs and workup for need for ERCP. Remains on IV fluids. LFTs are trending down. Defer to primary 2. Obstructive sleep apnea-CPAP at night. 3. Hypertension blood pressure is acceptable. 4. Transient atrial fibrillation-he's had no recurrence. Keep potassium greater than 4 magnesium greater than 2. Chads vas score is 4 recommendation is for oral anticoagulation with Eliquis once cleared by GI and surgery for any procedures. TSH normal echo ordered Patient is agreeable and understands. 5. Discharge plan-per primary team Recommend Eliquis 5 mg by mouth twice a day once cleared by general surgery. To be initiated by primary team. This was discussed with patient. She would like to establish with cardiology in the [place] area. She will call to arrange follow-up within a month's period of time from discharge. Cardiology will follow up on echocardiogram Cardiology we'll sign off please call with any questions Shital Fernandez APRN.MARCIO Medication and Non-Pharmacologic VTE Prophylaxis/Anticoagulants Anticoagulant AND Antiplatelet Medications (From admission, onward) Start Dose Route Frequency Ordered Stop 05/29/19 1000 aspirin 81 mg chewable tab(s) 81 mg ORAL DAILY 05/29/19933 -- 05/29/19 1000 heparin 5,000 Units injection (Medical Risk Categories) 5,000 Units SUBCUTANEOUS EVERY 12 HOURS 05/29/19933 -- @CARMEN PLINK([id number])@ SIGNATURE: Shital Fernandez APRN.CNP PATIENT NAME: Petra Duncan DATE: May 31, 2019 TIME: 10:39 AM PAGER/CONTACT #: [phone] Normal [facility] PROGRESS HNO ID: [id number] Author: Chalino Francisco Service: Hospital Medicine Author Type: Physician Type: Progress Notes Filed: 05/31/2019 10:30 AM Note Text: DEPARTMENT OF HOSPITAL MEDICINE PROGRESS NOTE Hospital Medicine/Primary Attending: Chalino Francisco, DO NIGHT AND WEEKEND COVERAGE: After 7pm please page [phone] CHIEF COMPLAINT: Abdominal pain, nausea, and vomiting SUBJECTIVE: Patient seen and examined at bedside in AM. She is anxious to have completion of her testing and advancement of her diet, MRI still not done yet. She denies any fevers or chills, she is still periodically nauseated but denies any emesis. OBJECTIVE: PHYSICAL EXAM: BP 117/61 Pulse 85 Temp (Src) 99.3 (Oral) Resp 18 Ht 5' 6 (1.68m) Wt 175 lb 3.2 oz (79.5kg) SpO2 92% BMI 28.29 kg/(m2). O2 Therapy: Room Air General - AANDOx3, NAD, Calm, jaundice CV - tachycardia irregularly irregular, no murmurs RESP - CTA B/L No wheezes, ronchi, rales ABD - soft, NT, ND +BS EXT - no gross joint deformity, no clubbing, cyanosis, edema NEURO - CN II-XII grossly intact, no focal deficits MEDICATIONS: Current Facility-Administered Medications Medication Dose Route Frequency - albuterol HFA 90 mcg/actuation 2 Puff (PROVENTIL HFA, VENTOLIN HFA) 2 Puff INHALATION q 6 H PRN - Ipratropium Marshall 2 [place] nasal spray (ATROVENT) 2 [place] NASAL q 12 H - aspirin 81 mg chewable tab(s) 81 mg ORAL DAILY - sertraline 50 mg tab(s) (ZOLOFT) 50 mg ORAL DAILY - heparin 5,000 Units injection 5,000 Units SUBCUTANEOUS q 12 H - ondansetron (PF) 4 mg injection (ZOFRAN) 4 mg INTRAVENOUS q 6 H PRN - oxyCODONE IR 5 mg tab(s) (ROXICODONE) 5 mg ORAL q 6 H PRN - piperacillin-tazobactam iv piggyback 3.375 g in dextrose (iso-osmotic) 50 mL (ZOSYN) 3.375 g INTRAVENOUS q 6 H - mometasone 220 mcg/ actuation (14) 1 Puff inhaler (ASMANEX) 1 Puff INHALATION DAILY - perflutren lipid microspheres 1.1 mg/mL 1.3 mL injection (DEFINITY) 1.3 mL INTRAVENOUS DIRECTED PRN DATA: Diagnostic tests reviewed for today's visit: Last labs and imaging reviewed. Assessment/Plan Intra/extra hepatic ductal dilation with obstructive jaundice -some improvement in LFTs today but bili is worse -Continue Zosyn -MRCP ordered by GI, may need ERCP -GI following New onset Afib with RVR, briefly with spontaneous conversion to sinus rhythm -possibly driven by infection vs electrolyte derangements vs absence of CPAP, no reoccurrence as yet -Check echo -cardiology consulted- recommend ischemic eval when primary issue has resolved, hold off on AC for now, continue home CPAP, no rate control therapy as BP on soft side -monitor on telemetry -TSH WNL Acute hypoxic respiratory failure suspect related to above, improved -Monitor -Mild prominence of right hilum seen on CXR, will need PA/Lat films when able Leukocytosis at OSH, rt above, resolved Multiple electrolyte abnormalities: Hypokalemia, hypophosphatemia -Replete and monitor Asthma -Continue home mometasone HTN -Patient has been hypotensive on admission, continuing IVF and d/c home diuretic/gely and resume when BP improved Disposition: Home when medically able Medication and Non-Pharmacologic VTE Prophylaxis/Anticoagulants Anticoagulant AND Antiplatelet Medications (From admission, onward) Start Dose Route Frequency Ordered Stop 05/29/19 1000 aspirin 81 mg chewable tab(s) 81 mg ORAL DAILY 05/29/19 0934 -- 05/29/19 1000 heparin 5,000 Units injection (Medical Risk Categories) 5,000 Units SUBCUTANEOUS EVERY 12 HOURS 05/29/19 0934 -- 05/29/1945 pneumatic compression stockings ([place], [place]) 05/29/19944 activity - mobilize patient ([place], [place]) Plan of care discussed with: Provider, RN, Patient SIGNATURE: Chalino Francisco DO PATIENT NAME: Petra Duncan DATE: 05/31/2019 TIME: 10:24 AM PAGER/CONTACT #: Buddy Diop [facility] ALLIED HEALTHon 05-30-2019 ALLIED HEALTH HNO ID: [id number] Author: Miladys Koch (Rt) Service: Radiology Author Type: Manager Banquet Type: Allied Health Filed: 05/30/2019 7:18 PM Note Text: Called for MRI Safety screening form Normal [facility] Basic Panelon 05-30-2019 Creatinine [Mass/Vol] 0.86 mg/dL Normal 0.51-0.95 [facility] Comment on above: Performed By: #### C BC1 #### [address] [address] Anion gap [Moles/Vol] 9 mmol/L Normal 8-16 [facility] Comment on above: Performed By: #### C BC1 #### [address] [address] Calcium [Mass/Vol] 8.3 mg/dL Low 8.5-10.1 [facility] Comment on above: Performed By: #### C BC1 #### [address] [address] CO2 [Moles/Vol] 25 mmol/L Normal 21-32 [facility] Comment on above: Performed By: #### C BC1 #### [address] [address] Glucose [Mass/Vol] 93 mg/dL Normal 70-99 [facility] Comment on above: Performed By: #### C BC1 #### [facility] [address] [place], [place] [address] Urea nitrogen [Mass/Vol] 20 mg/dL High 7-18 [facility] Comment on above: Performed By: #### C BC1 #### [facility] [address] [place], [place] [address] Chloride [Moles/Vol] 107 mmol/L Normal 98-107 [facility] Comment on above: Performed By: #### C BC1 #### [facility] [address] [place], [place] [address] Potassium [Moles/Vol] 4.0 mmol/L Normal 3.5-5.1 [facility] Comment on above: Performed By: #### C BC1 #### [facility] [address] [place], [place] [address] Sodium [Moles/Vol] 137 mmol/L Normal 136-145 [facility] Comment on above: Performed By: #### C BC1 #### [facility] [address] [place], [place] [address] Creatinine [Mass/Vol] 0.95 mg/dL Normal 0.51-0.95 [facility] Comment on above: Performed By: #### P 8 #### [facility] [address] [place], [place] [address] Urea nitrogen [Mass/Vol] 19 mg/dL High 7-18 [facility] Comment on above: Performed By: #### P 8 #### [facility] [address] [place], [place] [address] Anion gap [Moles/Vol] 11 mmol/L Normal 8-16 [facility] Comment on above: Performed By: #### P 8 #### [facility] [address] [place], [place] [address] Calcium [Mass/Vol] 8.5 mg/dL Normal 8.5-10.1 [facility] Comment on above: Performed By: #### P 8 #### [facility] [address] [place], [place] [address] CO2 [Moles/Vol] 23 mmol/L Normal 21-32 [facility] Comment on above: Performed By: #### P 8 #### [facility] [address] [place], [place] [address] Glucose [Mass/Vol] 94 mg/dL Normal 70-99 [facility] Comment on above: Performed By: #### P 8 #### [facility] [address] [place], [place] [address] Chloride [Moles/Vol] 108 mmol/L High 98-107 [facility] Comment on above: Performed By: #### P 8 #### [facility] [address] [place], [place] [address] Potassium [Moles/Vol] 3.6 mmol/L Normal 3.5-5.1 [facility] Comment on above: Performed By: #### P 8 #### [facility] [address] [place], [place] [address] Sodium [Moles/Vol] 138 mmol/L Normal 136-145 [facility] Comment on above: Performed By: #### P 8 #### [facility] [address] [place], [place] [address] CASE MANAGEMon 05-30-2019 CASE MANAGEM HNO ID: [id number] Author: Sindy Burroughs Service: Care Management Author Type: ? Type: Care Mgt Progress Note Filed: 05/30/2019 3:56 PM Note Text: CARE MANAGEMENT PROGRESS NOTE SERVICE DATE: 05/30/2019 SERVICE TIME: 1345 LOS: 1 day IM letter given to patient on [id number]. SIGNATURE: Sindy Burroughs PATIENT NAME: Petra Duncan DATE: May 30, 2019 TIME: 3:56 PM PAGER/CONTACT #: Normal [facility] CASE MGT INIT ASSESon 2018 CASE MGT INIT ASSES HNO ID: [id number] Author: Janell Hutchison (Sw) Service: ? Author Type: Aeronautical Engineering Officer Type: Care Mgt Initial Assessment Filed: 05/30/2019 2:12 PM Note Text: CARE MANAGEMENT: ASSESSMENT AND DISCHARGE PLAN SERVICE DATE: 05/30/2019 SERVICE TIME: 2:09 PM PRIMARY CARE PHYSICIAN: Nabila Paris MD ADMISSION STATUS: Inpatient Needs Prior to Discharge: Other: See Comment;To Be Determined;Pharmacy Bedside Delivery( to transport at d/c) MEDICAL: Patient/Powderer Stated Goals: To have reduction in symptoms To improve my functional status To return home to life as it was Health Insurance: [employer] [facility] [place] [facility] None Health Issues Impacting Discharge Plan: Biliary obstruction Last Discharge Date: N/A Is this Within the Past 30 days? No Advance Directive: Current Advance Directive: Health Care Power of Search Advertising Strategist;Living Will In Chart: No Building Principal Attempted to Assist with AD Completion: Yes Action: Patient Unwilling Health Literacy: 1. How often do you need to have someone help you when you read instructions, pamphlets, or other written material from your doctor or pharmacy? Never - 1 2. How confident are you filling out medical forms by yourself? Extremely - 1 If Patient scores > 3 on either question, the following interventions were put into place: Patient did not score > 3 FUNCTIONAL AND COGNITIVE/BEHAVIORAL PRIOR TO ADMISSION: Baseline Mental Status: Alert AND Oriented, Person, Place , Time and Situation Functional Status: Independent Does Patient Currently Receive Any Community Services or Home Care? None Equipment Prior to Admission: Bi-level Positive Airway Pressure/Continuous Positive Airway Pressure Tub bench/chair Has the Patient Been in a Senior Living Facility in the Past 30 days? No SOCIAL: Living Arrangement: Home Lives With: Spouse Financial Resources: Retired Primary Contact: Extended Emergency Contact Information Primary Emergency Contact: Arley Duncan Mobile Relation: Spouse Supportive: Yes Other Important Patient Contacts: None Caregiver Assessment: Caregiver is ready, willing and able to meet the patient's needs as recommended by the inter-professional team? No Caregiver Needed Patient's transition needs and plan for meeting these needs: Home.TBD Does the patient have an acute stroke diagnosis, or has the patient had a stroke during this admission? No Medication Adherence: I am convinced of the importance of my prescription medication: Agree completely - 0 I worry that my prescription medication will do more harm than good to me Disagree completely - 0 I feel financially burdened by my qyq-yu-zsuime expenses for my prescription medication: Disagree completely - 0 Patient is categorized as low risk < 2 Are you interested in bedside delivery of your medications? Yes Is the Patient Psychosocially Complex? No ASSESSMENT AND PLAN: Medical Needs: None Psychosocial Needs: None FREEDOM OF CHOICE EXPLAINED: No - No placements necessary POTENTIAL TRANSITION PLANS Home To Be Determined SW met with pt at bedside. Pt admitted from home with . 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 +[facility]'s to transport at discharge. SIGNATURE: KEILY Roblero PATIENT NAME: Petra Duncan DATE: May 30, 2019 TIME: 2:09 PM PAGER/CONTACT #: [phone] [facility] CONSULTon 05-30-2019 CONSULT HNO ID: [id number] Author: Tres Aragon Service: Cardiovascular Medicine Author Type: Physician Type: Consults Filed: 05/30/2019 5:17 PM Note Text: CONSULT: CARDIOLOGY SERVICE SERVICE DATE: 05/30/2019 SERVICE TIME: 2:59 PM REASON FOR CONSULT: New onset Afib RVR REQUESTING PHYSICIAN: Dr. Francisco PRIMARY CARE PHYSICIAN: Nabila Paris MD Subjective Ms. Duncan is a 74 year old female with history of FLORI, HTN, and asthma presenting for evaluation of nausea and vomiting for the last 5 days. CVICU asked to see her in the setting of acute, transient atrial fibrillation with rapid ventricular rates. At the time of my initial evaluation, the patient had returned to sinus rhythm. She denied feeling palpitations. She normally wears her CPAP at home, however did not have access to this overnight. She was noted to be mildly hypoxic this morning as well and was started on 2L NC. Medications given were reviewed with BENNIE Hardy. PAST MEDICAL HISTORY Diagnosis Date - Asthma - HTN (hypertension) PAST SURGICAL HISTORY Procedure Laterality Date - HYSTERECTOMY FAMILY HISTORY Problem Relation Age of Onset - Heart disease Father Social History Tobacco Use - Smoking status: Never Smoker - Smokeless tobacco: Never Used Substance Use Topics - Alcohol use: Not on file Comment: Occasionally - Drug use: Not on file aspirin 81 mg chewable tablet, Take 81 mg by mouth once daily., Disp: , Rfl: mometasone 100 mcg/actuation HFAA, Inhale 100 mcg as instructed twice daily., Disp: , Rfl: albuterol HFA (PROVENTIL HFA, VENTOLIN HFA) 90 mcg/actuation inhaler, Inhale 2 Puffs as instructed., Disp: , Rfl: LISINOPRIL-HYDROCHLOROTHIA ZIDE ORAL, Take 10 mg by mouth once daily. 10/12.5 mg , Disp: , Rfl: sertraline (ZOLOFT) 50 mg ORAL tablet, Take 50 mg by mouth once daily., Disp: , Rfl: predniSONE (DELTASONE) 20 mg tablet, Take 2 tablets by mouth once daily., Disp: 6 tablet, Rfl: 0 Ipratropium Marshall (ATROVENT) 0.03 % nasal spray, Use 2 Sprays in the nose every 12 hours., Disp: , Rfl: betamethasone dipropionate 0.05 % cream, Apply 1 application to affected area twice daily., Disp: 30 g, Rfl: 0 NAPROXEN ORAL, Take by mouth., Disp: , Rfl: Current Facility-Administered Medications Medication Dose Route Frequency - albuterol HFA 90 mcg/actuation 2 Puff (PROVENTIL HFA, VENTOLIN HFA) 2 Puff INHALATION q 6 H PRN - Ipratropium [place] 2 [place] nasal spray (ATROVENT) 2 [place] NASAL q 12 H - aspirin 81 mg chewable tab(s) 81 mg ORAL DAILY - sertraline 50 mg tab(s) (ZOLOFT) 50 mg ORAL DAILY - heparin 5,000 Units injection 5,000 Units SUBCUTANEOUS q 12 H - ondansetron (PF) 4 mg injection (ZOFRAN) 4 mg INTRAVENOUS q 6 H PRN - oxyCODONE IR 5 mg tab(s) (ROXICODONE) 5 mg ORAL q 6 H PRN - piperacillin-tazobactam iv piggyback 3.375 g in dextrose (iso-osmotic) 50 mL (ZOSYN) 3.375 g INTRAVENOUS q 6 H - mometasone 220 mcg/ actuation (14) 1 Puff inhaler (ASMANEX) 1 Puff INHALATION DAILY - NaCl 0.9% with 40 mEq/L KCl iv infusion 100 mL/hr INTRAVENOUS CONTINUOUS - perflutren lipid microspheres 1.1 mg/mL 1.3 mL injection (DEFINITY) 1.3 mL INTRAVENOUS DIRECTED PRN Allergies As of Date: 05/29/2019 (No Known Allergies) Fully Assessed 05/29/2019 COMPLETE REVIEW OF SYSTEMS: Unless mentioned above, 10 point Review of Systems grossly negative Objective Patient Vitals for the past 24 hrs: BP Temp Temp src Pulse Resp SpO2 05/30/19 1400 103/60 ? ? 81 20 92 % 12/09/19 1000 (!) 92/49 37 ?C (98.6 ?F) Oral 85 18 92 % 05/30/19 0757 94/61 ? 05/30/19 0743 97/67 ? ? (!) 130 ? 95 % 05/30/19 0705 ? 92 % 05/30/19 0700 96/61 37 ?C (98.6 ?F) Oral (!) 139 20 88 % 05/29/19 1900 (!) 104/44 37.1 ?C (98.8 ?F) Oral 85 20 93 % PHYSICAL EXAM: General: Awake, alert, pleasant, jaundiced, dry Neck: No JVD appreciated Heart: Sinus tach at the time of my evaluation, no murmurs, rubs or gallops appreciated Lungs: clear to auscultation bilaterally, no wheezes, rales or rhonchi, good breath movement throughout Extremities: 2+ radial and dorsalis pedis pulses, no lower extremity edema ? Body mass index is 28.28 kg/m?. DATA: Diagnostic tests reviewed for today's visit: Most recent labs and imaging results. CBC, Coags, BMP, Mg, Phos Recent Labs 05/30/19 1312 05/30/19 0750 05/30/19 0518 WBC -- -- 9.80 HB -- -- 13.9 HCT -- -- 43.1 PLT -- -- 125* NA 137 138 138 K 4.0 3.6 3.4* CHLOR 107 108* 106 CO2 25 23 26 BUN 20* 19* 20* CREAT 0.86 0.95 0.96* GLUC 93 94 104* CA 8.3* 8.5 8.6 MG -- 2.1 2.1 P -- -- 2.1* EKG: - 1st EKG showing afib with RVR and TWI in inferior leads - 2nd EKG performed 30 minutes later, NSR, TWI remain in inferior leads Impression/Recommendations 74 year old woman with history of asthma, hypertension, and FLORI with transient episode of Atrial Fibrillation with Rapid Ventricular Rate which converted to sinus rhythm. ? # Paroxysmal atrial fibrillation likely secondary to ?sepsis vs lack of CPAP overnight # T-wave Inversions in leads III, avF EKGs # Hypokalemia # Hypophosphatemia # FLORI # Asthma ? - [id number]= 4; anticoagulation to be held in setting of possible procedure (MRCP), continue to monitor on telemetry - Patient has denied chest pain, will need ischemic work-up once primary issue has resolved - Patient currently on broad spectrum antibiotics - Continue IVF supplementation - 500mL Normal Saline Bolus - Recommended obtaining patient's CPAP from home - Continue home medications for asthma - TSH within normal limits I personally saw and evaluated the patient. Discussed with the resident. I agree with resident's findings and plan as documented in the resident's note, unless noted otherwise. Although her chads 2 vascular score is 4, she was not aware of her previous history of atrial fibrillation. She did not use her PAP mask last night. It is likely that her A. fib may have been reversible. Also, she has obstructive jaundice, and is scheduled for a procedure. I would hold off on initiating anticoagulation now. This may be a consideration once she has been evaluated completely from the GI standpoint. Her blood pressures are on the lower end, and I do not suggest scheduled rate control therapy. SIGNATURE: Vashti Hernandez MD PATIENT NAME: Petra Duncan DATE: May 30, 2019 TIME: 2:59 PM PAGER: [phone] Normal [facility] CONSULT PROGon 05-30-2019 CONSULT PROG HNO ID: [id number] Author: Liya Hutchison ([place]) Service: Gastroenterology Author Type: Physician Server Administrator Type: Consult Progress Note Filed: 05/30/2019 3:34 PM Note Text: GI CONSULT PROGRESS NOTE SERVICE DATE: 05/30/2019 SERVICE TIME: 10:42 AM CONSULTING SERVICE: Gastroenterology Subjective INTERVAL HISTORY: Patient states she's feeling much better. Asx from GI standpoint. Denied N/V, diarrhea. Tolerating liquid diet well. Patient denied lightheadedness/dizziness, fever/chills, chest pain, shortness of breath. MEDICATIONS: Current Facility-Administered Medications Medication Dose Route Frequency - albuterol HFA 90 mcg/actuation 2 Puff (PROVENTIL HFA, VENTOLIN HFA) 2 Puff INHALATION q 6 H PRN - Ipratropium Marshall 2 [place] nasal spray (ATROVENT) 2 [place] NASAL q 12 H - aspirin 81 mg chewable tab(s) 81 mg ORAL DAILY - sertraline 50 mg tab(s) (ZOLOFT) 50 mg ORAL DAILY - heparin 5,000 Units injection 5,000 Units SUBCUTANEOUS q 12 H - ondansetron (PF) 4 mg injection (ZOFRAN) 4 mg INTRAVENOUS q 6 H PRN - oxyCODONE IR 5 mg tab(s) (ROXICODONE) 5 mg ORAL q 6 H PRN - lisinopril 10 mg tab(s) (ZESTRIL, PRINIVIL) 10 mg ORAL DAILY - hydroCHLOROthiazide 12.5 mg tab(s) (HYDRODIURIL, ESIDRIX) 12.5 mg ORAL DAILY - piperacillin-tazobactam iv piggyback 3.375 g in dextrose (iso-osmotic) 50 mL (ZOSYN) 3.375 g INTRAVENOUS q 6 H - mometasone 220 mcg/ actuation (14) 1 Puff inhaler (ASMANEX) 1 Puff INHALATION DAILY - potassium phosphate 30 mmol in NaCl 0.9% 250 mL 30 mmol INTRAVENOUS ONCE - NaCl 0.9% with 40 mEq/L KCl iv infusion 100 mL/hr INTRAVENOUS CONTINUOUS Objective PHYSICAL EXAM: Cardiovascular: S1 and S2 appreciated, RRR, no murmur appreciated Respiratory: Lungs clear to auscultation bilaterally Abdomen: soft, non-tender, non-distended, normoactive bowel sounds VITALS:BP (!) 92/49 Pulse 85 Temp 37 ?C (98.6 ?F) (Oral) Resp 18 Ht 167.6 cm (5' 6) Wt 79.5 kg (175 lb 3.2 oz) SpO2 92% BMI 28.28 kg/m? ABDOMEN: DATA: Diagnostic tests reviewed for today's visit: Most recent labs and imaging results. CBC, Coags, BMP, Mg, Phos Recent Labs 05/30/19 0750 05/30/19 0518 WBC -- 9.80 HB -- 13.9 HCT -- 43.1 PLT -- 125* NA -- 138 K -- 3.4* CHLOR -- 106 CO2 -- 26 BUN -- 20* CREAT -- 0.96* GLUC -- 104* CA -- 8.6 MG 2.1 2.1 P -- 2.1* CSF AND Dilantin Liver Function, Amylase, AND Lipase Recent Labs 05/30/19 0518 05/29/19 1010 TPROT 6.1* -- ALB 2.6* -- ALT 286* -- AST 117* -- ALKPHOS 310* -- TBILI 6.4* -- LACT -- 1.9 Cardiac Enzymes ABGs Impression/Recommendations 1) Transaminitis: with intra, extra hepatic biliary ductal dilation. LFT's as above. 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 Normal liver, gallbladder, pancreas. No evidence of cirrhosis. - MRCP ordered - Acute Hepatitis panel ordered - Hep B/Hep C labs ordered - Could consider autoimmune workup if hepatitis negative - Denied excessive tylenol/EtOH abuse, illicit drug use - Monitor and trend LFT's - Patient may need ERCP for evaluation of CBD obstruction and elevated T bili - will speak with attending physician 2) N/V: patient denied any recent N/V. - Well controlled with Zofran - Diet as tolerated 3) Diarrhea: has stopped. Patient denied. - Monitor BM's GI will follow. ADDENDUM: Spoke with Dr. Hughes, he agrees with plan. Await MRCP, potential ERCP. SIGNATURE: Liya Hutchison PA-C PATIENT NAME: Petra Duncan DATE: May 30, 2019 TIME: 10:41 AM PAGER/CONTACT #: [phone] Normal [facility] Comprehensive Panelon 2018 ALP [Catalytic activity/Vol] 310 U/L High 45-117 [facility] Comment on above: Performed By: #### P 14 #### [facility] [address] [place], [place] [address] Bilirubin [Mass/Vol] 6.4 mg/dL High 0.2-1.0 [facility] Comment on above: Performed By: #### P 14 #### [facility] [address] [place], [place] [address] Protein [Mass/Vol] 6.1 g/dL Low 6.4-8.2 [facility] Comment on above: Performed By: #### P 14 #### [facility] [address] [place], [place] [address] AST [Catalytic activity/Vol] 117 U/L High 15-37 [facility] Comment on above: Performed By: #### P 14 #### [facility] [address] [place], [place] [address] Creatinine [Mass/Vol] 0.96 mg/dL High 0.51-0.95 [facility] Comment on above: Performed By: #### P 14 #### [facility] [address] [place], [place] [address] ALT [Catalytic activity/Vol] 286 U/L High 12-78 [facility] Comment on above: Performed By: #### P 14 #### [facility] [address] [place], [place] [address] Anion gap [Moles/Vol] 9 mmol/L Normal 8-16 [facility] Comment on above: Performed By: #### P 14 #### [facility] [address] [place], [place] [address] CO2 [Moles/Vol] 26 mmol/L Normal 21-32 [facility] Comment on above: Performed By: #### P 14 #### [facility] [address] [place], [place] [address] Albumin [Mass/Vol] 2.6 g/dL Low 3.4-5.0 [facility] Comment on above: Performed By: #### P 14 #### [facility] [address] [place], [place] [address] Calcium [Mass/Vol] 8.6 mg/dL Normal 8.5-10.1 [facility] Comment on above: Performed By: #### P 14 #### [facility] [address] [place], [place] [address] Glucose [Mass/Vol] 104 mg/dL High 70-99 [facility] Comment on above: Performed By: #### P 14 #### [facility] [address] [place], [place] [address] Urea nitrogen [Mass/Vol] 20 mg/dL High 7-18 [facility] Comment on above: Performed By: #### P 14 #### [facility] [address] [place], [place] [address] Chloride [Moles/Vol] 106 mmol/L Normal 98-107 [facility] Comment on above: Performed By: #### P 14 #### [facility] [address] [place], [place] [address] Potassium [Moles/Vol] 3.4 mmol/L Low 3.5-5.1 [facility] Comment on above: Performed By: #### P 14 #### [facility] [address] [place], [place] [address] Sodium [Moles/Vol] 138 mmol/L Normal 136-145 [facility] Comment on above: Performed By: #### P 14 #### [facility] [address] [place], [place] [address] ECG COMPLETEon 05-30-2019 ECG COMPLETE NAME : THERON DUNCAN PID : [id number] : 1945 Gender : Female Race : ORD : [id number] Procedure Date : May 30 2019 08:04:52 Edit Date : Jun 01 2019 02:22:00 Diagnosis:UNUSUAL P AXIS, POSSIBLE ECTOPIC ATRIAL RHYTHM T WAVE ABNORMALITY, CONSIDER INFERIOR ISCHEMIA ABNORMAL ECG WHEN COMPARED WITH ECG OF 30-MAY-2019 07:38, ECTOPIC ATRIAL RHYTHM HAS REPLACED ATRIAL FIBRILLATION VENT. RATE HAS DECREASED BY 48 BPM Confirmed by MINNIE ORTIZ MD ([id number]) on 06/01/2019 2:21:59 AM Ventricular Rate : 96 BPM Atrial Rate : 96 BPM P-R Interval : 136 ms QRS Duration : 84 ms Q-T Interval : 352 ms QTC Calculation(Bazett) : 444 ms P Salmon : -4 degrees R Salmon : 78 degrees T Salmon : -14 degrees Test Reason : Arrhythmia Location : 71 : [id number] Overread By : MINNIE ORTIZ MD Edited By : MINNIE ORTIZ MD Referred By : SHUBHAM CHANEL Acquired by : JULIANN ISSA [facility] ECG COMPLETE NAME : NATALYA DUNCANMed Cartwright PID : [id number] : 1945 Gender : Female Race : ORD : [id number] Procedure Date : May 30 2019 07:38:08 Edit Date : Jun 01 2019 02:20:36 Diagnosis:ATRIAL FIBRILLATION WITH RAPID VENTRICULAR RESPONSE ST & T WAVE ABNORMALITY, CONSIDER INFERIOR ISCHEMIA ABNORMAL ECG NO PREVIOUS ECGS AVAILABLE Confirmed by MINNIE ORTIZ MD ([id number]) on 06/01/2019 2:20:31 AM Ventricular Rate : 144 BPM Atrial Rate : 300 BPM QRS Duration : 84 ms Q-T Interval : 304 ms QTC Calculation(Bazett) : 470 ms R Salmon : 85 degrees T Salmon : -40 degrees Test Reason : Arrhythmia Location : 71 : [id number] Overread By : MINNIE ORTIZ MD Edited By : MINNIE ORTIZ MD Referred By : SHUBHAM CHANEL Acquired by : JULIANN ISSA [facility] Hemogramon 05-30-2019 Erythrocyte distribution width (RBC) [Ratio] 13.9 % Normal 11.7-14.4 [facility] Comment on above: Performed By: #### C BC1 #### [place] [address] Hematocrit (Bld) [Volume fraction] 43.1 % Normal 34.1-44.9 [facility] Comment on above: Performed By: #### C BC1 #### [place] [address] Hemoglobin (Bld) [Mass/Vol] 13.9 g/dL Normal 11.2-15.7 [facility] Comment on above: Performed By: #### C BC1 #### [place] [address] MCH (RBC) [Entitic mass] 29.8 pg Normal 25.6-32.2 [facility] Comment on above: Performed By: #### C BC1 #### [place] [address] MCHC (RBC) [Mass/Vol] 32.3 % Normal 31.6-34.8 [facility] Comment on above: Performed By: #### C BC1 #### [place] [address] MCV (RBC) [Entitic vol] 92.3 fL Normal 79.4-94.8 [facility] Comment on above: Performed By: #### C BC1 #### [place] [address] Platelet mean volume (Bld) [Entitic vol] 12.0 fL Normal 9.4-12.3 [facility] Comment on above: Performed By: #### C BC1 #### [facility] [address] [place], [place] [address] Platelets (Bld) [#/Vol] 125 thou/cmm Low 182-369 [facility] Comment on above: Performed By: #### C BC1 #### [facility] [address] [place], [place] [address] RBC (Bld) [#/Vol] 4.67 mil/cmm Normal 3.93-5.22 [facility] Comment on above: Performed By: #### C BC1 #### [facility] [address] [place] [address] RDW SD 47.2 fl High 36.4-46.3 [facility] Comment on above: Performed By: #### C BC1 #### [facility] [address] [place] [address] WBC (Bld) [#/Vol] 9.80 thou/cmm Normal 3.98-10.04 [facility] Comment on above: Performed By: #### C BC1 #### [facility] [address] [place] [address] Magnesium Bloodon 05-30-2019 Magnesium [Mass/Vol] 2.1 mg/dL Normal 1.6-2.6 [facility] Comment on above: Performed By: #### M AG #### [place] [address] NURSING PROGon 05-30-2019 NURSING PROG HNO ID: [id number] Author: Best (Rn) BENNIE Hardy Service: Nursing Author Type: Registered Nurse Type: Nursing Progress Note Filed: 05/30/2019 7:30 AM Note Text: Patient found this morning 86%RA and a heart rate of 139. Placed 2L of oxygen and patient went up to 94%. Patient's HR was still 139. Pateint states I don't feel like my heart is racing, im suppose to wear a bipap at night. Notifed MD Carreon, ordered EKg Normal [facility] PROGRESSon 05-30-2019 PROGRESS HNO ID: [id number] Author: Chalino Francisco Service: Hospital Medicine Author Type: Physician Type: Progress Notes Filed: 05/30/2019 1:27 PM Note Text: DEPARTMENT OF HOSPITAL MEDICINE PROGRESS NOTE Hospital Medicine/Primary Attending: Chalino Francisco, DO NIGHT AND WEEKEND COVERAGE: After 7pm please page [phone] CHIEF COMPLAINT: Abdominal pain, nausea, and vomiting SUBJECTIVE: Called to bedside in AM with nursing reporting HR in 140's. Telemetry showing patient in Afib, rates as high on telemetry into the 150's. BP 90's systolic. Called ICU team to bedside to eval and by the time of their arrival to the floor, patient had spontaneous conversion to sinus rhythm. She remained asymptomatic. Denies fevers, chills, continued abdominal pain nausea or vomiting. OBJECTIVE: PHYSICAL EXAM: BP 92/49 Pulse 85 Temp (Src) 98.6 (Oral) Resp 18 Ht 5' 6 (1.68m) Wt 175 lb 3.2 oz (79.5kg) SpO2 92% BMI 28.29 kg/(m2). O2 Therapy: Nasal Cannula, Liters: 2 General - AANDOx3, NAD, Calm, jaundice CV - tachycardia irregularly irregular, no murmurs RESP - CTA B/L No wheezes, ronchi, rales ABD - soft, NT, ND +BS EXT - no gross joint deformity, no clubbing, cyanosis, edema NEURO - CN II-XII grossly intact, no focal deficits MEDICATIONS: Current Facility-Administered Medications Medication Dose Route Frequency - albuterol HFA 90 mcg/actuation 2 Puff (PROVENTIL HFA, VENTOLIN HFA) 2 Puff INHALATION q 6 H PRN - Ipratropium Marshall 2 [place] nasal spray (ATROVENT) 2 [place] NASAL q 12 H - aspirin 81 mg chewable tab(s) 81 mg ORAL DAILY - sertraline 50 mg tab(s) (ZOLOFT) 50 mg ORAL DAILY - heparin 5,000 Units injection 5,000 Units SUBCUTANEOUS q 12 H - ondansetron (PF) 4 mg injection (ZOFRAN) 4 mg INTRAVENOUS q 6 H PRN - oxyCODONE IR 5 mg tab(s) (ROXICODONE) 5 mg ORAL q 6 H PRN - lisinopril 10 mg tab(s) (ZESTRIL, PRINIVIL) 10 mg ORAL DAILY - hydroCHLOROthiazide 12.5 mg tab(s) (HYDRODIURIL, ESIDRIX) 12.5 mg ORAL DAILY - piperacillin-tazobactam iv piggyback 3.375 g in dextrose (iso-osmotic) 50 mL (ZOSYN) 3.375 g INTRAVENOUS q 6 H - mometasone 220 mcg/ actuation (14) 1 Puff inhaler (ASMANEX) 1 Puff INHALATION DAILY - potassium phosphate 30 mmol in NaCl 0.9% 250 mL 30 mmol INTRAVENOUS ONCE - NaCl 0.9% with 40 mEq/L KCl iv infusion 100 mL/hr INTRAVENOUS CONTINUOUS - perflutren lipid microspheres 1.1 mg/mL 1.3 mL injection (DEFINITY) 1.3 mL INTRAVENOUS DIRECTED PRN DATA: Diagnostic tests reviewed for today's visit: Last labs and imaging reviewed. Assessment/Plan Intra/extra hepatic ductal dilation with obstructive jaundice -some improvement in LFTs today -Continue Zosyn -MRCP ordered by GI, may need ERCP -GI following New onset Afib with RVR -possibly driven by infection vs electrolyte derangements -Check echo -cardiology consulted -has had spontaneous conversion to sinus rhythm -monitor on telemetry -TSH WNL Acute hypoxic respiratory failure suspect related to above -Requiring 2L NC, wean as able -Mild prominence of right hilum on CXR, will need PA/Lat films when able Leukocytosis Multiple electrolyte abnormalities: Hypokalemia, hypophosphatemia -Replete and monitor Asthma -Continue home mometasone HTN -Patient has been hypotensive on admission, continuing IVF and d/c home diuretic/gely and resume when BP improved Disposition: Home when medically able Medication and Non-Pharmacologic VTE Prophylaxis/Anticoagulants Anticoagulant AND Antiplatelet Medications (From admission, onward) Start Dose Route Frequency Ordered Stop 05/29/19 1000 aspirin 81 mg chewable tab(s) 81 mg ORAL DAILY 05/29/19 0934 -- 05/29/19 1000 heparin 5,000 Units injection (Medical Risk Categories) 5,000 Units SUBCUTANEOUS EVERY 12 HOURS 05/29/19 0934 -- 05/29/19 0945 pneumatic compression stockings ([place], [place]) 05/29/19 0945 activity - mobilize patient ([place], [place]) Plan of care discussed with: Provider, RN, Patient SIGNATURE: Chalino Francisco DO PATIENT NAME: Petra Duncan DATE: 05/30/2019 TIME: 1:17 PM PAGER/CONTACT #: Buddy Diop Normal [facility] PROGRESS HNO ID: [id number] Author: Vashti Hernandez Service: Cardiovascular Medicine Author Type: Resident Type: Progress Notes Filed: 05/30/2019 8:22 AM Note Text: Brief Evaluation of Patient with transient Afib w/ RVR Patient was briefly evaluated for new onset Atrial Fibrillation with Rapid Ventricular Rate noted on telemetry and on EKG. CVICU STAT paged for further evaluation. At the time of my arrival, patient converted back into sinus rhythm. She denies feeling palpitations. She states she normally wears her CPAP at home and that was the only thing different from overnight. Reviewed medications given by nursing overnight with RN. Reviewed labs. General: Awake, alert, pleasant, jaundiced, dry Neck: No JVD appreciated Heart: Sinus tach at the time of my evaluation, no murmurs, rubs or gallops appreciated Lungs: clear to auscultation bilaterally, no wheezes, rales or rhonchi, good breath movement throughout Extremities: 2+ radial and dorsalis pedis pulses, no lower extremity edema Assessment/Plan 74 year old woman with history of asthma, hypertension, and FLORI with transient episode of Atrial Fibrillation with Rapid Ventricular Rate which converted to sinus rhythm. # Paroxysmal atrial fibrillation likely secondary to ?sepsis vs lack of CPAP overnight # Hypokalemia # Hypophosphatemia # FLORI # Asthma - Patient currently on broad spectrum antibiotics - Will replace potassium and phosphate. - 500mL Normal Saline Bolus - Recommended obtaining patient's CPAP from home - Continue to monitor on telemetry - Obtain TSH Vashti Hernandez MD May 30, 2019 8:20 AM Normal [facility] Phosphorus Bloodon 9 Phosphate [Mass/Vol] 2.1 mg/dL Low 2.5-4.9 [facility] Comment on above: Performed By: #### P HOS #### [facility] [address] [place], [place] [address] TSH, 3rd generationon 2018 TSH, 3rd generation 1.100 uIU/mL Normal 0.358-3.740 [facility] Comment on above: Performed By: #### T SH3 #### [facility] [address] [place], [place] [address] Troponin Ion 05-30-2019 Troponin I.cardiac [Mass/Vol] ng/mL Normal 0.015-0.045 [facility] Comment on above: Performed By: #### T ROP #### [facility] [address] [place], [place] [address] XR CHEST 1V FRONTALon 2018 XR CHEST 1V FRONTAL * * *Final Report* * * DATE OF EXAM: May 30 2019 7:51AM AKX [id number] - XR CHEST 1V FRONTAL / PROCEDURE REASON: Acute respiratory illness * * * * Physician Interpretation * * * * EXAMINATION: CHEST RADIOGRAPH (SINGLE VIEW AP OR PA) CLINICAL HISTORY: Acute respiratory illness MQ: [id number]_5 Comparison: None. RESULT: Lines, tubes, and devices: None. Lungs and pleura: There is mild but nonspecific elevation of the right hemidiaphragm. Crowded lung markings are seen in the right infrahilar region. No consolidation. No lung mass. No pleural effusion. Cardiomediastinal silhouette: There is mild prominence of the right hilum probably due to vascular prominence. Correlation with prior outside exams and follow-up exams are recommended. Normal cardiomediastinal silhouette. Other: There are mild degenerative changes involving the thoracic spine. IMPRESSION: Nonspecific elevation of the right hemidiaphragm with mild prominence of the right hilum. A follow-up examination with chest PA and lateral views is recommended when the patient's condition will permit Unit Controller: VIRA Transcribe Date/Time: May 30 2019 8:38A Dictated by : MAN MASON MD This examination was interpreted and the report reviewed and electronically signed by: MAN MASON MD on May 30 2019 8:39AM EST Normal [facility] CONSULTon 05-29-2019 CONSULT HNO ID: [id number] Author: Jamison Graff Service: Gastroenterology Author Type: Physician Server Administrator Type: Consults Filed: 05/29/2019 12:41 PM Note Text: INITIAL CONSULT GASTROENTEROLOGY SERVICE DATE: 05/29/2019 SERVICE TIME: 12:30 PM Subjective HPI: This is a 74 year old woman seen by GI for opinion on intra-extrahepatic biliary ductal dilation No significant PMHx but was seen at OSH with a 5-day history of abdominal discomfort, nausea, and vomiting with associated loose stools. She states the pain is mostly in the upper mid-abdomen and is dull and worse after meals. Per admission HANDP- at OSH she had an elevated bilirubin of 5 with direct bilirubin 3.7 with elevated alk phos and AST. 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 She is currently without complaint of abdominal pain, no nausea no vomiting. ? PAST MEDICAL HISTORY Diagnosis Date - Asthma - HTN (hypertension) PAST SURGICAL HISTORY Procedure Laterality Date - HYSTERECTOMY FAMILY HISTORY Problem Relation Age of Onset - Heart disease Father Social History Tobacco Use - Smoking status: Never Smoker - Smokeless tobacco: Never Used Substance Use Topics - Alcohol use: Not on file Comment: Occasionally - Drug use: Not on file MEDICATIONS: Prior to Admission Medications: aspirin 81 mg chewable tablet Take 81 mg by mouth once daily. mometasone 100 mcg/actuation HFAA Inhale 100 mcg as instructed twice daily. albuterol HFA (PROVENTIL HFA, VENTOLIN HFA) 90 mcg/actuation inhaler Inhale 2 Puffs as instructed. LISINOPRIL-HYDROCHLOROTHIA ZIDE ORAL Take 10 mg by mouth once daily. 10/12.5 mg sertraline (ZOLOFT) 50 mg ORAL tablet Take 50 mg by mouth once daily. predniSONE (DELTASONE) 20 mg tablet Take 2 tablets by mouth once daily. Ipratropium [place] (ATROVENT) 0.03 % nasal spray Use 2 Sprays in the nose every 12 hours. betamethasone dipropionate 0.05 % cream Apply 1 application to affected area twice daily. NAPROXEN ORAL Take by mouth. Current Facility-Administered Medications Medication Dose Route Frequency - NaCl 0.9% iv infusion 100 mL/hr INTRAVENOUS CONTINUOUS - albuterol HFA 90 mcg/actuation 2 Puff (PROVENTIL HFA, VENTOLIN HFA) 2 Puff INHALATION q 6 H PRN - mometasone HFAA 100 mcg 100 mcg INHALATION BID - Ipratropium [place] 2 [place] nasal spray (ATROVENT) 2 [place] NASAL q 12 H - aspirin 81 mg chewable tab(s) 81 mg ORAL DAILY - sertraline 50 mg tab(s) (ZOLOFT) 50 mg ORAL DAILY - heparin 5,000 Units injection 5,000 Units SUBCUTANEOUS q 12 H - ondansetron (PF) 4 mg injection (ZOFRAN) 4 mg INTRAVENOUS q 6 H PRN - oxyCODONE IR 5 mg tab(s) (ROXICODONE) 5 mg ORAL q 6 H PRN - lisinopril 10 mg tab(s) (ZESTRIL, PRINIVIL) 10 mg ORAL DAILY - [START ON 05/30/2019] hydroCHLOROthiazide 12.5 mg tab(s) (HYDRODIURIL, ESIDRIX) 12.5 mg ORAL DAILY ALLERGIES No Known Allergies GI SPECIFIC REVIEW OF SYSTEMS: See HPI OTHER ROS: See HPI Objective PHYSICAL EXAM: BP 95/60 Pulse 81 Temp 37.3 ?C (99.1 ?F) (Oral) Resp 18 Ht 167.6 cm (5' 6) Wt 79.5 kg (175 lb 3.2 oz) SpO2 94% BMI 28.28 kg/m? GENERAL- AAO x 3, no distress HEENT: Moist mucus membranes LUNGS: Clear to auscultation ant bilaterally CARDIAC: RRR ABDOMEN: Soft, non-tender without guarding or rigidity EXTREMITIES: No LE edema DATA: Diagnostic Tests Reviewed for Today's Visit: Most recent labs and imaging results. Most recent labs Impression/Recommendations 1. Intra- and extra-hepatic biliary ductal dilation - Obtain MRCP - Acute Hep Panel - Get imaging from OSH - Will review labs when available 2. Nausea and Vomiting- resolved - Antiemetics PRN - IVF if unable to maintain adequate PO intake 3. Diarrhea- resolving - If continued diarrhea send stool cultures/ c. Diff GI Will Follow SIGNATURE: Jamison Graff PA-C PATIENT NAME: Petra Duncan DATE: May 29, 2019 TIME: 12:30 PM PAGER/CONTACT #: [phone] Normal [facility] Cult Bloodon 05-29-2019 Cult Blood Test performed at [facility] No growth Normal [facility] Comment on above: Performed By: #### C BC1 #### [facility] [address] [place] [address] HISTORY PHYSICALon 9 HISTORY PHYSICAL HNO ID: [id number] Author: Navid Larios Service: Hospital Medicine Author Type: Physician Type: HANDP Filed: 05/29/2019 2:34 PM Note Text: DEPARTMENT OF HOSPITAL MEDICINE HISTORY AND PHYSICAL EXAM SERVICE DATE: 05/29/2019 SERVICE TIME: 9:35 AM Primary Care Physician: Nabila Paris MD NIGHT AND WEEKEND COVERAGE: After 7pm, please call cross cover pager #[phone] Subjective CHIEF COMPLAINT: Biliary dilatation HPI: This is a 74 year old female with a past medical history as mentioned below who since with nausea and vomiting for the last 4 days. She has nonbloody probably previous vomiting. She also had loose BM for the first couple of days. She has upper abdominal pain, intermittent, dull worsening with food. She has not eaten much in the last 4 days. [place] warm and chilly but didn't take her temperature. She reports history of intermittent nausea with food for some time. Never had EGD or colonoscopy done in the past. Denies taking any NSAIDs Denies any cough or shortness of breath or headache or dysuria. With this complaint she presented to [place]. She was noted to have elevated bilirubin of 5 with direct bilirubin 3.7 and elevated ALP, AST and ALP 300?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 she was transferred here for further care. Currently she is comfortable. PAST MEDICAL HISTORY Diagnosis Date - Asthma - HTN (hypertension) PAST SURGICAL HISTORY Procedure Laterality Date - HYSTERECTOMY FAMILY HISTORY Problem Relation Age of Onset - Heart disease Father Social History Tobacco Use - Smoking status: Never Smoker - Smokeless tobacco: Never Used Substance Use Topics - Alcohol use: Not on file Comment: Occasionally - Drug use: Not on file MEDICATIONS: Reviewed aspirin 81 mg chewable tablet, Take 81 mg by mouth once daily., Disp: , Rfl: mometasone 100 mcg/actuation HFAA, Inhale 100 mcg as instructed twice daily., Disp: , Rfl: albuterol HFA (PROVENTIL HFA, VENTOLIN HFA) 90 mcg/actuation inhaler, Inhale 2 Puffs as instructed., Disp: , Rfl: LISINOPRIL-HYDROCHLOROTHIA ZIDE ORAL, Take 10 mg by mouth once daily. 10/12.5 mg , Disp: , Rfl: sertraline (ZOLOFT) 50 mg ORAL tablet, Take 50 mg by mouth once daily., Disp: , Rfl: predniSONE (DELTASONE) 20 mg tablet, Take 2 tablets by mouth once daily., Disp: 6 tablet, Rfl: 0 Ipratropium Marshall (ATROVENT) 0.03 % nasal spray, Use 2 Sprays in the nose every 12 hours., Disp: , Rfl: betamethasone dipropionate 0.05 % cream, Apply 1 application to affected area twice daily., Disp: 30 g, Rfl: 0 NAPROXEN ORAL, Take by mouth., Disp: , Rfl: ALLERGIES No Known Allergies REVIEW OF SYSTEM: All other systems were reviewed and were negative except as per HPI. Objective PHYSICAL EXAM: BP 95/60 Pulse 81 Temp (Src) 99.1 (Oral) Resp 18 Ht 5' 6 (1.68m) Wt 175 lb 3.2 oz (79.5kg) SpO2 94% BMI 28.29 kg/(m2). O2 Therapy: Room Air, Liters: 2 Gen: Alert, oriented, no distress, cooperative HENT: NCAT, no oral lesions Eyes: nonicteric, EOMI Neck: supple, no JVD CV: RRR, normal S1,S2, no murmur, Pulses: radial and DP Resp: non-labored, CTBL, no wheezing, no crackles GI: soft, ND, NT Neuo: no focal deficit, Motor: normal. Sensory: MS: normal ROM, no LE edema, no deformity Skin: warm, no rash Psych: appropriate mode and affect DATA: Diagnostic tests reviewed for today's visit: Most recent labs and imaging results. Most recent labs Most recent imaging CBC: No results for input(s): WBC, RBC, HB, HCT, PLT, MCV, MCH, MPV, RDW in the last 24 hours. Coags: No results for input(s): INR, APTT in the last 24 hours. Invalid input(s): PT BMP: No results for input(s): NA, K, CHLOR, CO2, BUN, CREAT, GLUC in the last 24 hours. CMP: No results for input(s): NA, K, CHLOR, CO2, BUN, CREAT, GLUC, TPROT, CA, MG, ALBUMIN, TBILI, ALKPHOS, ALT, AST, ANION in the last 24 hours. Assessment/Plan IMPRESSION: Mrs. Duncan presented with nausea, vomiting, abdominal pain and loose BM for 4 days. She has 1. Intra-and extrahepatic biliary dilatation with obstructive jaundice ALP, AST and ALT in 300-400s range. Bilirubin 5 2. 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 Leukocytosis: 4. Hypokalemia: 5. Asthma: Stable 6. Hypertension: BP okay. PLAN: Supportive treatment with IV Zofran, when necessary for oxycodone and IV fluid. Clear liquid diet. Consult junior programmer. Send blood culture. Lactic acid Monitor for fever. Start antibiotics if she develops fever. Hold off antibiotics for now Discussed advanced directives and CODE STATUS with patient she wants to be DNR CCA. D/w Dr Hughes. Recommended to start Abx. GI to order MRCP VTE Prophylaxis: Heparin 5000 units Sub Q BID Disposition: Home Plan of care discussed with: Patient Code Status: DNR/ARREST SIGNATURE: Navid Larios MD PATIENT NAME: Petra Duncan DATE: May 29, 2019 TIME: 9:35 AM PAGER/CONTACT #: [phone] Normal [facility] HOSPon 05-29-2019 HOSP Patient:Natalya Duncan ra MRN: Height:5' 6(1.676 m) Weight:175 lb 3.2 oz (79.47 kg) Outpatient Medications as of 06/04/19: aspirin 81 mg chewable tablet mometasone 100 mcg/actuation HFAA Ipratropium Marshall (ATROVENT) 0.03 % nasal spray albuterol HFA (PROVENTIL HFA, VENTOLIN HFA) 90 mcg/actuation inhaler LISINOPRIL-HYDROCHLOROTHIA ZIDE ORAL NAPROXEN ORAL sertraline (ZOLOFT) 50 mg ORAL tablet Admission/Clinic Administered Medications as of 06/04/19: albuterol HFA 90 mcg/actuation 2 Puff (PROVENTIL HFA, VENTOLIN HFA) Ipratropium Marshall 2 [place] nasal spray (ATROVENT) sertraline 50 mg tab(s) (ZOLOFT) heparin 5,000 Units injection ondansetron (PF) 4 mg injection (ZOFRAN) oxyCODONE IR 5 mg tab(s) (ROXICODONE) piperacillin-tazobactam iv piggyback 3.375 g in dextrose (iso-osmotic) 50 mL (ZOSYN) mometasone 220 mcg/ actuation (14) 1 Puff inhaler (ASMANEX) Problem List: Biliary obstruction [K83.1] Allergies: No Known Allergies Date Verified:06/04/19 Lab Values Lab Value Units Date High Low POTA* 3.9 mEq/L 06/03/2019 5.1 3.5 GO* 37.0 % 05/31/2019 44.9 34.1 Progress Notes (): Navid Larios MD 05/29/2019 2:34 PM Addendum DEPARTMENT OF HOSPITAL MEDICINE HISTORY AND PHYSICAL EXAM SERVICE DATE: 05/29/2019 SERVICE TIME: 9:35 AM Primary Care Physician: Nabila Paris MD NIGHT AND WEEKEND COVERAGE: After 7pm, please call cross cover pager #[phone] Subjective CHIEF COMPLAINT: Biliary dilatation HPI: This is a 74 year old female with a past medical history as mentioned below who since with nausea and vomiting for the last 4 days. She has nonbloody probably previous vomiting. She also had loose BM for the first couple of days. She has upper abdominal pain, intermittent, dull worsening with food. She has not eaten much in the last 4 days. [place] warm and chilly but didn't take her temperature. She reports history of intermittent nausea with food for some time. Never had EGD or colonoscopy done in the past. Denies taking any NSAIDs Denies any cough or shortness of breath or headache or dysuria. With this complaint she presented to [place]. She was noted to have elevated bilirubin of 5 with direct bilirubin 3.7 and elevated ALP, AST and ALP 300?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 she was transferred here for further care. Currently she is comfortable. PAST MEDICAL HISTORY Diagnosis Date - Asthma - HTN (hypertension) PAST SURGICAL HISTORY Procedure Laterality Date - HYSTERECTOMY FAMILY HISTORY Problem Relation Age of Onset - Heart disease Father Social History Tobacco Use - Smoking status: Never Smoker - Smokeless tobacco: Never Used Substance Use Topics - Alcohol use: Not on file Comment: Occasionally - Drug use: Not on file MEDICATIONS: Reviewed aspirin 81 mg chewable tablet, Take 81 mg by mouth once daily., Disp: , Rfl: mometasone 100 mcg/actuation HFAA, Inhale 100 mcg as instructed twice daily., Disp: , Rfl: albuterol HFA (PROVENTIL HFA, VENTOLIN HFA) 90 mcg/actuation inhaler, Inhale 2 Puffs as instructed., Disp: , Rfl: LISINOPRIL-HYDROCHLOROTHIA ZIDE ORAL, Take 10 mg by mouth once daily. 10/12.5 mg , Disp: , Rfl: sertraline (ZOLOFT) 50 mg ORAL tablet, Take 50 mg by mouth once daily., Disp: , Rfl: predniSONE (DELTASONE) 20 mg tablet, Take 2 tablets by mouth once daily., Disp: 6 tablet, Rfl: 0 Ipratropium Marshall (ATROVENT) 0.03 % nasal spray, Use 2 Sprays in the nose every 12 hours., Disp: , Rfl: betamethasone dipropionate 0.05 % cream, Apply 1 application to affected area twice daily., Disp: 30 g, Rfl: 0 NAPROXEN ORAL, Take by mouth., Disp: , Rfl: ALLERGIES No Known Allergies REVIEW OF SYSTEM: All other systems were reviewed and were negative except as per HPI. Objective PHYSICAL EXAM: BP 95/60 Pulse 81 Temp (Src) 99.1 (Oral) Resp 18 Ht 5' 6 (1.68m) Wt 175 lb 3.2 oz (79.5kg) SpO2 94% BMI 28.29 kg/(m2). O2 Therapy: Room Air, Liters: 2 Gen: Alert, oriented, no distress, cooperative HENT: NCAT, no oral lesions Eyes: nonicteric, EOMI Neck: supple, no JVD CV: RRR, normal S1,S2, no murmur, Pulses: radial and DP Resp: non-labored, CTBL, no wheezing, no crackles GI: soft, ND, NT Neuo: no focal deficit, Motor: normal. Sensory: MS: normal ROM, no LE edema, no deformity Skin: warm, no rash Psych: appropriate mode and affect DATA: Diagnostic tests reviewed for today's visit: Most recent labs and imaging results. Most recent labs Most recent imaging CBC: No results for input(s): WBC, RBC, HB, HCT, PLT, MCV, MCH, MPV, RDW in the last 24 hours. Coags: No results for input(s): INR, APTT in the last 24 hours. Invalid input(s): PT BMP: No results for input(s): NA, K, CHLOR, CO2, BUN, CREAT, GLUC in the last 24 hours. CMP: No results for input(s): NA, K, CHLOR, CO2, BUN, CREAT, GLUC, TPROT, CA, MG, ALBUMIN, TBILI, ALKPHOS, ALT, AST, ANION in the last 24 hours. Assessment/Plan IMPRESSION: Mrs. Duncan presented with nausea, vomiting, abdominal pain and loose BM for 4 days. She has 1. Intra-and extrahepatic biliary dilatation with obstructive jaundice ALP, AST and ALT in 300-400s range. Bilirubin 5 2. 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 Leukocytosis: 4. Hypokalemia: 5. Asthma: Stable 6. Hypertension: BP okay. PLAN: Supportive treatment with IV Zofran, when necessary for oxycodone and IV fluid. Clear liquid diet. Consult junior programmer. Send blood culture. Lactic acid Monitor for fever. Start antibiotics if she develops fever. Hold off antibiotics for now Discussed advanced directives and CODE STATUS with patient she wants to be DNR CCA. D/w Dr Hughes. Recommended to start Abx. GI to order MRCP VTE Prophylaxis: Heparin 5000 units Sub Q BID Disposition: Home Plan of care discussed with: Patient Code Status: DNR/ARREST SIGNATURE: Navid Larios MD PATIENT NAME: Petra Duncan DATE: May 29, 2019 TIME: 9:35 AM PAGER/CONTACT #: [phone] Previous Version Jamison Graff PA-C 05/29/2019 12:41 PM Signed INITIAL CONSULT GASTROENTEROLOGY SERVICE DATE: 05/29/2019 SERVICE TIME: 12:30 PM Subjective HPI: This is a 74 year old woman seen by GI for opinion on intra-extrahepatic biliary ductal dilation No significant PMHx but was seen at OSH with a 5-day history of abdominal discomfort, nausea, and vomiting with associated loose stools. She states the pain is mostly in the upper mid-abdomen and is dull and worse after meals. Per admission HANDP- at OSH she had an elevated bilirubin of 5 with direct bilirubin 3.7 with elevated alk phos and AST. 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 She is currently without complaint of abdominal pain, no nausea no vomiting. ? PAST MEDICAL HISTORY Diagnosis Date - Asthma - HTN (hypertension) PAST SURGICAL HISTORY Procedure Laterality Date - HYSTERECTOMY FAMILY HISTORY Problem Relation Age of Onset - Heart disease Father Social History Tobacco Use - Smoking status: Never Smoker - Smokeless tobacco: Never Used Substance Use Topics - Alcohol use: Not on file Comment: Occasionally - Drug use: Not on file MEDICATIONS: Prior to Admission Medications: aspirin 81 mg chewable tablet Take 81 mg by mouth once daily. mometasone 100 mcg/actuation HFAA Inhale 100 mcg as instructed twice daily. albuterol HFA (PROVENTIL HFA, VENTOLIN HFA) 90 mcg/actuation inhaler Inhale 2 Puffs as instructed. LISINOPRIL-HYDROCHLOROTHIA ZIDE ORAL Take 10 mg by mouth once daily. 10/12.5 mg sertraline (ZOLOFT) 50 mg ORAL tablet Take 50 mg by mouth once daily. predniSONE (DELTASONE) 20 mg tablet Take 2 tablets by mouth once daily. Ipratropium Marshall (ATROVENT) 0.03 % nasal spray Use 2 Sprays in the nose every 12 hours. betamethasone dipropionate 0.05 % cream Apply 1 application to affected area twice daily. NAPROXEN ORAL Take by mouth. Current Facility-Administered Medications Medication Dose Route Frequency - NaCl 0.9% iv infusion 100 mL/hr INTRAVENOUS CONTINUOUS - albuterol HFA 90 mcg/actuation 2 Puff (PROVENTIL HFA, VENTOLIN HFA) 2 Puff INHALATION q 6 H PRN - mometasone HFAA 100 mcg 100 mcg INHALATION BID - Ipratropium Marshall 2 [place] nasal spray (ATROVENT) 2 [place] NASAL q 12 H - aspirin 81 mg chewable tab(s) 81 mg ORAL DAILY - sertraline 50 mg tab(s) (ZOLOFT) 50 mg ORAL DAILY - heparin 5,000 Units injection 5,000 Units SUBCUTANEOUS q 12 H - ondansetron (PF) 4 mg injection (ZOFRAN) 4 mg INTRAVENOUS q 6 H PRN - oxyCODONE IR 5 mg tab(s) (ROXICODONE) 5 mg ORAL q 6 H PRN - lisinopril 10 mg tab(s) (ZESTRIL, PRINIVIL) 10 mg ORAL DAILY - [START ON 05/30/2019] hydroCHLOROthiazide 12.5 mg tab(s) (HYDRODIURIL, ESIDRIX) 12.5 mg ORAL DAILY ALLERGIES No Known Allergies GI SPECIFIC REVIEW OF SYSTEMS: See HPI OTHER ROS: See HPI Objective PHYSICAL EXAM: BP 95/60 Pulse 81 Temp 37.3 ?C (99.1 ?F) (Oral) Resp 18 Ht 167.6 cm (5' 6) Wt 79.5 kg (175 lb 3.2 oz) SpO2 94% BMI 28.28 kg/m? GENERAL- AAO x 3, no distress HEENT: Moist mucus membranes LUNGS: Clear to auscultation ant bilaterally CARDIAC: RRR ABDOMEN: Soft, non-tender without guarding or rigidity EXTREMITIES: No LE edema DATA: Diagnostic Tests Reviewed for Today's Visit: Most recent labs and imaging results. Most recent labs Impression/Recommendations 1. Intra- and extra-hepatic biliary ductal dilation - Obtain MRCP - Acute Hep Panel - Get imaging from OSH - Will review labs when available 2. Nausea and Vomiting- resolved - Antiemetics PRN - IVF if unable to maintain adequate PO intake 3. Diarrhea- resolving - If continued diarrhea send stool cultures/ c. Diff GI Will Follow SIGNATURE: Jamison Graff PA-C PATIENT NAME: Petra Duncan DATE: May 29, 2019 TIME: 12:30 PM PAGER/CONTACT #: [phone] Best Hardy, RN, RN 05/30/2019 7:30 AM Addendum Patient found this morning 86%RA and a heart rate of 139. Placed 2L of oxygen and patient went up to 94%. Patient's HR was still 139. Pateint states I don't feel like my heart is racing, im suppose to wear a bipap at night. Notifed MD Carreon, ordered EKg Previous Version Vashti Hernandez MD 05/30/2019 8:22 AM Addendum Brief Evaluation of Patient with transient Afib w/ RVR Patient was briefly evaluated for new onset Atrial Fibrillation with Rapid Ventricular Rate noted on telemetry and on EKG. CVICU STAT paged for further evaluation. At the time of my arrival, patient converted back into sinus rhythm. She denies feeling palpitations. She states she normally wears her CPAP at home and that was the only thing different from overnight. Reviewed medications given by nursing overnight with RN. Reviewed labs. General: Awake, alert, pleasant, jaundiced, dry Neck: No JVD appreciated Heart: Sinus tach at the time of my evaluation, no murmurs, rubs or gallops appreciated Lungs: clear to auscultation bilaterally, no wheezes, rales or rhonchi, good breath movement throughout Extremities: 2+ radial and dorsalis pedis pulses, no lower extremity edema Assessment/Plan 74 year old woman with history of asthma, hypertension, and FLORI with transient episode of Atrial Fibrillation with Rapid Ventricular Rate which converted to sinus rhythm. # Paroxysmal atrial fibrillation likely secondary to ?sepsis vs lack of CPAP overnight # Hypokalemia # Hypophosphatemia # FLORI # Asthma - Patient currently on broad spectrum antibiotics - Will replace potassium and phosphate. - 500mL Normal Saline Bolus - Recommended obtaining patient's CPAP from home - Continue to monitor on telemetry - Obtain TSH Vashti Hernandez MD May 30, 2019 8:20 AM Previous Version Liya Hutchison PA-C 05/30/2019 3:34 PM Addendum GI CONSULT PROGRESS NOTE SERVICE DATE: 05/30/2019 SERVICE TIME: 10:42 AM CONSULTING SERVICE: Gastroenterology Subjective INTERVAL HISTORY: Patient states she's feeling much better. Asx from GI standpoint. Denied N/V, diarrhea. Tolerating liquid diet well. Patient denied lightheadedness/dizziness, fever/chills, chest pain, shortness of breath. MEDICATIONS: Current Facility-Administered Medications Medication Dose Route Frequency - albuterol HFA 90 mcg/actuation 2 Puff (PROVENTIL HFA, VENTOLIN HFA) 2 Puff INHALATION q 6 H PRN - Ipratropium Marshall 2 [place] nasal spray (ATROVENT) 2 [place] NASAL q 12 H - aspirin 81 mg chewable tab(s) 81 mg ORAL DAILY - sertraline 50 mg tab(s) (ZOLOFT) 50 mg ORAL DAILY - heparin 5,000 Units injection 5,000 Units SUBCUTANEOUS q 12 H - ondansetron (PF) 4 mg injection (ZOFRAN) 4 mg INTRAVENOUS q 6 H PRN - oxyCODONE IR 5 mg tab(s) (ROXICODONE) 5 mg ORAL q 6 H PRN - lisinopril 10 mg tab(s) (ZESTRIL, PRINIVIL) 10 mg ORAL DAILY - hydroCHLOROthiazide 12.5 mg tab(s) (HYDRODIURIL, ESIDRIX) 12.5 mg ORAL DAILY - piperacillin-tazobactam iv piggyback 3.375 g in dextrose (iso-osmotic) 50 mL (ZOSYN) 3.375 g INTRAVENOUS q 6 H - mometasone 220 mcg/ actuation (14) 1 Puff inhaler (ASMANEX) 1 Puff INHALATION DAILY - potassium phosphate 30 mmol in NaCl 0.9% 250 mL 30 mmol INTRAVENOUS ONCE - NaCl 0.9% with 40 mEq/L KCl iv infusion 100 mL/hr INTRAVENOUS CONTINUOUS Objective PHYSICAL EXAM: Cardiovascular: S1 and S2 appreciated, RRR, no murmur appreciated Respiratory: Lungs clear to auscultation bilaterally Abdomen: soft, non-tender, non-distended, normoactive bowel sounds VITALS:BP (!) 92/49 Pulse 85 Temp 37 ?C (98.6 ?F) (Oral) Resp 18 Ht 167.6 cm (5' 6) Wt 79.5 kg (175 lb 3.2 oz) SpO2 92% BMI 28.28 kg/m? ABDOMEN: DATA: Diagnostic tests reviewed for today's visit: Most recent labs and imaging results. CBC, Coags, BMP, Mg, Phos Recent Labs 05/30/19 0750 05/30/19 0518 WBC -- 9.80 HB -- 13.9 HCT -- 43.1 PLT -- 125* NA -- 138 K -- 3.4* CHLOR -- 106 CO2 -- 26 BUN -- 20* CREAT -- 0.96* GLUC -- 104* CA -- 8.6 MG 2.1 2.1 P -- 2.1* CSF AND Dilantin Liver Function, Amylase, AND Lipase Recent Labs 05/30/19 0518 05/29/19 1010 TPROT 6.1* -- ALB 2.6* -- ALT 286* -- AST 117* -- ALKPHOS 310* -- TBILI 6.4* -- LACT -- 1.9 Cardiac Enzymes ABGs Impression/Recommendations 1) Transaminitis: with intra, extra hepatic biliary ductal dilation. LFT's as above. 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 Normal liver, gallbladder, pancreas. No evidence of cirrhosis. - MRCP ordered - Acute Hepatitis panel ordered - Hep B/Hep C labs ordered - Could consider autoimmune workup if hepatitis negative - Denied excessive tylenol/EtOH abuse, illicit drug use - Monitor and trend LFT's - Patient may need ERCP for evaluation of CBD obstruction and elevated T bili - will speak with attending physician 2) N/V: patient denied any recent N/V. - Well controlled with Zofran - Diet as tolerated 3) Diarrhea: has stopped. Patient denied. - Monitor BM's GI will follow. ADDENDUM: Spoke with Dr. Hughes, he agrees with plan. Await MRCP, potential ERCP. SIGNATURE: Liya Hutchison PA-C PATIENT NAME: Petra Duncan DATE: May 30, 2019 TIME: 10:41 AM PAGER/CONTACT #: [phone] Previous Version Chalino Francisco DO 05/30/2019 1:27 PM Addendum DEPARTMENT OF HOSPITAL MEDICINE PROGRESS NOTE Hospital Medicine/Primary Attending: Chalino Francisco, NIGHT AND WEEKEND COVERAGE: After 7pm please page [phone] CHIEF COMPLAINT: Abdominal pain, nausea, and vomiting SUBJECTIVE: Called to bedside in AM with nursing reporting HR in 140's. Telemetry showing patient in Afib, rates as high on telemetry into the 150's. BP 90's systolic. Called ICU team to bedside to eval and by the time of their arrival to the floor, patient had spontaneous conversion to sinus rhythm. She remained asymptomatic. Denies fevers, chills, continued abdominal pain nausea or vomiting. OBJECTIVE: PHYSICAL EXAM: BP 92/49 Pulse 85 Temp (Src) 98.6 (Oral) Resp 18 Ht 5' 6 (1.68m) Wt 175 lb 3.2 oz (79.5kg) SpO2 92% BMI 28.29 kg/(m2). O2 Therapy: Nasal Cannula, Liters: 2 General - AANDOx3, NAD, Calm, jaundice CV - tachycardia irregularly irregular, no murmurs RESP - CTA B/L No wheezes, ronchi, rales ABD - soft, NT, ND +BS EXT - no gross joint deformity, no clubbing, cyanosis, edema NEURO - CN II-XII grossly intact, no focal deficits MEDICATIONS: Current Facility-Administered Medications Medication Dose Route Frequency - albuterol HFA 90 mcg/actuation 2 Puff (PROVENTIL HFA, VENTOLIN HFA) 2 Puff INHALATION q 6 H PRN - Ipratropium Marshall 2 [place] nasal spray (ATROVENT) 2 [place] NASAL q 12 H - aspirin 81 mg chewable tab(s) 81 mg ORAL DAILY - sertraline 50 mg tab(s) (ZOLOFT) 50 mg ORAL DAILY - heparin 5,000 Units injection 5,000 Units SUBCUTANEOUS q 12 H - ondansetron (PF) 4 mg injection (ZOFRAN) 4 mg INTRAVENOUS q 6 H PRN - oxyCODONE IR 5 mg tab(s) (ROXICODONE) 5 mg ORAL q 6 H PRN - lisinopril 10 mg tab(s) (ZESTRIL, PRINIVIL) 10 mg ORAL DAILY - hydroCHLOROthiazide 12.5 mg tab(s) (HYDRODIURIL, ESIDRIX) 12.5 mg ORAL DAILY - piperacillin-tazobactam iv piggyback 3.375 g in dextrose (iso-osmotic) 50 mL (ZOSYN) 3.375 g INTRAVENOUS q 6 H - mometasone 220 mcg/ actuation (14) 1 Puff inhaler (ASMANEX) 1 Puff INHALATION DAILY - potassium phosphate 30 mmol in NaCl 0.9% 250 mL 30 mmol INTRAVENOUS ONCE - NaCl 0.9% with 40 mEq/L KCl iv infusion 100 mL/hr INTRAVENOUS CONTINUOUS - perflutren lipid microspheres 1.1 mg/mL 1.3 mL injection (DEFINITY) 1.3 mL INTRAVENOUS DIRECTED PRN DATA: Diagnostic tests reviewed for today's visit: Last labs and imaging reviewed. Assessment/Plan Intra/extra hepatic ductal dilation with obstructive jaundice -some improvement in LFTs today -Continue Zosyn -MRCP ordered by GI, may need ERCP -GI following New onset Afib with RVR -possibly driven by infection vs electrolyte derangements -Check echo -cardiology consulted -has had spontaneous conversion to sinus rhythm -monitor on telemetry -TSH WNL Acute hypoxic respiratory failure suspect related to above -Requiring 2L NC, wean as able -Mild prominence of right hilum on CXR, will need PA/Lat films when able Leukocytosis Multiple electrolyte abnormalities: Hypokalemia, hypophosphatemia -Replete and monitor Asthma -Continue home mometasone HTN -Patient has been hypotensive on admission, continuing IVF and d/c home diuretic/gely and resume when BP improved Disposition: Home when medically able Medication and Non-Pharmacologic VTE Prophylaxis/Anticoagulants Anticoagulant AND Antiplatelet Medications (From admission, onward) Start Dose Route Frequency Ordered Stop 05/29/19 1000 aspirin 81 mg chewable tab(s) 81 mg ORAL DAILY 05/29/19 0934 -- 05/29/19 1000 heparin 5,000 Units injection (Medical Risk Categories) 5,000 Units SUBCUTANEOUS EVERY 12 HOURS 05/29/19 0934 -- 05/29/19 0945 pneumatic compression stockings (al,de) 05/29/19 0945 activity - mobilize patient (al,de) Plan of care discussed with: Provider, RN, Patient SIGNATURE: Chalino Francisco DO PATIENT NAME: Petra Duncan DATE: 05/30/2019 TIME: 1:17 PM PAGER/CONTACT #: Team [place] Previous Version KEILY Roblero 05/30/2019 2:12 PM Signed CARE MANAGEMENT: ASSESSMENT AND DISCHARGE PLAN SERVICE DATE: 05/30/2019 SERVICE TIME: 2:09 PM PRIMARY CARE PHYSICIAN: Nabila Paris MD ADMISSION STATUS: Inpatient Needs Prior to Discharge: Other: See Comment;To Be Determined;Pharmacy Bedside Delivery( to transport at d/c) 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 No Advance Directive: Current Advance Directive: Health Care Power of Search Advertising Strategist;Living Will In Chart: No Building Principal Attempted to Assist with AD Completion: Yes Action: Patient Unwilling Health Literacy: 1. How often do you need to have someone help you when you read instructions, pamphlets, or other written material from your doctor or pharmacy? Never - 1 2. How confident are you filling out medical forms by yourself? Extremely - 1 If Patient scores > 3 on either question, the following interventions were put into place: Patient did not score > 3 FUNCTIONAL AND COGNITIVE/BEHAVIORAL PRIOR TO ADMISSION: Baseline Mental Status: Alert AND Oriented, Person, Place , Time and Situation Functional Status: Independent Does Patient Currently Receive Any Community Services or Home Care? None Equipment Prior to Admission: Bi-level Positive Airway Pressure/Continuous Positive Airway Pressure Tub bench/chair Has the Patient Been in a Senior Living Facility in the Past 30 days? No SOCIAL: Living Arrangement: Home Lives With: Spouse Financial Resources: Retired Primary Contact: Extended Emergency Contact Information Primary Emergency Contact: Arley Duncan Mobile Relation: Spouse Supportive: Yes Other Important Patient Contacts: None Caregiver Assessment: Caregiver is ready, willing and able to meet the patient's needs as recommended by the inter-professional team? No Caregiver Needed Patient's transition needs and plan for meeting these needs: Home.TBD Does the patient have an acute stroke diagnosis, or has the patient had a stroke during this admission? No Medication Adherence: I am convinced of the importance of my prescription medication: Agree completely - 0 I worry that my prescription medication will do more harm than good to me Disagree completely - 0 I feel financially burdened by my [id number] expenses for my prescription medication: Disagree completely - 0 Patient is categorized as low risk < 2 Are you interested in bedside delivery of your medications? Yes Is the Patient Psychosocially Complex? No ASSESSMENT AND PLAN: Medical Needs: None Psychosocial Needs: None FREEDOM OF CHOICE EXPLAINED: No - No placements necessary POTENTIAL TRANSITION PLANS Home To Be Determined SW met with pt at bedside. Pt admitted from home with . 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 +PCP, +DME, +Rx at [facility]. Pt's to transport at discharge. SIGNATURE: KEILY Roblero PATIENT NAME: Petra Duncan DATE: May 30, 2019 TIME: 2:09 PM PAGER/CONTACT #: [phone] Tres Aragon MD 05/30/2019 5:17 PM Signed CONSULT: CARDIOLOGY SERVICE SERVICE DATE: 05/30/2019 SERVICE TIME: 2:59 PM REASON FOR CONSULT: New onset Afib RVR REQUESTING PHYSICIAN: Dr. Francisco PRIMARY CARE PHYSICIAN: Nabila Paris MD Subjective Ms. Duncan is a 74 year old female with history of FLORI, HTN, and asthma presenting for evaluation of nausea and vomiting for the last 5 days. CVICU asked to see her in the setting of acute, transient atrial fibrillation with rapid ventricular rates. At the time of my initial evaluation, the patient had returned to sinus rhythm. She denied feeling palpitations. She normally wears her CPAP at home, however did not have access to this overnight. She was noted to be mildly hypoxic this morning as well and was started on 2L NC. Medications given were reviewed with BENNIE Hardy. PAST MEDICAL HISTORY Diagnosis Date - Asthma - HTN (hypertension) PAST SURGICAL HISTORY Procedure Laterality Date - HYSTERECTOMY FAMILY HISTORY Problem Relation Age of Onset - Heart disease Father Social History Tobacco Use - Smoking status: Never Smoker - Smokeless tobacco: Never Used Substance Use Topics - Alcohol use: Not on file Comment: Occasionally - Drug use: Not on file aspirin 81 mg chewable tablet, Take 81 mg by mouth once daily., Disp: , Rfl: mometasone 100 mcg/actuation HFAA, Inhale 100 mcg as instructed twice daily., Disp: , Rfl: albuterol HFA (PROVENTIL HFA, VENTOLIN HFA) 90 mcg/actuation inhaler, Inhale 2 Puffs as instructed., Disp: , Rfl: LISINOPRIL-HYDROCHLOROTHIA ZIDE ORAL, Take 10 mg by mouth once daily. 10/12.5 mg , Disp: , Rfl: sertraline (ZOLOFT) 50 mg ORAL tablet, Take 50 mg by mouth once daily., Disp: , Rfl: predniSONE (DELTASONE) 20 mg tablet, Take 2 tablets by mouth once daily., Disp: 6 tablet, Rfl: 0 Ipratropium Marshall (ATROVENT) 0.03 % nasal spray, Use 2 Sprays in the nose every 12 hours., Disp: , Rfl: betamethasone dipropionate 0.05 % cream, Apply 1 application to affected area twice daily., Disp: 30 g, Rfl: 0 NAPROXEN ORAL, Take by mouth., Disp: , Rfl: Current Facility-Administered Medications Medication Dose Route Frequency - albuterol HFA 90 mcg/actuation 2 Puff (PROVENTIL HFA, VENTOLIN HFA) 2 Puff INHALATION q 6 H PRN - Ipratropium [place] 2 [place] nasal spray (ATROVENT) 2 [place] NASAL q 12 H - aspirin 81 mg chewable tab(s) 81 mg ORAL DAILY - sertraline 50 mg tab(s) (ZOLOFT) 50 mg ORAL DAILY - heparin 5,000 Units injection 5,000 Units SUBCUTANEOUS q 12 H - ondansetron (PF) 4 mg injection (ZOFRAN) 4 mg INTRAVENOUS q 6 H PRN - oxyCODONE IR 5 mg tab(s) (ROXICODONE) 5 mg ORAL q 6 H PRN - piperacillin-tazobactam iv piggyback 3.375 g in dextrose (iso-osmotic) 50 mL (ZOSYN) 3.375 g INTRAVENOUS q 6 H - mometasone 220 mcg/ actuation (14) 1 Puff inhaler (ASMANEX) 1 Puff INHALATION DAILY - NaCl 0.9% with 40 mEq/L KCl iv infusion 100 mL/hr INTRAVENOUS CONTINUOUS - perflutren lipid microspheres 1.1 mg/mL 1.3 mL injection (DEFINITY) 1.3 mL INTRAVENOUS DIRECTED PRN Allergies As of Date: 05/29/2019 (No Known Allergies) Fully Assessed 05/29/2019 COMPLETE REVIEW OF SYSTEMS: Unless mentioned above, 10 point Review of Systems grossly negative Objective Patient Vitals for the past 24 hrs: BP Temp Temp src Pulse Resp SpO2 05/30/19 1400 103/60 ? ? 81 20 92 % 05/30/19 1000 (!) 92/49 37 ?C (98.6 ?F) Oral 85 18 92 % 05/30/19 0757 94/61 ? 05/30/19 0743 97/67 ? ? (!) 130 ? 95 % 05/30/19 0705 ? 92 % 05/30/19 0700 96/61 37 ?C (98.6 ?F) Oral (!) 139 20 88 % 05/29/19 1900 (!) 104/44 37.1 ?C (98.8 ?F) Oral 85 20 93 % PHYSICAL EXAM: General: Awake, alert, pleasant, jaundiced, dry Neck: No JVD appreciated Heart: Sinus tach at the time of my evaluation, no murmurs, rubs or gallops appreciated Lungs: clear to auscultation bilaterally, no wheezes, rales or rhonchi, good breath movement throughout Extremities: 2+ radial and dorsalis pedis pulses, no lower extremity edema ? Body mass index is 28.28 kg/m?. DATA: Diagnostic tests reviewed for today's visit: Most recent labs and imaging results. CBC, Coags, BMP, Mg, Phos Recent Labs 05/30/19 1312 05/30/19 0750 05/30/19 0518 WBC -- -- 9.80 HB -- -- 13.9 HCT -- -- 43.1 PLT -- -- 125* NA 137 138 138 K 4.0 3.6 3.4* CHLOR 107 108* 106 CO2 25 23 26 BUN 20* 19* 20* CREAT 0.86 0.95 0.96* GLUC 93 94 104* CA 8.3* 8.5 8.6 MG -- 2.1 2.1 P -- -- 2.1* EKG: - 1st EKG showing afib with RVR and TWI in inferior leads - 2nd EKG performed 30 minutes later, NSR, TWI remain in inferior leads Impression/Recommendations 74 year old woman with history of asthma, hypertension, and FLORI with transient episode of Atrial Fibrillation with Rapid Ventricular Rate which converted to sinus rhythm. ? # Paroxysmal atrial fibrillation likely secondary to ?sepsis vs lack of CPAP overnight # T-wave Inversions in leads III, avF EKGs # Hypokalemia # Hypophosphatemia # FLORI # Asthma ? - [id number]= 4; anticoagulation to be held in setting of possible procedure (MRCP), continue to monitor on telemetry - Patient has denied chest pain, will need ischemic work-up once primary issue has resolved - Patient currently on broad spectrum antibiotics - Continue IVF supplementation - 500mL Normal Saline Bolus - Recommended obtaining patient's CPAP from home - Continue home medications for asthma - TSH within normal limits I personally saw and evaluated the patient. Discussed with the resident. I agree with resident's findings and plan as documented in the resident's note, unless noted otherwise. Although her chads 2 vascular score is 4, she was not aware of her previous history of atrial fibrillation. She did not use her PAP mask last night. It is likely that her A. fib may have been reversible. Also, she has obstructive jaundice, and is scheduled for a procedure. I would hold off on initiating anticoagulation now. This may be a consideration once she has been evaluated completely from the GI standpoint. Her blood pressures are on the lower end, and I do not suggest scheduled rate control therapy. SIGNATURE: Vashti Hernandez MD PATIENT NAME: Petra Duncan DATE: May 30, 2019 TIME: 2:59 PM PAGER: [phone] Previous Version Sindy Burroughs 05/30/2019 3:56 PM Signed CARE MANAGEMENT PROGRESS NOTE SERVICE DATE: 05/30/2019 SERVICE TIME: 1345 LOS: 1 day IM letter given to patient on [id number]. SIGNATURE: Sindy Jeferson Burroughs PATIENT NAME: Petra Duncan DATE: May 30, 2019 TIME: 3:56 PM PAGER/CONTACT #: Chalino Francisco DO 05/31/2019 4:37 PM Edited Patient transferred from [place] where she was admitted with complaints of nausea and vomiting, with recent bout of resolved diarrhea. At OSH she was found to have elevated bilirubin of 5 with direct bilirubin 3.7 and elevated ALP, AST and ALP 300?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 She was transferred here for further care. She was evaluated by GI who recommends MRCP for further evaluation, we are awaiting MRI machine availability . She had an episode of new onset Afib with RVR which spontaneously converted to NSR. She was evaluated by cardiology for this. Previous Version RT CESARIO, Tech 05/30/2019 7:18 PM Signed Called for MRI Safety screening form Chalino Francisco DO 05/31/2019 10:30 AM Signed DEPARTMENT OF HOSPITAL MEDICINE PROGRESS NOTE Hospital Medicine/Primary Attending: Chalino Francisco DO NIGHT AND WEEKEND COVERAGE: After 7pm please page [phone] CHIEF COMPLAINT: Abdominal pain, nausea, and vomiting SUBJECTIVE: Patient seen and examined at bedside in AM. She is anxious to have completion of her testing and advancement of her diet, MRI still not done yet. She denies any fevers or chills, she is still periodically nauseated but denies any emesis. OBJECTIVE: PHYSICAL EXAM: BP 117/61 Pulse 85 Temp (Src) 99.3 (Oral) Resp 18 Ht 5' 6 (1.68m) Wt 175 lb 3.2 oz (79.5kg) SpO2 92% BMI 28.29 kg/(m2). O2 Therapy: Room Air General - AANDOx3, NAD, Calm, jaundice CV - tachycardia irregularly irregular, no murmurs RESP - CTA B/L No wheezes, ronchi, rales ABD - soft, NT, ND +BS EXT - no gross joint deformity, no clubbing, cyanosis, edema NEURO - CN II-XII grossly intact, no focal deficits MEDICATIONS: Current Facility-Administered Medications Medication Dose Route Frequency - albuterol HFA 90 mcg/actuation 2 Puff (PROVENTIL HFA, VENTOLIN HFA) 2 Puff INHALATION q 6 H PRN - Ipratropium [place] 2 [place] nasal spray (ATROVENT) 2 [place] NASAL q 12 H - aspirin 81 mg chewable tab(s) 81 mg ORAL DAILY - sertraline 50 mg tab(s) (ZOLOFT) 50 mg ORAL DAILY - heparin 5,000 Units injection 5,000 Units SUBCUTANEOUS q 12 H - ondansetron (PF) 4 mg injection (ZOFRAN) 4 mg INTRAVENOUS q 6 H PRN - oxyCODONE IR 5 mg tab(s) (ROXICODONE) 5 mg ORAL q 6 H PRN - piperacillin-tazobactam iv piggyback 3.375 g in dextrose (iso-osmotic) 50 mL (ZOSYN) 3.375 g INTRAVENOUS q 6 H - mometasone 220 mcg/ actuation (14) 1 Puff inhaler (ASMANEX) 1 Puff INHALATION DAILY - perflutren lipid microspheres 1.1 mg/mL 1.3 mL injection (DEFINITY) 1.3 mL INTRAVENOUS DIRECTED PRN DATA: Diagnostic tests reviewed for today's visit: Last labs and imaging reviewed. Assessment/Plan Intra/extra hepatic ductal dilation with obstructive jaundice -some improvement in LFTs today but bili is worse -Continue Zosyn -MRCP ordered by GI, may need ERCP -GI following New onset Afib with RVR, briefly with spontaneous conversion to sinus rhythm -possibly driven by infection vs electrolyte derangements vs absence of CPAP, no reoccurrence as yet -Check echo -cardiology consulted- recommend ischemic eval when primary issue has resolved, hold off on AC for now, continue home CPAP, no rate control therapy as BP on soft side -monitor on telemetry -TSH WNL Acute hypoxic respiratory failure suspect related to above, improved -Monitor -Mild prominence of right hilum seen on CXR, will need PA/Lat films when able Leukocytosis at OSH, rt above, resolved Multiple electrolyte abnormalities: Hypokalemia, hypophosphatemia -Replete and monitor Asthma -Continue home mometasone HTN -Patient has been hypotensive on admission, continuing IVF and d/c home diuretic/gely and resume when BP improved Disposition: Home when medically able Medication and Non-Pharmacologic VTE Prophylaxis/Anticoagulants Anticoagulant AND Antiplatelet Medications (From admission, onward) Start Dose Route Frequency Ordered Stop 05/29/19 1000 aspirin 81 mg chewable tab(s) 81 mg ORAL DAILY 05/29/19 0934 -- 05/29/19 1000 heparin 5,000 Units injection (Medical Risk Categories) 5,000 Units SUBCUTANEOUS EVERY 12 HOURS 05/29/19 0934 -- 05/29/19 0945 pneumatic compression stockings (al,oh) 05/29/19 0945 activity - mobilize patient ([place], [place]) Plan of care discussed with: Provider, RN, Patient SIGNATURE: Chalino Francisco DO PATIENT NAME: Petra Duncan DATE: 05/31/2019 TIME: 10:24 AM PAGER/CONTACT #: Team [place] Iman Manzanares RN, RN 05/31/2019 10:30 AM Signed Radiology is down to one MRI machine. Ms. Duncan is 5th in line, pending any emergencies. Radiology anticipates performing her test today, pending said emergencies. Liya Hutchison PA-C 05/31/2019 10:35 AM Signed GI CONSULT PROGRESS NOTE SERVICE DATE: 05/31/2019 SERVICE TIME: 10:32 AM CONSULTING SERVICE: Gastroenterology Subjective INTERVAL HISTORY: Patient has no complaints. Patiently waiting for MRCP. MEDICATIONS: Current Facility-Administered Medications Medication Dose Route Frequency - albuterol HFA 90 mcg/actuation 2 Puff (PROVENTIL HFA, VENTOLIN HFA) 2 Puff INHALATION q 6 H PRN - Ipratropium [place] 2 [place] nasal spray (ATROVENT) 2 [place] NASAL q 12 H - aspirin 81 mg chewable tab(s) 81 mg ORAL DAILY - sertraline 50 mg tab(s) (ZOLOFT) 50 mg ORAL DAILY - heparin 5,000 Units injection 5,000 Units SUBCUTANEOUS q 12 H - ondansetron (PF) 4 mg injection (ZOFRAN) 4 mg INTRAVENOUS q 6 H PRN - oxyCODONE IR 5 mg tab(s) (ROXICODONE) 5 mg ORAL q 6 H PRN - piperacillin-tazobactam iv piggyback 3.375 g in dextrose (iso-osmotic) 50 mL (ZOSYN) 3.375 g INTRAVENOUS q 6 H - mometasone 220 mcg/ actuation (14) 1 Puff inhaler (ASMANEX) 1 Puff INHALATION DAILY - perflutren lipid microspheres 1.1 mg/mL 1.3 mL injection (DEFINITY) 1.3 mL INTRAVENOUS DIRECTED PRN Objective PHYSICAL EXAM: Cardiovascular: S1 and S2 appreciated, RRR, no murmur appreciated Respiratory: Lungs clear to auscultation bilaterally Abdomen: soft, non-tender, non-distended, normoactive bowel sounds VITALS:BP 117/61 Pulse 85 Temp 37.4 ?C (99.3 ?F) (Oral) Resp 18 Ht 167.6 cm (5' 6) Wt 79.5 kg (175 lb 3.2 oz) SpO2 92% BMI 28.28 kg/m? ABDOMEN: DATA: Diagnostic tests reviewed for today's visit: Most recent labs and imaging results. CBC, Coags, BMP, Mg, Phos Recent Labs 05/31/19 0430 05/30/19 1312 05/30/19 0750 05/30/19 0518 WBC 4.94 -- -- 9.80 HB 12.3 -- -- 13.9 HCT 37.0 -- -- 43.1 PLT 146* -- -- 125* NA 138 137 138 138 K 4.0 4.0 3.6 3.4* CHLOR 110* 107 108* 106 CO2 25 25 23 26 BUN 15 20* 19* 20* CREAT 0.76 0.86 0.95 0.96* GLUC 92 93 94 104* CA 8.3* 8.3* 8.5 8.6 MG -- -- 2.1 2.1 P -- -- -- 2.1* CSF AND Dilantin Liver Function, Amylase, AND Lipase Recent Labs 05/31/19 0430 05/30/19 0518 05/29/19 1010 TPROT 5.7* 6.1* -- ALB 2.4* 2.6* -- ALT 176* 286* -- AST 50* 117* -- ALKPHOS 273* 310* -- TBILI 4.3* 6.4* -- LACT -- -- 1.9 Cardiac Enzymes Impression/Recommendations 1) Transaminitis: with intra, extra hepatic biliary ductal dilation. LFT's trending down. 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 Normal liver, gallbladder, pancreas. No evidence of cirrhosis. - MRCP ordered - Acute Hepatitis panel ordered - pending - Hep B/Hep C labs ordered - pending - Could consider autoimmune workup if hepatitis negative - Denied excessive tylenol/EtOH abuse, illicit drug use - LFT's trending dowm - Patient may need ERCP for evaluation of CBD obstruction and elevated T bili, will await MRCP results ? 2) N/V: patient denied any recent N/V. - Well controlled with Zofran - Diet as tolerated ? 3) Diarrhea: has stopped. Patient denied. - Monitor BM's SIGNATURE: Liya Hutchison PA-C PATIENT NAME: Petra Duncan DATE: May 31, 2019 TIME: 10:32 AM PAGER/CONTACT #: [phone] Shital Fernandez APRN.MARCIO, MARCIO 05/31/2019 10:47 AM Signed PROGRESS NOTE CARDIOLOGY SERVICE SERVICE DATE: 05/31/2019 SERVICE TIME: 10:39 AM Subjective INTERIM HISTORY: Mrs. Duncan is a 74-year-old female with a past medical history significant for hypertension, asthma and obstructive sleep apnea. Presented to [facility] from [facility] after presenting with nausea vomiting for about 4-5 days. LFTs were elevated testing identified dilatation of common bile duct she was transferred for further assessment. She was seen in consultation by Dr. Aragon for transient paroxysmal atrial fibrillation which occurred in the evening time when sleeping without her CPAP. TSH was normal magnesium normal potassium and phosphorus were low and replaced. She is seen this morning offering no complaints of chest pain, palpitations, tach palpitations syncope nor near syncope. Her abdominal pain is improved she remains on IV fluids continuous. Surgery is following workup is in progress. Cardiac telemetry did not identify any further recurrence of the A. fib. This is a new diagnosis for patient. She has an elevated chads Vascor of 4. Dr. Aragon is recommending oral anticoagulation with Eliquis once cleared by surgery for no procedures. This was discussed with patient today she is agreeable. She prefers cardiac follow-up closer to home in [place]. Would recommend sending prescription once okayed to the [facility] pharmacy for checking of [id number] cost and providing a free 30 day prescription. Maintenance therapy can be deferred to the outpatient charger operator of her choice closer to home. CARDIAC STATUS: Tele SR HR 70's No CP No SOB No NATHAYL No palpitations No Dizziness Objective PHYSICAL EXAM: Body mass index is 28.28 kg/m?. O2 Therapy: Room Air No data recorded Patient Vitals for the past 24 hrs: BP Temp Temp src Pulse Resp SpO2 05/31/19 0749 117/61 37.4 ?C (99.3 ?F) Oral 85 18 92 % 05/30/19 2246 110/56 37.3 ?C (99.1 ?F) Oral 92 18 92 % 05/30/19 1900 114/61 37.2 ?C (99 ?F) Oral 83 18 99 % 05/30/19 1400 103/60 ? ? 81 20 92 % Pleasant, comfortable, not in acute distress. Awake, alert, oriented times 3. Moves all extremities. SKIN: No rash or lumps. HEENT: Normocephalic, face symmetrical. LUNGS: Clear to auscultation bilaterally. CARDIAC: PMI present, RRR, S1 and S2, no S3 or S4, no additional heart sounds or murmurs. ABDOMEN: Soft, tender, bowel sounds present. EXTREMITIES: No edema. PULSES: Peripheral pulses present. MEDICATIONS: Current Facility-Administered Medications Medication Dose Route Frequency - albuterol HFA 90 mcg/actuation 2 Puff (PROVENTIL HFA, VENTOLIN HFA) 2 Puff INHALATION q 6 H PRN - Ipratropium [place] 2 [place] nasal spray (ATROVENT) 2 [place] NASAL q 12 H - aspirin 81 mg chewable tab(s) 81 mg ORAL DAILY - sertraline 50 mg tab(s) (ZOLOFT) 50 mg ORAL DAILY - heparin 5,000 Units injection 5,000 Units SUBCUTANEOUS q 12 H - ondansetron (PF) 4 mg injection (ZOFRAN) 4 mg INTRAVENOUS q 6 H PRN - oxyCODONE IR 5 mg tab(s) (ROXICODONE) 5 mg ORAL q 6 H PRN - piperacillin-tazobactam iv piggyback 3.375 g in dextrose (iso-osmotic) 50 mL (ZOSYN) 3.375 g INTRAVENOUS q 6 H - mometasone 220 mcg/ actuation (14) 1 Puff inhaler (ASMANEX) 1 Puff INHALATION DAILY - perflutren lipid microspheres 1.1 mg/mL 1.3 mL injection (DEFINITY) 1.3 mL INTRAVENOUS DIRECTED PRN DATA: Diagnostic tests reviewed for today's visit: Most recent labs and imaging results. Past 72 Hour Labs: Recent Labs 05/31/19 0430 05/30/19 0750 TROPI -- -- <0.015 WBC 4.94 -- -- RBC 4.08 -- -- HB 12.3 -- -- HCT 37.0 -- -- MCV 90.7 -- -- MCH 30.1 -- -- MCHC 33.2 -- -- PLT 146* -- -- MPV 12.5* -- -- GLUC 92 < > 94 BUN 15 < > 19* CREAT 0.76 < > 0.95 NA 138 < > 138 K 4.0 < > 3.6 CHLOR 110* < > 108* CO2 25 < > 23 TPROT 5.7* -- -- ALB 2.4* -- -- CA 8.3* < > 8.5 ALKPHOS 273* -- -- TBILI 4.3* -- -- AST 50* -- -- ALT 176* -- -- MG -- -- 2.1 < > = values in this interval not displayed. Last Lab Drawn: No results found for this basename: TSH,PROBNP,TG,HDL,LDL,CHOL Assessment/Plan Active Problems: 1. Abdominal pain-surgery following for increase in LFTs and workup for need for ERCP. Remains on IV fluids. LFTs are trending down. Defer to primary 2. Obstructive sleep apnea-CPAP at night. 3. Hypertension blood pressure is acceptable. 4. Transient atrial fibrillation-he's had no recurrence. Keep potassium greater than 4 magnesium greater than 2. Chads vas score is 4 recommendation is for oral anticoagulation with Eliquis once cleared by GI and surgery for any procedures. TSH normal echo ordered Patient is agreeable and understands. 5. Discharge plan-per primary team Recommend Eliquis 5 mg by mouth twice a day once cleared by general surgery. To be initiated by primary team. This was discussed with patient. She would like to establish with cardiology in the [place] area. She will call to arrange follow-up within a month's period of time from discharge. Cardiology will follow up on echocardiogram Cardiology we'll sign off please call with any questions Shital Fernandez APRN.MARCIO Medication and Non-Pharmacologic VTE Prophylaxis/Anticoagulants Anticoagulant AND Antiplatelet Medications (From admission, onward) Start Dose Route Frequency Ordered Stop 05/29/19 1000 aspirin 81 mg chewable tab(s) 81 mg ORAL DAILY 05/29/19933 -- 05/29/19 1000 heparin 5,000 Units injection (Medical Risk Categories) 5,000 Units SUBCUTANEOUS EVERY 12 HOURS 05/29/19933 -- @LP PLINK([id number])@ SIGNATURE: Shital Fernandez APRN.CNP PATIENT NAME: Petra Duncan DATE: May 31, 2019 TIME: 10:39 AM PAGER/CONTACT #: [phone] Iman Manzanares, RN, RN 06/01/2019 9:02 AM Signed [id number] has slight CHILEL and would like acetaminophen. None ordered at this time. [id number] Sent to [place] at 0902 Iman Manzanares, RN, RN 06/01/2019 9:13 AM Addendum GM, Sorry to bother you. There was an edit to [id number]'s EKG on 06/[address] Todd. Are there any needed interventions on my part based on the edit? Iman [id number]V. Aragon at 0913 Previous Version Liya Hutchison PA-C 06/01/2019 3:56 PM Signed GI CONSULT PROGRESS NOTE SERVICE DATE: 06/01/2019 SERVICE TIME: 3:54 PM CONSULTING SERVICE: Gastroenterology Subjective INTERVAL HISTORY: Patient asx from GI standpoint. Tolerating diet. Awaiting MRCP results. MEDICATIONS: Current Facility-Administered Medications Medication Dose Route Frequency - albuterol HFA 90 mcg/actuation 2 Puff (PROVENTIL HFA, VENTOLIN HFA) 2 Puff INHALATION q 6 H PRN - Ipratropium [place] 2 [place] nasal spray (ATROVENT) 2 [place] NASAL q 12 H - aspirin 81 mg chewable tab(s) 81 mg ORAL DAILY - sertraline 50 mg tab(s) (ZOLOFT) 50 mg ORAL DAILY - heparin 5,000 Units injection 5,000 Units SUBCUTANEOUS q 12 H - ondansetron (PF) 4 mg injection (ZOFRAN) 4 mg INTRAVENOUS q 6 H PRN - oxyCODONE IR 5 mg tab(s) (ROXICODONE) 5 mg ORAL q 6 H PRN - piperacillin-tazobactam iv piggyback 3.375 g in dextrose (iso-osmotic) 50 mL (ZOSYN) 3.375 g INTRAVENOUS q 6 H - mometasone 220 mcg/ actuation (14) 1 Puff inhaler (ASMANEX) 1 Puff INHALATION DAILY - perflutren lipid microspheres 1.1 mg/mL 1.3 mL injection (DEFINITY) 1.3 mL INTRAVENOUS DIRECTED PRN Objective PHYSICAL EXAM: Cardiovascular:?S1 and S2 appreciated, RRR, no murmur appreciated Respiratory:?Lungs clear to auscultation bilaterally Abdomen: soft, non-tender, non-distended, normoactive bowel sounds? VITALS:BP 118/74 Pulse 67 Temp 37.1 ?C (98.8 ?F) (Oral) Resp 18 Ht 167.6 cm (5' 6) Wt 79.5 kg (175 lb 3.2 oz) SpO2 95% BMI 28.28 kg/m? ABDOMEN: DATA: Diagnostic tests reviewed for today's visit: Most recent labs and imaging results. CBC, Coags, BMP, Mg, Phos Recent Labs 06/01/19 0546 05/31/19 0430 05/30/19 1312 05/30/19 0750 05/30/19 0518 WBC -- 4.94 -- -- 9.80 HB -- 12.3 -- -- 13.9 HCT -- 37.0 -- -- 43.1 PLT -- 146* -- -- 125* NA 137 138 137 138 138 K 3.9 4.0 4.0 3.6 3.4* CHLOR 108* 110* 107 108* 106 CO2 24 25 25 23 26 BUN 14 15 20* 19* 20* CREAT 0.73 0.76 0.86 0.95 0.96* GLUC 96 92 93 94 104* CA 8.6 8.3* 8.3* 8.5 8.6 MG -- -- -- 2.1 2.1 P -- -- -- -- 2.1* Liver Function, Amylase, AND Lipase Recent Labs 06/01/19 0546 05/31/19 0430 05/30/19 0518 TPROT 5.8* 5.7* 6.1* ALB 2.4* 2.4* 2.6* ALT 145* 176* 286* AST 39* 50* 117* ALKPHOS 263* 273* 310* TBILI 2.6* 4.3* 6.4* Impression/Recommendations 1) Transaminitis: with intra, extra hepatic biliary ductal dilation. LFT's trending down. 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 Normal liver, gallbladder, pancreas. No evidence of cirrhosis. ?- MRCP ordered - pending ?- Acute Hepatitis panel ordered - negative ?- Hep B/Hep C labs ordered - negative ?- LFT's trending dowm ?- Patient may need ERCP for evaluation of CBD obstruction and elevated T bili, will await MRCP results ? 2) N/V: patient denied any recent N/V. ?- Well controlled with Zofran ?- Diet as tolerated ? 3) Diarrhea: has stopped. Patient denied. ?- Monitor BM's SIGNATURE: Liya Hutchison PA-C PATIENT NAME: Petra Duncan DATE: June 01, 2019 TIME: 3:54 PM PAGER/CONTACT #: [phone] Danay Siegel MD, 06/02/2019 10:17 AM Addendum DEPARTMENT OF HOSPITAL MEDICINE PROGRESS NOTE SERVICE DATE: 06/01/2019 SERVICE TIME: 5:22 PM Hospital Medicine/Primary Attending: Danay Siegel MD NIGHT AND WEEKEND COVERAGE: After 7pm please page [phone] CHIEF COMPLAINT: Nausea and emesis SUBJECTIVE: Pt seen and examined. No emesis, but continues to have nausea. OBJECTIVE: PHYSICAL EXAM: BP 118/74 Pulse 67 Temp (Src) 98.8 (Oral) Resp 18 Ht 5' 6 (1.68m) Wt 175 lb 3.2 oz (79.5kg) SpO2 95% BMI 28.29 kg/(m2). O2 Therapy: Room Air General - AANDOx3, NAD, Calm CV - RRR S1 S2, No M/R/G RESP - CTA B/L No wheezes, ronchi, rales ABD - soft, NT, ND +BS EXT - no gross joint deformity, no clubbing, cyanosis, edema NEURO - CN II-XII grossly intact, no focal deficits MEDICATIONS: Current Facility-Administered Medications Medication Dose Route Frequency - albuterol HFA 90 mcg/actuation 2 Puff (PROVENTIL HFA, VENTOLIN HFA) 2 Puff INHALATION q 6 H PRN - Ipratropium [place] 2 [place] nasal spray (ATROVENT) 2 [place] NASAL q 12 H - aspirin 81 mg chewable tab(s) 81 mg ORAL DAILY - sertraline 50 mg tab(s) (ZOLOFT) 50 mg ORAL DAILY - heparin 5,000 Units injection 5,000 Units SUBCUTANEOUS q 12 H - ondansetron (PF) 4 mg injection (ZOFRAN) 4 mg INTRAVENOUS q 6 H PRN - oxyCODONE IR 5 mg tab(s) (ROXICODONE) 5 mg ORAL q 6 H PRN - piperacillin-tazobactam iv piggyback 3.375 g in dextrose (iso-osmotic) 50 mL (ZOSYN) 3.375 g INTRAVENOUS q 6 H - mometasone 220 mcg/ actuation (14) 1 Puff inhaler (ASMANEX) 1 Puff INHALATION DAILY - perflutren lipid microspheres 1.1 mg/mL 1.3 mL injection (DEFINITY) 1.3 mL INTRAVENOUS DIRECTED PRN DATA: Diagnostic tests reviewed for today's visit: CBC: No results for input(s): WBC, RBC, HB, HCT, PLT, MCV, MCH, MPV, RDW in the last 24 hours. Coags: No results for input(s): INR, APTT in the last 24 hours. Invalid input(s): PT BMP: Recent Labs 06/01/19 0546 NA 137 K 3.9 CHLOR 108* CO2 24 BUN 14 CREAT 0.73 GLUC 96 CMP: Recent Labs 06/01/19 0546 NA 137 K 3.9 CHLOR 108* CO2 24 BUN 14 CREAT 0.73 GLUC 96 TPROT 5.8* CA 8.6 TBILI 2.6* ALKPHOS 263* ALT 145* AST 39* ANION 9 Cardiac Enzymes: No results for input(s): CK, MB, CKMB, TROPT in the last 24 hours. Liver Function, Amylase, Lipase: Recent Labs 06/01/19 0546 TPROT 5.8* ALB 2.4* ALT 145* AST 39* ALKPHOS 263* TBILI 2.6* MG/PHOS: No results for input(s): MG, P in the last 24 hours. Renal Panel: Recent Labs 06/01/19 0546 CREAT 0.73 BUN 14 GLUC 96 CA 8.6 CHLOR 108* K 3.9 CO2 24 NA 137 Heme: No results for input(s): RETICP, ABSRETIC, LD, REJI, FE, TIBC, TRANSFERSAT in the last 24 hours. 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 May need ERCP based on that -LFTs slightly down - on zosyn #new onset a fibrillation , paroxysmal - back in NSR - Echo pending -eliquis prior to discharge #HTN Lisinopril on hold due to low SBP. Resume if BP goes up . Medication and Non-Pharmacologic VTE Prophylaxis/Anticoagulants Anticoagulant AND Antiplatelet Medications (From admission, onward) Start Dose Route Frequency Ordered Stop 05/29/19 1000 aspirin 81 mg chewable tab(s) 81 mg ORAL DAILY 05/29/19 0934 -- 05/29/19 1000 heparin 5,000 Units injection (Medical Risk Categories) 5,000 Units SUBCUTANEOUS EVERY 12 HOURS 05/29/19 0934 -- 05/29/19 0945 pneumatic compression stockings ([place]) 05/29/19 0945 activity - mobilize patient ([place]) Lines, Drains, and Airways Line Peripheral 05/29/19 1527 Right Antecubital 22 Gauge 3 days VTE Prophylaxis: Heparin 5000 units Sub Q BID Disposition: Home Functional Status Prior to Admit: Medical Necessity for Continued Hospitalization mrcp /may need ercp Plan of care discussed with: Provider, RN, Patient SIGNATURE: Danay Siegel MD PATIENT NAME: Petra Duncan DATE: June 01, 2019 TIME: 5:22 PM PAGER/CONTACT #: Team color pager Previous Version Liya Hutcihson PA-C 06/02/2019 9:55 AM Signed MRCP 05/31 Results: Multiple small stones within the common bile duct. ?The common bile duct measures upper limits of normal in size. ?No intrahepatic bile duct dilatation. Multiple too numerous to count less than 5 mm stones within a distended gallbladder. ?The gallbladder wall is not thickened and there is no surrounding edema. 2.2 cm lesion medial upper pole of the right kidney of unclear etiology. ? A solid mass is a consideration and further evaluation with ultrasound and/or pre and postcontrast CT scan is recommended. ?(The patient did have outside CT scan dated 05/28/2019 which is most concerning for solid lesion such as renal cell carcinoma.) 2 lesions noted in the liver. ?These are of unclear etiology. ?Findings on the outside CT scan are inconclusive. ?The lesion in the left lobe of the liver most likely represents a hemangioma. ?The lesion in the dome of the right lobe of the liver is nonspecific. Trace right-sided pleural effusion. Spoke with patient today and discussed results of MRCP. Also talked with patient about ERCP, explained the procedure, went over risks/benefits. Patient showed verbal understanding and she agreed to have ERCP done. ERCP ordered, will be today, time TBD. Dr. Castillo will be the advanced endoscopist performing procedure. He is aware of the plan. Liya Hutchison PA-C Gastroenterology Sophia Reid RN, RN 06/02/2019 12:06 PM Signed Attempted to call back to [facility] for report, hold for 5 min will attempt to call back prior to patient being picked up Danielito Porter MD 06/02/2019 2:42 PM Signed ANESTHESIOLOGY DAY OF SURGERY NOTE SERVICE DATE: 06/02/2019 SERVICE TIME: 2:40 PM : 1945 Procedure(s) (LRB): ERCP (Left) Surgeon(s): Rikki Castillo Estimated body mass index is 28.28 kg/m? as calculated from the following: Height as of this encounter: 167.6 cm (5' 6). Weight as of this encounter: 79.5 kg (175 lb 3.2 oz). Most recent hematocrit and potassium results: Hematocrit 37.0 05/31/2019 Potassium 3.9 06/01/2019 ANES DOS/PREOP NOTE: Vitals: 06/01/19 0736 06/01/19 1107 06/01/19 1900 06/02/19 0700 BP: 107/53 118/74 125/63 97/77 Pulse: 66 67 72 72 Resp: 18 18 18 18 Temp: 37.2 ?C (99 ?F) 37.1 ?C (98.8 ?F) 37.2 ?C (99 ?F) 37.1 ?C (98.8 ?F) TempSrc: Oral Oral Oral Oral SpO2: 93% 95% 92% 92% Weight: Height: ACTIVE PROBLEM LIST Biliary Obstruction PAST MEDICAL HISTORY Diagnosis Date - Asthma - HTN (hypertension) PAST SURGICAL HISTORY Procedure Laterality Date - HYSTERECTOMY FAMILY HISTORY Problem Relation Age of Onset - Heart disease Father Social History: Social History Tobacco Use - Smoking status: Never Smoker - Smokeless tobacco: Never Used Substance Use Topics - Alcohol use: Not on file Comment: Occasionally - Drug use: Not on file No current facility-administered medications on file prior to encounter. Current Outpatient Medications on File Prior to Encounter Medication Sig - aspirin 81 mg chewable tablet Take 81 mg by mouth once daily. - mometasone 100 mcg/actuation HFAA Inhale 100 mcg as instructed twice daily. - albuterol HFA (PROVENTIL HFA, VENTOLIN HFA) 90 mcg/actuation inhaler Inhale 2 Puffs as instructed. - LISINOPRIL-HYDROCHLOROTHIA ZIDE ORAL Take 10 mg by mouth once daily. 10/12.5 mg - sertraline (ZOLOFT) 50 mg ORAL tablet Take 50 mg by mouth once daily. - predniSONE (DELTASONE) 20 mg tablet Take 2 tablets by mouth once daily. - Ipratropium Marshall (ATROVENT) 0.03 % nasal spray Use 2 Sprays in the nose every 12 hours. - betamethasone dipropionate 0.05 % cream Apply 1 application to affected area twice daily. - NAPROXEN ORAL Take by mouth. Current Facility-Administered Medications Medication Dose Route Frequency Provider Last Rate Last Dose - [MAR Hold due to Transfer] perflutren lipid microspheres 1.1 mg/mL 1.3 mL injection (DEFINITY) 1.3 mL INTRAVENOUS DIRECTED PRN Chalino Francisco - [MAR Hold due to Transfer] albuterol HFA 90 mcg/actuation 2 Puff (PROVENTIL HFA, VENTOLIN HFA) 2 Puff INHALATION q 6 H PRN Navid Ric - [MAR Hold due to Transfer] Ipratropium [place] 2 [place] nasal spray (ATROVENT) 2 [place] NASAL q 12 H Navid Ric 2 [place] at 06/02/19 0900 - [MAR Hold due to Transfer] aspirin 81 mg chewable tab(s) 81 mg ORAL DAILY Navid Ric 81 mg at 06/01/19 0854 - [MAR Hold due to Transfer] sertraline 50 mg tab(s) (ZOLOFT) 50 mg ORAL DAILY Navid Ric 50 mg at 06/02/19 0900 - [MAR Hold due to Transfer] heparin 5,000 Units injection 5,000 Units SUBCUTANEOUS q 12 H Navid Ric 5,000 Units at 06/01/192007 - [MAR Hold due to Transfer] ondansetron (PF) 4 mg injection (ZOFRAN) 4 mg INTRAVENOUS q 6 H PRN Navid Ric 4 mg at 06/01/192007 - [MAR Hold due to Transfer] oxyCODONE IR 5 mg tab(s) (ROXICODONE) 5 mg ORAL q 6 H PRN Navid Ric 5 mg at 05/30/19 0523 - [MAR Hold due to Transfer] piperacillin-tazobactam iv piggyback 3.375 g in dextrose (iso-osmotic) 50 mL (ZOSYN) 3.375 g INTRAVENOUS q 6 H Navid Ric 100 mL/hr at 06/02/19 0512 3.375 g at 06/02/19 0512 - [MAR Hold due to Transfer] mometasone 220 mcg/ actuation (14) 1 Puff inhaler (ASMANEX) 1 Puff INHALATION DAILY Navid Ric 1 Puff at 06/02/19 0900 Allergies: ALLERGIES No Known Allergies DOS EXAM: Adequate NPO status: Yes Anesthetic risks, benefits, alternatives, personnel and consent discussed: Yes Patient agrees to proceed: Yes Previous Anesthesia: No history of adverse event. Airway Assessment: MP 2; Neck ROM: Full ROM without neurologic symptoms; Airway Evaluation: No significant abnormalities Symptoms of Sleep Apnea: Hypertension and Age over 50 (74 year old) Dentition: Dentures: both Additional Physical Exam: Lungs: Patient health status unchanged since recent history and physical. See history and physical for exam findings. Cardiac: Patient health status unchanged since recent history and physical. See history and physical for exam findings. Additional Pertinent Findings: N/A Blood Products: Not anticipated for this procedure. Anesthetic Plan: General, Standard ASA Monitors Pain Management Plan: Parenteral or Oral ASA Class: 3 Other Medical Problems: HTN, Asthma, Gallstone obstructive jaundice, New onset afib - paroxysmal, now in NSR Chronic Beta Nannette medication administered within 24 hours: N/A I have interviewed and examined the patient. I have reviewed the medical record and/or the pre-anesthesia evaluation, pertinent labs, and test results. Significant changes in the patient's condition since the History and Physical, not otherwise documented in primary service progress notes: No This contains updated information obtained within 48 hours of Surgery/Procedure. SIGNATURE: Danielito Porter MD PATIENT NAME: Petra Duncan DATE: June 02, 2019 TIME: 2:40 PM CSN: [id number] Rikki Castillo MD MPH [facility] 06/02/2019 5:37 PM Signed OPERATIVE/PROCEDURE REPORT LOG ID: [id number] Surgery/Procedure Date: 06/02/2019 Incision/Procedure Start Time: 3:52 PM Incision Close/Procedure End Time: 4:21 PM Surgeon(s)/Proceduralist(s ) and Server Administrator(s): Surgeon(s) and Role: * Rikki Castillo - Primary No Additional Staff Procedure(s): Endoscopic Retrograde Cholangiopancreatography (ERCP) with sphincterotomy, cholangiogram, stent placement Anesthesia: General Brief History: 74F who p/w 5 day hx of epigastric pain and nausea. Did have jaundice initially but no fever or weight loss. CT showed mild IHBD dilation and MRCP confirmed multiple stones in CBD. Tbili peaked at 6.5 and lipase never tested. The risks, benefits and alternatives of the procedure were explained to the patient/responsible accompanying adult. This includes, but is not limited to, bleeding and infection. The risk of perforation is 1:1000 and the risk of post-procedural pancreatitis is 3-5%. There is also a small risk of allergic reaction(s) due to sedatives, need for hospitalization, need for transfusions and need for surgery. The patient understands this and is amenable to proceeding. Procedure Details: The patient was placed in the prone position on the fluoroscopy table. A bite block was placed and medications administered as above. The Olympus side-viewing duodenoscope was introduced into the oropharynx and we intubated the esophagus with ease. We proceeded down to the second part of the duodenum. The could not be found initially due to a large 3cm duodenal diverticulum on the medial wall. The ampulla was eventually located at the 7 o'clock position but at least 1cm inside the diverticulum. It could only be seen by placing the scope inside the tic itself. We were able to easily obtain access to the common bile duct (CBD) using a short-wire Dreamtome and wire-guided cannulation. Contrast injection confirmed placement fluoroscopically. I personally interpreted all fluoroscopy images. A generous sphincterotomy was performed and no immediate complications were noted. The CBD was dilated to 14mm. We then used a 12/15mm extraction balloon to sweep the CBD. A small amount of sludge but no stones were seen. Due to the difficult position of the ampulla within the diverticulum, and because of the need for likely surgery, we elected to place a stent to allow for ongoing drainage. A 10F, 7cm plastic stent was deployed in good position. The scope was then withdrawn and the patient tolerated the procedure well. 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 I/primary surgeon/proceduralist performed the entire procedure. Rikki Castillo MD MPH [facility] SIGNATURE: Rikki Castillo MD MPH [facility] PATIENT NAME: Petra Duncan DATE: June 02, 2019 TIME: 5:32 PM PAGER/CONTACT #: [phone] Danay Siegel MD, MD 06/02/2019 7:23 PM Signed DEPARTMENT OF HOSPITAL MEDICINE PROGRESS NOTE SERVICE DATE: 06/02/2019 SERVICE TIME: 8:21 AM Hospital Medicine/Primary Attending: Danay Siegel MD NIGHT AND WEEKEND COVERAGE: After 7pm please page [phone] CHIEF COMPLAINT: jaundice SUBJECTIVE: Pt seen and examined. Awaiting ERCP later today. OBJECTIVE: PHYSICAL EXAM: BP 127/65 Pulse 69 Temp (Src) 97.9 (Oral) Resp 20 Ht 5' 6 (1.68m) Wt 175 lb 3.2 oz (79.5kg) SpO2 92% BMI 28.29 kg/(m2). O2 Therapy: Room Air, Liters: 3 General - AANDOx3, NAD, Calm CV - RRR S1 S2, No M/R/G RESP - CTA B/L No wheezes, ronchi, rales ABD - soft, NT, ND +BS EXT - no gross joint deformity, no clubbing, cyanosis, edema NEURO - CN II-XII grossly intact, no focal deficits MEDICATIONS: Current Facility-Administered Medications Medication Dose Route Frequency - albuterol HFA 90 mcg/actuation 2 Puff (PROVENTIL HFA, VENTOLIN HFA) 2 Puff INHALATION q 6 H PRN - Ipratropium [place] 2 [place] nasal spray (ATROVENT) 2 [place] NASAL q 12 H - aspirin 81 mg chewable tab(s) 81 mg ORAL DAILY - sertraline 50 mg tab(s) (ZOLOFT) 50 mg ORAL DAILY - heparin 5,000 Units injection 5,000 Units SUBCUTANEOUS q 12 H - ondansetron (PF) 4 mg injection (ZOFRAN) 4 mg INTRAVENOUS q 6 H PRN - oxyCODONE IR 5 mg tab(s) (ROXICODONE) 5 mg ORAL q 6 H PRN - piperacillin-tazobactam iv piggyback 3.375 g in dextrose (iso-osmotic) 50 mL (ZOSYN) 3.375 g INTRAVENOUS q 6 H - mometasone 220 mcg/ actuation (14) 1 Puff inhaler (ASMANEX) 1 Puff INHALATION DAILY - perflutren lipid microspheres 1.1 mg/mL 1.3 mL injection (DEFINITY) 1.3 mL INTRAVENOUS DIRECTED PRN DATA: Diagnostic tests reviewed for today's visit: CBC: No results for input(s): WBC, RBC, HB, HCT, PLT, MCV, MCH, MPV, RDW in the last 24 hours. Coags: No results for input(s): INR, APTT in the last 24 hours. Invalid input(s): PT BMP: No results for input(s): NA, K, CHLOR, CO2, BUN, CREAT, GLUC in the last 24 hours. CMP: No results for input(s): NA, K, CHLOR, CO2, BUN, CREAT, GLUC, TPROT, CA, MG, ALBUMIN, TBILI, ALKPHOS, ALT, AST, ANION in the last 24 hours. Cardiac Enzymes: No results for input(s): CK, MB, CKMB, TROPT in the last 24 hours. Liver Function, Amylase, Lipase: No results for input(s): TPROT, ALB, ALT, AST, ALKPHOS, TBILI, AMYLASE, LIPASE, LACTATE in the last 24 hours. MG/PHOS: No results for input(s): MG, P in the last 24 hours. Renal Panel: No results for input(s): ALBUMIN, CREAT, BUN, GLUC, CA, P, CHLOR, K, CO2, NA in the last 24 hours. Heme: No results for input(s): RETICP, ABSRETIC, LD, REJI, FE, TIBC, TRANSFERSAT in the last 24 hours. 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 ? #new onset a fibrillation , paroxysmal - back in NSR - Echo pending -eliquis prior to discharge ? #HTN Lisinopril on hold due to low SBP. Resume if BP goes up . # INcidental lesion in right upper pole kidney - will need further evaluation - discuss with patient and PCP reg follow up ? Medication and Non-Pharmacologic VTE Prophylaxis/Anticoagulants Anticoagulant AND Antiplatelet Medications (From admission, onward) Start Dose Route Frequency Ordered Stop 05/29/19 1000 aspirin 81 mg chewable tab(s) 81 mg ORAL DAILY 05/29/19 0934 -- 05/29/19 1000 heparin 5,000 Units injection (Medical Risk Categories) 5,000 Units SUBCUTANEOUS EVERY 12 HOURS 05/29/19 0934 -- 05/29/19 0945 pneumatic compression stockings ([place], [place]) 05/29/19 0945 activity - mobilize patient ([place]) Lines, Drains, and Airways Line Peripheral 05/29/19 1527 Right Antecubital 22 Gauge 4 days Peripheral 06/02/19 1538 Left Hand 20 Gauge less than 1 day VTE Prophylaxis: Heparin 5000 units Sub Q BID Disposition: Home Functional Status Prior to Admit: Medical Necessity for Continued Hospitalization Plan of care discussed with: Provider, RN, Patient SIGNATURE: Danay Siegel MD PATIENT NAME: Petra Duncan DATE: June 02, 2019 TIME: 7:21 PM PAGER/CONTACT #: Team color pager Moses Barahona MD 06/02/2019 11:41 PM Signed POST ANESTHESIA EVALUATION NOTE SERVICE DATE: 06/02/2019 SERVICE TIME: 2340 : 1945 Vitals: 06/02/19 1457 06/02/19 1654 06/02/19 1729 06/02/191810 Temp: 36.3 ?C (97.3 ?F) 36.6 ?C (97.9 ?F) 36.4 ?C (97.5 ?F) 36.6 ?C (97.9 ?F) 06/02/19 17206/02/19 1730 06/02/19 1745 06/02/19 181 BP: 113/74 118/72 125/70 127/65 06/02/19 1730 06/02/19 1745 06/02/19 1800 06/02/19 181 Pulse: 66 67 71 69 06/02/19 1730 06/02/19 1745 06/02/19 1800 06/02/19 181 Resp: 13 12 15 20 06/02/19 1730 06/02/19 1745 06/02/19 1800 06/02/19 181 SpO2: 96% 96% 97% 92% Validated Vital Signs: Yes POST ANES STATUS: No apparent anesthetic complications. The patient is appropriately hydrated with stable respiratory and cardiovascular status. Patient has safe and adequate airway control. The patient has appropriate pain relief and no significant post operative nausea or vomiting. The patient has achieved baseline mental status. Intra-Operative Events: No Significant Anesthesia Events Further assessment by Anesthesia Service: None Other Remarks: Per report, pt met criteria for discharge from PACU SIGNATURE: Moses Barahona MD PATIENT NAME: Petra Duncan DATE: June 02, 2019 TIME: 11:41 PM PAGER/CONTACT #: Minerva Burton MD, 06/03/2019 12:48 AM Cosign Needed HISTORY AND PHYSICAL EXAMINATION / CONSULTATION NOTE SERVICE DATE: 06/03/2019 SERVICE TIME: 12:43 AM PRIMARY CARE PHYSICIAN: Nabila Paris MD Subjective CHIEF COMPLAINT: Abdominal pain, N/V HPI: This is a 74 year old female who presented to the hospital with abdominal pain, nausea, and vomiting for several days. She was found to have transaminitis and CT abdomen and pelvis showed mild intra-and extrahepatic biliary ductal dilation with duodenal diverticulum which maybe impinging on biliary duct. MRCP was significant for: multiple small stones within the common bile duct. The common bile duct measures upper limits of normal in size. ?No intrahepatic bile duct Dilatation. Multiple too numerous to count less than 5 mm stones within a distended gallbladder. ?The gallbladder wall is not thickened and there is no surrounding edema. ERCP was performed by doctor Castillo 06/02 and general surgery consulted for laparoscopic cholecystectomy. Pt states she is feeling significantly better after the ERCP and is eating dinner on examination. She would like to proceed with the cholecystectomy as soon as possible so that she can get home. Last admit - none FUNCTIONAL STATUS: Independent PAST MEDICAL HISTORY Diagnosis Date - Asthma - HTN (hypertension) PAST SURGICAL HISTORY Procedure Laterality Date - HYSTERECTOMY FAMILY HISTORY Problem Relation Age of Onset - Heart disease Father Social History Tobacco Use - Smoking status: Never Smoker - Smokeless tobacco: Never Used Substance Use Topics - Alcohol use: Not on file Comment: Occasionally - Drug use: Not on file aspirin 81 mg chewable tablet, Take 81 mg by mouth once daily., Disp: , Rfl: mometasone 100 mcg/actuation HFAA, Inhale 100 mcg as instructed twice daily., Disp: , Rfl: albuterol HFA (PROVENTIL HFA, VENTOLIN HFA) 90 mcg/actuation inhaler, Inhale 2 Puffs as instructed., Disp: , Rfl: LISINOPRIL-HYDROCHLOROTHIA ZIDE ORAL, Take 10 mg by mouth once daily. 10/12.5 mg , Disp: , Rfl: sertraline (ZOLOFT) 50 mg ORAL tablet, Take 50 mg by mouth once daily., Disp: , Rfl: predniSONE (DELTASONE) 20 mg tablet, Take 2 tablets by mouth once daily., Disp: 6 tablet, Rfl: 0 Ipratropium Marshall (ATROVENT) 0.03 % nasal spray, Use 2 Sprays in the nose every 12 hours., Disp: , Rfl: betamethasone dipropionate 0.05 % cream, Apply 1 application to affected area twice daily., Disp: 30 g, Rfl: 0 NAPROXEN ORAL, Take by mouth., Disp: , Rfl: ALLERGIES No Known Allergies COMPLETE REVIEW OF SYSTEMS: See HPI Objective PHYSICAL EXAM: GENERAL: Alert, no distress, cooperative SKIN: Skin color, texture, turgor normal. No rashes or lesions. LUNGS: Unlabored breathing on O2 Therapy: Room Air on Liters: 3 sating at SpO2: 92 % CARDIAC: Regular rate and rhythm as above, ABDOMEN: Benign, Soft, non-tender, No masses, hepatosplenomegaly and No lymphadenopathy EXTREMITIES: ROM of all joint grossly normal: strength grossly normal bilaterally. No deformities noted. BP 127/65 Pulse 69 Temp (Src) 97.9 (Oral) Resp 20 Ht 5' 6 (1.68m) Wt 175 lb 3.2 oz (79.5kg) SpO2 92% BMI 28.29 kg/(m2). O2 Therapy: Room Air, Liters: 3 Temp (24hrs), Av.6 ?C (97.9 ?F), Min:36.3 ?C (97.3 ?F), Max:37.1 ?C (98.8 ?F) Body mass index is 28.28 kg/m?. DATA: Diagnostic tests reviewed for today's visit: Recent Results (from the past 48 hour(s)) COMPREHENSIVE METABOLIC PANEL (AK,AV,EU,FV,HL,MARK,MM,SP) Collection Time: 06/01/19 5:46 AM Result Value Ref Range Sodium 137 136 - 145 mEq/L Potassium 3.9 3.5 - 5.1 mEq/L Chloride 108 (H) 98 - 107 mEq/L CO2 24 21 - 32 mEq/L Glucose 96 70 - 99 mg/dL BUN 14 7 - 18 mg/dL Creatinine 0.73 0.51 - 0.95 mg/dL Calcium 8.6 8.5 - 10.1 mg/dL Albumin 2.4 (L) 3.4 - 5.0 g/dL Protein, Total 5.8 (L) 6.4 - 8.2 g/dL AST 39 (H) 15 - 37 U/L ALT 145 (H) 12 - 78 U/L Alkaline Phosphatase 263 (H) 45 - 117 U/L Bilirubin, Total 2.6 (H) 0.2 - 1.0 mg/dL Anion Gap 9 8 - 16 MDRD GFR Collection Time: 06/01/19 5:46 AM Result Value Ref Range eGFR >60 >60mL/min/1.73m2 ECHO Collection Time: 06/02/19 7:58 AM Result Value Ref Range Thermodynamicist Echocardiography Report: Transthoracic Echo [facility] Date of service: 06/02/2019 7:58:00 AM Ordering physician: CHALINO FRANCISCO Indication: Nonsustained atrial fibrillation Technologist: Sahara Cruz Interpreting physician: Kam Gibbs MD PATIENT: Name: PETRA DUNCAN : 1945 Age: 74 years Gender: F History of hypertension. Primary rhythm: sinus. Height: 167.60 cm BSA: 1.92 m? Weight: 79.47 kg BMI: 28.3 kg/m? Heart rate 63 bpm Blood pressure 97/77 mmHg Color Doppler was utilized to interrogate the cardiac valves assessed and spectral Doppler was utilized to determine the flow velocities and pressure gradients reported in this exam. Myocardial strain analysis was performed in this exam to aid in the assessment of cardiac function. MEASUREMENTS: Value Indexed Normal Max aortic dimension 3.1 cm Ao < 3.8 Left atrium diameter 3.3 cm (M-Mode) Left atrial volume 59 ml (biplane A-L) 31 ml/m? Sona <= 34 LV ID (diastole) 4.6 cm (2D) 2.41 cm/m? LV ID (systole) 2.5 cm (2D) 1.30 cm/m? IVS, leaflet tips 0.8 cm (2D) Posterior wall thickness 0.7 cm (2D) Left ventricular mass 113 g (2D) 59 g/m? Global peak long strain -19.3 % LV stroke volume 36 ml (2D biplane) LV end diastolic volume 59 ml (2D biplane) 30.6 ml/m? 29<=EDVi<62 LV end systolic volume 23 ml (2D biplane) 11.8 ml/m? Ejection Fraction 61 % (2D biplane) EF > 54 FINDINGS: LEFT VENTRICLE The left ventricle is normal in size. There is no left ventricular hypertrophy. Left ventricular systolic function is normal. Global LV myocardial strain is normal. Normal left ventricular diastolic function. Mitral annular lateral E/e': 7.9. Mitral annular septal E/e': 7.9. Wall Motion: All scored segments are n ormal. RIGHT VENTRICLE The right ventricle is normal in size. Right ventricular systolic function is normal. RV systolic tissue Doppler velocity is 11.0 cm/s. Tricuspid annular displacement is 3.0 cm. Estimated right ventricular systolic pressure is 32 mmHg consistent with normal pulmonary artery pressures. Estimated right atrial pressure is 8 mmHg based on IVC assessment. LEFT ATRIUM The left atrial cavity is normal in size. RIGHT ATRIUM The right atrial cavity is normal in size. Inferior Vena Cava: The inferior vena cava appears dilated measuring 2.2 cm. The vessel decreases greater than 50 percent with inspiration. MITRAL VALVE There is mild mitral annular calcification observed posterior. There is trace mitral valve regurgitation. There is mild calcification. The pressure half time is 51 msec. The peak mitral E/A ratio is 1.16. The average mitral E/e' ratio is 7.9. The mitral flow deceleration time is 174 msec. TRICUSPID VALVE The t ricuspid valve leaflets are structurally normal. There is trace (trace - 1+) tricuspid valve regurgitation. AORTIC VALVE There is no aortic valve stenosis. There is no aortic valve regurgitation. Tricuspid aortic valve. There is mild thickening. There is mild calcification. The LVOT diameter is 2.0 cm. PULMONIC VALVE The pulmonic valve cusps are structurally normal. There is trace pulmonic valve regurgitation. AORTA The visualized aorta is normal in size. Measurements - Sinus: 2.8 cm. Mid ascending aorta 3.1 cm. PULMONARY ARTERIES The pulmonary arteries are unseen or not interrogated. PERICARDIUM There is no pericardial effusion. CONCLUSIONS: - Exam indication: Nonsustained atrial fibrillation - The left ventricle is normal in size. There is no left ventricular hypertrophy. Left ventricular systolic function is normal. EF = 61 ? 5% (2D biplane) Normal left ventricular diastolic function. - The right ventricle is normal in size. Right ventricu lar systolic function is normal. - No significant valve disease. - The patient has not had a prior CC echocardiographic exam for comparison. Final Narrative See Link below for Image LVEF ECHO Collection Time: 06/02/19 7:58 AM Result Value Ref Range LV Ejection Fraction 61 % ] Assessment/Plan This is a 74 year old female who presents with choledocholithiasis s/p ERCP 06/02. - Med mgmt per primary - Plan for lap isadora at midnight - Pt currently on zosyn - NPO at midnight - Consent on chart Staff Surgeon: Dr. Metzger Emergency General Surgery Service Pager: For questions or concerns Mon-Fri 6a-5p please page [phone]. After 5pm and on Weekends and Holidays, please page [phone] if in ICU or [phone] if on RNF. 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; Small amount of CBD sludge but no stones seen - No abdominal pain this morning- lipase WNL - LFTs and Bilirubin trending down - NPO for lap isadora today per surgery MEDICATIONS: Current Facility-Administered Medications Medication Dose Route Frequency - albuterol HFA 90 mcg/actuation 2 Puff (PROVENTIL HFA, VENTOLIN HFA) 2 Puff INHALATION q 6 H PRN - Ipratropium Marshall 2 [place] nasal spray (ATROVENT) 2 [place] NASAL q 12 H - sertraline 50 mg tab(s) (ZOLOFT) 50 mg ORAL DAILY - heparin 5,000 Units injection 5,000 Units SUBCUTANEOUS q 12 H - ondansetron (PF) 4 mg injection (ZOFRAN) 4 mg INTRAVENOUS q 6 H PRN - oxyCODONE IR 5 mg tab(s) (ROXICODONE) 5 mg ORAL q 6 H PRN - piperacillin-tazobactam iv piggyback 3.375 g in dextrose (iso-osmotic) 50 mL (ZOSYN) 3.375 g INTRAVENOUS q 6 H - mometasone 220 mcg/ actuation (14) 1 Puff inhaler (ASMANEX) 1 Puff INHALATION DAILY - perflutren lipid microspheres 1.1 mg/mL 1.3 mL injection (DEFINITY) 1.3 mL INTRAVENOUS DIRECTED PRN Objective PHYSICAL EXAM: VITALS:BP 106/53 Pulse 68 Temp 36.8 ?C (98.2 ?F) (Oral) Resp 18 Ht 167.6 cm (5' 6) Wt 79.5 kg (175 lb 3.2 oz) SpO2 93% BMI 28.28 kg/m? ABDOMEN: soft, non-tender, non-distended, normoactive bowel sounds DATA: Diagnostic tests reviewed for today's visit: Most recent labs and imaging results. Impression/Recommendations 1. Transaminitis: with intra, extra hepatic biliary ductal dilation - 1-Day s/p ERCP with 10 F, 7cm plastic stent in CBD - Will need repeat ERCP for stent removal in 6-weeks --- Will need to schedule at time of discharge - Patient to have lap cholecystectomy today with general surgery Thank you for allowing us to participate in the care of this patient SIGNATURE: Jamison Graff PA-C PATIENT NAME: Petra Duncan DATE: June 03, 2019 TIME: 10:28 AM PAGER/CONTACT #: [phone] Previous Version Danay Siegel MD, MD 06/03/2019 6:30 PM Signed DEPARTMENT OF HOSPITAL MEDICINE PROGRESS NOTE SERVICE DATE: 06/03/2019 SERVICE TIME: 8:26 AM Hospital Medicine/Primary Attending: Danay Siegel MD NIGHT AND WEEKEND COVERAGE: After 7pm please page [phone] CHIEF COMPLAINT: Abdominal pain SUBJECTIVE: Pt seen and examined. S/p ercp yesterday, no abdominal pain - nausea or emesis. Tolerated diet following procedure but, npo again for cholecystectomy today OBJECTIVE: PHYSICAL EXAM: BP 105/66 Pulse 75 Temp (Src) 98.6 (Oral) Resp 14 Ht 5' 6 (1.68m) Wt 175 lb 3.2 oz (79.5kg) SpO2 95% BMI 28.29 kg/(m2). O2 Therapy: Room Air General - AANDOx3, NAD, Calm CV - RRR S1 S2, No M/R/G RESP - CTA B/L No wheezes, ronchi, rales ABD - soft, NT, ND +BS EXT - no gross joint deformity, no clubbing, cyanosis, edema NEURO - CN II-XII grossly intact, no focal deficits MEDICATIONS: Current Facility-Administered Medications Medication Dose Route Frequency - [MAR Hold due to Transfer] albuterol HFA 90 mcg/actuation 2 Puff (PROVENTIL HFA, VENTOLIN HFA) 2 Puff INHALATION q 6 H PRN - [MAR Hold due to Transfer] Ipratropium [place] 2 [place] nasal spray (ATROVENT) 2 [place] NASAL q 12 H - [MAR Hold due to Transfer] sertraline 50 mg tab(s) (ZOLOFT) 50 mg ORAL DAILY - [MAR Hold due to Transfer] heparin 5,000 Units injection 5,000 Units SUBCUTANEOUS q 12 H - [MAR Hold due to Transfer] ondansetron (PF) 4 mg injection (ZOFRAN) 4 mg INTRAVENOUS q 6 H PRN - [MAR Hold due to Transfer] oxyCODONE IR 5 mg tab(s) (ROXICODONE) 5 mg ORAL q 6 H PRN - [MAR Hold due to Transfer] piperacillin-tazobactam iv piggyback 3.375 g in dextrose (iso-osmotic) 50 mL (ZOSYN) 3.375 g INTRAVENOUS q 6 H - [MAR Hold due to Transfer] mometasone 220 mcg/ actuation (14) 1 Puff inhaler (ASMANEX) 1 Puff INHALATION DAILY - [MAR Hold due to Transfer] perflutren lipid microspheres 1.1 mg/mL 1.3 mL injection (DEFINITY) 1.3 mL INTRAVENOUS DIRECTED PRN DATA: Diagnostic tests reviewed for today's visit: CBC: No results for input(s): WBC, RBC, HB, HCT, PLT, MCV, MCH, MPV, RDW in the last 24 hours. Coags: No results for input(s): INR, APTT in the last 24 hours. Invalid input(s): PT BMP: Recent Labs 06/03/19 0346 NA 140 K 3.9 CHLOR 107 CO2 27 BUN 12 CREAT 0.70 GLUC 101* CMP: Recent Labs 06/03/19 0346 NA 140 K 3.9 CHLOR 107 CO2 27 BUN 12 CREAT 0.70 GLUC 101* TPROT 5.6* CA 8.7 TBILI 1.3* ALKPHOS 253* ALT 113* AST 32 ANION 10 Cardiac Enzymes: No results for input(s): CK, MB, CKMB, TROPT in the last 24 hours. Liver Function, Amylase, Lipase: Recent Labs 06/03/19 0346 TPROT 5.6* ALB 2.4* ALT 113* AST 32 ALKPHOS 253* TBILI 1.3* LIPASE 80 MG/PHOS: No results for input(s): MG, P in the last 24 hours. Renal Panel: Recent Labs 06/03/19 0346 CREAT 0.70 BUN 12 GLUC 101* CA 8.7 CHLOR 107 K 3.9 CO2 27 NA 140 Heme: No results for input(s): RETICP, ABSRETIC, LD, REJI, FE, TIBC, TRANSFERSAT in the last 24 hours. 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 ? ? #new onset a fibrillation , paroxysmal - back in NSR - Echo pending -eliquis prior to discharge? ? #HTN Lisinopril on hold due to low SBP. SBP < 110 off of lisinopril # INcidental lesion in right upper pole kidney , concerning for renal cell carcinoma - will need further evaluation - discussed with patient reg follow up ? Medication and Non-Pharmacologic VTE Prophylaxis/Anticoagulants Anticoagulant AND Antiplatelet Medications (From admission, onward) Start Dose Route Frequency Ordered Stop 05/29/19 1000 [MAR Hold due to Transfer] heparin 5,000 Units injection (Medical Risk Categories) (MAR Hold due to Transfer since Thu06/03/2019 at 1519. Reason: Hold Unreviewed Transfer Orders.) 5,000 Units SUBCUTANEOUS EVERY 12 HOURS 05/29/19 0934 -- 05/29/19 0945 pneumatic compression stockings ([place]) 05/29/19 0945 activity - mobilize patient ([place], [place]) Lines, Drains, and Airways Line Peripheral 06/02/19 1538 Left Hand 20 Gauge 1 day VTE Prophylaxis: Other - held for isadora tomorrow Disposition: Home Functional Status Prior to Admit: Medical Necessity for Continued Hospitalization Plan of care discussed with: Provider, RN, Patient SIGNATURE: Danay Siegel MD PATIENT NAME: Petra Duncan DATE: June 03, 2019 TIME: 6:26 PM PAGER/CONTACT #: Team color pager Danay Siegel MD, MD 06/03/2019 7:43 PM Signed Discussed with patient about the lesion in kidney, patient understands she will need outpatient evaluation through her pcp. Will order renal ultrasound. Mk Muñoz MD 06/04/2019 7:54 AM Incomplete ANESTHESIOLOGY DAY OF SURGERY NOTE SERVICE DATE: 06/04/2019 SERVICE TIME: 7:53 AM : 1945 Procedure(s) (LRB): LAPAROSCOPIC CHOLECYSTECTOMY (N/A) Surgeon(s): Jessica Kimball Estimated body mass index is 28.28 kg/m? as calculated from the following: Height as of this encounter: 167.6 cm (5' 6). Weight as of this encounter: 79.5 kg (175 lb 3.2 oz). Most recent hematocrit and potassium results: Hematocrit 37.0 05/31/2019 Potassium 3.9 06/03/2019 ANES DOS/PREOP NOTE: Vitals: 06/03/19200906/03/19 2335 06/04/19 0715 06/04/19 0730 BP: 102/52 125/78 128/72 133/69 Pulse: 76 75 74 73 Resp: 18 16 18 18 Temp: 36.7 ?C (98.1 ?F) 36.7 ?C (98.1 ?F) 37.3 ?C (99.1 ?F) 36.8 ?C (98.2 ?F) TempSrc: Oral Oral Oral Temporal SpO2: 94% 94% 92% 93% Weight: Height: ACTIVE PROBLEM LIST Biliary Obstruction PAST MEDICAL HISTORY Diagnosis Date - Asthma - HTN (hypertension) PAST SURGICAL HISTORY Procedure Laterality Date - HYSTERECTOMY FAMILY HISTORY Problem Relation Age of Onset - Heart disease Father Social History: Social History Tobacco Use - Smoking status: Never Smoker - Smokeless tobacco: Never Used Substance Use Topics - Alcohol use: Not on file Comment: Occasionally - Drug use: Not on file No current facility-administered medications on file prior to encounter. Current Outpatient Medications on File Prior to Encounter Medication Sig - aspirin 81 mg chewable tablet Take 81 mg by mouth once daily. - mometasone 100 mcg/actuation HFAA Inhale 100 mcg as instructed twice daily. - albuterol HFA (PROVENTIL HFA, VENTOLIN HFA) 90 mcg/actuation inhaler Inhale 2 Puffs as instructed. - LISINOPRIL-HYDROCHLOROTHIA ZIDE ORAL Take 10 mg by mouth once daily. 10/12.5 mg - sertraline (ZOLOFT) 50 mg ORAL tablet Take 50 mg by mouth once daily. - Ipratropium Marshall (ATROVENT) 0.03 % nasal spray Use 2 Sprays in the nose every 12 hours. - NAPROXEN ORAL Take by mouth. Current Facility-Administered Medications Medication Dose Route Frequency Provider Last Rate Last Dose - [MAR Hold due to Transfer] albuterol HFA 90 mcg/actuation 2 Puff (PROVENTIL HFA, VENTOLIN HFA) 2 Puff INHALATION q 6 H PRN Danay Pozo MD - [MAR Hold due to Transfer] Ipratropium [place] 2 [place] nasal spray (ATROVENT) 2 [place] NASAL q 12 H Danay Pozo MD 2 [place] at 06/03/192102 - [MAR Hold due to Transfer] sertraline 50 mg tab(s) (ZOLOFT) 50 mg ORAL DAILY Danay Pozo MD 50 mg at 06/03/19 0801 - [MAR Hold due to Transfer] heparin 5,000 Units injection 5,000 Units SUBCUTANEOUS q 12 H Danay Pozo MD 5,000 Units at 06/01/192007 - [MAR Hold due to Transfer] ondansetron (PF) 4 mg injection (ZOFRAN) 4 mg INTRAVENOUS q 6 H PRN Danay Pozo MD 4 mg at 06/01/192007 - [MAR Hold due to Transfer] oxyCODONE IR 5 mg tab(s) (ROXICODONE) 5 mg ORAL q 6 H PRN Danay Pozo MD 5 mg at 06/03/192109 - [MAR Hold due to Transfer] piperacillin-tazobactam iv piggyback 3.375 g in dextrose (iso-osmotic) 50 mL (ZOSYN) 3.375 g INTRAVENOUS q 6 H Danay Pozo MD 100 mL/hr at 06/04/19 0514 3.375 g at 06/04/19 0514 - [MAR Hold due to Transfer] mometasone 220 mcg/ actuation (14) 1 Puff inhaler (ASMANEX) 1 Puff INHALATION DAILY Danay Pozo MD 1 Puff at 06/03/19 0801 Allergies: ALLERGIES No Known Allergies DOS EXAM: Adequate NPO Status: Yes Anesthetic Risks, Benefits, Alternatives, Personnel and Consent Discussed: Yes Patient agrees to proceed: Yes Previous Anesthesia: No history of adverse event Airway Assessment: MP 2; Neck ROM: Full ROM without neurologic symptoms; Airway Evaluation: {:38444} Symptoms of Sleep Apnea: { :267129} Dentition: { :7120096} Additional Physical Exam: Lungs: { :01556} Cardiac: { :07743} Additional Pertinent Findings: { :874079::N/A} Blood Products: { :8602586::Not anticipated for this procedure} Anesthetic Plan: { :3775871::General} Anesthetic Monitoring: { :4288770::Standard ASA Monitors} Pain Management Plan: { :9201123::Parenteral or Oral} ASA Class: { :3264712} Other Medical Problems: { :35041::None} Chronic Beta Nannette medication administered within 24 hours: { :41857::N/A} I have interviewed and examined the patient. I have reviewed the medical record and/or the pre-anesthesia evaluation, pertinent labs, and test results. Significant changes in the patient's condition since the History and Physical, not otherwise documented in primary service progress notes: { :32480::No} This contains updated information obtained within 48 hours of Surgery/Procedure. SIGNATURE: Mk Muñoz MD PATIENT NAME: Petra Duncan DATE: June 04, 2019 TIME: 7:53 AM CSN: [id number] Normal [facility] Lactic Acidon 05-29-2019 Lactate [Moles/Vol] 1.9 mmol/L Normal 0.4-2.0 [facility] Comment on above: Performed By: #### L AC #### [place] [address] Office Visit: UC: bronchitis on 03-11-2017 Documentation of current medications (procedure) Done Invalid Interpretation Code [facility] Work Phone: Fall risk assessment No Invalid Interpretation Code [facility] Work Phone: Tobacco smoking status NHIS Never Invalid Interpretation Code [facility] Work Phone: Tobacco use CPHS Never smoker Invalid Interpretation Code [facility] Work Phone: External Other: Preferred Me thod of Contacton 10-25-2014 Patient's prefered method of contact secmsg Invalid Interpretation Code [facility] Work Phone: Vital Signs Date Time Vital Sign Value Performing Clinician Facility 12-01-2024 11:49-0400 Body temperature 97.8 [degF] Dr. Nabila Paris MD Work Phone: [facility] 12-01-2024 11:49-0400 Diastolic blood pressure 68 mm[Hg] Dr. Nabila Paris MD Work Phone: [facility] 12-01-2024 11:49-0400 Heart rate 106 /min Dr. Nabila Paris MD Work Phone: [facility] 12-01-2024 11:49-0400 Respiratory rate 18 /min Dr. Nabila Paris MD Work Phone: [facility] 12-01-2024 11:49-0400 SaO2% (BldA) [Mass fraction] 97 % Dr. Nabila Paris MD Work Phone: [facility] 12-01-2024 11:49-0400 Systolic blood pressure 110 mm[Hg] Dr. Nabila Paris MD Work Phone: 5([phone])[phone] [place] [address] 12-01-2024 11:47-0400 Body height 162.[address] Nabila Paris MD Work Phone: 0(475)[phone] [place] [address] 08-22-2024 16:32-0500 Body temperature 97.9 [degF] Dr. Nabila Paris MD Work Phone: 8(365)[phone] [place] [address] 08-22-2024 16:32-0500 Diastolic blood pressure 64 mm[Hg] Dr. Nabila Paris MD Work Phone: 9(347)[phone] [place] [address] 08-22-2024 16:32-0500 Heart rate 63 /min Dr. Nabila Paris MD Work Phone: [phone])001-111246 [place] [address] 08-22-2024 16:32-0500 SaO2% (BldA) [Mass fraction] 95 % Dr. Nabila Paris MD Work Phone: 5(028)[phone] [place] [address] 08-22-2024 16:32-0500 Systolic blood pressure 102 mm[Hg] Dr. Nabila Paris MD Work Phone: 0(130)371-829546 [place] [address] 06-13-2023 16:31-0500 Body height 162.[address] Nabila Paris Work Phone: [facility] 06-13-2023 16:31-0500 Body mass index (BMI) [Ratio] 29.8 kg/m2 Dr. Nabila Paris Work Phone: [facility] 06-13-2023 16:31-0500 Body temperature 98.1 [degF] Dr. Nabila Paris Work Phone: 8(328)[phone] [place] [address] 06-13-2023 16:31-0500 Body weight 78.[address] Nabila Paris Work Phone: [facility] 06-13-2023 16:31-0500 Diastolic blood pressure 73 mm[Hg] Dr. Nabila Paris Work Phone: [facility] 06-13-2023 16:31-0500 Heart rate 95 /min Dr. Nabila Paris Work Phone: [facility] 06-13-2023 16:31-0500 Respiratory rate 17 /min Dr. Nabila Paris Work Phone: [facility] 06-13-2023 16:31-0500 SaO2% (BldA) [Mass fraction] 95 % Dr. Nabila Paris Work Phone: [facility] 06-13-2023 16:31-0500 Systolic blood pressure 143 mm[Hg] Dr. Nabila Paris Work Phone: [facility] 06-12-2023 12:57-0500 Body mass index (BMI) [Ratio] 30.4 kg/m2 Dr. Nabila Paris Work Phone: [facility] 06-12-2023 12:57-0500 Body temperature 98 [degF] Dr. Nabila Paris Work Phone: [facility] 06-12-2023 12:57-0500 Body weight 79.[address] Nabila Paris Work Phone: [facility] 06-12-2023 12:57-0500 Diastolic blood pressure 78 mm[Hg] Dr. Nabila Parsi Work Phone: [facility] 06-12-2023 12:57-0500 Heart rate 96 /min Dr. Nabila Paris Work Phone: [facility] 06-12-2023 12:57-0500 Respiratory rate 17 /min Dr. Nabila Paris Work Phone: [facility] 06-12-2023 12:57-0500 SaO2% (BldA) [Mass fraction] 95 % Dr. Nabila Paris Work Phone: [phone] [place] [address] 06-12-2023 12:57-0500 Systolic blood pressure 124 mm[Hg] Dr. Nabila Paris Work Phone: [facility] 04-16-2023 12:00-0400 Body mass index (BMI) [Ratio] 30.2 kg/m2 Dr. Nabila Paris Work Phone: [facility] 04-16-2023 12:00-0400 Body temperature 95 [degF] Dr. Nabila Paris Work Phone: [facility] 04-16-2023 12:00-0400 Body weight 79.[address] Nabila Paris Work Phone: [facility] 04-16-2023 12:00-0400 Diastolic blood pressure 78 mm[Hg] Dr. Nabila Paris Work Phone: [phone])[phone] [place] [address] 04-16-2023 12:00-0400 Heart rate 87 /min Dr. Nabila Paris Work Phone: [facility] 04-16-2023 12:00-0400 SaO2% (BldA) [Mass fraction] 95 % Dr. Nabila Paris Work Phone: [facility] 04-16-2023 12:00-0400 Systolic blood pressure 127 mm[Hg] Dr. Nabila Paris Work Phone: [facility] 06-04-2022 13:05-0500 Body height 160.[address] Nabila Paris Work Phone: [facility] Work Phone: 06-04-2022 13:05-0500 Body mass index (BMI) [Ratio] 31.4 kg/m2 Dr. Nabila Paris Work Phone: [facility] Work Phone: 06-04-2022 13:05-0500 Body temperature 97.3 [degF] Dr. Nabila Paris Work Phone: [facility] Work Phone: 06-04-2022 13:05-0500 Body weight 80.[address] Nabila Paris Work Phone: [facility] Work Phone: 06-04-2022 13:05-0500 Diastolic blood pressure 74 mm[Hg] Dr. Nabila Paris Work Phone: [facility] Work Phone: 06-04-2022 13:05-0500 Heart rate 82 /min Dr. Nabila Paris Work Phone: [facility] Work Phone: 06-04-2022 13:05-0500 Respiratory rate 7 /min Dr. Nabila Paris Work Phone: [facility] Work Phone: 06-04-2022 13:05-0500 SaO2% (BldA) [Mass fraction] 97 % Dr. Nabila Paris Work Phone: [facility] Work Phone: 06-04-2022 13:05-0500 Systolic blood pressure 112 mm[Hg] Dr. Nabila Paris Work Phone: [facility] Work Phone: 04-19-2022 12:39-0400 Body temperature 98.1 [degF] Dr. aNbila Paris Work Phone: [facility] Work Phone: 04-19-2022 12:39-0400 Diastolic blood pressure 76 mm[Hg] Dr. Nabila Paris Work Phone: [facility] Work Phone: 04-19-2022 12:39-0400 Heart rate 82 /min Dr. Nabila Paris Work Phone: [facility] Work Phone: 04-19-2022 12:39-0400 Respiratory rate 16 /min Dr. Nabila Paris Work Phone: [facility] Work Phone: 04-19-2022 12:39-0400 SaO2% (BldA) [Mass fraction] 98 % Dr. Nabila Paris Work Phone: [facility] Work Phone: 04-19-2022 12:39-0400 Systolic blood pressure 126 mm[Hg] Dr. Nabila Paris Work Phone: [facility] Work Phone: 04-14-2022 13:03-0400 Body temperature 100.4 [degF] Dr. Nabila Paris Work Phone: [facility] Work Phone: 04-14-2022 13:03-0400 Diastolic blood pressure 70 mm[Hg] Dr. Nabila Paris Work Phone: [facility] Work Phone: 04-14-2022 13:03-0400 Heart rate 93 /min Dr. Nabila Paris Work Phone: [facility] Work Phone: 04-14-2022 13:03-0400 Respiratory rate 16 /min Dr. Nabila Paris Work Phone: [facility] Work Phone: 04-14-2022 13:03-0400 SaO2% (BldA) [Mass fraction] 95 % Dr. Nabila Paris Work Phone: [facility] Work Phone: 04-14-2022 13:03-0400 Systolic blood pressure 132 mm[Hg] Dr. Nabila Paris Work Phone: [facility] Work Phone: 04-14-2022 12:45-0400 Body height 161.[address] Nabila Paris Work Phone: [facility] Work Phone: 07-10-2021 13:39-0500 Body height 161.[address] Nabila Paris Work Phone: [facility] Work Phone: 07-10-2021 13:39-0500 Body mass index (BMI) [Ratio] 32.8 kg/m2 Dr. Nabila Paris Work Phone: [facility] Work Phone: 07-10-2021 13:39-0500 Body temperature 97.5 [degF] Dr. Nabila Paris Work Phone: [facility] Work Phone: 07-10-2021 13:39-0500 Body weight 85.[address] Nabila Paris Work Phone: [facility] Work Phone: 07-10-2021 13:39-0500 Diastolic blood pressure 76 mm[Hg] Dr. Nabila Paris Work Phone: [facility] Work Phone: 07-10-2021 13:39-0500 Heart rate 79 /min Dr. Nabila Paris Work Phone: [facility] Work Phone: 07-10-2021 13:39-0500 Respiratory rate 16 /min Dr. Nabila Paris Work Phone: [facility] Work Phone: 07-10-2021 13:39-0500 SaO2% (BldA) [Mass fraction] 95 % Dr. Nabila Paris Work Phone: [facility] Work Phone: 07-10-2021 13:39-0500 Systolic blood pressure 122 mm[Hg] Dr. Nabila Paris Work Phone: [facility] Work Phone: 03-11-2017 12:19-0400 BMI (Body Mass Index) 32.91 kg/m2 Sujata Santa LPN [facility] Work Phone: 03-11-2017 12:19-0400 Body Temperature 98.5 [degF] Sujata Santa LPN [facility] Work Phone: 03-11-2017 12:19-0400 BP Diastolic 84 mm[Hg] Sujata Santa LPN [facility] Work Phone: 03-11-2017 12:19-0400 BP Systolic 142 mm[Hg] Sujata Santa LPN [facility] Work Phone: 03-11-2017 12:19-0400 Height 160.02 cm Sujata Santa LPN [facility] Work Phone: 03-11-2017 12:19-0400 Pulse (Heart Rate) 100 /min Sujata Santa LPN [facility] Work Phone: 03-11-2017 12:19-0400 Respiratory Rate 15 /min Sujata Santa LPN [facility] Work Phone: 03-11-2017 12:19-0400 Weight 84.28 kg Sujata Santa LPN [facility] Work Phone: 11-21-2015 11:30-0400 Body Temperature 96.08 [degF] Sujata Santa LPN [facility] Work Phone: 11-21-2015 11:30-0400 BSA (Body Surface Area) 1.88 m2 Sujata Santa LPN [facility] Work Phone: 11-21-2015 11:30-0400 Height 160.02 cm Sujata Santa LPN [facility] Work Phone: 11-21-2015 11:30-0400 Weight 84.55 kg Sujata Santa LPN [facility] Work Phone: Encounters Encounter Date Encounter Type Care Provider Facility Start: 12-01-2024 End: 12-01-[address] Nabila Paris MD Work Phone: [facility] Work Phone: Start: 12-01-2024 End: 12-01-2024 Patient encounter procedure Marcos Weber [facility] Work Phone: Start: 08-22-2024 End: 08-22-2024 Patient encounter procedure Saravanan Mcdermott PA [facility] Work Phone: Start: 08-22-2024 End: 08-22-2024 ambulatory Nabila Paris Facility:[facility] [place] Start: 05-04-2024 End: 05-04-2024 ambulatory Nabila Paris Facility:[facility] Start: 04-21-2024 End: 04-21-2024 Emergency department patient visit Nabila Paris Facility:[facility] Start: 04-12-2024 End: 04-12-2024 Emergency department patient visit Nabila Paris Facility:[facility] Start: 04-07-2024 End: 04-07-2024 Emergency department patient visit Nabila Paris Facility:[facility] Start: 06-13-2023 End: 06-13-2023 Emergency department patient visit Dr. Nabila Paris Work Phone: [facility] Work Phone: Start: 06-12-2023 End: 06-12-[address] Nabila Paris Work Phone: [facility] Work Phone: Start: 04-16-2023 End: 04-16-[address] Nabila Paris Work Phone: [facility] Work Phone: Start: 10-21-2022 End: 10-21-2022 ambulatory [facility] Work Phone: Start: 10-21-2022 End: 10-21-2022 Patient encounter procedure [facility] Start: 06-04-2022 End: 06-04-[address] Nabila Paris Work Phone: [facility] Work Phone: Start: 06-04-2022 End: 06-04-[address] Nabila Paris Work Phone: [facility] Start: 05-09-2022 End: 05-09-[address] Nabila Paris Work Phone: [facility] Work Phone: Start: 05-09-2022 End: 05-09-[address] Nabila Paris Work Phone: [facility]-Ultrasound, [facility] Start: 04-30-2022 End: 04-30-[address] Nabila Paris Work Phone: [facility] Start: 04-19-2022 End: 04-19-[address] Nabila Paris Work Phone: [facility] Start: 04-14-2022 End: 04-14-[address] Nabila Paris Work Phone: [facility] Start: 01-02-2022 End: 01-02-2022 Patient encounter procedure [facility]-Cat Scan, [facility] Start: 12-17-2021 End: 12-17-2021 Patient encounter procedure [facility]-Radiology, [facility] Start: 09-23-2021 End: 09-23-[address] [facility]abila Paris [facility] Phone[facility] Start: 07-10-2021 End: 07-10-[address] Nabila Paris Work Phone: [facility] Procedures Date Procedure Procedure Detail Performing Clinician Start: 06-13-2023 Plain chest X-ray Dr. Chay Paris Work Phone: Start: 06-13-2023 SARS-CoV-2 & FLU Ant igen (Rapid) Dr. Nabila Paris Work Phone: Start: 05-09-2022 US scan of thyroid Dr. Nabila Paris Work Phone: Start: 04-30-[address] Nabila Paris Work Phone: Start: 01-02-2022 CT of thorax with contrast Start: 12-17-2021 Plain chest X-ray Start: 07-10-2021 Plain X-ray of shoulder Dr. Nabila Paris Work Phone: Start: 10-22-2015 End: 02-19-2016 Pulmonary Function Test - complete Tanesha Bullard INTERNATIONAL STUDENT ADVISOR Work Phone: Start: 10-22-2015 End: 02-19-2016 Pulmonary stress test/simple Tanesha Bullard INTERNATIONAL STUDENT ADVISOR Work Phone: Start: 09-21-2015 End: 02-19-2016 Tte w/doppler, complete Tanesha Beebel er INTERNATIONAL STUDENT ADVISOR Work Phone: Start: 08-23-2015 End: 02-19-2016 Follow Up Appt 3 months Tanesha Beebel er INTERNATIONAL STUDENT ADVISOR Work Phone: Plan of Treatment Date Care Activity Detail Author Start: 12-01-2024 X-ray of foot, three or more views Foot min 3 Views [facility] Start: 12-01-2024 XR Foot GE 3 Views [facility] Start: 06-13-2023 [place] Start: 03-11-2017 End: 03-11-2017 Appointment Appointment [facility] Work Phone: Start: 11-21-2015 End: 11-21-2015 [facility] Work Phone: Start: 11-21-2015 End: 11-21-2015 Follow Up Appt 3 months Follow Up Appt 3 months [facility] Work Phone: Start: 10-22-2015 End: 02-19-2016 Pulmonary Function Test - complete Pulmonary Function Test - complete [facility] Work Phone: Start: 10-22-2015 End: 02-19-2016 Pulmonary stress test/simple Pulmonary stress testing; simple (eg, 6-minute walk) [facility] Work Phone: Start: 09-21-2015 End: 02-19-2016 Tte w/doppler, complete Echo Complete with Color Flow [facility] Work Phone: Start: 08-23-2015 End: 02-19-2016 Follow Up Appt 3 months Follow Up Appt 3 months [facility] Work Phone: Start: 04-24-2015 End: 04-24-2015 Follow Up Appt 3 months Follow Up Appt 3 months [facility] Work Phone: Start: 04-24-2015 End: 04-24-2015 Titration with Follow up (pt not on cpap) Titration with Follow up (pt not on cpap) [facility] Work Phone: Start: 10-26-2014 End: 10-26-2014 Complete portable sleep workup (portabel,CPAP as indicated) & follow up Complete portable sleep workup (portabel,CPAP as indicated) & follow up [facility] Work Phone: Start: 10-26-2014 End: 10-26-2014 Follow Up Appt 6 months Follow Up Appt 6 months [facility] Work Phone: Start: 09-29-2014 End: 09-29-2014 Pulmonary Function Test - complete Pulmonary Function Test - complete [facility] Work Phone: Start: 09-13-2014 End: 09-13-2014 Complete sleep workup (PSG,CPAP as indicated) & Follow up Complete sleep workup (PSG,CPAP as indicated) & Follow up [facility] Work Phone: Patient Education [facility] in Work Phone: Patient referral [facility] Work Phone: Immunizations Immunization Date Immunization Notes Care Provider Fa joe 07-19-2020 influenza, injectabl e, quadrivalent, preservative free Dr. Nabila Paris Work Phone: [facility] 07-19-2020 influenza, seasonal, injectable Dr. Nabila Paris Work Phone: [facility] 06-21-[address] Nabila Paris Work Phone: [facility] Payers Date Payer Category Payer Self-pay [id number] 2022 Private Health Insurance [id number] 2008 Unknown [id number] Unknown [id number] Unknown AARP MCR ADV [id number] Unknown [id number] Unknown [id number] Unknown [id number] Unknown [id number] Unknown [id number] Social History Date Type Detail Facility Start: 07-10-2021 End: 06-13-2023 Tobacco smoking status NHIS Unknown if ever smoked [facility] Start: 04-26-2017 Rare [place] Start: 04-26-2017 None [place] Start: 01-05-2019 Spouse/ Signif icant Other [facility] Start: 07-13-2020 Non-smoker [place] Start: 1945 Sex Assigned At Female [facility] Start: 04-21-2024 End: 12-01-2024 Tobacco smoking status NHIS Never smoked tobacco (finding) [facility] Medical Equipment Procedure Code Equipment Code Equipment Origin al Text Equipment Identifier Dates Robot-assisted partial nephrectomy CLIP,HEMOLOCK LG KAVYA FDA Start: 07-18-2020 Robot-assisted partial nephrectomy CLIP,HEMOLOCK LG ZOYACK FDA Start: 07-18-2020 Robot-assisted partial nephrectomy CLIP,HEMOLOCK LG ZOYACK FDA Start: 07-18-2020 Robot-assisted partial nephrectomy CLIP,HEMOLOCK MED ZOYACK FDA Start: 07-18-2020 Robot-assisted partial nephrectomy CLIP,HEMOLOCK MED WECK FDA Start: 07-18-2020 Robot-assisted partial nephrectomy SEALANT,FLOSEAL HEMOSTATIC 5ML FDA Start: 07-18-2020 Robot-assisted partial nephrectomy CLIP,HEMOLOCK LG KAVYA FDA Start: 07-18-2020 Robot-assisted partial nephrectomy CLIP,HEMOLOCK LG KAVYA FDA Start: 07-18-2020 Robot-assisted partial nephrectomy CLIP,HEMOLOCK CHARLETTE HOFF FDA Start: 07-18-2020 Robot-assisted partial nephrectomy CLIP,HEMOLOCK MALINI HOFF FDA Start: 07-18-2020 Robot-assisted partial nephrectomy CLIP,HEMOLOCK MALINI HOFF FDA Start: 07-18-2020 Robot-assisted partial nephrectomy SEALANT,FLOSEAL HEMOSTATIC 5ML FDA Start: 07-18-2020 Robot-assisted partial nephrectomy CLIP,HEMOLOCK CHARLETTE HOFF FDA Start: 07-18-2020 Robot-assisted partial nephrectomy CLIP,HEMOLOCK LG KAVYA FDA Start: 07-18-2020 Robot-assisted partial nephrectomy CLIP,HEMOLOCK LG KAVYA FDA Start: 07-18-2020 Robot-assisted partial nephrectomy CLIP,HEMOLOCK MED KAVYA FDA Start: 07-18-2020 Robot-assisted partial nephrectomy CLIP,HEMOLOCK MED ZOYACK FDA Start: 07-18-2020 Robot-assisted partial nephrectomy SEALANT,FLOSEAL HEMOSTATIC 5ML FDA Start: 07-18-2020 Robot-assisted partial nephrectomy CLIP,HEMOLOCK CHARLETTE HOFF FDA Start: 07-18-2020 Robot-assisted partial nephrectomy CLIP,HEMOLOCK LG KAVYA FDA Start: 07-18-2020 Robot-assisted partial nephrectomy CLIP,HEMOLOCK CHARLETTE HOFF FDA Start: 07-18-2020 Robot-assisted partial nephrectomy CLIP,HEMOLOCK MALINI HOFF FDA Start: 07-18-2020 Robot-assisted partial nephrectomy CLIP,HEMOLOCK MED WECK FDA Start: 07-18-2020 Robot-assisted partial nephrectomy SEALANT,FLOSEAL HEMOSTATIC 5ML FDA Start: 07-18-2020 Robot-assisted partial nephrectomy CLIP,HEMOLOCK LG WECK FDA Start: 07-18-2020 Robot-assisted partial nephrectomy CLIP,HEMOLOCK LG WECK FDA Start: 07-18-2020 Robot-assisted partial nephrectomy CLIP,HEMOLOCK LG WECK FDA Start: 07-18-2020 Robot-assisted partial nephrectomy CLIP,HEMOLOCK MED WECK FDA Start: 07-18-2020 Robot-assisted partial nephrectomy CLIP,HEMOLOCK MED WECK FDA Start: 07-18-2020 Robot-assisted partial nephrectomy SEALANT,FLOSEAL HEMOSTATIC 5ML FDA Start: 07-18-2020 Robot-assisted partial nephrectomy CLIP,HEMOLOJN LG ZOYACK FDA Start: 07-18-2020 Robot-assisted partial nephrectomy CLIP,HEMOLOCK LG ZOYACK FDA Start: 07-18-2020 Robot-assisted partial nephrectomy CLIP,HEMOLOCK LG ZOYACK FDA Start: 07-18-2020 Robot-assisted partial nephrectomy CLIP,HEMOLOCK MED ZOYACK FDA Start: 07-18-2020 Robot-assisted partial nephrectomy CLIP,HEMOLOCK MED ZOYACK FDA Start: 07-18-2020 Robot-assisted partial nephrectomy SEALANT,FLOSEAL HEMOSTATIC 5ML FDA Start: 07-18-2020 Robot-assisted partial nephrectomy CLIP,HEMOLOCK LG ZOYACK FDA Start: 07-18-2020 Robot-assisted partial nephrectomy CLIP,HEMOLOCK LG WECK FDA Start: 07-18-2020 Robot-assisted partial nephrectomy CLIP,HEMOLOCK LG WECK FDA Start: 07-18-2020 Robot-assisted partial nephrectomy CLIP,HEMOLOCK MED WECK FDA Start: 07-18-2020 Robot-assisted partial nephrectomy CLIP,HEMOLOCK MED WECK FDA Start: 07-18-2020 Robot-assisted partial nephrectomy SEALANT,FLOSEAL HEMOSTATIC 5ML FDA Start: 07-18-2020 Robot-assisted partial nephrectomy CLIP,HEMOLOCK LG ZOYACK FDA Start: 07-18-2020 Robot-assisted partial nephrectomy CLIP,HEMOLOCK LG WECK FDA Start: 07-18-2020 Robot-assisted partial nephrectomy CLIP,HEMOLOCK LG WECK FDA Start: 07-18-2020 Robot-assisted partial nephrectomy CLIP,HEMOLOCK MED WECK FDA Start: 07-18-2020 Robot-assisted partial nephrectomy CLIP,HEMOLOCK MED WECK FDA Start: 07-18-2020 Robot-assisted partial nephrectomy SEALANT,FLOSEAL HEMOSTATIC 5ML FDA Start: 07-18-2020 Robot-assisted partial nephrectomy CLIP,HEMOLOCK LG WECK FDA Start: 07-18-2020 Robot-assisted partial nephrectomy CLIP,HEMOLOCK LG WECK FDA Start: 07-18-2020 Robot-assisted partial nephrectomy CLIP,HEMOLOCK LG WECK FDA Start: 07-18-2020 Robot-assisted partial nephrectomy CLIP,HEMOLOCK MED WECK FDA Start: 07-18-2020 Robot-assisted partial nephrectomy CLIP,HEMOLOCK MED WECK FDA Start: 07-18-2020 Robot-assisted partial nephrectomy SEALANT,FLOSEAL HEMOSTATIC 5ML FDA Start: 07-18-2020 Mental Status Date Assessment Result Facility 06-13-2023 Cognitive function Level Of Cons ciousness Awake;Alert;Appropriate;Follow s Commands [facility] Work Phone: Clinical Notes 08-07-2020 to 06-13-2023 Note Date & Type Note Facility 06-13-2023 Discharge summary Note Date/Time June 13, 2023 4:44pm [facility] Medical Records Department [address] [place] [address] Emergency Department Summary 06/13/23 MR#: [id number] Acct: [id number] Name: PETRA DUNCAN Rep #:[id number] : 1945 78 From: Tc Chanel MD PCP: Dr. Nabila Paris MD Status:REG ER Location: ED HPI <THALIA Urena - Last Filed: 06/13/23 17:31> History of Present Illness Chief Complaint: Cold Sx Narrative Narrative: 78-year-old female with PMH of HTN, A-fib, asthma presents with 1 week of productive cough and wheezing. Last night she had a subjective fever. She states yesterday she went to urgent care was prescribed a Z-Gale and Medrol Dosepak. She is taken 2 doses but does not feel better so presents for evaluation. She denies chest pain. No GI symptoms. She does not smoke but states she has asthma from her parents smoking when she was a child. [facility] <THALIA Urena - Last Filed: 06/13/23 17:31> [facility] Medical History Arthritis Asthma Asthma with acute exacerbation in adult Bronchitis Chronic cough Chronic neck and back pain COVID-19 Diarrhea Eosinophilia Essential hypertension Gastroenteritis Hay fever Hypokalemia Hypoxemia Noncompliance with CPAP treatment Obesity Obstructive sleep apnea Paroxysmal atrial fibrillation Renal lesion Right renal mass Right shoulder strain Seasonal allergies Shortness of breath Shoulder pain Strain of right rotator cuff capsule Wheezing Home Medications sertraline 50 mg tablet 50 mg PO DAILY 10/09/16 [History Last Taken Unknown] cyclobenzaprine 5 mg tablet 5 mg PO TID PRN muscle spasm #30 tabs 07/10/21 [Rx Last Taken Unknown] famotidine 10 mg tablet (Acid Administrative Fellow (famotidine)) 10 mg PO DAILY 07/10/21 [History Last Taken Unknown] methylprednisolone 4 mg tablets in a dose pack (Medrol (Gale)) 4 mg PO DAILY #21 tabs 07/10/21 [Rx Last Taken Unknown] dexamethasone 6 mg tablet 6 mg PO DAILY #5 tabs 04/14/22 [Rx Last Taken Unknown] lisinopril 5 mg tablet 5 mg PO DAILY #90 tabs 07/01/22 [Rx Last Taken Unknown] apixaban 5 mg tablet (Eliquis) See Rx Instructions .Route .COMPLEX #60 tabs 12/15/22 [Rx Last Taken Unknown] metoprolol succinate 50 mg tablet,extended release 24 hr 50 mg PO DAILY #90 tabs12/29/22 [Rx Last Taken Unknown] azithromycin 250 mg tablet See Rx Instructions PO .COMPLEX #6 tabs 06/12/23 [Rx Last Taken Unknown] methylprednisolone 4 mg tablets in a dose pack (Medrol (Gale)) 4 mg PO PER PKG DIR 6 days #21 tabs 06/12/23 [Rx Last Taken Unknown] albuterol sulfate 90 mcg/actuation aerosol inhaler (Ventolin HFA) 1 - 2 puff inhalation Q4H PRN PRN Wheezing 30 days #6.7 grams 06/13/23 [Rx Last Taken Unknown] Allergy/AdvReac Type Severity Reaction Status Date / Time dog dander Allergy Unknown Verified 06/13/23 16:33 strawberry Allergy Food Verified 06/13/23 16:33 Allergy tree and shrub pollen Allergy Unknown Verified 06/13/23 16:33 Family History Father Heart disease Sister CAD (coronary artery disease) stent Surgical History H/O section History of cholecystectomy (05/2019) History of hysterectomy Social History Smoking Status: Never smoker second hand exposure: No alcohol intake: current alcohol intake frequency: holidays/special occasions only substance use type: does not use caffeine: Yes Type: coffee Number of servings: 1 what type of physical activity do you participate in: none ROS <THALIA Urena - Last Filed: 06/13/23 17:31> ROS ED ROS Narrative Constitutional: Positive for fever, malaise. CVS: Negative for palpitations, chest pain, syncope. Respiratory: Positive for cough. GI: Negative for abdominal pain, nausea, vomiting. EXAM <THALIA Urena - Last Filed: 06/13/23 17:31> Physical Exam Narrative Exam Narrative: CONST: Patient sitting in no acute distress. EYES: Normal inspection. NECK: Normal inspection. RESP: No respiratory distress, CTAB. CVS: Regular rate and rhythm, no murmur, no gallop. SKIN: Color normal, no rash, warm, dry, intact. EXTREMITIES: Normal appearance, no pedal edema. NEURO: Oriented x4. PSYCH: Normal affect. Const Vital Signs: 06/13/23 16:31 06/13/23 16:48 Temperature 98.1 F Temperature Source Temporal Pulse Rate 95 Respiratory Rate 17 Respiratory Effort Short of Breath Respiratory Pattern Normal Blood Pressure 143/73 H Blood Pressure Mean 96 Pulse Ox 95 Oxygen Delivery Method Room Air <Dr. Tc Chanel MD - Last Filed: 06/13/23 17:06> Physical Exam Const Vital Signs: 06/13/23 16:31 06/13/23 16:48 Temperature 98.1 F Temperature Source Temporal Pulse Rate 95 Respiratory Rate 17 Respiratory Effort Short of Breath Respiratory Pattern Normal Blood Pressure 143/73 H Blood Pressure Mean 96 Pulse Ox 95 Oxygen Delivery Method Room Air [facility] <THALAI Urena - Last Filed: 06/13/23 17:31> [facility] Narrative Medical decision making narrative: Patient reports 1 week of cough and wheezing. She has a history of asthma. Shehas taken 2 doses of azithromycin and a Medrol Dosepak but does not feel improved. She appears well and nontoxic. Afebrile with normal vital signs. She is speaking in full sentences in no distress and has clear lung sounds. Heart is regular rate and rhythm with no murmurs. Differential includes viral URI versus pneumonia. CXR shows no acute process and COVID/flu is negative. I recommended she continue the treatment plan of Z-Gale and Medrol Dosepak and I refilled her albuterol inhaler. Return precautions were discussed and she was discharged in stable condition. I have personally performed a face to face assessment of the patient and have reviewed the LIU Note. I performed a substantive portion of the visit including all aspects of the following. My anderson findings include: History is 78-year-old female URI symptoms since Thursday. Cough and wheezing. Treated in urgent care no testing done. Started on a Zithromax Z-GALE she is on day 2 of that and a Medrol Dosepak. Denies vomiting or diarrhea. Exam is [well-appearing 78-year-old. Vital signs stable afebrile. HEENT exam unremarkable. Neck nontender no JVD. No distress. Lungs clear to auscultation bilaterally. Heart regular rhythm no murmur. Rate about 90. Chest wall and ribs nontender. Abdomen soft nontender. Moving all 4 extremities. Calves are nontender without edema. Neurologically she is awake and alert no focal motor deficits.] Medical Decision Making [patient most likely has a viral URI. Chest x-ray 2 views AP and lateral interpreted ourselves showed no pneumonia. Viral studies are pending. Will keep her on the Medrol Dosepak. She can finish the antibiotic.] Other additions or changes: [None] Lab Data Attestation: I reviewed the patient's lab results. Radiography Diagnostic Testing: Clinical Impression(s) from Imaging Studies Chest X-Ray 06/13/23 16:50 IMPRESSION: Emphysema without pneumonia or atelectasis. Electronically Signed: Ryan Parkinson MD at 17:27 EST , <Dr. Tc Chanel MD - Last Filed: 06/13/23 17:06> [facility] Narrative Medical decision making narrative: Patient reports 1 week of cough and wheezing. She has a history of asthma. She has taken 2 doses of azithromycin and a Medrol Dosepak but does not feel improved. She appears well and nontoxic. Afebrile with normal vital signs. She is speaking in full sentences in no distress and has clear lung sounds. Heart is regular rate and rhythm with no murmurs. Differential includes viral URI versus pneumonia. I have personally performed a face to face assessment of the patient and have reviewed the LIU Note. I performed a substantive portion of the visit including all aspects of the following. My anderson findings include: History is 78-year-old female URI symptoms since Thursday. Cough and wheezing. Treated in urgent care no testing done. Started on a Zithromax Z-GALE she is on day 2 of that and a Medrol Dosepak. Denies vomiting or diarrhea. Exam is [well-appearing 78-year-old. Vital signs stable afebrile. HEENT exam unremarkable. Neck nontender no JVD. No distress. Lungs clear to auscultation bilaterally. Heart regular rhythm no murmur. Rate about 90. Chest wall and ribs nontender. Abdomen soft nontender. Moving all 4 extremities. Calves are nontender without edema. Neurologically she is awake and alert no focal motor deficits.] Medical Decision Making [patient most likely has a viral URI. Chest x-ray 2 views AP and lateral interpreted ourselves showed no pneumonia. Viral studies are pending. Will keep her on the Medrol Dosepak. She can finish the antibiotic.] Other additions or changes: [None] History & Record Review Discussion w/independent historian: Patient Additional record(s) reviewed:: Prior inpatient record, Prior outpatient record, Prior ED visit and Prior labs Radiography Chest X-Ray - ED: 2 View, Heart, Lungs, Mediastinum, Bony Structures, No Acute Disease and Chronic Changes Diagnostic Testing: Clinical Impression(s) from Imaging Studies Chest X-Ray 06/13/23 16:50 IMPRESSION: Emphysema without pneumonia or atelectasis. Electronically Signed: Ryan Parkinson MD at 17:27 EST , Chest x-ray, 2 views, AP and lateral shows no acute abnormality. No pneumonia. No effusion. Normal cardiac silhouette. Interpreted by myself. Discharge Plan Triage Chief Complaint: Cold Sx ED Midlevel Provider: Dinora Moura ED Provider: Tc Chanel Dx/Rx/DC Orders Clinical Impression: History of asthma, Viral upper respiratory tract infection Instructions: ED Bronchitis with Wheezing (Adult) Prescriptions: New albuterol sulfate [Ventolin HFA] 90 mcg/actuation HFA aerosol inhaler 1 - 2 puff inhalation Q4H PRN PRN (Reason: Wheezing) 30 Days Qty: 6.7 0RF No Action famotidine [Acid Administrative Fellow (famotidine)] 10 mg tablet 10 mg PO DAILY methylprednisolone [Medrol (Gale)] 4 mg tablets,dose pack 4 mg PO DAILY Qty: 21 0RF Rx Instructions: per package instructions cyclobenzaprine 5 mg tablet 5 mg PO TID PRN (Reason: muscle spasm) Qty: 30 0RF dexamethasone 6 mg tablet 6 mg PO DAILY Qty: 5 0RF azithromycin 250 mg tablet See Rx Instructions PO .COMPLEX Qty: 6 0RF Rx Instructions: take 500 mg today (day 1), then 250 mg for 4 days (days 2-5) PO methylprednisolone [Medrol (Gale)] 4 mg tablets,dose pack 4 mg PO PER PKG DIR 6 Days Qty: 21 0RF sertraline 50 MG tablet 50 mg PO DAILY lisinopril 5 mg tablet 5 mg PO DAILY Qty: 90 3RF Rx Instructions: Take 1 tablet by mouth once daily Eliquis 5 mg tablet See Rx Instructions .ROUTE .COMPLEX Qty: 60 12RF Dose Instruction: Take 1 tablet by mouth twice daily Rx Instructions: Take 1 tablet by mouth twice daily metoprolol succinate 50 mg tablet extended release 24 hr 50 mg PO DAILY Qty: 90 3RF Primary Care Provider: Nabila Paris Referrals: Nabila Paris MD [Primary Care Provider] - Activity Restrictions/Additional Instructions: Continue the azithromycin and Medrol Dosepak prescribed by urgent care. I refilled your albuterol inhaler. If you become significantly more short of breath return to the ER. Disposition Disposition: Home, Self Care What to do if you have Problems For any increased pain, shortness of breath, bleeding, nausea or vomiting, chestpain, or any unexpected problems, contact your Primary Care Provider. Call [facility] ([phone]) or report to the closest Emergency Room. Call 911 if necessary. 06/13/23 1706 <Electronically signed by Tc Chanel MD> Cosigner Signature (if applicable): 06/13/23 173 <Electronically signed by Dinora VÁSQUEZ> CC: Dr. Nabila Paris MD ~ Signed [facility] Work Phone: 1(337) 914-897810-22-2021 NoteHNO ID: [id number] Author: Shubham Smith APRN.INTERNATIONAL STUDENT ADVISOR Service: ? Author Type: Nurse Practitioner Type: Progress Notes Filed: 04/12/2021 6:24 PM Note Text: Subjective HPI Nontoxic-appearing female presents urgent care chief complaint possible strep throat. Duration of symptoms 5 days. Associated symptoms sinus pressure sore throat cough nasal drainage. Patient states negative COVID-19 test yesterday. States most predominant symptom today is sinus pressure and sore throat. Denies use of any OTC medications. States URI symptoms are improving sore throat is staying consistent. Denies any known sick contacts. Denies any significant pain. Denies any difficulty swallowing handling secretions or decreased range of motion neck. Denies any fever body aches chills nausea vomiting abdominal pain chest pain shortness of breath or change in bowel or bladder habit. Past medical history prescription medication use allergies reviewed. .Patient presents with: Sore Throat: ST and congestion x 5 days PAST MEDICAL HISTORY Diagnosis Date - Anxiety - Asthma - Encounter for removal of pancreatic stent - HTN (hypertension) - Paroxysmal A-fib (HCC) when in hospital- 05/2019 - Sleep apnea wears cpap PAST SURGICAL HISTORY Procedure Laterality Date - SECTION HX 1973 - CHOLECYSTECTOMY 06/04/2019 laparoscopic - HYSTERECTOMY ALLERGIES [facility] MEDICATION[facility] triamcinolone (KENALOG) 0.025 % cream Apply 1 application to affected area twice daily. ondansetron (ZOFRAN) 4 mg tablet Take 1 tablet by mouth every 8 hours as needed. acetaminophen (TYLENOL) 325 mg tablet Take 3 tablets by mouth every 6 hours as needed. aspirin 81 mg chewable tablet Take 81 mg by mouth once daily. mometasone 100 mcg/actuation HFAA Inhale 100 mcg as instructed twice daily. 1 puff Ipratropium [place] (ATROVENT) 0.03 % nasal spray Use 2 Sprays in the nose every 12 hours. albuterol HFA (PROVENTIL HFA, VENTOLIN HFA) 90 mcg/actuation inhaler Inhale 2 Puffs as instructed. LISINOPRIL-HYDROCHLOROTHIAZIDE ORAL Take 10 mg by mouth once daily. 10/12.5 mg NAPROXEN ORAL Take by mouth. sertraline (ZOLOFT) 50 mg ORAL tablet Take 50 mg by mouth once daily. FAMILY HISTORY Problem Relation Age of Onset - Heart disease Father - Heart Attack Sister Social History Tobacco Use - Smoking status: Never Smoker - Smokeless tobacco: Never Used Vaping Use - Vaping Use: Never used Substance Use Topics - Alcohol use: Yes Comment: Occasionally - Drug use: Never BP 118/78 Pulse 66 Temp 36.1 ?C (97 ?F) (Tympanic) Resp 18 Wt 86.3 kg (190 lb 3.2 oz) SpO2 97% BMI 32.65 kg/m? Review of Systems Constitutional: Negative for chills, fever and malaise/fatigue. HENT: Positive for congestion and sore throat. Negative for ear discharge, ear pain and sinus pain. Eyes: Negative for blurred vision, pain, discharge and redness. Respiratory: Positive for cough. Negative for sputum production, shortness of breath, wheezing and stridor. Cardiovascular: Negative for chest pain. Gastrointestinal: Negative for abdominal pain, diarrhea, nausea and vomiting. Musculoskeletal: Negative for myalgias. Skin: Negative for itching and rash. Neurological: Negative for dizziness and headaches. Objective Physical Exam Constitutional: General: She is not in acute distress. Appearance: She is not diaphoretic. HENT: Head: Normocephalic. Mouth/Throat: Lips: [place]. Mouth: Mucous membranes are moist. Pharynx: Oropharynx is clear. Uvula midline. Posterior oropharyngeal erythema present. No pharyngeal swelling, oropharyngeal exudate or uvula swelling. Eyes: Conjunctiva/sclera: Conjunctivae normal. Pupils: Pupils are equal, round, and reactive to light. Cardiovascular: Rate and Rhythm: Normal rate and regular rhythm. Heart sounds: Normal heart sounds. Pulmonary: Effort: Pulmonary effort is normal. No tachypnea, accessory muscle usage or respiratory distress. Breath sounds: Normal breath sounds. No stridor. Abdominal: Palpations: Abdomen is soft. Tenderness: There is no abdominal tenderness. Musculoskeletal: Cervical back: Normal range of motion and neck supple. No rigidity or tenderness. Lymphadenopathy: Cervical: No cervical adenopathy. Skin: General: Skin is warm and dry. Neurological: Mental Status: She is alert and oriented to person, place, and time. ASSESSMENT/PLAN: 1. Pharyngitis, unspecified etiology - ICD9: 462, ICD10: J02.9 - STREP A MOLECULAR (POC) Strep test negative. Will treat conservatively at this time. URI-like symptoms are improving. Red flags reevaluation discussed. Patient was educated on supportive therapies. Patient will follow up with primary care provider as needed. Patient was instructed to immediately proceed to emergency room for any new, worsening, or symptoms lasting longer than anticipated. The patient's clinical presentation is otherwis (more content not included)...[facility]02-16-2021 NotePatient Outreach (COVAMN) PETRA DUNCAN ([id number]) 1945 F Date Time Provider Department 08/07/20 TANJA DUNNE During your visit today, we recorded the following information about you: Allergies As of Date: 08/07/2020 Noted Allergy Reaction STRAWBERRY 06/23/2019 4 - Hives Comments: NKDA Date Reviewed: 01/01/2020 Reviewed by: Sarah Chu - Fully Assessed Order(s):SARS-COVID VACCINE 1ST DOSE APPT [[id number]] Order #: [id number] FUTURE Prescriptions as of 08/07/2020 Sig: TRIAMCINOLONE ACETONIDE 0.025* Apply 1 application to affect* ONDANSETRON HCL 4 MG TABLET Take 1 tablet by mouth every * ACETAMINOPHEN 325 MG TABLET Take 3 tablets by mouth every* ASPIRIN 81 MG CHEWABLE TABLET Take 81 mg by mouth once jass* MOMETASONE 100 MCG/ACTUATION * Inhale 100 mcg as instructed * IPRATROPIUM BROMIDE 0.03 % NA* Use 2 Sprays in the nose ever* ALBUTEROL SULFATE HFA 90 MCG/* Inhale 2 Puffs as instructed. * LISINOPRIL-HYDROCHLOROTHIAZID* Take 10 mg by mouth once jass* * NAPROXEN ORAL Take by mouth. * SERTRALINE 50 MG TABLET Take 50 mg by mouth once jass* Problem List As Of Date 08/07/2020 Noted Resolved Biliary obstruction [K83.1] 05/29/2019 Letter Text Encounter Status:Closed by EPIC, PRODUSER on 08/10/20[facility] Chief complaint+Reason for visit Narrative* Chief Complaint CHILEL/VOMITING COVID POSITIVE NODULE NODULE Reason for Visit COVID-19 COVID-19 Pneumonia [facility] Work Phone: Evaluation note* Diagnosis Onset Date Resolution Status Right shoulder strain acute Strain of right rotator cuff capsule acute [facility] Work Phone: Evaluation noteNo assessment information available [facility] Work Phone: Evaluation note* Diagnosis Onset Date Resolution Status COVID-19 acute COVID-19 acute Pneumonia acute [facility] Work Phone: Evaluation note* Diagnosis Onset Date Resolution Status COVID-19 acute COVID-19 acute Pneumonia acute Right thyroid nodule acute [facility] Work Phone: Evaluation note* Diagnosis Onset Date Resolution Status Acute sinusitis acute Acute bronchitis acute Acute sinusitis acute [facility] Work Phone: Hospital Discharge instructions Additional Instructions Continue the azithromycin and Medrol Dosepak prescribed by urgent care. I refilled your albuterol inhaler. If you become significantly more short of breath return to the ER. [facility] Work Phone: Reason for referral (narrative)No [facility] Summary Purpose Family History Relationship Condition Age at Onset Recorded Date/T chris father Cardiac disease Unknown sister Coronary artery disease Unknown Advance Directives Advance Directive Response Recorded Date/ Time Advance Directives No August 27 8:38am Living Will Yes July 18 12:56pm Power of Search Advertising Strategist Yes July 18, 2020 12:56pm Advance Directive Response Recorded Date/ Time Advance Directives No April 14, 2022 11:45am Living Will Yes April 14 11:45am Power of Search Advertising Strategist Yes April 14, 2022 11:45am Advance Directive Response Recorded Date/ Time Advance Directives No April 14, 2022 12:45pm Living Will Yes April 14 12:45pm Power of Search Advertising Strategist Yes April 14, 2022 12:45pm Advance Directive Response Recorded Date/ Time Advance Directives No April 14, 2022 11:45am Living Will No June 13 4:48pm Power of Search Advertising Strategist No June 13, 2023 4:48pm Advance Directive Response Recorded Date/ Time Advance Directives No April 14, 2022 12:45pm Advance Directive Response Recorded Date/ Time Advance Directives No December 01 11:47am Hospital Course Note HNO ID: [id number] Author: Liane Romo Service: Hospital Medicine Author Type: Physician Type: Discharge Summary Filed: 06/05/2019 12:53 PM Note Text: DISCHARGE SUMMARY PATIENT NAME: Petra Duncan Code Status: Not on file Highest Readmission Risk Score: 12 The 30 day readmissions risk score is derived from an internally validated risk model which evaluates patient level characteristics, utilization history, medication orders and lab results up until the day of discharge. Patients with a score of 40 or above are considered highest risk for readmission. Specific patient level drivers will be listed at the bottom of the summary. Admission Information Admission Information ADMIT DATE: 05/29/2019 DISCHARGE DATE: 06/04/2019 [facility]CT[facility] AND MEDICAL TEAM: [facility] Doctor: Lacho Romo Primary Care Provider: Nabila Paris MD My Medical Team Members: Treatment Team: Attending Provider: Lacho Colby Service: Adrian Diop Consulting: Tres Cartwright (more content not included)... Note HNO ID: [id number] Author: Liane Kimball Service: General Surgery Author Type: Physician Type: Brief Op Note Filed: 06/04/2019 3:40 PM Note Text: BRIEF OPERATIVE / PROCEDURE NOTE LOG ID: [id number] SURGERY/PROCEDURE DATE: 06/04/2019 INCISION/PROCEDURE START TIME: 8:15 AM INCISION CLOSE/PROCEDURE END TIME: 9:31 AM SURGEON(S)/PROCEDURALIST(S) AND PRODUCTION STATISTICAL CLERK(S): Surgeon(s) and Role: * Jessica Kimball - Primary * Shubham Webster - Resident - Assisting No Additional Staff SURGERY/PROCEDURE(S): Lap Cholecystectomy ANESTHESIA: General FINDINGS: friable, well vascularized, Rosales in GB fossa ESTIMATED BLOOD LOSS: 25 mls SPECIMENS: GB and stones COMPLICATIONS: None PRE-OP/PRE-PROCEDURE DIAGNOSIS: Acute cholecystitis POST-OP/POST-PROCEDURE DIAGNOSIS: Cholecystitis [K81.9] same SIGNATURE: Shubham Webster MD PATIENT NAME: Petra Duncan DATE: June 04, 2019 TIME: 9:37 AM PAGER/CONTACT #: Jessica Kimball MD June 04, 2019 Procedure Findings Note HNO ID: [id number] Author: Liane Kimball Service: General Surgery Author Type: Physician Type: Brief Op Note Filed: 06/04/2019 3:40 PM Note Text: BRIEF OPERATIVE / PROCEDURE NOTE LOG ID: [id number] SURGERY/PROCEDURE DATE: 06/04/2019 INCISION/PROCEDURE START TIME: 8:15 AM INCISION CLOSE/PROCEDURE END TIME: 9:31 AM SURGEON(S)/PROCEDURALIST(S) AND PRODUCTION STATISTICAL CLERK(S): Surgeon(s) and Role: * Jessica Kimabll - Primary * Shubham Webster - Resident - Assisting No Additional Staff SURGERY/PROCEDURE(S): Lap Cholecystectomy ANESTHESIA: General FINDINGS: friable, well vascularized, Rosales in GB fossa ESTIMATED BLOOD LOSS: 25 mls SPECIMENS: GB and stones COMPLICATIONS: None PRE-OP/PRE-PROCEDURE DIAGNOSIS: Acute cholecystitis POST-OP/POST-PROCEDURE DIAGNOSIS: Cholecystitis [K81.9] same SIGNATURE: Shubham Webster MD PATIENT NAME: Petra Duncan DATE: June 04, 2019 TIME: 9:37 AM PAGER/CONTACT #: Jessica Kimball MD June 04, 2019 Chief Complaint and Reason for Visit Chief Complaint FALL, PAIN RIGHT CRISTAL ULDER, UPPER BACK Right shoulder Reason for Visit Right shoulder strai n Strain of right rotator cuff capsule Chief Complaint Personal history of other malignant neoplasm of ki Chief Complaint 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* Chief Complaint CHILEL/VOMITING COVID 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 Reason for Visit COVID-19 COVID-19 Pneumonia Right thyroid nodule Chief Complaint CONGESTED CONGESTION WHEEZING Reason for Visit Acute sinusitis Acute bronchitis Acute sinusitis Chief Complaint Admit Date COUGH, CONGESTION August 22, 2024 4:14 pm R FOOT PAIN FROM FALL December 01, 2024 11 :52am Chief Complaint Admit Date COUGH, CONGESTION August 22, 2024 4:14 pm R FOOT PAIN FROM fallDecember 01, 2024 11 :52am E-ORDER December 01, 2024 12:3 1pm Additional Source Comments INFORMATION SOURCE (unrecogn ized section and content) DATE CREATED AUTHOR 07/11/2019 [facility] DATE CREATED AUTHOR AUTHOR'S ORGANIZ ATION 07/11/2019 [facility] DATE CREATED AUTHOR AUTHOR'S ORGANIZ ATION 07/18/2021 [facility] DATE CREATED AUTHOR AUTHOR'S ORGANIZ ATION 08/24/2024 [facility] Goals (unrecognized section and content) Goals may be documented in a n alternate sectionGoals may be documented in an alternate sectionGoals may be documented in an alternate sectionGoals may be documented in an alternate sectionGoals may be documented in an alternate sectionGoals may be documented in an alternate sectionGoals may be documented in an alternate sectionGoals may be documented in an alternate sectionGoals may be documented in an alternate section Care Teams (unrecognized sec tion and content) Team Status: Active Member Role Status Dates Dr. Nabila Paris MD Family Provider Active Dr. Nabila Paris MD Primary Care Provider Active Team Status: Inactive Member Role Status Dates Dr. Nabila Paris MD Primary Care Provider, Attendin g Provider Active Team Status: Inactive Member Role Status Dates Dr. Nabila Paris MD Primary Care Provider, Referrin g Provider Active THALIA Patel Attending Provider Active Team Status: Inactive Member Role Status Dates Dr. Nabila Paris MD Primary Care Provider Active Dr. Tc Chanel MD Emergency Provider Active Team Status: Inactive Member Role Status Dates Dr. aNbila Paris MD Primary Care Provider Active Start: August 22, 2024 End: August 22, 2024 Dr. Nabila Paris MD Referring Provider Active Start: August 22, 2024 End: August 22, 2024 THALIA Guerra Attending Provider Active Start: August 22, 2024 End: August 22, 2024 Team Status: Inactive Member Role Status Dates Dr. Nabila Paris MD Primary Care Provider Active Start: December 01, 2024 End: December 01, 2024 Dr. Nabila Paris MD Referring Provider Active Start: December 01, 2024 End: December 01, 2024 THALIA Patel Attending Provider Active Sta rt: December 01, 2024 End: December 01, 2024 Team Status: Active Member Role Status Dates Dr. Nabila Paris MD Family Provider Active Dr. Ganesh Lock MD Primary Care Provider Active Team Status: Active Member Role Status Dates Dr. Ganesh Lock MD Primary Care Provider Active Start: December 01, 2024 THALIA Patel Attending Provider Active Sta rt: December 01, 2024 THALIA aPtel Referring Provider Active Sta rt: December 01, 2024 FOR RECORDS PERTAINING TO PATIENTS WHO ARE OR HAVE BEEN ENROLLED IN A CHEMICAL DEPENDENCY/SUBSTANCEABUSE PROGRAM, SOME INFORMATION MAY BE OMITTED. This clinical summary was aggregated from multiple sources. Caution should be exercised in using it in the provision of clinical care. This summary normalizes information from multiple sources, and as a consequence, information in this document may materially change the coding, format and clinical context of patient data. In addition, data may be omitted in some cases. CLINICAL DECISIONS SHOULD BE BASED ON THE PRIMARY CLINICAL RECORDS. [employer] provides no warranty or guarantee of the accuracy or completeness of information in this document.
== END | disposition home or self-care (01) ==
LOC: MTRAD 12:32
PROVIDERS: PCP Family Medicine; Referring Provider Physician Assistant Surgical; Visit Provider Physician Assistant Surgical
DX: S99.921A Unspecified injury of right foot, initial encounter (principal)
CPT/HCPCS: 73630

== ENCOUNTER 2024-12-17 07:23 | Emergency (ER) | payer MEDICARE, SELFPAY ==
[2024-12-17 07:24] VITALS: BP 151/78; PULSE 81; RESP 18; TEMP 37.2; O2SAT 92; BMI 30.2
--- OUTSIDE RECORDS SUMMARY | 2024-12-17 08:16 | XMS RPT_ITS | CCD ---
Author Organization [facility] CliniSy[facility] Care Team Providers Care Chief Client Officer Name Role Phone Sujata Santa LPN Unavailable Unavailab Dr. Nabila Santacruz Primary Care Provider Dr. Nabila Paris Referring Provider THALIA Edward Attending Provider Dr. Jonh Heller Attending Provider THALIA Edward Referring Provider Dr. Nabila Paris Primary Care Provider Dr. Nabila Paris Referring Provider THALIA Edward Attending Provider THALIA Harris Attending Provider Dr. Minnie House Attending Provider Dr. Nabila Paris Primary Care Provider Dr. Nabila Paris Referring Provider [phone] THALIA Arroyo Attending Provider Dr. Nabila Paris MD Primary Care Provider Dr. Nabila Paris MD Referring Provider Saravanan Edward Attending Provider [phone] Marcos Arroyo Attending Provider Dr. Ganesh Lock MD Primary Care Provider Marcos Arroyo Referring Provider Nabila Paris Attending Unavailable Nabila Paris Referring Unavailable Nabila Paris Primary Care Unavailable Jolliff, Nabila S Primary Care Unavailable Demetrius Cam Attending Unavailable Lj Rizvi Attending Unavailable Jolliff, Nabila S Primary Care Unavailable Rayshawn Diaz Attending Unavailable Jolliff, Nabila S Primary Care Unavailable Jolliff, Nabila S Referring Unavailable Jolliff, Nabila S Primary Care Unavailable Saravanan Edward Attending Unavailable Jolliff, Nabila S Referring Unavailable Jolliff, Nabila S Primary Care Unavailable Marcos Arroyo Attending Unavailable Gus VÁSUQEZ, Mracos Attending Unavailable Marcos Arroyo Referring Unavailable Ganesh Lock Primary Care Unavailable Hayde MIDDLETON, Dr. Andersen Referring Provider Allergies Allergy Classification Reported Allergen(s) Allergy Type Date of Onset Reaction(s) Facility (1 source) STRAWBERRIES AND FRESH FRUIT; Translations: [STRAWBERRIES AND FRESH FRUIT] food allergy 7 [facility] Work Phone: (11 sources) strawberry allergenic extract Drug Allergy 2 Food Allergy [facility] (12 sources) Tree and shrub pollen; Translations: [tree and shrub pollen] Allergy to substance 2 Unknown [facility] (11 sources) dog dander Allergy to substance 2 Unknown [facility] (5 sources) Chocolate; Translations: [chocolate] Allergy to substance 5 Other [facility] (1 source) strawberry allergenic extract Drug Allergy 5 [facility] (1 source) dog dander Drug allergy (disorder) 5 [facility] Medications Current Medications Medication Drug Class(es) Dates Sig (Normalized) Sig (Original) [id number] actuat albuterol 0.09 mg/actuat metered dose inhaler (20 sources) beta2-Adrenergic Agonist Start: 12-16-2024 Albuterol Sulfate (Ventolin Hfa) 90 mcg/actuation HFA aerosol inhaler Active 2 NMA INHALATION EVERY 4-6 HOURS as needed for shortness of breath or wheezing 6.7 0 December 16, 2024 12:00am Start: 06-13-2023 Albuterol Sulf ate (Ventolin Hfa) 90 mcg/actuation HFA aerosol inhaler Active 1 - 2 NMA INHALATION EVERY 4 HOURS NEEDED as needed for Wheezing 6.7 30 0 June 13, 2023 1:00am Start: 06-13-2023 take 1 puff(s) by in halation every four hours as needed Albuterol Sulfate (Ventolin Hfa) 90 mcg/actuation HFA aerosol inhaler Active 1 - 2 PUFF INHALATION EVERY 4 HOURS NEEDED 6.7 30 June 13, 2023 12:00am Start: 02-07-2020 End: [...] NEEDED as needed for Sob &/Or Wheezing 1 May 11, 2018 11:18am May 11, 2018 [...] NEEDED as needed for Sob &/Or Wheezing 1 0 April 28, 2017 11:33am May 11, 2018 11:18am Start: 04-25-2017 End: 04-28-2017 take 1 puff(s) by inhalation every four hours as needed Albuterol Sulfate (Proair Hfa) 90 MCG inhaler Discontinued 1 - 2 PUFF INHALATION EVERY 4 HOURS NEEDED April 24, 2017 11:00pm April 28, 2017 10:33am Start: 03-11-2017 PROAIR HFA AER S as directed ALBUTEROL SULFATE AERS [id number] Saravanan VÁSQUEZ Start: 10-26-2014 End: 03-11-2017 take 2 puff(s) by inhalation every four hours as needed for wheezing VENTOLIN HFA 108 (90 Base) MCG/ACT AERS 2 puffs INH q 4 hours PRN wheezing ALBUTEROL SULFATE [id number] Saravanan VÁSQUEZ Start: 10-26-2014 take 2 puff(s) by in halation every four hours as needed for wheezing VENTOLIN HFA 108 (90 Base) MCG/ACT AERS 2 puffs INH q 4 hours PRN wheezing ALBUTEROL SULFATE [id number] Mk Garcia End: 08-23-2015 VENTOLIN HFA 108 (90 Base) M CG/ACT AERS 2 puffs q 4 hrs prn ALBUTEROL SULFATE [id number] Nunu Zamudio VENTOLIN HFA 108 (90 Base) MCG/ACT AERS 2 puffs q 4 hrs prn ALBUTEROL SULFATE [id number] Mk Garcia albuterol 0.833 mg/ml / ipratropium bromide 0.167 mg/ml inhalation solution (1 source) Anticholinergic, beta2-Adrenergic Agonist Start: 12-16-2024 take 1 mL by inhalation every six hours Ipratropium-Albuterol 0.5 mg-3 mg(2.5 mg base)/3 mL solution for nebulization Active 3 mL INHALATION EVERY 6 HOURS 90 5 0 December 16, 2024 12:00am December 20, 2024 12:00am azithromycin 250 mg oral tablet (18 sources) Macrolide Antimicrobial Start: 06-12-2023 End: 12-16-2024 take 2-5 tablets by mouth once daily Azithromycin 250 mg tablet Active 0 PO .COMPLEX 6 0 December 16, 2024 12:00am take 500 mg today (day 1), then 250 mg for 4 days (days 2-5) PO Start: 04-19-2022 End: 06-04-2022 Azithromycin (Zithromax Z-Pa k) 250 mg tablet Discontinued 0 PO .COMPLEX 6 0 April 19, 2022 12:00am June 04, 2022 2:09pm For 250 mg dose pack: take 500 mg today (day 1), then 250 mg for 4 days (days 2-5) PO benzonatate 200 mg oral capsule (4 sources) Non-narcotic Antitussive Start: 08-22-2024 take 1 capsule by mouth three times daily as needed for cough Benzonatate 200 mg capsule Active 200 mg PO THREE TIMES A DAY as needed for cough 20 0 August 22, 2024 1:00am gabapentin 300 mg oral capsule (8 sources) Anti-epileptic Agent Start: 04-07-2024 End: 08-22-2024 take 1 capsule by mouth three times daily as needed Gabapentin 300 mg capsule Active 300 mg PO THREE TIMES A DAY as needed August 22, 2024 5:23pm methylPREDNISolone 4 mg oral tablet (20 sources) Corticosteroid Start: 12-16-2024 take 1 tablet by mouth once Methylprednisolone (Medrol (Gale)) 4 mg tablets,dose pack Active 4 mg PO per package directions 21 6 0 December 16, 2024 12:00am December 21, 2024 12:00am Start: 07-10-2021 End: 08-22-2024 take 1 tablet by mouth once Methylprednisolone (Medrol (Gale)) 4 mg tablets,dose pack Discontinued 4 mg PO per package directions 21 6 0 June 12, 2023 1:00am June 17, 2023 1:00am June 18, 2023 1:05am 24 hr metoprolol succinate 50 mg extended release oral tablet (20 sources) beta-Adrenergic Nannette Start: 02-07-2020 End: 12-09-2024 take 1 tablet by mouth once daily Metoprolol Succinate 50 mg tablet extended release 24 hr Active 50 mg PO DAILY 90 0 December 09, 2024 11:28am Start: 07-19-2019 End: 02-07-2020 take 1 capsule by mouth once daily Metoprolol Succinate 50 mg capsule,mona,ER 24hr Discontinued 50 mg PO DAILY 30 July 19, 2019 1:00am February 07, 2020 1:52pm sertraline 50 mg oral tablet (12 sources) Serotonin Reuptake Inhibitor Start: 10-09-2016 take 1 tablet by mouth once daily Sertraline 50 MG tablet Active 50 mg PO DAILY October 09, 2016 12:00am Completed/Discontinued Medications Medication Drug Class(es) Dates Sig (Normalized) Sig (Original) acetaminophen 325 mg / HYDROcodone bitartrate 5 mg oral tablet (15 sources) Opioid Agonist Start: 04-07-2024 End: 08-22-2024 Hydrocodone-Acetami nophen 5-325 mg tablet Discontinued 1 {tbl} PO EVERY 6 HOURS as needed for pain 20 5 0 April 07, 2024 August 22, 2024 5:23pm Piriformis syndrome Lesion of sciatic nerve, unspecified lower limb Start: 07-18-2020 End: 07-25-2020 Hydrocodone-Acetaminophen 1 TABLET tablet Discontinued 1 {tbl} PO EVERY 4 HOURS NEEDED as needed for Pain 20 7 0 July 18, 2020 July 24, 2020 1:00am July 25, 2020 1:02am Abnormal radiologic findings on diagnostic imaging of right kidney Start: 07-18-2020 End: 07-25-2020 take 1 tablet by mouth every four hours as needed Hydrocodone-Acetaminophen Discontinued 1 TABLET PO EVERY 4 HOURS NEEDED 08 01July 18, 2020 July 25, 2020 12:02am acetaminophen 325 mg / oxyCODONE hydrochloride 5 mg oral tablet (4 sources) Opioid Agonist Start: 04-21-2024 End: 08-22-2024 Oxycodone-Acetaminophen (Percocet) 5-325 mg tablet Discontinued 1 {tbl} PO EVERY 6 HOURS as needed for pain 12 3 April 21, 2024 August 22, 2024 5:23pm Piriformis syndrome of left side Lesion of sciatic nerve, left lower limb amoxicillin 875 mg / clavulanate 125 mg oral tablet (6 sources) Penicillin-class Antibacterial Start: 04-16-2023 End: 04-26-2023 Amoxicillin-Pot Clavulanate 875-125 mg tablet Discontinued 1 {tbl} PO Q12H 20 10 April 16, 2023 12:00am April 25, 2023 12:00am April 26, 2023 12:04am Acute sinusitis, unspecified Start: 04-16-2023 End: 04-26-2023 take 1 tablet by mouth every twelve hours Amoxicillin-Pot Clavulanate Discontinued 1 TABLET PO Q12H 20 April 15, 2023 11:00pm April 25, 2023 11:04pm Start: 03-11-2017 AUGMENTIN 875- 125 MG TABS 1 tablet twice daily AMOXICILLIN-POT CLAVULANATE [id number] Saravanan VÁSQUEZ apixaban 5 mg oral tablet [...] aspirin 81 mg delayed release oral tablet (11 sources) Platelet Aggregation Inhibitor, Nonsteroidal Anti-inflammatory Drug Start: 05-27-2019 End: 02-07-2020 take 1 tablet by mouth once daily Aspirin 81 mg tablet,delayed release (DR/EC) Discontinued 81 mg PO DAILY May 27, 2019 1:00am February 07, 2020 1:54pm cyclobenzaprine hydrochloride 5 mg oral tablet (11 sources) Muscle Relaxant Start: 07-10-2021 End: 08-22-2024 take 1 tablet by mouth three times daily as needed for muscle spasms Cyclobenzaprine 5 mg tablet Discontinued 5 mg PO THREE TIMES A DAY as needed for muscle spasm 30 July 10, 2021 1:00am August 22, 2024 5:22pm dexamethasone 6 mg oral tablet (8 sources) Corticosteroid Start: 04-14-2022 End: 08-22-2024 take 1 tablet by mouth once daily Dexamethasone 6 mg tablet Discontinued 6 mg PO DAILY 5 April 14, 2022 12:00am August 22, 2024 5:22pm diazePAM 2 mg oral tablet (4 sources) Benzodiazepine Start: 04-07-2024 End: 08-22-2024 take 1 tablet by mouth three times daily as needed for pain Diazepam (Valium) 2 mg tablet Discontinued 2 mg PO THREE TIMES A DAY as needed for muscle spasm/pain 15 5 April 07, 2024 12:00am August 22, 2024 5:22pm Piriformis syndrome Lesion of sciatic nerve, unspecified lower limb docusate sodium 100 mg oral capsule (11 sources) Start: 07-18-2020 End: 08-14-2020 take 1 capsule by mouth twice daily Docusate Sodium 100 MG capsule Discontinued 100 mg PO TWICE A DAY 20 July 18, 2020 1:00am August 14, 2020 3:15pm docusate sodium 50 mg / sennosides, longterm 8.6 mg oral tablet (11 sources) Start: 07-18-2019 End: 08-14-2020 Sennosides-Docusate Sodium (Senexon-S) 8.6-50 mg tablet Discontinued 1 NMA PO TWICE A DAY as needed for Constipation July 18, 2019 1:00am August 14, 2020 3:15pm famotidine 10 mg oral tablet (11 sources) Histamine-2 Receptor Antagonist Start: 07-10-2021 End: 08-22-2024 take 1 tablet by mouth once daily Famotidine (Acid Scientific Specialist (Famotidine)) 10 mg tablet Discontinued 10 mg [...] AY spray,suspension Discontinued 2 NMA NASAL DAILY 1 0 April 28, 2017 1:00am May 27, 2019 6:42pm Start: 04-28-2017 End: 05-27-2019 Fluticasone Propionate Disco ntinued 2 SPRAY NASAL DAILY April 28, 2017 12:00am May 27, 2019 5:42pm Start: 03-11-2017 FLONASE SUSP a s directed FLUTICASONE PROPIONATE SUSP [id number] Saravanan VÁSQUEZ hydroCHLOROthiazide 12.5 mg / lisinopril 10 mg oral tablet (20 sources) Thiazide Diuretic, Angiotensin Converting Enzyme Inhibitor Start: 05-27-2019 End: 07-19-2019 Lisinopril-Hydrochlorothiazi de 10-12.5 mg tablet Discontinued 1 {tbl} PO DAILY 90 0 May 27, 2019 1:00am July 19, 2019 [...] bromide 0.021 mg/actuat metered dose nasal spray (13 sources) Anticholinergic Start: 07-18-2019 End: 07-10-2021 Ipratropium [place] 0.03 % spray,non-aerosol Discontinued 2 NMA INTRANASAL EVERY 6 HOURS as needed for Nasal Congestion July 18, 2019 1:00am July 10, 2021 3:41pm administer into each nostril Start: 07-18-2019 End: 07-10-2021 take 1 spray(s) nasal route every six hours Ipratropium [place] Discontinued 2 SPRAY INTRANASAL EVERY 6 HOURS July 18, 2019 12:00am July 10, 2021 2:41pm administer into each nostril End: 08-23-2015 IPRATROPIUM BROMIDE 0.03 % S OLN IPRATROPIUM BROMIDE [id number] Nunu Zamudio levoFLOXacin 750 mg oral tablet (13 sources) Quinolone Antimicrobial Start: 01-04-2019 End: 05-27-2019 take 1 tablet by mouth once daily Levofloxacin 750 MG tablet Discontinued 750 mg PO DAILY 4 0 January 04, 2019 12:00am May 27, 2019 6:41pm Start: 08-23-2015 End: 11-21-2015 take 1 tablet by mouth once daily LEVAQUIN 500 MG TABS One tablet PO daily LEVOFLOXACIN [id number] Nunu Zamudio lisinopril 5 mg oral tablet (20 sources) Angiotensin Converting Enzyme Inhibitor Start: 07-19-2019 End: 06-13-2024 take 1 tablet by mouth once daily Lisinopril 5 mg tablet Discontinued 5 mg PO DAILY 90 June 26, 2023 10:00am June 13, 2024 10:55am Take 1 tablet by mouth once daily Start: 04-28-2017 End: 05-27-2019 take 1 tablet by mouth once daily Lisinopril 10 MG tablet Discontinued 10 mg PO DAILY 30 April 28, 2017 1:00am May 27, 2019 6:41pm Start: 03-11-2017 LISINOPRIL TAB S as directed LISINOPRIL TABS [id number] Saravanan VÁSQUEZ loratadine 10 mg oral tablet (13 sources) Start: 04-28-2017 End: 05-27-2019 take 1 tablet by mouth once daily Loratadine 10 MG tablet Discontinued 10 mg PO DAILY April 28, 2017 1:00am May 27, 2019 6:42pm End: 03-11-2017 take 1 tablet by mouth once daily LORATADINE 10 MG TABS One tablet by mouth daily LORATADINE [id number] Mk Garcia 120 actuat mometasone furoate 0.1 mg/actuat metered [...] aerosol inhaler Discontinued 2 NMA INHALATION Q12H 13 July 21, 2017 1:00am May 11, 2018 10:54am Start: 07-21-2017 End: 05-11-2018 take 1 puff(s) by inhalation every twelve hours Mometasone (Asmanex Hfa) 100 mcg/actuation HFA aerosol inhaler Discontinued 2 PUFF INHALATION Q12H July 21, 2017 12:00am May 11, 2018 9:54am NAPROXEN SODIUM TABS (1 source) Nonsteroidal Anti-inflammatory Drug NAPROXEN SODIUM TABS prn NAPROXEN SODIUM TABS [id number] Mk Garcia omeprazole 20 mg oral tablet (2 sources) Proton Pump Inhibitor Start: 04-24-20 15 End: 03-11-20 17 [facility] OMEPRAZOLE 20 MG TBEC one tablet in the morning for GERD OMEPRAZOLE [id number] Mk Garcia predniSONE 20 mg oral tablet (20 sources) Corticosteroid Start: 04-21-20 24 End: 08-23-19 25 take 3 tablets by mouth once daily, then take 2 tablets by mouth once daily, then take 1 tablet by mouth once daily Prednisone 20 mg tablet Discontinued 0 .ROUTE .COMPLEX 24 April 21, 2024 12:00am August 22, 2024 [...] by mouth daily for 5 days. PREDNISONE [id number] Tanesha Bullard CNP triamcinolone acetonide 1 mg/ml topical cream (11 sources) Corticosteroid Start: 07-18-2019 End: 07-10-2021 Triamcinolone Acetonide 0.1 % cream Discontinued 1 NMA TOPICAL THREE TIMES A DAY as needed for skin irritation July 18, 2019 1:00am July 10, 2021 3:41pm Vit C-E-Zinc Cg-Kwdr-Vpy-Zeax (Icaps Areds2) 250 mg-200 unit -12.5 mg-1 mg capsule (11 sources) Start: 02-07-2020 End: 07-10-2021 take 1 capsule by mouth twice daily Vit C-E-Zinc Oo-Dcao-Iuy-Zeax (Icaps Areds2) 250 mg-200 unit -12.5 mg-1 mg capsule Discontinued 1 CAP PO TWICE A DAY February 07, 2020 1:53pm July 10, 2021 3:41pm Start: 02-07-2020 End: 07-10-2021 Vit C-E-Zinc Um-Wbic-Apt-Jung x (Icaps Areds2) 250 mg-200 unit -12.5 mg-1 mg capsule Discontinued 1 NMA PO TWICE A DAY February 07, 2020 12:00am July 10, 2021 3:41pm Start: 02-07-2020 End: 07-10-2021 take 1 capsule by mouth twice daily Vit C-E-Zinc Ck-Pkku-Eqr-Zeax (Icaps Areds2) 250 mg-200 unit -12.5 mg-1 mg capsule Discontinued 1 CAP PO TWICE A DAY February 06, 2020 11:00pm July 10, 2021 2:41pm Start: 02-07-2020 End: 07-10-2021 take 1 capsule by mouth twice daily Vit C-E-Zinc Tr-Iuob-Xje-Zeax (Icaps Areds2) 250 mg-200 unit -12.5 mg-1 mg capsule Discontinued 1 CAP PO TWICE A DAY February 07, 2020 12:00am July 10, 2021 3:41pm Problems Active Problems Problem Classification Problem Date Documented Da te Episodic/Chronic Acute bronchitis (6 sources) Acute bronchitis; Translations: [Acute bronchitis, unspecified] 06-12-2023 Episodic Asthma (20 sources) Asthma; Translations: [Unspecified asthma with (acute) exacerbation] 07-18-2019 Chronic Cardiac dysrhythmias (11 sources) Paroxysmal atrial fibrillation; Translations: [Paroxysmal atrial fibrillation] 07-18-2020 Chronic Chronic obstructive pulmonary disease and bronchiectasis (20 sources) Bronchitis; Translations: [Bronchitis, not specified as acute or chronic] Onset: 08-23-2015 08-23-2015 Episodic Diseases of white blood cells (11 sources) Eosinophil count raised; 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 Essential hypertension (11 sources) Essential hypertension; Translations: [Essential (primary) hypertension] 07-18-2020 Chronic Fluid and electrolyte disorders (20 sources) Dehydration; Translations: [Dehydration] 01-04-2019 Episodic Noninfectious gastroenteritis (11 sources) Gastroenteritis; Translations: [Noninfective gastroenteritis and colitis, unspecified] 07-18-2019 Episodic Other aftercare (4 sources) Long-term current use of anticoagulant; Translations: [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 anticoagulants] 04-15-2024 Episodic Other and ill-defined heart disease (3 sources) Heart disease; Translations: [Heart disease, unspecified] Chronic Other connective tissue disease (4 sources) Pain in buttock; Translations: [Myalgia, other site] 04-29-2024 Episodic Other diseases of kidney and ureters (11 sources) Renal mass; Translations: [Other specified disorders of kidney and ureter] 01-20-2022 Chronic Other diseases of kidney and ureters (11 sources) Kidney lesion; Translations: [Disorder of kidney and ureter, unspecified] 01-20-2022 Episodic Other gastrointestinal disorders (11 sources) Diarrhea; Translations: [Diarrhea, unspecified] 01-04-2019 Episodic Other injuries and conditions due to external causes (5 sources) Injury of right foot; Translations: [Unspecified injury of right foot, initial encounter] 12-01-2024 Episodic Other injuries and conditions due to external causes (1 source) Unspecified injury of right foot, initial encounter; Translations: [Unspecified injury of right foot, initial encounter] Onset: 12-07-2024 Episodic Other lower respiratory disease (11 sources) Hypoxemia; Translations: [Hypoxemia] 07-18-2019 Episodic Other lower respiratory disease (5 sources) H/O: asthma; Translations: [Personal history of other diseases of the respiratory system] 06-13-2023 Episodic Other nervous system disorders (8 sources) Piriformis syndrome; Translations: [Lesion of sciatic nerve, left lower limb] 04-29-2024 Chronic Other non-traumatic joint disorders (11 sources) Shoulder pain; Translations: [Pain in unspecified shoulder] 01-20-2022 Episodic Other non-traumatic joint disorders (4 sources) Hip pain; Translations: [Pain in left hip] 04-20-2024 Episodic Other nutritional; endocrine; and metabolic disorders (11 sources) Obesity; Translations: [Obesity, unspecified] 01-04-2019 Chronic Other upper respiratory disease (11 sources) Seasonal allergic rhinitis; Translations: [Other seasonal allergic rhinitis] 01-04-2019 Chronic Other upper respiratory infections (12 sources) Acute sinusitis; Translations: [Acute sinusitis, unspecified] 04-16-2023 Episodic Pneumonia (except that caused by tuberculosis or sexually transmitted disease) (10 sources) Pneumonia; Translations: [Pneumonia, unspecified organism] Episodic Residual codes; unclassified (11 sources) Obstructive sleep apnea syndrome; Translations: [Obstructive sleep apnea (adult) (pediatric)] 01-04-2019 Chronic Residual codes; unclassified (11 sources) Unable to comply with treatment; Translations: [Patient's other noncompliance with medication regimen] 01-04-2019 Episodic Spondylosis; intervertebral disc disorders; other back problems (15 sources) Chronic pain; Translations: [Cervicalgia] 01-20-2022 Episodic Sprains and strains (20 sources) Strain of rotator cuff of shoulder; Translations: [Strain of muscle(s) and tendon(s) of the rotator cuff of right shoulder, initial encounter] Episodic Superficial injury; contusion (4 sources) Contusion of left foot; Translations: [Contusion of left foot, initial encounter] 04-20-2024 Episodic Thyroid disorders (8 sources) Thyroid nodule; Translations: [Nontoxic single thyroid nodule] Chronic Unclassified (1 source) Obstructive sleep apnea of adult; Translations: [Obstructive sleep apnea (adult) (pediatric)] Onset: 04-24-2015 04-24-2015 Chronic Unclassified (1 source) Low back pain, unspecified; Translations: [Low back pain, unspecified] Onset: 04-28-2024 Viral infection (12 sources) Disease caused by 2019-nCoV; Translations: [COVID-19] Episodic Past or Other Problems Problem Classification Problem Date Documented Da te Episodic/Chronic Abdominal pain (1 source) Pelvic and perineal pain; Translations: [Pelvic and perineal pain] Onset: 05-11-2024 Episodic Other connective tissue disease (1 source) Gluteal tendinitis, unspecified hip; Translations: [Gluteal tendinitis, unspecified hip] Onset: 06-09-2024 Episodic Other connective tissue disease (1 source) Pain in left foot; Translations: [Pain in left foot] Onset: 05-03-2024 Episodic Other lower respiratory disease (3 sources) Wheezing; Translations: [Chronic cough] Onset: 09-13-2014 03-11-2017 Episodic Unclassified (2 sources) Hypersomnia; Translations: [Hypersomnia, unspecified] Onset: 10-26-2014 Resolved: 04-24-2015 04-24-2015 Episodic Results Test Name Value Interpretation Reference Range Facility Foot min 3 Viewson 5 Foot min 3 Views [facility] [address] [place] [address] Foot min 3 Views MR#: [id number] Acct: [id number] Name: PETRA DUNCAN Rep #: [id number] : 1945 F 79 From: Darren bryant MD PCP: Dr. Ganesh Lock MD Status: REG CLI Study: Foot min 3 Views Date of Exam: 12/01/24 Exam# [id number] Ordering Dr: Marcos Weber PA PROCEDURE: FOOT MIN 3 VIEWS 12/01/2024 REASON FOR EXAM: RIGHT FOOT PAIN AFTER FALL TECHNIQUE: 3 views of the right foot. COMPARISON: None FINDINGS: Bones: No visible fracture. No suspicious bone lesion. Joints: Normal alignment. Soft tissues: Soft tissue swelling. Other: RAD/Foot min 3 Views IMPRESSION: Soft tissue swelling. Reading Location: [facility] CC: THALIA Hernández; Dr. Ganesh Lock MD Umbrella Mender: Signed Normal [facility] Urgent Care Visit Reporton 0 12-01-2024 Urgent Care Visit Report [facility] [address], [address] [place], [place] [address] [phone] OFFICE VISIT Date of Service: 12/01/24 MR#: [id number] Acct: [id number] Name: PETRA DUNCAN Rep #: [id number] : 1945 Provider: THALIA Hernández Age/Sex: 79/F Location: [email or web address] Status: Signed Intake Vital Signs 04/21/24 12:13 12/01/24 11:47 12/01/24 11:49 Height 5 ft 4 in 5 ft 4 in BP 110/68 Position Sitting Respiration 18 Pulse 106 H Temp 97.8 F Temp Source Oral Pulse Oximetry (%) 97 Oxygen Delivery Method room air Intake Visit Reasons: R FOOT PAIN FROM FALL Accompanied by: Self Is patient in pain?: Yes Pain scale (1-10): 8 Allergies chocolate Allergy (Verified 08/22/24 16:22) Other dog dander Allergy (Verified 08/22/24 16:22) Unknown strawberry Allergy (Verified 08/22/24 16:22) Food Allergy tree and shrub pollen Allergy (Verified 08/22/24 16:22) Unknown Have you fallen in the past year?: Yes Nurse's Note: Patient fell yesterday at her house. Patient right foot is swollen and bruised. REPLACED BY [facility] Medical History COVID-19 Strain of right rotator [...] do you participate in: none HPI HPI Details: PETRA DUNCAN, is a 79 F who presents to the office today for complaint of right foot pain. Patient states that she was kneeling down on her knee and then fell over onto her side pinning her foot underneath the right self. She states that she has had pain since then and slight swelling to the same. Patient denies numbness, tingling or loss of range of motion. No other associated symptoms or alleviating/aggravating factors. ROS Const Constitutional: No other (as above) Exam Const General: cooperative and healthy appearing Neuro General: patient alert and CN's II-XI intact bilaterally Extrem Other: Mild swelling to the right foot without obvious deformity. Psych Appearance: grossly normal Mental Status: mental status grossly normal Coding Level of Care Code Off vis,est,level 4 Diagnoses Right foot injury S99.921A Assessment and Plan Assessment and Plan (1) Right foot injury: Status: Acute Orders: Orders Foot min 3 Views Today S99.921A - Unspecified injury of right foot, initial encounter Plan Three-view x-ray of the right foot read and interpreted by myself finding no acute osseous abnormalities, awaiting radiology interpretation at time of patient discharge. Encouraged to get plenty of rest, drink lots of clear liquids, and use Tylenol or Ibuprofen (unless contraindicated) for comfort. Patient also educated on other symptomatic management techniques. To be seen in 7-10 days if no improvement; sooner if worsening of symptoms. Patient advised of potential red flags and when appropriate to report to the ED. Patient verbalized understanding and agreement with all the above. Clinical Quality Measures Falls Risk Screening/Assistive Devices Have you fallen in the past year?: Yes 12/01/24 0457 Date Marcos Glasgow Signature: Date (if applicable) CC: Normal [facility] Urgent Care Visit Reporton 0 08-22-2024 Urgent Care Visit Report [facility] [address], [address] [place], [place] [address] OFFICE VISIT Date of Service: 08/22/24 MR#: [id number] Acct: [id number] Name: PETRA DUNCAN Rep #: [id number] : 1945 Provider: THALIA Shrestha Age/Sex: 79/F Location: [facility] Status: Signed Intake Vital Signs 04/21/24 12:13 [...] 1 - 2 puff inhalation Q4H PRN UT N 06/13/23 08/22/24 Rx aerosol inhaler (Ventolin HFA) Wheezing 30 days #6.7 grams metoprolol succinate 50 mg 50 mg PO DAILY #90 tabs 12/21/23 0 08/22/24 Rx tablet,extended release 24 hr apixaban 5 mg tablet (Eliquis) 5 mg PO BID #60 tabs 03/11/24 0309/13 Rx lisinopril 5 mg tablet 5 mg [...] and ears plugged for a week now. REPLACED BY [facility] Medical History COVID-19 Strain of right rotator [...] Rate: regular (more content not included)... Normal [facility] Abdomen/Pelvis without Conto n 04-21-2024 Abdomen/Pelvis without Cont [facility] Imaging Services [address] [place] [address] Abdomen/Pelvis without Cont MR#: [id number] Acct: [id number] Name: PETRA DUNCAN Rep #: [id number] : 1945 F 79 From: Won ledbetter MD PCP: Dr. Nabila Paris MD Status: REG ER Study: Abdomen/Pelvis without Cont Date of Exam: 03/24 07/15 Exam# [id number] Ordering Dr: Rayshawn Diaz DO [id number] STUDY: CT ABDOMEN AND PELVIS WITHOUT CONTRAST [...] Nabila Paris MD; Dr. Rayshawn Diaz DO Umbrella Mender: Signed Normal [facility] Emergency Department Summary on 04-21-2024 Emergency Department Summary [facility] Records Department [address] [place] [address] Emergency Department Summary 04/21/24 MR#: [id number] Acct: [id number] Name: PETRA DUNCAN Rep #: [id number] : 1945 79 From: Rayshawn Diaz DO [...] use. She denies any constipation sedation issues. [facility] Medical History COVID-19 Strain of right [...] 10 mg PO DAILY 07/10/21 Unknown History Scientific Specialist (famotidine)) methylprednisolone 4 mg tablets in 4 [...] or racing (more content not included)... Normal [facility] Emergency Department Summary on 04-12-2024 Emergency Department Summary [facility] Department [address] [place] [address] Emergency Department Summary 04/12/24 MR#: [id number] Acct: [id number] Name: PETRA DUNCAN Rep #: [id number] : 1945 79 From: Lj Rizvi MD [...] flags for cauda equina. No back pain. [facility] Medical History COVID-19 Strain of right [...] 10 mg PO DAILY 07/10/21 Unknown History Scientific Specialist (famotidine)) methylprednisolone 4 mg tablets in 4 [...] Focused examin (more content not included)... Normal [facility] Foot min 3 Viewson 4 Foot min 3 Views [facility] Imaging Services [address] [place] [address] Foot min 3 Views MR#: [id number] Acct: [id number] Name: PETRA DUNCAN Rep #: [id number] : 1945 F 79 From: Darren bryant MD PCP: Dr. Nabila Paris MD Status: [facility] ER Study: Foot min 3 Views Date of Exam: 04/12/24 Exam# [id number] Ordering Dr: Lj Rizvi MD [id number] STUDY: X-RAY - LEFT FOOT CLINICAL: Female, [...] Lj Rizvi MD; Dr. Nabila Paris MD Umbrella Mender: Signed Normal [facility] HIP, UNI W/ Pelvis 2-3 Views on 04-12-2024 HIP, UNI W/ Pelvis 2-3 Views [facility] Imaging Services [address] [place] [address] HIP, UNI W/ Pelvis 2-3 Views MR#: [id number] Acct: [id number] Name: PETRA DUNCAN Rep #: [id number] : 1945 F 79 From: Darren bryant MD PCP: Dr. Nabila Paris MD Status: [facility] ER Study: HIP, UNI W/ Pelvis 2-3 Views Date of Exam: Exam# [id number] Ordering Dr: Lj Rizvi MD [id number] STUDY: X-RAY - PELVIS AND LEFT HIP [...] Signed: Darren Ayala MD at 14:30 EDT Reading Location ID and State: [facility] / [place] , Service support , CC: Dr. Lj Rizvi MD; Dr. Nabila Paris MD Umbrella Mender: Signed Normal [facility] Emergency Department Summary on 04-07-2024 Emergency Department Summary [facility] Medical Records Department [address] [place] [address] Emergency Department Summary 04/07/24 MR#: [id number] Acct: [id number] Name: PETRA DUNCAN Rep #: [id number] : 1945 79 From: Demetrius Cam DO PCP: Dr. Naibla Paris MD Status:DEP ER Location: ED HPI [...] or bladder control or IV drug use. [facility] Medical History COVID-19 Strain of right [...] 10 mg PO DAILY 07/10/21 Unknown History Scientific Specialist (famotidine)) methylprednisolone 4 mg tablets in 4 mg PO DAILY #21 tabs 07/10/21 Unknown Rx a dose pack (Kick Sport (Gale)) dexamethasone 6 mg tablet 6 mg [...] 96 Oxygen (more content not included)... Normal [facility] HIP, UNI W/ Pelvis 2-3 Views on 04-07-2024 HIP, UNI W/ Pelvis 2-3 Views [facility] Imaging Services [address] [place] [address] HIP, UNI W/ Pelvis 2-3 Views MR#: [id number] Acct: [id number] Name: ANDRZEJPETRA MARTE Med Rep #: [id number] : 1945 F 79 From: Scotty Gomez MD PCP: Dr. Nabila Paris MD Status: REG ER Study: HIP, UNI W/ Pelvis 2-3 Views Date of Exam: Exam# [id number] Ordering Dr: Demetrius Cam DO [id number] EXAM: XR LEFT HIP WITH PELVIS WHEN [...] Dr. Nabila Paris MD; Demetrius Cam DO Umbrella Mender: Signed Normal [facility] Influenza virus A and B and SARS-CoV-2 (COVID-19) Ag panel - Upper respiratory specimOrdered By: Dinora Moura on 06-13-2023 SARS-CoV-2 (COVID-19) RNA YISSEL+probe Ql (Resp) [facility] Basophil percentageOrdered B y: Dr. Paris on 10-21-2022 Chloride [Moles/Vol] 110 mmol/L 98-107 [facility] Cholesterol [Mass/Vol] 183 mg/dL <200 [facility] Comment on above: <200 mg/dL Desirable 200-240 mg/dL Borderline >240 mg/dL High Risk Glucose [Mass/Vol] 101 mg/dL 74-106 [facility] Comment on above: Fasting Glucose resu lt from 100 to 125 mg/dL suggests IMPAIRED HOMEOSTASIS per A.D.A. criteria. Potassium [Moles/Vol] 3.8 mmol/L 3.5-5.1 [facility] Sodium [Moles/Vol] 142 mmol/L 136-145 [facility] Triglyceride [Mass/Vol] 185 mg/dL <199 [facility] Comment on above: The drugs N-Acetylcy steine and Metamizole may falsely depress this assay.Serum Triglycerides Reference Interval Normal <150 mg/dL Borderline high 150 - 199 mg/dL High 200 - 499 mg/dL Very High > or = 500 mg/dL Laboratory - Chemistry and C hemistry - challengeOrdered By: Dr. Paris on 10-21-2022 CO2 [Moles/Vol] 28.0 mmol/L 21.0-32.0 [facility] Urea nitrogen/Creatinine [Mass ratio] 19.0 mg/mg 10-20 [facility] No Panel InformationOrdered By: Dr. Paris on 10-21-2022 Estimated GFR (MDRD) Amer 90 mL/min >60 [facility] Comment on above: GFR Calc Estimated GFR (MDRD) Non-Af Amer 75 mL/min >60 [facility] Comment on above: Non- GFR Calc Serum or plasma calcium itzel urement (mass/volume)Ordered By: Dr. Paris on 10-21-2022 Calcium [Mass/Vol] 9.0 mg/dL 8.5-10.1 [facility] Serum or plasma cholesterol in HDL measurement (mass/volume)Ordered By: Dr. Paris on 10-21-2022 Cholesterol in HDL [Mass/Vol] 33 mg/dL >40 [facility] Comment on above: The drugs N-Acetylcy steine and Metamizole may falsely depress this assay. Reference Range HDL <40 mg/dL Low HDL Cholesterol HDL >or= 60 mg/dL High HDL Cholesterol Serum or plasma cholesterol in VLDL measurement (mass/volume)Ordered By: Dr. Paris on 10-21-2022 Cholesterol in VLDL [Mass/Vol] 37 mg/dL 5-40 [facility] Serum or plasma creatinine m easurement (mass/volume)Ordered By: Dr. Paris on 10-21-2022 Creatinine [Mass/Vol] 0.79 mg/dL 0.55-1.02 [facility] Comment on above: The validity of the calculated GFR & GFRAA in patients over 70 years has not been determined. Clinical correlation is essential. Serum or plasma low density lipoprotein (LDL) cholesterol measurement (mass/volume)Ordered By: Dr. Paris on 10-21-2022 Cholesterol in LDL [Mass/Vol] 113 mg/dL 0-130 [facility] Serum or plasma urea nitroge n measurement (mass/volume)Ordered By: Dr. Paris on 10-21-2022 Urea nitrogen [Mass/Vol] 15 mg/dL 7-18 [facility] Thin prep Papanicolaou smear with manual screeningOrdered By: Dr. Paris on 10-21-2022 Thin prep Papanicolaou smear with manual screening 4 5-15 [facility] Laboratory - Chemistry and C hemistry - challengeon 06-04-2022 T4 [Mass/Vol] 10.4 ug/dL 4.8-13.9 [facility] Work Phone: No Panel Informationon 06-04 Free Triiodothyronine (T3) pg/dL 2.7 pg/mL 2.18-3.98 [facility] Work Phone: Thyroid Stimulating Hormone (TSH) 1.26 uIU/mL 0.358-3.74 [facility] Work Phone: Laboratory - Microbiology an d Antimicrobial susceptibilityon 04-14-2022 SARS-CoV-2 (COVID-19) RNA YISSEL+probe Ql (Unsp spec) Detected [facility] Work Phone: No Panel Informationon 04-14 Influenza Types A,B Rapid (Clinic) Not detected [facility] Work Phone: Basophil percentageon 2021 Basophil percentage < 0.9 mg/dL 0.55-1.02 [facility] Work Phone: No Panel Informationon 01-02 Bedside Estimated GFR (eGFR) > 60.0000 mL/min >60 [facility] Work Phone: CNOVon 04-12-2021 CNOV Office Visit ([facility] ) -- DAKOTAPETRA ([id number]) 1945 F Date Time Provider Department 04/12/21 5:45 PM [facility] During your visit today, we recorded the following information about you: Temperature Pulse Respiration Blood pressure 97 degrees 66/minute 18/minute 118/78 Weight 86.3 kg Shubham Smith APRN.SHIP RUNNER 04/12/2021 6:24 PM Signed Subjective HPI Nontoxic-appearing [...] - CHOLECYSTECTOMY 06/04/2019 laparoscopic - HYSTERECTOMY ALLERGIES [place] MEDICATIONS triamcinolone (KENALOG) 0.025 % cream Apply [...] as instructed twice daily. 1 puff Ipratropium Kalona (ATROVENT) 0.03 % nasal spray Use 2 [...] not diaphoretic. HENT: Head: Normocephalic. Mouth/Throat: Lips: [place]. Mouth: Mucous membranes are moist. Pharynx: Oropharynx [...] discussed. Pat (more content not included)... Normal [facility] ANES Dee 07-11-2019 ANES POST HNO ID: [id number] Author: Cristofer Tafoya Service: Anesthesiology Author Type: [...] 11, 2019 TIME: 8:26 PM PAGER/CONTACT # Joselin [facility] ANES PREOPon 07-11-2019 ANES PREOP HNO ID: [id number] Author: Jean Claude Murphy Service: Anesthesiology Author Type: Physician Type: Anesthesia [...] instructed twice daily. 1 puff - Ipratropium Kalona (ATROVENT) 0.03 % nasal spray Use 2 [...] this encounter. Allergies: ALLERGIES Allergen Reactions - [place] Hives DOS EXAM: Adequate NPO status: Yes [...] July 11, 2019 TIME: 12:03 PM CSN: [id number] [facility] OPERATIVE NOon 07-11-2019 OPERATIVE NO HNO ID: [id number] Author: Rikki Castillo Service: Gastroenterology Author Type: Physician Type: Operative Report Filed: 07/11/2019 4:22 PM Note Text: OPERATIVE/PROCEDURE REPORT LOG ID: [id number] Surgery/Procedure Date: 07/11/2019 Incision/Procedure Start Time: 2:02 PM Incision Close/Procedure End Time: 3:05 PM Surgeon(s)/Proceduralist(s ) and Network Technical Analyst(s): Surgeon(s) and Role: * Rikki Castillo - [...] procedure well. She was given Indocin 100mg UT at the end of the case. Pre-Op/Pre-Procedure [...] 11, 2019 TIME: 3:15 PM PAGER/CONTACT #: [phone] [facility] PT EDon 07-11-2019 PT ED HNO ID: [id number] Author: Azra (Mary) MARY Cabrera Service: ? Author Type: Registered Nurse [...] Cabrera RN In Department: [place] SURGERY OR [facility] XR ERCP READ ONLYon 07-11-19 XR ERCP READ ONLY * * *Final Report* * * DATE OF EXAM: Jul 11 2019 3:18PM CATALINOO 5565 - XR ERCP READ ONLY / [...] for removal of common bile duct stones. Umbrella Mender: VIRA Transcribe Date/Time: Jul 11 2019 3:36P Dictated by : FERNY MENDOZA MD This examination was interpreted and the report reviewed and electronically signed by: FERNY MENDOZA MD on Jul 11 2019 3:40PM EST Normal [facility] HISTORY PHYSICALon 0 HISTORY PHYSICAL HNO ID: [id number] Author: Hayley (Lamberto) ZENON Rubio.LAMBERTO Service: ? Author Type: Nurse Practitioner Type: [...] once daily. 10/12.5 mg Taking Yes Ipratropium Kalona (ATROVENT) 0.03 % nasal spray Use 2 Sprays in the nose every 12 hours. NAPROXEN ORAL Take by mouth. sertraline (ZOLOFT) 50 mg ORAL tablet Take 50 mg by mouth once daily. No medication comments found. ALLERGIES Allergen Reactions - [place] Hives REVIEW OF SYSTEMS: PAIN ASSESSMENT: General: Denies fever, chills, and unexpected weight change. Neuro: Denies dizziness and headaches. Respiratory: + asthma + sleep apnea- wears cpap. Denies COPD. No history of current cough or dyspnea, or pneumonia in the past 6 weeks. Cardiovascular: + HTN + hx paroxysmal afib 05/29/2019 Denies HLD. No history of angina, CHF, ID, cardiac surgery or stents. GI: Denies abd pain and N/V/D. See HPI : Denies dysuria. SUPERVISOR HARD CANDY: Denies abnormal vaginal bleeding. Endocrine: No history [...] fibrillation with RVR, returned to NSR. Per global implementation manager note pt needs ischemic work up and anticoagulation. ECHO was ordered and done during admission. EF> 61%- no significant valve disease. Recommended 5 mg eliquis BID and follow up with global implementation manager- per global implementation manager note in [facility] from 05/31/2019. Eliquis was never started prior to discharge- pt discharged on 06/05/2019. Does not have appt with [place] global implementation manager until August. Does anesthesia want any further work up? Or cardiac clearance? Assessment/Plan PLAN Diagnosis: Encounter for removal of pancreatic stent [Z46.89] Planned Procedure: ERCP [1671] CONSULTS: No consults pending. The Following Tests/Procedures Have Been Initiated: No orders in [facility], written, or scanned Planned Anesthetic: General Instructions Given to Patient: Patient given verbal and written preop instructions and voices comprehension and compliance. SIGNATURE: Hayley Rubio APRN.LAMBERTO PATIENT NAME: Petra Duncan DATE: July 07, 2019 TIME: 1:34 PM PAGER/CONTACT #: [facility] PROGRESSon 07-07-2019 PROGRESS HNO ID: [id number] Author: Sydni Otto Service: General Surgery Author Type: Nurse Practitioner Type: Progress Notes Filed: 07/07/2019 3:07 PM Note Text: Discussed case with Dr. Aragon. Ok to proceed with surgery. Eliquis has not been started. Patient should follow up with global implementation manager to discusses possible anticoagulation after surgery. [facility] PROGRESS HNO ID: [id number] Author: Hayley Rubio APRN.LAMBERTO Service: ? Author Type: Nurse Practitioner Type: Progress Notes Filed: 07/07/2019 2:19 PM Note Text: RED DOT- pt was admitted in May for abdominal pain had cholecystectomy, ERCP and stent placed. Went into transient atrial fibrillation with RVR, returned to NSR. Per global implementation manager note pt needs ischemic work up and anticoagulation. ECHO was ordered and done during admission. EF> 61%- no significant valve disease. Recommended 5 mg eliquis BID and follow up with global implementation manager- per global implementation manager note in epic from 05/31/2019. Eliquis was never started prior to discharge- pt discharged on 06/05/2019. Does not have appt with [place] global implementation manager until August. Does anesthesia want any further work up? Or cardiac clearance? [facility] PT EDon 07-06-2019 PT ED HNO ID: [id number] Author: Anna (Rn) MARY Archibald Service: Nursing Author Type: Registered Nurse [...] Archibald RN In Department: [place] SURGERY OR [facility] HOSPon 06-29-2019 HOSP Patient:Natalya Duncan ra MRN: Height:5' 4(1.626 m) Weight:170 lb (77.111 kg) Outpatient Medications as of 07/11/19: acetaminophen (TYLENOL) 325 mg tablet aspirin 81 mg chewable tablet mometasone 100 mcg/actuation HFAA Ipratropium Kalona (ATROVENT) 0.03 % nasal spray albuterol HFA (PROVENTIL HFA, VENTOLIN HFA) 90 mcg/actuation inhaler LISINOPRIL-HYDROCHLOROTHIA ZIDE ORAL NAPROXEN ORAL sertraline (ZOLOFT) 50 mg ORAL tablet Admission/Clinic Administered Medications as of 07/11/19: Patient has no admission medications. Problem List: Biliary obstruction [K83.1] Allergies: [place] Date Verified: 07/11/19 Lab Values No results within the last 30 days for the following basenames: K,HCT Progress Notes ([facility]): Sophy Aguilar 07/08/2019 11:31 AM Signed Called the patient and left a voice message reminding the patient about the time, date, location, and prep for her appointment. I also reminded the patient to be at her appointment a 1 ? before and to bring a bulk delivery driver. Sohpy Aguilar Progress Notes (PRE SURG TESTING [place] [facility]): Hayley Rubio, WEBSPHERE COMMERCE CONSULTANT.SHIP RUNNER, WEBSPHERE COMMERCE CONSULTANT.SHIP RUNNER 07/07/2019 1:34 PM Signed PATIENT PREOPERATIVE INSTRUCTIONS Rikki Castillo MD has scheduled you for your procedure at this surgery center: [facility]: [phone], [address] [id number] Please read below carefully for your personalized [...] Procedures: - YOU MUST HAVE A RESPONSIBLE WHEEL AND PINION INSPECTOR TAKE YOU HOME. A SCREW CUTTER OR DECK HAND CANNOT BE MADE A RESPONSIBLE WHEEL AND PINION INSPECTOR. - We recommend that a responsible person stays with you overnight to take care of you. - You cannot stay in a hotel alone after outpatient surgery. You will not be permitted to have your surgery, if you do not have someone to take care of you. Hayley Rubio APRN.LAMBERTO Rubio APRN.LAMBERTO, ZENON.LAMBERTO 07/07/2019 2:19 PM Signed HISTORY AND PHYSICAL EXAMINATION SERVICE DATE: 07/07/2019 SERVICE TIME: 1335 PRIMARY CARE PHYSICIAN: Nabila Paris MD REASON FOR VISIT: Petra Duncan is a 74 year old female who is scheduled for ERCP [3632] Petra Duncan is a 74 year old [...] once daily. 10/12.5 mg Taking Yes Ipratropium Kalona (ATROVENT) 0.03 % nasal spray Use 2 Sprays in the nose every 12 hours. NAPROXEN ORAL Take by mouth. sertraline (ZOLOFT) 50 mg ORAL tablet Take 50 mg by mouth once daily. No medication comments found. ALLERGIES Allergen Reactions - [place] Hives REVIEW OF SYSTEMS: PAIN ASSESSMENT: General: Denies fever, chills, and unexpected weight change. Neuro: Denies dizziness and headaches. Respiratory: + asthma + sleep apnea- wears cpap. Denies COPD. No history of current cough or dyspnea, or pneumonia in the past 6 weeks. Cardiovascular: + HTN + hx paroxysmal afib 05/29/2019 Denies HLD. No history of angina, CHF, ID, cardiac surgery or stents. GI: Denies abd pain and N/V/D. See HPI : Denies dysuria. SUPERVISOR HARD CANDY: Denies abnormal vaginal bleeding. Endocrine: No history [...] fibrillation with RVR, returned to NSR. Per global implementation manager note pt needs ischemic work up and anticoagulation. ECHO was ordered and done during admission. EF> 61%- no significant valve disease. Recommended 5 mg eliquis BID and follow up with global implementation manager- per global implementation manager note in [facility] from 05/31/2019. Eliquis was never started prior to discharge- pt discharged on 06/05/2019. Does not have appt with [place] global implementation manager until August. Does anesthesia want any further work up? Or cardiac clearance? Assessment/Plan PLAN Diagnosis: Encounter for removal of pancreatic stent [Z46.89] Planned Procedure: ERCP [1671] CONSULTS: No consults pending. The Following Tests/Procedures Have Been Initiated: No orders in [facility], written, or scanned Planned Anesthetic: [...] fibrillation with RVR, returned to NSR. Per global implementation manager note pt needs ischemic work up and anticoagulation. ECHO was ordered and done during admission. EF> 61%- no significant valve disease. Recommended 5 mg eliquis BID and follow up with global implementation manager- per global implementation manager note in [facility] from 05/31/2019. Eliquis was never started prior to discharge- pt discharged on 06/05/2019. Does not have appt with [place] global implementation manager until August. Does anesthesia want any further work up? Or cardiac clearance? Normal [facility] CNOVon 06-23-2019 CNOV Office Visit ([facility] 5) -- PETRA DUNCAN ([id number]) 1945 F Date Time Provider Department 06/23/19 4:00 PM NURSE [facility] 359 [facility]5 During your visit today, we recorded the following information about you: Pulse Respiration Blood pressure Weight 88/minute 20/minute 118/64 79.4 kg Height 1.676 m Danette Webb APRN.SHIP RUNNER 06/23/2019 7:36 PM Signed Patient referred by: SELF Patient presents with: Post Op: robert kennedy HPI: This is a post operative visit. [...] mcg as instructed twice daily. - Ipratropium [place]ona (ATROVENT) 0.03 % nasal spray Use 2 [...] for this visit. ALLERGIES Allergen Reactions - [place] Hives REVIEW OF SYSTEMS: GENERAL: No weight [...] on an as needed basis. Danette Webb APRN.LAMBERTO Webb APRN.CNP 06/23/2019 7:28 PM Signed You [...] Hives Date Reviewed: 06/23/2019 Reviewed by: Sindy Funk - Fully Assessed Reason for Visit: Post Op [174] Cmt: lap isadora Primary Visit Diagnosis:Urgency of micturition [R39.15] Other Visit Diagnosis:Status post laparoscopic cholecystectomy [Z90.49] Order(s):URINALYSIS WITH MICROSCOPIC [SQUAWMIC] Order #: [id number] FUTURE Prescriptions as of 06/23/2019 Sig: ACETAMINOPHEN [...] Status:Closed by DANETTE WEBB CNP on 06/23/19 [facility] PROGRESSon 06-23-2019 PROGRESS HNO ID: [id number] Author: Danette Webb Service: ? Author Type: [...] mcg as instructed twice daily. - Ipratropium [place] (ATROVENT) 0.03 % nasal spray Use 2 [...] for this visit. ALLERGIES Allergen Reactions - [place] Hives REVIEW OF SYSTEMS: GENERAL: No weight [...] on an as needed basis. Danette Webb APRN.SHIP RUNNER Normal [facility] CNCOon 06-10-2019 CNCO Letter Text Normal [facility] Basic Panelon 06-05-2019 Creatinine [Mass/Vol] 0.80 mg/dL Normal 0.51-0.95 [facility] Comment on above: Performed By: #### P 14 #### [address] [address] Glucose [Mass/Vol] 99 mg/dL Normal 70-99 [facility] Comment on above: Performed By: #### P 14 #### [address] [address] Anion gap [Moles/Vol] 8 mmol/L Normal 8-16 [facility] Comment on above: Performed By: #### P 14 #### [address] [address] Calcium [Mass/Vol] 8.6 mg/dL Normal 8.5-10.1 [facility] Comment on above: Performed By: #### P 14 #### [facility] [address] [place] [address] CO2 [Moles/Vol] 28 mmol/L Normal 21-32 [facility] Comment on above: Performed By: #### P 14 #### [facility] [address] [place] [address] Urea nitrogen [Mass/Vol] 12 mg/dL Normal 7-18 [facility] Comment on above: Performed By: #### P 14 #### [facility] [address] [place] [address] Chloride [Moles/Vol] 109 mmol/L High 98-107 [facility] Comment on above: Performed By: #### P 14 #### [facility] [address] [place] [address] Potassium [Moles/Vol] 3.4 mmol/L Low 3.5-5.1 [facility] Comment on above: Performed By: #### P 14 #### [facility] [address] [place] [address] Sodium [Moles/Vol] 142 mmol/L Normal 136-145 [facility] Comment on above: Performed By: #### P 14 #### [facility] [address] [place] [address] CASE MANAGEMon 06-05-2019 CASE MANAGEM HNO ID: [id number] Author: Iman (Rn) MARY Casillas Service: Care Management Author Type: Registered Nurse Type: Care Mgt Progress Note Filed: 06/05/2019 12:53 PM Note Text: CARE MANAGEMENT DISCHARGE NOTE SERVICE DATE: 06/05/2019 SERVICE TIME: 12:51 PM LOS: 7 days Admission Date: 05/29/2019 DISCHARGE ARRANGEMENT (list agency and phone number) Home Provider: clarice Phone: [phone] CAREGIVER ASSESSMENT: Caregiver is ready, willing and able to meet the patient's needs as recommended by the inter-professional team? No Caregiver Needed Patient's transition needs and plan for meeting these needs: home, self care Does the patient have an acute stroke diagnosis, or has the patient had a stroke during this admission? No HANDOFF COMMUNICATION: RN to gi DC instructions at bedside TRANSPORTATION ARRANGEMENTS: Car family to transport ADDITIONAL CONTACT RESOURCES: n/a Patient will DC home with self care- no needs, family to transport. SIGNATURE: Iman Casillas RN PATIENT NAME: Petra Duncan DATE: June 05, 2019 TIME: 12:51 PM PAGER/CONTACT #: [phone] Normal [facility] Hemogram/Diffon 06-05-2019 Abs Immature Grans 0.11 thou/cmm High 0.00-0.05 [facility] Comment on above: Performed By: #### P 14 #### [facility] [address] [place] [address] Abs Neut (ANC) 4.86 thou/cmm Normal 1.56-6.13 [facility] Comment on above: Performed By: #### P 14 #### [place] [address] Abs. Baso 0.05 thou/cmm Normal 0.01-0.08 [facility] Comment on above: Performed By: #### P 14 #### [facility] [address] [place] [address] Abs. Galax 0.68 thou/cmm Normal 0.27-0.70 [facility] Comment on above: Performed By: #### P 14 #### [facility] [address] [place] [address] Basophils/100 WBC (Bld) 0.7 % Normal [facility] Comment on above: Performed By: #### P 14 #### [facility] [address] [place], [place] [address] Eosinophils (Bld) [#/Vol] 0.30 thou/cmm Normal 0.00-0.31 [facility] Comment on above: Performed By: #### P 14 #### [facility] [address] [place] [address] Eosinophils/100 WBC (Bld) 3.9 % Normal [facility] Comment on above: Performed By: #### P 14 #### [facility] [address] [place] [address] Erythrocyte distribution width (RBC) [Ratio] 14.1 % Normal 11.7-14.4 [facility] Comment on above: Performed By: #### P 14 #### [facility] [address] [place], [place] [address] Hematocrit (Bld) [Volume fraction] 35.9 % Normal 34.1-44.9 [facility] Comment on above: Performed By: #### P 14 #### [facility] [address] [place], [place] [address] Hemoglobin (Bld) [Mass/Vol] 11.7 g/dL Normal 11.2-15.7 [facility] Comment on above: Performed By: #### P 14 #### [facility] [address] [place] [address] Immature Grans 1.40 % Normal [facility] Comment on above: Performed By: #### P 14 #### [facility] [address] [place] [address] Lymphocytes (Bld) [#/Vol] 1.62 thou/cmm Normal 1.18-3.74 [facility] Comment on above: Performed By: #### P 14 #### [facility] [address] [place], [place] [address] Lymphocytes/100 WBC (Bld) 21.3 % Normal [facility] Comment on above: Performed By: #### P 14 #### [facility] [address] [place], [place] [address] MCH (RBC) [Entitic mass] 29.5 pg Normal 25.6-32.2 [facility] Comment on above: Performed By: #### P 14 #### [facility] [address] [place], [place] [address] MCHC (RBC) [Mass/Vol] 32.6 % Normal 31.6-34.8 [facility] Comment on above: Performed By: #### P 14 #### [facility] [address] [place], [place] [address] MCV (RBC) [Entitic vol] 90.7 fL Normal 79.4-94.8 [facility] Comment on above: Performed By: #### P 14 #### [facility] [address] [place], [place] [address] Monocytes/100 WBC (Bld) 8.9 % Normal [facility] Comment on above: Performed By: #### P 14 #### [facility] [address] [place] [address] Platelet mean volume (Bld) [Entitic vol] 12.3 fL Normal 9.4-12.3 [facility] Comment on above: Performed By: #### P 14 #### [facility] [address] [place] [address] Platelets (Bld) [#/Vol] 196 thou/cmm Normal 182-369 [facility] Comment on above: Performed By: #### P 14 #### [facility] [address] [place] [address] RBC (Bld) [#/Vol] 3.96 mil/cmm Normal 3.93-5.22 [facility] Comment on above: Performed By: #### P 14 #### [facility] [address] [place] [address] RDW SD 46.4 fl High 36.4-46.3 [facility] Comment on above: Performed By: #### P 14 #### [facility] [address] [place] [address] Seg Neutrophil 63.8 % Normal [facility] Comment on above: Performed By: #### P 14 #### [facility] [address] [place] [address] WBC (Bld) [#/Vol] 7.62 thou/cmm Normal 3.98-10.04 [facility] Comment on above: Performed By: #### P 14 #### [facility] [address] [place] [address] Hepatic Panelon 06-05-2019 ALP [Catalytic activity/Vol] 184 U/L High 45-117 [facility] Comment on above: Performed By: #### P 14 #### [facility] [address] [place] [address] Bilirubin [Mass/Vol] 1.1 mg/dL High 0.2-1.0 [facility] Comment on above: Performed By: #### P 14 #### [facility] [address] [place], [place] [address] Protein [Mass/Vol] 5.8 g/dL Low 6.4-8.2 [facility] Comment on above: Performed By: #### P 14 #### [facility] [address] [place] [id number] AST [Catalytic activity/Vol] 35 U/L Normal 15-37 [facility] Comment on above: Performed By: #### P 14 #### [facility] [address] [place] [id number] ALT [Catalytic activity/Vol] 92 U/L High 12-78 [facility] Comment on above: Performed By: #### P 14 #### [facility] [address] [place] [id number] Bilirubin [Mass/Vol] 0.76 mg/dL High 0.00-0.20 [facility] Comment on above: Performed By: #### P 14 #### [facility] [address] [place] [id number] Albumin [Mass/Vol] 2.4 g/dL Low 3.4-5.0 [facility] Comment on above: Performed By: #### P 14 #### [facility] [address] [place] [address] MDRD GFRon 06-05-2019 GFR/1.73 sq M predicted among non-blacks MDRD (S/P/Bld) [Vol rate/Area] mL/min/{1.73_m2} Normal >60mL/min/1 .73m2 [facility] Comment on above: Result Comment: If t he patient is , multiply the result by 1.210. Performed By: #### G FR #### [facility] [address] [place] [address] PROGRESSon 06-05-2019 PROGRESS HNO ID: [id number] Author: Jean Claude Cohen Service: General Surgery [...] kg/m? O2 Therapy: Room Air IANDO: Date 06/04/19 07 - 06/05/1961 06/05/19 07 - 06/06/19 0659 Shift 2594-0371 5670-6022 0371-1179 24 Hour Total 4013-2054 4232-7187 2548-1254 24 Hour Total INTAKE IV 1200 1200 [...] INHALATION q 6 H PRN - Ipratropium [place] 2 [place] nasal spray (ATROVENT) 2 [place] NASAL q 12 H - sertraline 50 [...] EOMI, mucus membranes moist, PEERL Neuro - motor/sensory/waybill clerk grossly intact CV - HR and BP [...] ICU or 2174 if on RNF. ' [facility] ANES Dee 06-04-2019 ANES POST HNO ID: [id number] Author: Mk Muñoz Service: Anesthesiology Author Type: [...] 04, 2019 TIME: 12:10 PM PAGER/CONTACT #: [facility] ANES PREOPon 06-04-2019 ANES PREOP HNO ID: [id number] Author: Mk Muñoz Service: Anesthesiology Author Type: [...] mg by mouth once daily. - Ipratropium [place] (ATROVENT) 0.03 % nasal spray Use 2 [...] - [MAR Hold due to Transfer] Ipratropium [place] 2 [place] nasal spray (ATROVENT) 2 [place] NASAL q 12 H Danay Pozo MD 2 [place] at 06/03/192102 - [MAR Hold due to [...] PRN Danay Pozo MD 5 mg at 06/03/190 - [MAR Hold due to Transfer] piperacillin-tazobactam [...] June 04, 2019 TIME: 7:53 AM CSN: [id number] [facility] NURSING PROGon 06-04-2019 NURSING PROG HNO ID: [id number] Author: Gena (Rn) Fuentes Mendez RN Service: ? Author Type: Registered Nurse Type: Nursing Progress Note Filed: 06/04/2019 7:59 AM Note Text: Partial denture plate taken back to pt room. [facility] OPERATIVE NOon 06-04-2019 OPERATIVE NO HNO ID: [id number] Author: Jessica Kimball Service: General Surgery Author Type: Physician Type: Operative Report Filed: 06/04/2019 3:43 PM Note Text: OPERATIVE/PROCEDURE REPORT LOG ID: [id number] Surgery/Procedure Date: 06/04/2019 Incision/Procedure Start Time: 8:15 AM Incision Close/Procedure End Time: 9:31 AM Surgeon(s)/Proceduralist(s ) and Network Technical Analyst(s): Surgeon(s) and Role: * Jessica Kimball - [...] and distally with a 5 mm clip energy broker. Two clips were left on the proximal [...] 04, 2019 TIME: 3:41 PM PAGER/CONTACT #: Joselin [facility] PROGRESSon 06-04-2019 PROGRESS HNO ID: [id number] Author: Lacho Romo Service: Hospital Medicine Author [...] INHALATION q 6 H PRN - Ipratropium [place] 2 [place] nasal spray (ATROVENT) 2 [place] NASAL q 12 H - sertraline 50 [...] Units SUBCUTANEOUS EVERY 12 HOURS 05/29/19933 -- 05/29/19944 pneumatic compression stockings (fl,oh) 05/29/19944 activity - mobilize patient (fl,oh) VTE Prophylaxis: VTE prophylaxis appropriate SIGNATURE: Lacho Romo MD PATIENT NAME: Petra Duncan DATE: June 04, 2019 TIME: 12:28 PM PAGER: Jadon Olivera [facility] PROGRESS HNO ID: [id number] Author: Jean Claude Cohen Service: General Surgery [...] Therapy: Room Air IANDO: Date 06/03/19699 - 06/04/1965806/04/19 07 - 06/05/19 0659 Shift 0892-7970 6468-5487 7721-9117 24 Hour Total 9681-9160 9818-5144 4990-3620 24 Hour Total INTAKE PO 440 440 [...] - [MAR Hold due to Transfer] Ipratropium [place] 2 [place] nasal spray (ATROVENT) 2 [place] NASAL q 12 H - [MAR Hold [...] EOMI, mucus membranes moist, PEERL Neuro - motor/sensory/waybill clerk grossly intact CV - HR and BP [...] or 2174 if on RNF. ' Normal [facility] Surgical Tissue Examon 06-04 Surgical Tissue Exam Test performed at [place] [address] NAME: PETRA DUNCAN REQUESTING: JESSICA KIMBALL M.D. [...] calculi impaction. A lesion is not seen. Harp Action Assembler sections are submitted in formalin in one cassette. ARH:oleksandr JAMIL M.D., PATHOLOGIST (Electronic signature on file) Signed out: 06/08/2019 16:45 PRINTED: 06/08/2019 Page 1 of 1 Normal [facility] Comment on above: Performed By: #### P 14 #### [place] [address] US KIDNEY/BLADDERon 06-04-20 US KIDNEY/BLADDER * * *Final Report* * * DATE OF EXAM: Jun 04 2019 3:08PM [facility] 1055 - US KIDNEY/BLADDER / PROCEDURE [...] carcinoma should be considered until proven otherwise Umbrella Mender: VIRA Transcribe Date/Time: Jun 05 2019 1:59P Dictated by : SANJAY DOBSON MD This examination was interpreted and the report reviewed and electronically signed by: SANJAY DOBSON MD on Jun 05 2019 2:02PM EST Normal [facility] ANES Dee 06-03-2019 ANES POST HNO ID: [id number] Author: Moses Barahona Service: Anesthesiology Author Type: [...] 2019 TIME: 11:41 PM PAGER/CONTACT #: Joselin [facility] CONSULTon 06-03-2019 CONSULT HNO ID: [id number] Author: Minerva Burton MD Service: General Surgery [...] daily., Disp: 6 tablet, Rfl: 0 Ipratropium [place] (ATROVENT) 0.03 % nasal spray, Use 2 [...] 06/02/19 7:58 AM Result Value Ref Range Contour Grinder Echocardiography Report: Transthoracic Echo [facility] Date of service: 06/02/2019 7:58:00 AM Ordering [...] please page [phone] if in ICU or 2179 if on RNF. SIGNATURE: Minerva Burton MD PATIENT NAME: Petra Duncan DATE: June 03, 2019 TIME: 12:43 AM PAGER/CONTACT #: [phone] [facility] CONSULT PROGon 06-03-2019 CONSULT PROG HNO ID: [id number] Author: Jamison Graff Service: Gastroenterology Author Type: Physician Network Technical Analyst Type: Consult Progress Note Filed: 06/03/2019 10:37 [...] INHALATION q 6 H PRN - Ipratropium [place] 2 [place] nasal spray (ATROVENT) 2 [place] NASAL q 12 H - sertraline 50 [...] 03, 2019 TIME: 10:28 AM PAGER/CONTACT #: [phone] Normal [facility] Comprehensive Panelon 2018 ALP [Catalytic activity/Vol] 253 U/L High 45-117 [facility] Comment on above: Performed By: #### C BC1 #### [address] [address] Bilirubin [Mass/Vol] 1.3 mg/dL High 0.2-1.0 [facility] Comment on above: Performed By: #### C BC1 #### [facility] [address] [place], [place] [address] Creatinine [Mass/Vol] 0.70 mg/dL Normal 0.51-0.95 [facility] Comment on above: Performed By: #### C BC1 #### [facility] [address] [place], [place] [address] Protein [Mass/Vol] 5.6 g/dL Low 6.4-8.2 [facility] Comment on above: Performed By: #### C BC1 #### [facility] [address] [place], [place] [address] ALT [Catalytic activity/Vol] 113 U/L High 12-78 [facility] Comment on above: Performed By: #### C BC1 #### [facility] [address] [place], [place] [address] AST [Catalytic activity/Vol] 32 U/L Normal 15-37 [facility] Comment on above: Performed By: #### C BC1 #### [facility] [address] [place], [place] [address] Glucose [Mass/Vol] 101 mg/dL High 70-99 [facility] Comment on above: Performed By: #### C BC1 #### [facility] [address] [place], [place] [address] Albumin [Mass/Vol] 2.4 g/dL Low 3.4-5.0 [facility] Comment on above: Performed By: #### C BC1 #### [facility] [address] [place], [place] [address] Anion gap [Moles/Vol] 10 mmol/L Normal 8-16 [facility] Comment on above: Performed By: #### C BC1 #### [facility] [address] [place], [place] [address] Calcium [Mass/Vol] 8.7 mg/dL Normal 8.5-10.1 [facility] Comment on above: Performed By: #### C BC1 #### [facility] [address] [place], [place] [address] CO2 [Moles/Vol] 27 mmol/L Normal 21-32 [facility] Comment on above: Performed By: #### C BC1 #### [facility] [address] [place], [place] [address] Urea nitrogen [Mass/Vol] 12 mg/dL Normal 7-18 [facility] Comment on above: Performed By: #### C BC1 #### [facility] [address] [place], [place] [address] Chloride [Moles/Vol] 107 mmol/L Normal 98-107 [facility] Comment on above: Performed By: #### C BC1 #### [facility] [address] [place], [place] [address] Potassium [Moles/Vol] 3.9 mmol/L Normal 3.5-5.1 [facility] Comment on above: Performed By: #### C BC1 #### [facility] [address] [place] [address] Sodium [Moles/Vol] 140 mmol/L Normal 136-145 [facility] Comment on above: Performed By: #### C BC1 #### [facility] [address] [place], [place] [address] Lipase Bloodon 06-03-2019 Lipase Blood 80 U/L Normal 73-393 [facility] Comment on above: Performed By: #### P 14 #### [facility] [address] [place], [place] [address] PROGRESSon 06-03-2019 PROGRESS HNO ID: [id number] Author: Danay Pozo MD Service: Hospital Medicine Author Type: Physician Type: Progress Notes Filed: 06/03/2019 7:43 PM Note Text: Discussed with patient about the lesion in kidney, patient understands she will need outpatient evaluation through her pcp. Will order renal ultrasound. Normal [facility] PROGRESS HNO ID: [id number] Author: Danay Pozo MD Service: Hospital Medicine Author Type: Physician Type: Progress Notes Filed: 06/03/2019 6:30 PM Note Text: DEPARTMENT OF HOSPITAL MEDICINE PROGRESS NOTE SERVICE DATE: 06/03/2019 SERVICE TIME: 8:26 AM Hospital Medicine/Primary Attending: Danay Siegel MD NIGHT AND WEEKEND COVERAGE: After 7pm please page [phone] CHIEF COMPLAINT: Abdominal pain SUBJECTIVE: Pt seen [...] - [MAR Hold due to Transfer] Ipratropium [place] 2 [place] nasal spray (ATROVENT) 2 [place] NASAL q 12 H - [MAR Hold [...] 0934 -- 05/29/19 0945 pneumatic compression stockings (ky,oh) 05/29/19 0945 activity - mobilize patient (ky,ma) Lines, Drains, and Airways Line Peripheral 06/02/19 1538 Left Hand 20 Gauge 1 day VTE Prophylaxis: Other - held for isadora tomorrow Disposition: Home Functional Status Prior to Admit: Medical Necessity for Continued Hospitalization Plan of care discussed with: Provider, RN, Patient SIGNATURE: Danay Siegel MD PATIENT NAME: Petra Duncan DATE: June 03, 2019 TIME: 6:26 PM PAGER/CONTACT #: Team color pager Normal [facility] ANES PREOPon 06-02-2019 ANES PREOP HNO ID: [id number] Author: Danielito Porter Service: Anesthesiology Author Type: [...] tablets by mouth once daily. - Ipratropium [place] (ATROVENT) 0.03 % nasal spray Use 2 [...] Puff INHALATION q 6 H PRN Navid Larios - [MAR Hold due to Transfer] Ipratropium [place] 2 [place] nasal spray (ATROVENT) 2 [place] NASAL q 12 H Navid Larios 2 [place] at 06/02/19 0900 - [MAR Hold due [...] inhaler (ASMANEX) 1 Puff INHALATION DAILY Navid Rci 1 Puff at 06/02/19 0900 Allergies: ALLERGIES [...] June 02, 2019 TIME: 2:40 PM CSN: [id number] [facility] CONSULT PROGon 06-02-2019 CONSULT PROG HNO ID: [id number] Author: Liya Hutchison (Pa) Service: Gastroenterology Author Type: Physician Network Technical Analyst Type: Consult Progress Note Filed: 06/02/2019 9:55 [...] of the plan. Liya Hutchison PA-C Gastroenterology [facility] NURSING PROGon 06-02-2019 NURSING PROG HNO ID: [id number] Author: Sophia ArguetaRoberto Reid RN Service: ? Author Type: Registered Nurse Type: Nursing Progress Note Filed: 06/02/2019 12:06 PM Note Text: Attempted to call back to [facility] for report, hold for 5 min will attempt to call back prior to patient being picked up Normal [facility] OPERATIVE NOon 06-02-2019 OPERATIVE NO HNO ID: [id number] Author: Rikki Castillo Service: Gastroenterology Author Type: Physician Type: Operative Report Filed: 06/02/2019 5:37 PM Note Text: OPERATIVE/PROCEDURE REPORT LOG ID: [id number] Surgery/Procedure Date: 06/02/2019 Incision/Procedure Start Time: 3:52 PM Incision Close/Procedure End Time: 4:21 PM Surgeon(s)/Proceduralist(s ) and Network Technical Analyst(s): Surgeon(s) and Role: * Rikki Castillo - [...] 02, 2019 TIME: 5:32 PM PAGER/CONTACT #: [phone] Normal [facility] PROGRESSon 06-02-2019 PROGRESS HNO ID: [id number] Author: Danay Pozo MD Service: Hospital Medicine Author Type: Physician Type: Progress Notes Filed: 06/02/2019 7:23 PM Note Text: DEPARTMENT OF HOSPITAL MEDICINE PROGRESS NOTE SERVICE DATE: 06/02/2019 SERVICE TIME: 8:21 AM Hospital Medicine/Primary Attending: Danay Siegel MD NIGHT AND WEEKEND COVERAGE: After 7pm please page [phone] CHIEF COMPLAINT: jaundice SUBJECTIVE: Pt seen and [...] INHALATION q 6 H PRN - Ipratropium [place] 2 [place] nasal spray (ATROVENT) 2 [place] NASAL q 12 H - aspirin 81 [...] 0934 -- 05/29/19 0945 pneumatic compression stockings ([place], [place]) 05/29/19 0945 activity - mobilize patient ([place]) Lines, Drains, and Airways Line Peripheral [...] 7:21 PM PAGER/CONTACT #: Team color pager [facility] XR ERCP READ ONLYon 06-02-20 19 XR ERCP READ ONLY * * *Final Report* * * DATE OF EXAM: Jun 02 2019 4:30PM [facility] 5565 - XR ERCP READ ONLY [...] refer to operative notes for full details. Umbrella Mender: PSCB Transcribe Date/Time: Jun 03 2019 12:20P Dictated by : LEIDA POTTS MD This examination was interpreted and the report reviewed and electronically signed by: LEIDA POTTS MD on Jun 03 2019 12:23PM EST Normal [facility] CONSULT PROGon 06-01-2019 CONSULT PROG HNO ID: [id number] Author: Liya Hutchison (Pa) Service: Gastroenterology Author Type: Physician Network Technical Analyst Type: Consult Progress Note Filed: 06/01/2019 3:56 [...] INHALATION q 6 H PRN - Ipratropium [place] 2 [place] nasal spray (ATROVENT) 2 [place] NASAL q 12 H - aspirin 81 [...] 01, 2019 TIME: 3:54 PM PAGER/CONTACT #: [phone] Normal [facility] Comprehensive Panelon 2018 ALP [Catalytic activity/Vol] 263 U/L High 45-117 [facility] Comment on above: Performed By: #### C BC1 #### [facility] [address] [place], [place] [address] Bilirubin [Mass/Vol] 2.6 mg/dL High 0.2-1.0 [facility] Comment on above: Performed By: #### C BC1 #### [facility] [address] [place], [place] [address] Protein [Mass/Vol] 5.8 g/dL Low 6.4-8.2 [facility] Comment on above: Performed By: #### C BC1 #### [facility] [address] [place], [place] [address] AST [Catalytic activity/Vol] 39 U/L High 15-37 [facility] Comment on above: Performed By: #### C BC1 #### [facility] [address] [place], [place] [address] ALT [Catalytic activity/Vol] 145 U/L High 12-78 [facility] Comment on above: Performed By: #### C BC1 #### [facility] [address] [place], [place] [address] Creatinine [Mass/Vol] 0.73 mg/dL Normal 0.51-0.95 [facility] Comment on above: Performed By: #### C BC1 #### [facility] [address] [place], [place] [address] Albumin [Mass/Vol] 2.4 g/dL Low 3.4-5.0 [facility] Comment on above: Performed By: #### C BC1 #### [address] [address] Anion gap [Moles/Vol] 9 mmol/L Normal 8-16 [facility] Comment on above: Performed By: #### C BC1 #### [facility] [address] [place], [place] [address] Calcium [Mass/Vol] 8.6 mg/dL Normal 8.5-10.1 [facility] Comment on above: Performed By: #### C BC1 #### [facility] [address] [place], [place] [address] CO2 [Moles/Vol] 24 mmol/L Normal 21-32 [facility] Comment on above: Performed By: #### C BC1 #### [facility] [address] [place], [place] [address] Glucose [Mass/Vol] 96 mg/dL Normal 70-99 [facility] Comment on above: Performed By: #### C BC1 #### [facility] [address] [place], [place] [address] Urea nitrogen [Mass/Vol] 14 mg/dL Normal 7-18 [facility] Comment on above: Performed By: #### C BC1 #### [facility] [address] [place], [place] [address] Chloride [Moles/Vol] 108 mmol/L High 98-107 [facility] Comment on above: Performed By: #### C BC1 #### [facility] [address] [place], [place] [address] Potassium [Moles/Vol] 3.9 mmol/L Normal 3.5-5.1 [facility] Comment on above: Performed By: #### C BC1 #### [address] [address] Sodium [Moles/Vol] 137 mmol/L Normal 136-145 [facility] Comment on above: Performed By: #### C BC1 #### [facility] [address] [place], [place] [address] Hep B Core Ab,Totalon 2018 Hep B Core Ab,Total Positive Abnormal NEGAT [facility] Comment on above: Result Comment: Perf orming Laboratory: [facility] [address] [place] [address] Performed By: #### C BC1 #### [facility] [address] [place], [place] [address] NURSING PROGon 06-01-2019 NURSING PROG HNO ID: [id number] Author: Iman (Rn) Leighton, RN Service: Nursing Author Type: Registered Nurse Type: Nursing Progress Note Filed: 06/01/2019 9:13 AM Note Text: GM, Sorry to bother you. There was an edit to Macario's EKG on 06/[address] Todd. Are there any needed interventions on my part based on the edit? Iman [id number]V. Aragon at 0913 [facility] NURSING PROG HNO ID: [id number] Author: Iman (Rn) Leighton, RN Service: Nursing Author Type: Registered Nurse Type: Nursing Progress Note Filed: 06/01/2019 9:02 AM Note Text: Macario has slight CHILEL and would like acetaminophen. None ordered at this time. [id number] Sent to [place] at 0902 [facility] PROGRESSon 06-01-2019 PROGRESS HNO ID: [id number] Author: Danay Pozo MD Service: Hospital Medicine Author Type: Physician Type: Progress Notes Filed: 06/02/2019 10:17 AM Note Text: DEPARTMENT OF HOSPITAL MEDICINE PROGRESS NOTE SERVICE DATE: 06/01/2019 SERVICE TIME: 5:22 PM Hospital Medicine/Primary Attending: Danay Siegel MD NIGHT AND WEEKEND COVERAGE: After 7pm please page [phone] CHIEF COMPLAINT: Nausea and emesis SUBJECTIVE: Pt [...] INHALATION q 6 H PRN - Ipratropium [place] 2 [place] nasal spray (ATROVENT) 2 [place] NASAL q 12 H - aspirin 81 [...] 0934 -- 05/29/19 0945 pneumatic compression stockings ([place], [place]) 05/29/19 0945 activity - mobilize patient ([place] Lines, Drains, and Airways Line Peripheral [...] PM PAGER/CONTACT #: Team color pager Normal [facility] CONSULT PROGon 05-31-2019 CONSULT PROG HNO ID: [id number] Author: Liya Hutchison (Pa) Service: Gastroenterology Author Type: Physician Network Technical Analyst Type: Consult Progress Note Filed: 05/31/2019 10:35 AM Note Text: GI CONSULT PROGRESS NOTE SERVICE DATE: 05/31/2019 SERVICE TIME: 10:32 AM CONSULTING SERVICE: Gastroenterology Subjective INTERVAL HISTORY: Patient has no complaints. Patiently waiting for MRCP. MEDICATIONS: Current Facility-Administered Medications Medication Dose Route Frequency - albuterol HFA 90 mcg/actuation 2 Puff (PROVENTIL HFA, VENTOLIN HFA) 2 Puff INHALATION q 6 H PRN - Ipratropium [place] 2 [place] nasal spray (ATROVENT) 2 [place] NASAL q 12 H - aspirin 81 [...] 31, 2019 TIME: 10:32 AM PAGER/CONTACT #: [phone] Normal [facility] Comprehensive Panelon 2018 Creatinine [Mass/Vol] 0.76 mg/dL Normal 0.51-0.95 [facility] Comment on above: Performed By: #### C BC1 #### [facility] [address] [place], [place] [address] ALP [Catalytic activity/Vol] 273 U/L High 45-117 [facility] Comment on above: Performed By: #### C BC1 #### [facility] [address] [place], [place] [address] Bilirubin [Mass/Vol] 4.3 mg/dL High 0.2-1.0 [facility] Comment on above: Performed By: #### C BC1 #### [facility] [address] [place], [place] [address] Protein [Mass/Vol] 5.7 g/dL Low 6.4-8.2 [facility] Comment on above: Performed By: #### C BC1 #### [facility] [address] [place], [place] [address] ALT [Catalytic activity/Vol] 176 U/L High 12-78 [facility] Comment on above: Performed By: #### C BC1 #### [facility] [address] [place], [place] [address] AST [Catalytic activity/Vol] 50 U/L High 15-37 [facility] Comment on above: Performed By: #### C BC1 #### [facility] [address] [place], [place] [address] Albumin [Mass/Vol] 2.4 g/dL Low 3.4-5.0 [facility] Comment on above: Performed By: #### C BC1 #### [facility] [address] [place], [place] [address] Anion gap [Moles/Vol] 7 mmol/L Low 8-16 [facility] Comment on above: Performed By: #### C BC1 #### [facility] [address] [place], [place] [address] CO2 [Moles/Vol] 25 mmol/L Normal 21-32 [facility] Comment on above: Performed By: #### C BC1 #### [facility] [address] [place], [place] [address] Urea nitrogen [Mass/Vol] 15 mg/dL Normal 7-18 [facility] Comment on above: Performed By: #### C BC1 #### [facility] [address] [place], [place] [address] Calcium [Mass/Vol] 8.3 mg/dL Low 8.5-10.1 [facility] Comment on above: Performed By: #### C BC1 #### [facility] [address] [place], [place] [address] Glucose [Mass/Vol] 92 mg/dL Normal 70-99 [facility] Comment on above: Performed By: #### C BC1 #### [facility] [address] [place], [place] [address] Chloride [Moles/Vol] 110 mmol/L High 98-107 [facility] Comment on above: Performed By: #### C BC1 #### [facility] [address] [place] [address] Potassium [Moles/Vol] 4.0 mmol/L Normal 3.5-5.1 [facility] Comment on above: Performed By: #### C BC1 #### [facility] [address] [place] [address] Sodium [Moles/Vol] 138 mmol/L Normal 136-145 [facility] Comment on above: Performed By: #### C BC1 #### [facility] [address] [place] [address] Direct Bilirubinon 9 Bilirubin [Mass/Vol] 3.68 mg/dL High 0.00-0.20 [facility] Comment on above: Performed By: #### C BC1 #### [facility] [address] [place], [place] [address] Hemogramon 05-31-2019 Erythrocyte distribution width (RBC) [Ratio] 13.8 % Normal 11.7-14.4 [facility] Comment on above: Performed By: #### C BC1 #### [facility] [address] [place], [place] [address] Hematocrit (Bld) [Volume fraction] 37.0 % Normal 34.1-44.9 [facility] Comment on above: Performed By: #### C BC1 #### [facility] [address] [place], [place] [address] Hemoglobin (Bld) [Mass/Vol] 12.3 g/dL Normal 11.2-15.7 [facility] Comment on above: Performed By: #### C BC1 #### [facility] [address] [place] [address] MCH (RBC) [Entitic mass] 30.1 pg Normal 25.6-32.2 [facility] Comment on above: Performed By: #### C BC1 #### [facility] [address] [place] [address] MCHC (RBC) [Mass/Vol] 33.2 % Normal 31.6-34.8 [facility] Comment on above: Performed By: #### C BC1 #### [facility] [address] [place] [address] MCV (RBC) [Entitic vol] 90.7 fL Normal 79.4-94.8 [facility] Comment on above: Performed By: #### C BC1 #### [facility] [address] [place] [address] Platelet mean volume (Bld) [Entitic vol] 12.5 fL High 9.4-12.3 [facility] Comment on above: Performed By: #### C BC1 #### [facility] [address] [place] [address] Platelets (Bld) [#/Vol] 146 thou/cmm Low 182-369 [facility] Comment on above: Performed By: #### C BC1 #### [facility] [address] [place] [address] RBC (Bld) [#/Vol] 4.08 mil/cmm Normal 3.93-5.22 [facility] Comment on above: Performed By: #### C BC1 #### [facility] [address] [place] [address] RDW SD 46.5 fl High 36.4-46.3 [facility] Comment on above: Performed By: #### C BC1 #### [facility] [address] [place] [address] WBC (Bld) [#/Vol] 4.94 thou/cmm Normal 3.98-10.04 [facility] Comment on above: Performed By: #### C BC1 #### [facility] [address] [place] [address] Hepatitis Acute Panelon 05-22 HB Core Ab IgM Negative Normal Negative [facility] Comment on above: Performed By: #### C BC1 #### [facility] [address] [place] [address] Hep.B Surface Ag Negative Normal Negative [facility] Comment on above: Performed By: #### C BC1 #### [facility] [address] [place] [address] HAV Ab IgM Negative Normal Negative [facility] Comment on above: Performed By: #### C BC1 #### [facility] [address] [place] [address] Hepatitis C Ab Negative Normal Negative [facility] Comment on above: Performed By: #### C BC1 #### [facility] [address] [place] [address] MRI PANC/YAHAIRA WO IVCONon 05-22 MRI PANC/YAHAIRA WO IVCON * * *Final Report* * * DATE OF EXAM: May 31 2019 7:12PM [facility] 0729 - MRI PANC/YAHAIRA WO IVCON / [...] liver is nonspecific. Trace right-sided pleural effusion. [facility] Transcribe Date/Time: Jun 02 2019 6:38A Dictated by : FERNY MENDOZA MD This examination was interpreted and the report reviewed and electronically signed by: FERNY MENDOZA MD on Jun 02 2019 6:53AM EST Normal [facility] NURSING PROGon 05-31-2019 NURSING PROG HNO ID: [id number] Author: Iman AguirreRn) MARY Manzanares Service: Nursing Author Type: Registered Nurse Type: Nursing Progress Note Filed: 05/31/2019 10:30 AM Note Text: Radiology is down to one MRI machine. Ms. Duncan is 5th in line, pending any emergencies. Radiology anticipates performing her test today, pending said emergencies. Normal [facility] PROGRESSon 05-31-2019 PROGRESS HNO ID: [id number] Author: Shital Shahid) LAMBERTO Fernandez Service: Cardiovascular Disease Author Type: Nurse Practitioner Type: Progress Notes Filed: 05/31/2019 10:47 AM Note Text: PROGRESS NOTE CARDIOLOGY SERVICE SERVICE DATE: 05/31/2019 SERVICE TIME: 10:39 AM Subjective INTERIM HISTORY: Mrs. Duncan is a 74-year-old female with a past medical history significant for hypertension, asthma and obstructive sleep apnea. Presented to [facility] from [facility] after presenting with nausea vomiting for [...] prefers cardiac follow-up closer to home in [place]. Would recommend sending prescription once okayed to the [facility] pharmacy for checking of qvy-yp-tdciij cost and providing a free 30 day prescription. Maintenance therapy can be deferred to the outpatient global implementation manager of her choice closer to home. CARDIAC [...] INHALATION q 6 H PRN - Ipratropium [place] 2 [place] nasal spray (ATROVENT) 2 [place] NASAL q 12 H - aspirin 81 [...] like to establish with cardiology in the [place] area. She will call to arrange follow-up within a month's period of time from discharge. Cardiology will follow up on echocardiogram Cardiology we'll sign off please call with any questions Shital Fernandez APRN.LAMBERTO Medication and Non-Pharmacologic VTE Prophylaxis/Anticoagulants Anticoagulant AND Antiplatelet Medications (From admission, onward) Start Dose Route Frequency Ordered Stop 05/29/19 1000 aspirin 81 mg chewable tab(s) 81 mg ORAL DAILY 05/29/19933 -- 05/29/19 1000 heparin 5,000 Units injection (Medical Risk Categories) 5,000 Units SUBCUTANEOUS EVERY 12 HOURS 05/29/19933 -- @CARMEN GRAHAM([id number])@ SIGNATURE: Shital Fernandez APRN.LAMBERTO PATIENT NAME: Petra Duncan DATE: May 31, 2019 TIME: 10:39 AM PAGER/CONTACT #: [phone] [facility] PROGRESS HNO ID: [id number] Author: Chalino Francisco Service: Hospital Medicine Author Type: Physician Type: Progress Notes Filed: 05/31/2019 10:30 AM Note Text: DEPARTMENT OF HOSPITAL MEDICINE PROGRESS NOTE Hospital Medicine/Primary Attending: Chalino Francisco, NIGHT AND WEEKEND COVERAGE: After 7pm please page [phone] CHIEF COMPLAINT: Abdominal pain, nausea, and vomiting [...] INHALATION q 6 H PRN - Ipratropium [place] 2 [place] nasal spray (ATROVENT) 2 [place] NASAL q 12 H - aspirin 81 [...] 0934 -- 05/29/19 0945 pneumatic compression stockings ([place], [place]) 05/29/19 0945 activity - mobilize patient ([place]) Plan of care discussed with: Provider, RN, Patient SIGNATURE: Chalino Francisco DO PATIENT NAME: Petra Duncan DATE: 05/31/2019 TIME: 10:24 AM PAGER/CONTACT #: Buddy Olivera [facility] ALLIED HEALTHon 05-30-2019 ALLIED HEALTH HNO ID: [id number] Author: Jessica (Rt) Miladys Loera Service: Radiology Author Type: Business Law Instructor Type: Allied Health Filed: 05/30/2019 7:18 PM Note Text: Called for MRI Safety screening form Normal [facility] Basic Panelon 05-30-2019 Creatinine [Mass/Vol] 0.86 mg/dL Normal 0.51-0.95 [facility] Comment on above: Performed By: #### C BC1 #### [facility] [address] [place], [place] [address] Anion gap [Moles/Vol] 9 mmol/L Normal 8-16 [facility] Comment on above: Performed By: #### C BC1 #### [facility] [address] [place], [place] [address] Calcium [Mass/Vol] 8.3 mg/dL Low 8.5-10.1 [facility] Comment on above: Performed By: #### C BC1 #### [facility] [address] [place], [place] [address] CO2 [Moles/Vol] 25 mmol/L Normal 21-32 [facility] Comment on above: Performed By: #### C BC1 #### [facility] [address] [place], [place] [address] Glucose [Mass/Vol] 93 mg/dL Normal 70-99 [facility] Comment on above: Performed By: #### C BC1 #### [facility] [address] [place], [place] [address] Urea nitrogen [Mass/Vol] 20 mg/dL High 7-18 [facility] Comment on above: Performed By: #### C BC1 #### [facility] [address] [place], [place] [address] Chloride [Moles/Vol] 107 mmol/L Normal 98-107 [facility] Comment on above: Performed By: #### C BC1 #### [facility] [address] [place], [place] [address] Potassium [Moles/Vol] 4.0 mmol/L Normal 3.5-5.1 [facility] Comment on above: Performed By: #### C BC1 #### [facility] [address] [place], [place] [address] Sodium [Moles/Vol] 137 mmol/L Normal 136-145 [facility] Comment on above: Performed By: #### C BC1 #### [facility] [address] [place], [place] [address] Creatinine [Mass/Vol] 0.95 mg/dL Normal 0.51-0.95 [facility] Comment on above: Performed By: #### P 8 #### [facility] [address] [place], [place] [address] Urea nitrogen [Mass/Vol] 19 mg/dL High 7-18 [facility] Comment on above: Performed By: #### P 8 #### [facility] [address] [place], [place] [address] Anion gap [Moles/Vol] 11 mmol/L Normal 8-16 [facility] Comment on above: Performed By: #### P 8 #### [facility] [address] [place], [place] [address] Calcium [Mass/Vol] 8.5 mg/dL Normal 8.5-10.1 [facility] Comment on above: Performed By: #### P 8 #### [facility] [address] [place], [place] [address] CO2 [Moles/Vol] 23 mmol/L Normal 21-32 [facility] Comment on above: Performed By: #### P 8 #### [facility] [address] [place], [place] [address] Glucose [Mass/Vol] 94 mg/dL Normal 70-99 [facility] Comment on above: Performed By: #### P 8 #### [facility] [address] [place], [place] [address] Chloride [Moles/Vol] 108 mmol/L High 98-107 [facility] Comment on above: Performed By: #### P 8 #### [facility] [address] [place], [place] [address] Potassium [Moles/Vol] 3.6 mmol/L Normal 3.5-5.1 [facility] Comment on above: Performed By: #### P 8 #### [facility] [address] [place], [place] [address] Sodium [Moles/Vol] 138 mmol/L Normal 136-145 [facility] Comment on above: Performed By: #### P 8 #### [facility] [address] [place], [place] [address] CASE MANAGEMon 05-30-2019 CASE MANAGEM HNO ID: [id number] Author: Sidny Burroughs Service: Care Management Author Type: ? Type: Care Mgt Progress Note Filed: 05/30/2019 3:56 PM Note Text: CARE MANAGEMENT PROGRESS NOTE SERVICE DATE: 05/30/2019 SERVICE TIME: 1345 LOS: 1 day IM letter given to patient on [id number]. SIGNATURE: Sindy Burroughs PATIENT NAME: Petra Duncan DATE: May 30, 2019 TIME: 3:56 PM PAGER/CONTACT #: Joselin [facility] CASE MGT INIT JAYNEEStitus 2018 CASE MGT INIT ASSCHEYENNE HNO ID: [id number] Author: Janell Hutchison ([place]) Service: ? 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 None Health Issues Impacting Discharge Plan: Biliary obstruction Last Discharge Date: N/A Is this Within the Past 30 days? 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 No SOCIAL: Living Arrangement: Home Lives With: Spouse Financial Resources: Retired Primary Contact: Extended Emergency Contact Information Primary Emergency Contact: Arley Duncna Mobile Relation: Spouse Supportive: Yes Other Important [...] 0 I feel financially burdened by my vho-jl-aajxdn expenses for my prescription medication: Disagree completely [...] admitted from home with . 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 +PCP, +DME, +Rx at [facility]. Pt's to transport at discharge. SIGNATURE: KEILY Roblero PATIENT NAME: Petra Duncan DATE: May 30, 2019 TIME: 2:09 PM PAGER/CONTACT #: [phone] [facility] CONSULTon 05-30-2019 CONSULT HNO ID: [id number] Author: Tres Aragon Service: Cardiovascular Medicine Author [...] 2L NC. Medications given were reviewed with MARY Hardy. PAST MEDICAL HISTORY Diagnosis Date - [...] daily., Disp: 6 tablet, Rfl: 0 Ipratropium [place] (ATROVENT) 0.03 % nasal spray, Use 2 [...] INHALATION q 6 H PRN - Ipratropium [place] 2 [place] nasal spray (ATROVENT) 2 [place] NASAL q 12 H - aspirin 81 [...] Hypophosphatemia # FLORI # Asthma ? - [id number]= 4; anticoagulation to be held in setting [...] May 30, 2019 TIME: 2:59 PM PAGER: [phone] Normal [facility] CONSULT PROGon 05-30-2019 CONSULT PROG HNO ID: [id number] Author: Liya Hutchison (Pa) Service: Gastroenterology Author Type: Physician Network Technical Analyst Type: Consult Progress Note Filed: 05/30/2019 3:34 [...] INHALATION q 6 H PRN - Ipratropium [place] 2 [place] nasal spray (ATROVENT) 2 [place] NASAL q 12 H - aspirin 81 [...] 30, 2019 TIME: 10:41 AM PAGER/CONTACT #: [phone] Normal [facility] Comprehensive Panelon 2018 ALP [Catalytic activity/Vol] 310 U/L High 45-117 [facility] Comment on above: Performed By: #### P 14 #### [facility] [address] [place], [place] [address] Bilirubin [Mass/Vol] 6.4 mg/dL High 0.2-1.0 [facility] Comment on above: Performed By: #### P 14 #### [facility] [address] [place], [place] [address] Protein [Mass/Vol] 6.1 g/dL Low 6.4-8.2 [facility] Comment on above: Performed By: #### P 14 #### [facility] [address] [place], [place] [address] AST [Catalytic activity/Vol] 117 U/L High 15-37 [facility] Comment on above: Performed By: #### P 14 #### [facility] [address] [place], [place] [address] Creatinine [Mass/Vol] 0.96 mg/dL High 0.51-0.95 [facility] Comment on above: Performed By: #### P 14 #### [facility] [address] [place], [place] [address] ALT [Catalytic activity/Vol] 286 U/L High 12-78 [facility] Comment on above: Performed By: #### P 14 #### [facility] [address] [place], [place] [address] Anion gap [Moles/Vol] 9 mmol/L Normal 8-16 [facility] Comment on above: Performed By: #### P 14 #### [facility] [address] [place], [place] [address] CO2 [Moles/Vol] 26 mmol/L Normal 21-32 [facility] Comment on above: Performed By: #### P 14 #### [facility] [address] [place], [place] [address] Albumin [Mass/Vol] 2.6 g/dL Low 3.4-5.0 [facility] Comment on above: Performed By: #### P 14 #### [facility] [address] [place], [place] [address] Calcium [Mass/Vol] 8.6 mg/dL Normal 8.5-10.1 [facility] Comment on above: Performed By: #### P 14 #### [facility] [address] [place], [place] [address] Glucose [Mass/Vol] 104 mg/dL High 70-99 [facility] Comment on above: Performed By: #### P 14 #### [facility] [address] [place], [place] [address] Urea nitrogen [Mass/Vol] 20 mg/dL High 7-18 [facility] Comment on above: Performed By: #### P 14 #### [facility] [address] [place], [place] [address] Chloride [Moles/Vol] 106 mmol/L Normal 98-107 [facility] Comment on above: Performed By: #### P 14 #### [facility] [address] [place], [place] [address] Potassium [Moles/Vol] 3.4 mmol/L Low 3.5-5.1 [facility] Comment on above: Performed By: #### P 14 #### [facility] [address] [place], [place] [address] Sodium [Moles/Vol] 138 mmol/L Normal 136-145 [facility] Comment on above: Performed By: #### P 14 #### [facility] [address] [place], [place] [address] ECG COMPLETEon 05-30-2019 ECG COMPLETE NAME : THERON DUNCAN PID : [id number] : 1945 Gender : Female Race : ORD : [id number] Procedure Date : May 30 2019 08:04:52 Edit Date : Jun 01 2019 02:22:00 Diagnosis:UNUSUAL P AXIS, POSSIBLE ECTOPIC ATRIAL RHYTHM T WAVE ABNORMALITY, CONSIDER INFERIOR ISCHEMIA ABNORMAL ECG WHEN COMPARED WITH ECG OF 30-MAY-2019 07:38, ECTOPIC ATRIAL RHYTHM HAS REPLACED ATRIAL FIBRILLATION VENT. RATE HAS DECREASED BY 48 BPM Confirmed by MINNIE ORTIZ MD ([id number]) on 06/01/2019 2:21:59 AM Ventricular Rate : 96 BPM Atrial Rate : 96 BPM P-R Interval : 136 ms QRS Duration : 84 ms Q-T Interval : 352 ms QTC Calculation(Bazett) : 444 ms P [place] : -4 degrees R [place] : 78 degrees T [place] : -14 degrees Test Reason : Arrhythmia Location : 71 : [id number] Overread By : MINNIE ORTIZ MD Edited By : MINNIE ORTIZ MD Referred By : SHUBHAM CHANEL Acquired by : JULIANN ISSA [facility] ECG COMPLETE NAME : THERON DUNCAN PID : [id number] : 1945 Gender : Female Race : ORD : [id number] Procedure Date : May 30 2019 07:38:08 Edit Date : Jun 01 2019 02:20:36 Diagnosis:ATRIAL FIBRILLATION WITH RAPID VENTRICULAR RESPONSE ST & T WAVE ABNORMALITY, CONSIDER INFERIOR ISCHEMIA ABNORMAL ECG NO PREVIOUS ECGS AVAILABLE Confirmed by MINNIE ORTIZ MD ([id number]) on 06/01/2019 2:20:31 AM Ventricular Rate : 144 BPM Atrial Rate : 300 BPM QRS Duration : 84 ms Q-T Interval : 304 ms QTC Calculation(Bazett) : 470 ms R [place] : 85 degrees T [place] : -40 degrees Test Reason : Arrhythmia Location : 71 : [id number] Overread By : MINNIE ORTIZ MD Edited By : MINNIE ORTIZ MD Referred By : SHUBHAM CHANEL Acquired by : JULIANN ISSA [facility] Hemogramon 05-30-2019 Erythrocyte distribution width (RBC) [Ratio] 13.9 % Normal 11.7-14.4 [facility] Comment on above: Performed By: #### C BC1 #### [address] [address] Hematocrit (Bld) [Volume fraction] 43.1 % Normal 34.1-44.9 [facility] Comment on above: Performed By: #### C BC1 #### [address] [address] Hemoglobin (Bld) [Mass/Vol] 13.9 g/dL Normal 11.2-15.7 [facility] Comment on above: Performed By: #### C BC1 #### [facility] [address] [place], [place] [address] MCH (RBC) [Entitic mass] 29.8 pg Normal 25.6-32.2 [facility] Comment on above: Performed By: #### C BC1 #### [facility] [address] [place], [place] [address] MCHC (RBC) [Mass/Vol] 32.3 % Normal 31.6-34.8 [facility] Comment on above: Performed By: #### C BC1 #### [facility] [address] [place] [address] MCV (RBC) [Entitic vol] 92.3 fL Normal 79.4-94.8 [facility] Comment on above: Performed By: #### C BC1 #### [facility] [address] [place] [address] Platelet mean volume (Bld) [Entitic vol] 12.0 fL Normal 9.4-12.3 [facility] Comment on above: Performed By: #### C BC1 #### [facility] [address] [place] [address] Platelets (Bld) [#/Vol] 125 thou/cmm Low 182-369 [facility] Comment on above: Performed By: #### C BC1 #### [facility] [address] [place] [address] RBC (Bld) [#/Vol] 4.67 mil/cmm Normal 3.93-5.22 [facility] Comment on above: Performed By: #### C BC1 #### [facility] [address] [place] [address] RDW SD 47.2 fl High 36.4-46.3 [facility] Comment on above: Performed By: #### C BC1 #### [facility] [address] [place], [place] [address] WBC (Bld) [#/Vol] 9.80 thou/cmm Normal 3.98-10.04 [facility] Comment on above: Performed By: #### C BC1 #### [facility] [address] [place], [place] [address] Magnesium Bloodon 05-30-2019 Magnesium [Mass/Vol] 2.1 mg/dL Normal 1.6-2.6 [facility] Comment on above: Performed By: #### M AG #### [facility] [address] [place], [place] [address] NURSING PROGon 05-30-2019 NURSING PROG HNO ID: [id number] Author: Best (Rn) MARY Hardy Service: Nursing Author Type: Registered Nurse [...] night. Notifed MD Carreon, ordered EKg Normal [facility] PROGRESSon 05-30-2019 PROGRESS HNO ID: [id number] Author: Chalino Francisco Service: Hospital Medicine Author Type: Physician Type: Progress Notes Filed: 05/30/2019 1:27 PM Note Text: DEPARTMENT OF HOSPITAL MEDICINE PROGRESS NOTE Hospital Medicine/Primary Attending: Chalino Francisco, DO NIGHT AND WEEKEND COVERAGE: After 7pm please page [phone] CHIEF COMPLAINT: Abdominal pain, nausea, and vomiting [...] INHALATION q 6 H PRN - Ipratropium [place] 2 [place] nasal spray (ATROVENT) 2 [place] NASAL q 12 H - aspirin 81 [...] Categories) 5,000 Units SUBCUTANEOUS EVERY 12 HOURS 05/29/1934 -- 05/29/19 0945 pneumatic compression stockings (ky,ma) 05/29/19 0945 activity - mobilize patient (ky,ma) Plan of care discussed with: Provider, RN, Patient SIGNATURE: Chalino Francisco DO PATIENT NAME: Petra Duncan DATE: 05/30/2019 TIME: 1:17 PM PAGER/CONTACT #: Buddy Olivera [facility] PROGRESS HNO ID: [id number] Author: Vashti Hernandez Service: Cardiovascular Medicine Author [...] woman with history of asthma, hypertension, and FLOIR with transient episode of Atrial Fibrillation with [...] MD May 30, 2019 8:20 AM Normal [facility] Phosphorus Bloodon 9 Phosphate [Mass/Vol] 2.1 mg/dL Low 2.5-4.9 [facility] Comment on above: Performed By: #### P HOS #### [facility] [address] [place] [address] TSH, 3rd generationon 2018 TSH, 3rd generation 1.100 uIU/mL Normal 0.358-3.740 [facility] Comment on above: Performed By: #### T SH3 #### [facility] [address] [place], [place] [address] Troponin Ion 05-30-2019 Troponin I.cardiac [Mass/Vol] ng/mL Normal 0.015-0.045 [facility] Comment on above: Performed By: #### T ROP #### [facility] [address] [place], [place] [address] XR CHEST 1V FRONTALon 2018 XR CHEST [...] recommended when the patient's condition will permit Umbrella Mender: VIRA Transcribe Date/Time: May 30 2019 8:38A Dictated by : MAN MASON MD This examination was interpreted and the report reviewed and electronically signed by: MAN MASON MD on May 30 2019 8:39AM EST Normal [facility] CONSULTon 05-29-2019 CONSULT HNO ID: [id number] Author: Jamison Graff Service: Gastroenterology Author Type: Physician Network Technical Analyst Type: Consults Filed: 05/29/2019 12:41 PM Note [...] 2 tablets by mouth once daily. Ipratropium [place] (ATROVENT) 0.03 % nasal spray Use 2 [...] mcg 100 mcg INHALATION BID - Ipratropium [place] 2 [place] nasal spray (ATROVENT) 2 [place] NASAL q 12 H - aspirin 81 [...] 29, 2019 TIME: 12:30 PM PAGER/CONTACT #: [phone] Normal [facility] Cult Bloodon 05-29-2019 Cult Blood Test performed at [facility] No growth Normal [facility] Comment on above: Performed By: #### C BC1 #### [facility] [address] [place] [address] HISTORY PHYSICALon 9 HISTORY PHYSICAL HNO ID: [id number] Author: Navid Larios Service: Hospital Medicine Author Type: Physician Type: HANDP Filed: 05/29/2019 2:34 PM Note Text: DEPARTMENT OF HOSPITAL MEDICINE HISTORY AND PHYSICAL EXAM SERVICE DATE: 05/29/2019 SERVICE TIME: 9:35 AM Primary Care Physician: Nabila Paris MD NIGHT AND WEEKEND COVERAGE: After 7pm, please call cross cover pager #[phone] Subjective CHIEF COMPLAINT: Biliary dilatation HPI: This [...] eaten much in the last 4 days. Varnell warm and chilly but didn't take her temperature. She reports history of intermittent nausea with food for some time. Never had EGD or colonoscopy done in the past. Denies taking any NSAIDs Denies any cough or shortness of breath or headache or dysuria. With this complaint she presented to [place]. She was noted to have elevated bilirubin [...] daily., Disp: 6 tablet, Rfl: 0 Ipratropium [place] (ATROVENT) 0.03 % nasal spray, Use 2 [...] and IV fluid. Clear liquid diet. Consult body coverer. Send blood culture. Lactic acid Monitor for [...] 29, 2019 TIME: 9:35 AM PAGER/CONTACT #: [phone] Normal [facility] HOSPon 05-29-2019 HOSP Patient:Natalya Duncan ra MRN: Height:5' 6(1.676 m) Weight:175 lb 3.2 oz (79.47 kg) Outpatient Medications as of 06/04/19: aspirin 81 mg chewable tablet mometasone 100 mcg/actuation HFAA Ipratropium [place] (ATROVENT) 0.03 % nasal spray albuterol HFA (PROVENTIL HFA, VENTOLIN HFA) 90 mcg/actuation inhaler LISINOPRIL-HYDROCHLOROTHIA ZIDE ORAL NAPROXEN ORAL sertraline (ZOLOFT) 50 mg ORAL tablet Admission/Clinic Administered Medications as of 06/04/19: albuterol HFA 90 mcg/actuation 2 Puff (PROVENTIL HFA, VENTOLIN HFA) Ipratropium [place] 2 [place] nasal spray (ATROVENT) sertraline 50 mg tab(s) [...] After 7pm, please call cross cover pager #[phone] Subjective CHIEF COMPLAINT: Biliary dilatation HPI: This [...] eaten much in the last 4 days. Varnell warm and chilly but didn't take her temperature. She reports history of intermittent nausea with food for some time. Never had EGD or colonoscopy done in the past. Denies taking any NSAIDs Denies any cough or shortness of breath or headache or dysuria. With this complaint she presented to [place]. She was noted to have elevated bilirubin [...] daily., Disp: 6 tablet, Rfl: 0 Ipratropium [place] (ATROVENT) 0.03 % nasal spray, Use 2 [...] and IV fluid. Clear liquid diet. Consult body coverer. Send blood culture. Lactic acid Monitor for [...] 2 tablets by mouth once daily. Ipratropium [place] (ATROVENT) 0.03 % nasal spray Use 2 [...] mcg 100 mcg INHALATION BID - Ipratropium [place] 2 [place] nasal spray (ATROVENT) 2 [place] NASAL q 12 H - aspirin 81 [...] 29, 2019 TIME: 12:30 PM PAGER/CONTACT #: [phone] Best Hardy RN, RN 05/30/2019 7:30 AM Addendum Patient found this morning 86%RA and a heart rate of 139. Placed 2L of oxygen and patient went up to 94%. Patient's HR was still 139. Pateint states I don't feel like my heart is racing, im suppose to wear a bipap at night. Notifed MD Carreon, ordered EKg Previous Version Vashti Hernadnez MD 05/30/2019 8:22 AM Addendum Brief Evaluation [...] INHALATION q 6 H PRN - Ipratropium [place] 2 [place] nasal spray (ATROVENT) 2 [place] NASAL q 12 H - aspirin 81 [...] 30, 2019 TIME: 10:41 AM PAGER/CONTACT #: [phone] Previous Version Chalino Francisco DO 05/30/2019 1:27 PM Addendum DEPARTMENT OF HOSPITAL MEDICINE PROGRESS NOTE Hospital Medicine/Primary Attending: Chalino Francisco DO NIGHT AND WEEKEND COVERAGE: After 7pm please page [phone] CHIEF COMPLAINT: Abdominal pain, nausea, and vomiting [...] INHALATION q 6 H PRN - Ipratropium [place] 2 [place] nasal spray (ATROVENT) 2 [place] NASAL q 12 H - aspirin 81 [...] 0934 -- 05/29/19 0945 pneumatic compression stockings (ky,oh) 05/29/19 0945 activity - mobilize patient (ky,ma) Plan of care discussed with: Provider, RN, Patient SIGNATURE: Chalino Francisco DO PATIENT NAME: Petra Duncan DATE: 05/30/2019 TIME: 1:17 PM PAGER/CONTACT #: Team [place] Previous Version KEILY Roblero 05/30/2019 2:12 PM Signed CARE MANAGEMENT: ASSESSMENT AND DISCHARGE PLAN SERVICE DATE: 05/30/2019 SERVICE TIME: 2:09 PM PRIMARY CARE PHYSICIAN: Nabila Paris MD ADMISSION STATUS: Inpatient Needs Prior to Discharge: Other: See Comment;To Be Determined;Pharmacy Bedside Delivery( to transport at d/c) 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 None Health Issues Impacting Discharge Plan: Biliary obstruction Last Discharge Date: N/A Is this Within the Past 30 days? 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 No SOCIAL: Living Arrangement: Home Lives With: Spouse Financial Resources: Retired Primary Contact: Extended Emergency Contact Information Primary Emergency Contact: DevonjoseArley Mobile Relation: Spouse Supportive: Yes Other Important [...] 0 I feel financially burdened by my qig-ao-[id number] expenses for my prescription medication: Disagree completely [...] admitted from home with . 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 +PCP, [facility]'s to transport at discharge. SIGNATURE: KEILY Roblero PATIENT NAME: Petra Duncan DATE: May 30, 2019 TIME: 2:09 PM PAGER/CONTACT #: [phone] Tres Aragon MD 05/30/2019 5:17 PM Signed [...] 2L NC. Medications given were reviewed with MARY Hardy. PAST MEDICAL HISTORY Diagnosis Date - [...] daily., Disp: 6 tablet, Rfl: 0 Ipratropium [place] (ATROVENT) 0.03 % nasal spray, Use 2 [...] INHALATION q 6 H PRN - Ipratropium [place] 2 [place] nasal spray (ATROVENT) 2 [place] NASAL q 12 H - aspirin 81 [...] Hypophosphatemia # FLORI # Asthma ? - [id number]= 4; anticoagulation to be held in setting [...] May 30, 2019 TIME: 2:59 PM PAGER: [phone] Previous Version Sindy Burroughs 05/30/2019 3:56 PM Signed CARE MANAGEMENT PROGRESS NOTE SERVICE DATE: 05/30/2019 SERVICE TIME: 1345 LOS: 1 day IM letter given to patient on [id number]. SIGNATURE: Sindy Burroughs PATIENT NAME: Petra Duncan DATE: May 30, 2019 TIME: 3:56 PM PAGER/CONTACT #: Chalino Francisco DO 05/31/2019 4:37 PM Edited Patient transferred from [place] where she was admitted with complaints of [...] AND WEEKEND COVERAGE: After 7pm please page [phone] CHIEF COMPLAINT: Abdominal pain, nausea, and vomiting [...] INHALATION q 6 H PRN - Ipratropium [place] 2 [place] nasal spray (ATROVENT) 2 [place] NASAL q 12 H - aspirin 81 [...] 0934 -- 05/29/19 0945 pneumatic compression stockings (ky,ma) 05/29/19 0945 activity - mobilize patient (ky,ma) Plan of care discussed with: Provider, RN, Patient SIGNATURE: Chalino Francisco DO PATIENT NAME: Petra Duncan DATE: 05/31/2019 TIME: 10:24 AM PAGER/CONTACT #: Team Jadon Manzanares RN, RN 05/31/2019 10:30 AM Signed [...] INHALATION q 6 H PRN - Ipratropium [place] 2 [place] nasal spray (ATROVENT) 2 [place] NASAL q 12 H - aspirin 81 [...] 31, 2019 TIME: 10:32 AM PAGER/CONTACT #: [phone] Shital Fernandez APRN.SHIP RUNNER, SHIP RUNNER 05/31/2019 10:47 AM Signed PROGRESS NOTE CARDIOLOGY SERVICE SERVICE DATE: 05/31/2019 SERVICE TIME: 10:39 AM Subjective INTERIM HISTORY: Mrs. Duncan is a 74-year-old female with a past medical history significant for hypertension, asthma and obstructive sleep apnea. Presented to [facility] from [facility] after presenting with nausea vomiting for [...] prefers cardiac follow-up closer to home in [place]. Would recommend sending prescription once okayed to the [facility] pharmacy for checking of arg-ol-hxdmrr cost and providing a free 30 day prescription. Maintenance therapy can be deferred to the outpatient global implementation manager of her choice closer to home. CARDIAC [...] INHALATION q 6 H PRN - Ipratropium [place] 2 [place] nasal spray (ATROVENT) 2 [place] NASAL q 12 H - aspirin 81 [...] like to establish with cardiology in the [place] area. She will call to arrange follow-up within a month's period of time from discharge. Cardiology will follow up on echocardiogram Cardiology we'll sign off please call with any questions Shital Fernandez APRN.LAMBERTO Medication and Non-Pharmacologic VTE Prophylaxis/Anticoagulants Anticoagulant AND Antiplatelet Medications (From admission, onward) Start Dose Route Frequency Ordered Stop 05/29/19 1000 aspirin 81 mg chewable tab(s) 81 mg ORAL DAILY 05/29/1936 -- 05/29/19 1000 heparin 5,000 Units injection (Medical Risk Categories) 5,000 Units SUBCUTANEOUS EVERY 12 HOURS 05/29/19 0934 -- @CARMEN GRAHAM([id number])@ SIGNATURE: Shital Fernandez APRN.SHIP RUNNER PATIENT NAME: Petra Duncan DATE: May 31, 2019 TIME: 10:39 AM PAGER/CONTACT #: [phone] Iman Manzanares, RN, RN 06/01/2019 9:02 AM Signed 7105-1 has slight CHILEL and would like acetaminophen. None ordered at this time. [id number] Sent to [facility] at 0902 Iman Manzanares, RN, RN 06/01/2019 9:13 AM Addendum GM, Sorry to bother you. There was an edit to 7105-1's EKG on 06/[address] Todd. Are there any needed interventions on my part based on the edit? Iman [id number]V. Aragon at 0913 Previous [...] INHALATION q 6 H PRN - Ipratropium [place] 2 [place] nasal spray (ATROVENT) 2 [place] NASAL q 12 H - aspirin 81 [...] 01, 2019 TIME: 3:54 PM PAGER/CONTACT #: [phone] Danay Siegel MD, MD 06/02/2019 10:17 AM Addendum DEPARTMENT OF HOSPITAL MEDICINE PROGRESS NOTE SERVICE DATE: 06/01/2019 SERVICE TIME: 5:22 PM Hospital Medicine/Primary Attending: Danay Siegel MD NIGHT AND WEEKEND COVERAGE: After 7pm please page [phone] CHIEF COMPLAINT: Nausea and emesis SUBJECTIVE: Pt [...] INHALATION q 6 H PRN - Ipratropium [place] 2 [place] nasal spray (ATROVENT) 2 [place] NASAL q 12 H - aspirin 81 [...] 0934 -- 05/29/19 0945 pneumatic compression stockings ([place], [place]) 05/29/19 0945 activity - mobilize patient ([place], [place]) Lines, Drains, and Airways Line Peripheral [...] #: Team color pager Previous Version Liya Hutchison PA-C 06/02/2019 9:55 AM Signed MRCP 05/31 [...] the plan. Liya Hutchison PA-C Gastroenterology Sophia Reid, RN, RN 06/02/2019 12:06 PM Signed Attempted [...] tablets by mouth once daily. - Ipratropium [place] (ATROVENT) 0.03 % nasal spray Use 2 Sprays in the nose every 12 hours. - betamethasone dipropionate 0.05 % cream Apply 1 application to affected area twice daily. - NAPROXEN ORAL Take by mouth. Current Facility-Administered Medications Medication Dose Route Frequency Provider Last Rate Last Dose - [MAR Hold due to Transfer] perflutren lipid microspheres 1.1 mg/mL 1.3 mL injection ([employer]) 1.3 mL INTRAVENOUS DIRECTED PRN Chalino Francisco - [MAR Hold due to Transfer] albuterol HFA 90 mcg/actuation 2 Puff (PROVENTIL HFA, VENTOLIN HFA) 2 Puff INHALATION q 6 H PRN Navid Larios - [MAR Hold due to Transfer] Ipratropium [place] 2 [place] nasal spray (ATROVENT) 2 [place] NASAL q 12 H Navid Ric 2 [place] at 06/02/19 0900 - [MAR Hold due [...] H Navid Ric 100 mL/hr at 06/02/19 05 3.375 g at 06/02/19 0512 - [MAR [...] June 02, 2019 TIME: 2:40 PM CSN: [id number] [facility] 5:37 PM Signed OPERATIVE/PROCEDURE REPORT LOG ID: [id number] Surgery/Procedure Date: 06/02/2019 Incision/Procedure Start Time: 3:52 PM Incision Close/Procedure End Time: 4:21 PM Surgeon(s)/Proceduralist(s ) and Network Technical Analyst(s): Surgeon(s) and Role: * Rikki Castillo - [...] 02, 2019 TIME: 5:32 PM PAGER/CONTACT #: [phone] Danay Siegel MD, MD 06/02/2019 7:23 PM Signed DEPARTMENT OF HOSPITAL MEDICINE PROGRESS NOTE SERVICE DATE: 06/02/2019 SERVICE TIME: 8:21 AM Hospital Medicine/Primary Attending: Danay Siegel MD NIGHT AND WEEKEND COVERAGE: After 7pm please page [phone] CHIEF COMPLAINT: jaundice SUBJECTIVE: Pt seen and [...] INHALATION q 6 H PRN - Ipratropium [place] 2 [place] nasal spray (ATROVENT) 2 [place] NASAL q 12 H - aspirin 81 [...] 0934 -- 05/29/19 0945 pneumatic compression stockings ([place], [place]) 05/29/19 0945 activity - mobilize patient ([place], [place]) Lines, Drains, and Airways Line Peripheral [...] 06/02/19 1457 06/02/19 1654 06/02/19 1729 06/02/19 181 Temp: 36.3 ?C (97.3 ?F) 36.6 ?C (97.9 ?F) 36.4 ?C (97.5 ?F) 36.6 ?C (97.9 ?F) 06/02/19 1723 06/02/19 1730 06/02/19 1745 06/02/19 181 BP: 113/74 [...] mg by mouth once daily. 04/02.5 mg , Disp: , Rfl: sertraline (ZOLOFT) 50 mg ORAL tablet, Take 50 mg by mouth once daily., Disp: , Rfl: predniSONE (DELTASONE) 20 mg tablet, Take 2 tablets by mouth once daily., Disp: 6 tablet, Rfl: 0 Ipratropium [place] (ATROVENT) 0.03 % nasal spray, Use 2 [...] 06/02/19 7:58 AM Result Value Ref Range Contour Grinder Echocardiography Report: Transthoracic Echo [facility] Date of service: 06/02/2019 7:58:00 AM Ordering [...] questions or concerns Mon-Fri 6a-5p please page [phone]. After 5pm and on Weekends and Holidays, please page [phone] if in ICU or [phone] if on RNF. SIGNATURE: Minerva Burton MD [...] INHALATION q 6 H PRN - Ipratropium [place] 2 [place] nasal spray (ATROVENT) 2 [place] NASAL q 12 H - sertraline 50 [...] 03, 2019 TIME: 10:28 AM PAGER/CONTACT #: [phone] Previous Version Danay Siegel MD, MD 06/03/2019 6:30 PM Signed DEPARTMENT OF HOSPITAL MEDICINE PROGRESS NOTE SERVICE DATE: 06/03/2019 SERVICE TIME: 8:26 AM Hospital Medicine/Primary Attending: Danay Siegel MD NIGHT AND WEEKEND COVERAGE: After 7pm please page [phone] CHIEF COMPLAINT: Abdominal pain SUBJECTIVE: Pt seen [...] - [MAR Hold due to Transfer] Ipratropium [place] 2 [place] nasal spray (ATROVENT) 2 [place] NASAL q 12 H - [MAR Hold due to Transfer] sertraline 50 mg tab(s) (ZOLOFT) 50 mg ORAL DAILY - [MAR Hold due to Transfer] heparin 5,000 Units injection 5,000 Units SUBCUTANEOUS q 12 H - [AUG Hold due to Transfer] ondansetron (PF) 4 mg injection (ZOFRAN) 4 mg INTRAVENOUS q 6 H PRN - [MAR Hold due to Transfer] oxyCODONE IR 5 mg tab(s) (ROXICODONE) 5 mg ORAL q 6 H PRN - [MAR Hold due to Transfer] piperacillin-tazobactam iv piggyback 3.375 g in dextrose (iso-osmotic) 50 mL (ZOSYN) 3.375 g INTRAVENOUS q 6 H - [AUG Hold due to Transfer] mometasone 220 mcg/ [...] 0934 -- 05/29/19 0945 pneumatic compression stockings (ky,oh) 05/29/19 0945 activity - mobilize patient ([place], [place]) Lines, Drains, and Airways Line Peripheral [...] mg by mouth once daily. - Ipratropium [place] (ATROVENT) 0.03 % nasal spray Use 2 [...] - [MAR Hold due to Transfer] Ipratropium [place] 2 [place] nasal spray (ATROVENT) 2 [place] NASAL q 12 H Danay Pozo MD 2 [place] at 06/03/192102 - [MAR Hold due to Transfer] sertraline 50 mg tab(s) (ZOLOFT) 50 mg ORAL DAILY Danay Pozo MD 50 mg at 06/03/19 08 - [MAR Hold due to Transfer] heparin [...] Full ROM without neurologic symptoms; Airway Evaluation: {:45122} Symptoms of Sleep Apnea: { :908585} Dentition: { :1444015} Additional Physical Exam: Lungs: { :11153} Cardiac: { :17153} Additional Pertinent Findings: { :723177::N/A} Blood Products: { :8919057::Not anticipated for this procedure} Anesthetic Plan: { :0360574::General} Anesthetic Monitoring: { :8786302::Standard ASA Monitors} Pain Management Plan: { :7628746::Parenteral or Oral} ASA Class: { :0405228} Other Medical Problems: { :27329::None} Chronic Beta Nannette medication administered within 24 hours: { :86033::N/A} I have interviewed and examined the patient. I have reviewed the medical record and/or the pre-anesthesia evaluation, pertinent labs, and test results. Significant changes in the patient's condition since the History and Physical, not otherwise documented in primary service progress notes: { :43431::No} This contains updated information obtained within 48 hours of Surgery/Procedure. SIGNATURE: Mk Muñoz MD PATIENT NAME: Petra Duncan DATE: June 04, 2019 TIME: 7:53 AM CSN: [id number] Normal [facility] Lactic Acidon 05-29-2019 Lactate [Moles/Vol] 1.9 mmol/L Normal 0.4-2.0 [facility] Comment on above: Performed By: #### L AC #### [place] [address] Office Visit: UC: bronchitis on 03-11-2017 Documentation of current medications (procedure) Done Invalid Interpretation Code [facility] Work Phone: Fall risk assessment No Invalid Interpretation Code [facility] Work Phone: Tobacco smoking status NHIS Never Invalid Interpretation Code [facility] Work Phone: Tobacco use [facility]PHS Never smoker Invalid Interpretation Code [facility] Work Phone: External Other: Preferred Me thod of Contacton 10-25-2014 Patient's prefered method of contact secmsg Invalid Interpretation Code [facility] Work Phone: Vital Signs Date Time Vital Sign Value Performing Clinician Facility 12-16-2024 14:42-0400 Body height 162.[address] Nabila Paris MD Work Phone: [facility] 12-16-2024 14:42-0400 Body temperature 98.6 [degF] Dr. Nabila Paris MD Work Phone: [phone])[phone] [place] [address] 12-16-2024 14:42-0400 Diastolic blood pressure 66 mm[Hg] Dr. Nabila Paris MD Work Phone: 0(712)[phone] [place] [address] 12-16-2024 14:42-0400 Heart rate 83 /min Dr. Nabila Paris MD Work Phone: 8(910)901-946984 [place] [address] 12-16-2024 14:42-0400 Respiratory rate 17 /min Dr. Nabila Paris MD Work Phone: [phone])[phone] [place] [address] 12-16-2024 14:42-0400 SaO2% (BldA) [Mass fraction] 96 % Dr. Nabila Paris MD Work Phone: [facility] 12-16-2024 14:42-0400 Systolic blood pressure 126 mm[Hg] Dr. Nabila Paris MD Work Phone: [facility] 12-01-2024 11:49-0400 Body temperature 97.8 [degF] Dr. Nabila Paris MD Work Phone: [facility] 12-01-2024 11:49-0400 Diastolic blood pressure 68 mm[Hg] Dr. Nabila Paris MD Work Phone: [facility] 12-01-2024 11:49-0400 Heart rate 106 /min Dr. Nabila Paris MD Work Phone: [facility] 12-01-2024 11:49-0400 Respiratory rate 18 /min Dr. Nabila Paris MD Work Phone: [facility] 12-01-2024 11:49-0400 SaO2% (BldA) [Mass fraction] 97 % Dr. Nabila Paris MD Work Phone: [facility] 12-01-2024 11:49-0400 Systolic blood pressure 110 mm[Hg] Dr. Nabila Paris MD Work Phone: 7(215)929-365784 [place] [address] 12-01-2024 11:47-0400 Body height 162.[address] Nabila Paris MD Work Phone: 6([phone])[phone] [place] [address] 08-22-2024 16:32-0500 Body temperature 97.9 [degF] Dr. Nabila Paris MD Work Phone: 8(674)523-046585 [address] 08-22-2024 16:32-0500 Diastolic blood pressure 64 mm[Hg] Dr. Nabila Paris MD Work Phone: 9(831)[phone] [place] [address] 08-22-2024 16:32-0500 Heart rate 63 /min Dr. Nabila Paris MD Work Phone: 6(423)694-173485 [address] 08-22-2024 16:32-0500 SaO2% (BldA) [Mass fraction] 95 % Dr. Nabila Paris MD Work Phone: 0(940)[phone] [place] [address] 08-22-2024 16:32-0500 Systolic blood pressure 102 mm[Hg] Dr. aNbila Paris MD Work Phone: [facility] 06-13-2023 16:31-0500 Body height 162.[address] Nabila Paris Work Phone: [facility] 06-13-2023 16:31-0500 Body mass index (BMI) [Ratio] 29.8 kg/m2 Dr. Nabila Paris Work Phone: [facility] 06-13-2023 16:31-0500 Body temperature 98.1 [degF] Dr. Nabila Paris Work Phone: [facility] 06-13-2023 16:31-0500 Body weight 78.[address] Nabila Paris Work Phone: [facility] 06-13-2023 16:31-0500 Diastolic blood pressure 73 mm[Hg] Dr. Nabila Paris Work Phone: [facility] 06-13-2023 16:31-0500 Heart rate 95 /min Dr. Nabila Paris Work Phone: [facility] 06-13-2023 16:31-0500 Respiratory rate 17 /min Dr. Nabila Paris Work Phone: [facility] 06-13-2023 16:31-0500 SaO2% (BldA) [Mass fraction] 95 % Dr. Nabila Paris Work Phone: [facility] 06-13-2023 16:31-0500 Systolic blood pressure 143 mm[Hg] Dr. Nabila Paris Work Phone: [facility] 06-12-2023 12:57-0500 Body mass index (BMI) [Ratio] 30.4 kg/m2 Dr. Nabila Paris Work Phone: [facility] 06-12-2023 12:57-0500 Body temperature 98 [degF] Dr. Nabila Paris Work Phone: [facility] 06-12-2023 12:57-0500 Body weight 79.[address] Nabila Paris Work Phone: [facility] 06-12-2023 12:57-0500 Diastolic blood pressure 78 mm[Hg] Dr. Nabila Paris Work Phone: [facility] 06-12-2023 12:57-0500 Heart rate 96 /min Dr. Nabila Paris Work Phone: [facility] 06-12-2023 12:57-0500 Respiratory rate 17 /min Dr. Nabila Paris Work Phone: [facility] 06-12-2023 12:57-0500 SaO2% (BldA) [Mass fraction] 95 % Dr. Nabila Paris Work Phone: [facility] 06-12-2023 12:57-0500 Systolic blood pressure 124 mm[Hg] Dr. Nabila Paris Work Phone: 4(256)[phone] [address] 04-16-2023 12:00-0400 Body mass index (BMI) [Ratio] 30.2 kg/m2 Dr. Nabila Paris Work Phone: [facility] 04-16-2023 12:00-0400 Body temperature 95 [degF] Dr. Nabila Paris Work Phone: 7([phone])253-643385 [address] 04-16-2023 12:00-0400 Body weight 79.[address] Nabila Paris Work Phone: [phone])830-721785 [address] 04-16-2023 12:00-0400 Diastolic blood pressure 78 mm[Hg] Dr. Nabila Paris Work Phone: [phone])[phone] [place] [address] 04-16-2023 12:00-0400 Heart rate 87 /min Dr. Nabila Paris Work Phone: [phone] [address] 04-16-2023 12:00-0400 SaO2% (BldA) [Mass fraction] 95 % Dr. Nabila Paris Work Phone: [phone] [place] [address] 04-16-2023 12:00-0400 Systolic blood pressure 127 mm[Hg] Dr. Nabila Paris Work Phone: [facility] 06-04-2022 13:05-0500 Body height 160.[address] Nabila Paris Work Phone: [facility] Work Phone: 06-04-2022 13:05-0500 Body mass index (BMI) [Ratio] 31.4 kg/m2 Dr. Nabila Paris Work Phone: [facility] Work Phone: 06-04-2022 13:05-0500 Body temperature 97.3 [degF] Dr. Nabila Paris Work Phone: [facility] Work Phone: 06-04-2022 13:05-0500 Body weight 80.[address] Nabila Paris Work Phone: [facility] Work Phone: 06-04-2022 13:05-0500 Diastolic blood pressure 74 mm[Hg] Dr. Nabila Paris Work Phone: [facility] Work Phone: 06-04-2022 13:05-0500 Heart rate 82 /min Dr. Nabila Paris Work Phone: [facility] Work Phone: 06-04-2022 13:05-0500 Respiratory rate 7 /min Dr. Nabila Paris Work Phone: [facility] Work Phone: 06-04-2022 13:05-0500 SaO2% (BldA) [Mass fraction] 97 % Dr. Nabila Paris Work Phone: [facility] Work Phone: 06-04-2022 13:05-0500 Systolic blood pressure 112 mm[Hg] Dr. Nabila Paris Work Phone: [facility] Work Phone: 04-19-2022 12:39-0400 Body temperature 98.1 [degF] Dr. Nabila Paris Work Phone: [facility] Work Phone: 04-19-2022 12:39-0400 Diastolic blood pressure 76 mm[Hg] Dr. Nabila Paris Work Phone: [facility] Work Phone: 04-19-2022 12:39-0400 Heart rate 82 /min Dr. Nabila Paris Work Phone: [facility] Work Phone: 04-19-2022 12:39-0400 Respiratory rate 16 /min Dr. Nabila Paris Work Phone: [facility] Work Phone: 04-19-2022 12:39-0400 SaO2% (BldA) [Mass fraction] 98 % Dr. Nabila Paris Work Phone: [facility] Work Phone: 04-19-2022 12:39-0400 Systolic blood pressure 126 mm[Hg] Dr. Nabila Paris Work Phone: [facility] Work Phone: 04-14-2022 13:03-0400 Body temperature 100.4 [degF] Dr. Nabila Paris Work Phone: [facility] Work Phone: 04-14-2022 13:03-0400 Diastolic blood pressure 70 mm[Hg] Dr. Nabila Paris Work Phone: [facility] Work Phone: 04-14-2022 13:03-0400 Heart rate 93 /min Dr. Nabila Paris Work Phone: [facility] Work Phone: 04-14-2022 13:03-0400 Respiratory rate 16 /min Dr. Nabila Paris Work Phone: [facility] Work Phone: 04-14-2022 13:03-0400 SaO2% (BldA) [Mass fraction] 95 % Dr. Nabila Paris Work Phone: [facility] Work Phone: 04-14-2022 13:03-0400 Systolic blood pressure 132 mm[Hg] Dr. Nabila Paris Work Phone: [facility] Work Phone: 04-14-2022 12:45-0400 Body height 161.[address] Nabila Paris Work Phone: [facility] Work Phone: 07-10-2021 13:39-0500 Body height 161.[address] Nabila Paris Work Phone: [facility] Work Phone: 07-10-2021 13:39-0500 Body mass index (BMI) [Ratio] 32.8 kg/m2 Dr. Nabila Paris Work Phone: [facility] Work Phone: 07-10-2021 13:39-0500 Body temperature 97.5 [degF] Dr. Nabila Paris Work Phone: [facility] Work Phone: 07-10-2021 13:39-0500 Body weight 85.[address] Nabila Paris Work Phone: [facility] Work Phone: 07-10-2021 13:39-0500 Diastolic blood pressure 76 mm[Hg] Dr. Nabila Paris Work Phone: [facility] Work Phone: 07-10-2021 13:39-0500 Heart rate 79 /min Dr. Nabila Paris Work Phone: [facility] Work Phone: 07-10-2021 13:39-0500 Respiratory rate 16 /min Dr. Nabila Paris Work Phone: [facility] Work Phone: 07-10-2021 13:39-0500 SaO2% (BldA) [Mass fraction] 95 % Dr. Nabila Paris Work Phone: [facility] Work Phone: 07-10-2021 13:39-0500 Systolic blood pressure 122 mm[Hg] Dr. Nabila Paris Work Phone: [facility] Work Phone: 03-11-2017 12:19-0400 BMI (Body Mass Index) 32.91 kg/m2 Sujata Santa LPN [facility] Work Phone: 03-11-2017 12:19-0400 Body Temperature 98.5 [degF] Sujata Santa LPN [facility] Work Phone: 03-11-2017 12:19-0400 BP Diastolic 84 mm[Hg] Sujata Santa LPN [facility] Work Phone: 03-11-2017 12:19-0400 BP Systolic 142 mm[Hg] Sujata Santa LPN [facility] Work Phone: 03-11-2017 12:19-0400 Height 160.02 cm Sujata Santa LPN [facility] Work Phone: 03-11-2017 12:19-0400 Pulse (Heart Rate) 100 /min Sujata Santa LPN [facility] Work Phone: 03-11-2017 12:19-0400 Respiratory Rate 15 /min Sujata Santa LPN [facility] Work Phone: 03-11-2017 12:19-0400 Weight 84.28 kg Sujata Santa LPN [facility] Work Phone: 11-21-2015 11:30-0400 Body Temperature 96.08 [degF] Sujata Santa LPN [facility] Work Phone: 11-21-2015 11:30-0400 BSA (Body Surface Area) 1.88 m2 Sujata Santa LPN [facility] Work Phone: 11-21-2015 11:30-0400 Height 160.02 cm Sujata Santa LPN [facility] Work Phone: 11-21-2015 11:30-0400 Weight 84.55 kg Sujata Santa LPN [facility] Work Phone: Encounters Encounter Date Encounter Type Care Provider Facility Start: 12-16-2024 End: 12-16-[address] Nabila Paris MD Work Phone: [facility] Start: 12-16-2024 End: 12-16-2024 Patient encounter procedure Marcos Weber PA [facility] Work Phone: Start: 12-01-2024 End: 12-01-2024 Patient encounter procedure Marcos Weber [facility] Work Phone: Start: 12-01-2024 End: 12-01-[address] Nabila Paris MD Work Phone: [facility] Work Phone: Start: 12-01-2024 End: 12-01-2024 ambulatory Marcos VÁSQUEZ Facility:[facility] Start: 08-22-2024 End: 08-22-2024 Patient encounter procedure Saravanan Mcdermott PA [facility] Work Phone: Start: 08-22-2024 End: 08-22-2024 ambulatory Nabila Paris [facility] Start: 05-04-2024 End: 05-04-2024 ambulatory Nabila Paris Facility:[facility] Start: 04-21-2024 End: 04-21-2024 Emergency department patient visit Rayshawn Diaz Facility:[facility] Start: 04-12-2024 End: 04-12-2024 Emergency department patient visit Lj Rizvi Facility:[facility] Start: 04-07-2024 End: 04-07-2024 Emergency department patient visit Nabila Paris Facility:[facility] Start: 06-13-2023 End: 06-13-2023 Emergency department patient visit Dr. Nabila Paris Work Phone: [facility]-Emergency Department Work Phone: Start: 06-12-2023 End: 06-12-[address] Nabila Paris Work Phone: [facility] Work Phone: Start: 04-16-2023 End: 04-16-[address] Nabila Paris Work Phone: [facility] Work Phone: Start: 10-21-2022 End: 10-21-2022 ambulatory [facility] Work Phone: Start: 10-21-2022 End: 10-21-2022 Patient encounter procedure [facility] Start: 06-04-2022 End: 06-04-[address] Nabila Paris Work Phone: [facility] Work Phone: Start: 06-04-2022 End: 06-04-[address] Nabila Paris Work Phone: [facility] Start: 05-09-2022 End: 05-09-[address] Nabila Paris Work Phone: [facility] Work Phone: Start: 05-09-2022 End: 05-09-[address] Nabila Paris Work Phone: [facility]-Ultrasound, [facility] Start: 04-30-2022 End: 04-30-[address] Nabila Paris Work Phone: [facility]-Nuclear Medicine, [facility] Start: 04-19-2022 End: 04-19-[address] Nabila Paris Work Phone: [facility] Start: 04-14-2022 End: 04-14-[address] Nabila Paris Work Phone: [facility] Start: 01-02-2022 End: 01-02-2022 Patient encounter procedure [facility]-Cat Scan, [facility] Start: 12-17-2021 End: 12-17-2021 Patient encounter procedure [facility]-Radiology, [facility] Start: 09-23-2021 End: 09-23-[address] Nabila Paris Work Phone: [facility] Start: 07-10-2021 End: 07-10-[address] Nabila Paris Work Phone: [facility] Procedures Date Procedure Procedure Detail Performing Clinician Start: 12-01-2024 X-ray of foot, three or more views Dr. Nabila Paris MD Work Phone: Start: 06-13-2023 Plain chest X-ray Dr. Chay [...] Pulmonary Function Test - complete Tanesha Bullard CNP Work Phone: Start: 10-22-2015 End: 02-19-2016 Pulmonary stress test/simple Tanesha Bullard CNP Work Phone: Start: 09-21-2015 End: 02-19-2016 Tte w/doppler, complete Tanesha samayoa [employer] Work Phone: Start: 08-23-2015 End: 02-19-2016 Follow Up Appt 3 months Tanesha samayoa [employer] Work Phone: Plan of Treatment Date Care Activity Detail Author Start: 12-01-2024 X-ray of foot, three or more views Foot min 3 Views [facility] Start: 12-01-2024 XR Foot GE 3 Views [facility] Start: 06-13-2023 [facility] Start: 03-11-2017 End: 03-11-2017 Appointment Appointment [facility] Work Phone: Start: 11-21-2015 End: 11-21-2015 [facility] Work Phone: Start: 11-21-2015 End: 11-21-2015 Follow Up Appt 3 months Follow Up Appt 3 months [facility] Work Phone: Start: 10-22-2015 End: 02-19-2016 Pulmonary Function Test - complete Pulmonary Function Test - complete [facility] Work Phone: Start: 10-22-2015 End: 02-19-2016 Pulmonary stress test/simple Pulmonary stress testing; simple (eg, 6-minute walk) [facility] Work Phone: Start: 09-21-2015 End: 02-19-2016 Tte w/doppler, complete Echo Complete with Color Flow [facility] Work Phone: Start: 08-23-2015 End: 02-19-2016 Follow Up Appt 3 months Follow Up Appt 3 months [facility] Work Phone: Start: 04-24-2015 End: 04-24-2015 Follow Up Appt 3 months Follow Up Appt 3 months [facility] Work Phone: Start: 04-24-2015 End: 04-24-2015 Titration with Follow up (pt not on cpap) Titration with Follow up (pt not on cpap) [facility] Work Phone: Start: 10-26-2014 End: 10-26-2014 Complete portable sleep workup (portabel,CPAP as indicated) & follow up Complete portable sleep workup (portabel,CPAP as indicated) & follow up [facility] Work Phone: Start: 10-26-2014 End: 10-26-2014 Follow Up Appt 6 months Follow Up Appt 6 months [facility] Work Phone: Start: 09-29-2014 End: 09-29-2014 Pulmonary Function Test - complete Pulmonary Function Test - complete [facility] Work Phone: Start: 09-13-2014 End: 09-13-2014 Complete sleep workup (PSG,CPAP as indicated) & Follow up Complete sleep workup (PSG,CPAP as indicated) & Follow up [facility] Work Phone: Patient Education [facility] Work Phone: Patient referral [facility] Work Phone: Immunizations Immunization Date Immunization Notes Care Provider Fa [facility] 07-19-2020 influenza, injectabl e, quadrivalent, preservative free Dr. Nabila Paris Work Phone: [facility] 07-19-2020 influenza, seasonal, injectable Dr. Nabila Paris Work Phone: [facility] 06-21-[address] Nabila Paris Work Phone: [facility] Payers Date Payer Category Payer Self-pay [id number] 2022 Private Health Insurance [id number] 2008 Unknown [id number] Unknown [id number] Unknown AARP MCR ADV [id number] Unknown [id number] Unknown [id number] Unknown [id number] Unknown [id number] Unknown [id number] Unknown [id number] Unknown [id number] Social History Date Type Detail Facility Start: 07-10-2021 End: 06-13-2023 Tobacco smoking status SDIS Unknown if ever smoked [facility] Start: 04-26-2017 Rare [facility] Start: 04-26-2017 None [facility] Start: 01-05-2019 Spouse/ Signif icant Other [facility] Start: 07-13-2020 Non-smoker [facility] Start: 1945 Sex Assigned At Female W [facility] Start: 04-21-2024 End: 12-16-2024 Tobacco smoking status NHIS Never smoked tobacco (finding) [facility] Medical Equipment Procedure Code Equipment Code Equipment Origin al Text Equipment Identifier Dates Robot-assisted partial nephrectomy CLIP,EPHRAIM HOFF FDA Start: 07-18-2020 Robot-assisted partial nephrectomy CLIP,HEMADONAY HOFF FDA Start: 07-18-2020 Robot-assisted partial nephrectomy CLIP,HEMADONAY HOFF FDA Start: 07-18-2020 Robot-assisted partial nephrectomy CLIP,HEMADONAY HOFF FDA Start: 07-18-2020 Robot-assisted partial nephrectomy CLIP,HEMADONAY HOFF FDA Start: 07-18-2020 Robot-assisted partial nephrectomy SEALANT,FLOSEAL HEMOSTATIC 5ML FDA Start: 07-18-2020 Robot-assisted partial nephrectomy CLIP,HEMADONAY HOFF FDA Start: 07-18-2020 Robot-assisted partial nephrectomy CLIP,HEMADONAY HOFF FDA Start: 07-18-2020 Robot-assisted partial nephrectomy CLIP,HEMADONAY HOFF FDA Start: 07-18-2020 Robot-assisted partial nephrectomy CLIP,HEMADONAY HOFF FDA Start: 07-18-2020 Robot-assisted partial nephrectomy CLIP,HEMOLOJN HOFF FDA Start: 07-18-2020 Robot-assisted partial nephrectomy [...] Level Of Cons ciousness Awake;Alert;Appropriate;Follow s Commands [facility] Work Phone: Clinical Notes 08-07-2020 to 12-01-2024 Note Date & Type Note Facility 12-01-2024 Evaluation note Diagnosis Onset Date Resolution Right foot injury acute December 012024 11:52am [facility] Work Phone: 1(982) 819-990206-12-2025 Radiology Diagnostic study note [facility] Imaging Services [address] [place] [address] [id number] Foot min 3 Views MR#: [id number] Acct: [id number] Name: PETRA DUNCAN Rep #: [id number] : 1945 F 79 From: Aldo Ayala MD PCP: Dr. Ganesh Lock MD Status: REG C EMETERIO Study:Foot min 3 Views Date of Exam: 06/15 Exam# [id number] Ordering Dr: Greer Weber PA PROCEDURE: FOOT MIN 3 VIEWS 12/01/2024 REASON FOR EXAM: RIGHT FOOT PAIN AFTER FALL TECHNIQUE: 3 views of the right foot. COMPARISON: None FINDINGS: Bones: No visible fracture. No suspicious bone lesion. Joints: Normal alignment. Soft tissues: Soft tissue swelling. Other: RAD/Foot min 3 Views IMPRESSION: Soft tissue swelling. Reading Location: [place] [address] CC: THALIA Hernández; Dr. Ganesh Lock MD ~ Umbrella Mender: Signed [facility]12-23-2023 Discharge summary Author Dinora Moura [facility] June 13, 2023 5:31pm Note Date/Time June 13, 2023 4:44pm [facility] Medical Records Department [address] [place] [address] Emergency Department Summary 06/13/23 MR#: [id number] Acct: [id number] Name: PETRA DUNCAN Rep #:[id number] : 1945 78 From: Tc Chanel MD [...] parents smoking when she was a child. PFSH <THALIA Urena - Last Filed: 06/13/23 17:31> REPLACED BY [facility] Medical History Arthritis Asthma Asthma with acute [...] Taken Unknown] famotidine 10 mg tablet (Acid Scientific Specialist (famotidine)) 10 mg PO DAILY 07/10/21 [History [...] Ox 95 Oxygen Delivery Method Room Air MDM <THALIA Urena - Last Filed: 06/13/23 17:31> [facility] MDM Narrative Medical decision making narrative: Patient reports [...] Chanel MD - Last Filed: 06/13/23 17:06> [facility] Narrative Medical decision making narrative: Patient reports [...] Qty: 6.7 0RF No Action famotidine [Acid Scientific Specialist (famotidine)] 10 mg tablet 10 mg PO [...] your Primary Care Provider. Call [facility] ([phone]) or report to the closest Emergency Room. Call 911 if necessary. 06/13/23 1706 <Electronically signed by Tc Chanel MD> Cosigner Signature (if applicable): 06/13/23 173 <Electronically signed by Dinora VÁSQUEZ> CC: Dr. Nabila Paris MD ~ Signed [facility] Work Phone: 1(122) 132-958810-22-2021 NoteHNO ID: [id number] Author: Shubham Smith APRN.[employer]NER Service: ? Author Type: Nurse Practitioner Type: [...] - CHOLECYSTECTOMY 06/04/2019 laparoscopic - HYSTERECTOMY ALLERGIES [place] MEDICATIONS triamcinolone (KENALOG) 0.025 % cream Apply [...] as instructed twice daily. 1 puff Ipratropium [place] (ATROVENT) 0.03 % nasal spray Use 2 [...] not diaphoretic. HENT: Head: Normocephalic. Mouth/Throat: Lips: [place]. Mouth: Mucous membranes are moist. Pharynx: Oropharynx [...] clinical presentation is otherwis (more content not included)...[facility]02-16-2021 NotePatient Outreach (COVAMN) PETRA DUNCAN ([id number]) 1945 F Date Time Provider Department 08/07/20 TANJA DUNNE During your visit today, we recorded the following information about you: Allergies As of Date: 08/07/2020 Noted Allergy Reaction STRAWBERRY 06/23/2019 4 - Hives Comments: NKDA Date Reviewed: 01/01/2020 Reviewed by: Sarah ([facility]) Kimberley - Fully Assessed Order(s):SARS-COVID VACCINE 1ST DOSE APPT [74900ULV] Order #: [id number] FUTURE Prescriptions as of 08/07/2020 Sig: TRIAMCINOLONE [...] [K83.1] 05/29/2019 Letter Text Encounter Status:Closed by GINA, PRODUSER on 08/10/20[facility] Chief complaint+Reason for visit Narrative* Chief Complaint CHILEL/VOMITING COVID POSITIVE NODULE NODULE Reason for Visit COVID-19 COVID-19 Pneumonia [facility] Work Phone: Evaluation note* Diagnosis Onset Date Resolution Status Right shoulder strain acute Strain of right rotator cuff capsule acute [facility] Work Phone: Evaluation noteNo assessment information available [facility] Work Phone: Evaluation note* Diagnosis Onset Date Resolution Status COVID-19 acute COVID-19 acute Pneumonia acute [facility] Work Phone: Evaluation note* Diagnosis Onset Date Resolution Status COVID-19 acute COVID-19 acute Pneumonia acute Right thyroid nodule acute [facility] Work Phone: Evaluation note* Diagnosis Onset Date Resolution Status Acute sinusitis acute Acute bronchitis acute Acute sinusitis acute [facility] Work Phone: Hospital Discharge instructions Additional Instructions Continue the azithromycin and Medrol Dosepak prescribed by urgent care. I refilled your albuterol inhaler. If you become significantly more short of breath return to the ER. [facility] Work Phone: Reason for referral (narrative)No [facility] for [facility] Work [facility]: Summary Purpose Family History Relationship Condition Age at Onset Recorded Date/T chris father Cardiac disease Unknown sister Coronary artery disease Unknown Advance Directives Advance Directive Response Recorded Date/ Time Advance Directives No August 27 8:38am Living Will Yes July 18 12:56pm Power of Subject Scientific Research Yes July 18, 2020 12:56pm Advance Directive Response Recorded Date/ Time Advance Directives No April 14, 2022 11:45am Living Will Yes April 14 11:45am Power of Subject Scientific Research Yes April 14, 2022 11:45am Advance Directive Response Recorded Date/ Time Advance Directives No April 14, 2022 12:45pm Living Will Yes April 14 12:45pm Power of Subject Scientific Research Yes April 14, 2022 12:45pm Advance Directive Response Recorded Date/ Time Advance Directives No April 14, 2022 11:45am Living Will No June 13, 2 023 4:48pm Power of Subject Scientific Research No June 13, 2023 4:48pm Advance Directive Response Recorded Date/ Time Advance Directives No April 14, 2022 12:45pm Advance Directive Response Recorded Date/ Time Advance Directives No December 01 11:47am Advance Directive Response Recorded Date/ Time Advance Directives No December 16 2:42pm Hospital Course Note HNO ID: [id number] Author: Liane Romo Service: Hospital Medicine Author [...] Team Members: Treatment Team: Attending Provider: Lacho Romo Primary Service: Catalino Diop Consulting: Tres Cartwright (more content not included)... Note HNO ID: [id number] Author: Liane Kimball Service: General Surgery Author Type: Physician Type: Brief Op Note Filed: 06/04/2019 3:40 PM Note Text: BRIEF OPERATIVE / PROCEDURE NOTE LOG ID: [id number] SURGERY/PROCEDURE DATE: 06/04/2019 INCISION/PROCEDURE START TIME: 8:15 AM INCISION CLOSE/PROCEDURE END TIME: 9:31 AM SURGEON(S)/PROCEDURALIST(S) AND MANAGER BANKING(S): Surgeon(s) and Role: * Jessica Kimball - [...] 04, 2019 Procedure Findings Note HNO ID: [id number] Author: Liane Kimball Service: General Surgery Author Type: Physician Type: Brief Op Note Filed: 06/04/2019 3:40 PM Note Text: BRIEF OPERATIVE / PROCEDURE NOTE LOG ID: [id number] SURGERY/PROCEDURE DATE: 06/04/2019 INCISION/PROCEDURE START TIME: 8:15 AM INCISION CLOSE/PROCEDURE END TIME: 9:31 AM SURGEON(S)/PROCEDURALIST(S) AND MANAGER BANKING(S): Surgeon(s) and Role: * Jessica Kimball - [...] Personal history of other malignant neoplasm of Chief Complaint Personal history of other malignant [...] FROM FALL December 01, 2024 11 :52am E-ORDER December 01, 2024 12:3 1pm Reason for Visit Admit Date Right foot injury December 01, 2024 11:5 2am Chief Complaint Admit Date COUGH, CONGESTION August 22, 2024 4:14 pm R FOOT PAIN FROM FALL December 01, 2024 11 :52am E-ORDER December 01, 2024 12:3 1pm concern for allergies, sneezing November 2:44pm Additional Source Comments INFORMATION SOURCE (unrecogn ized section and content) DATE CREATED AUTHOR 07/11/2019 [facility] DATE CREATED AUTHOR AUTHOR'S ORGANIZ ATION 07/11/2019 [facility] DATE CREATED AUTHOR AUTHOR'S ORGANIZ ATION 07/18/2021 [facility] DATE CREATED AUTHOR AUTHOR'S ORGANIZ ATION 12/10/2024 [facility] Goals (unrecognized section and content) Goals may [...] Dr. Nabila Paris MD Primary Care Provider, Referlidia g Provider Active Marcos VÁSQUEZ, PA Attending Provider Active Team Status: Inactive Member Role Status Dates Dr. Nabila Paris MD Primary Care Provider Active Dr. Tc Chanel MD Emergency Provider Active Team Status: Inactive Member Role Status Dates Dr. Nabila Paris MD Primary Care Provider Active Start: August 22, 2024 End: August 22, 2024 Dr. Nabila Paris MD Referring Provider Active Start: August 22, 2024 End: August 22, 2024 Saravanan Mcdermott PA PA Attending Provider Active Start: August 22, 2024 End: August 22, 2024 Team Status: Inactive Member Role Status Dates Dr. Nabila Paris MD Primary Care Provider Active Start: December 01, 2024 End: December 01, 2024 Dr. Nabila Paris MD Referring Provider Active Start: December 01, 2024 End: December 01, 2024 Marcos VÁSQUEZ PA Attending Provider Active Sta rt: December 01, 2024 End: December 01, 2024 Team Status: Active Member Role Status Dates Dr. Nabila Paris MD Family Provider Active Dr. Ganesh Lock MD Primary Care Provider Active Team Status: Active Member Role Status Dates Dr. Ganesh Lock MD Primary Care Provider Active Start: December 01, 2024 Marcos VÁSQUEZ PA Attending Provider Active Sta rt: December 01, 2024 Marcos VÁSQUEZ PA Referring Provider Active Sta rt: December 01, 2024 Team Status: Inactive Member Role Status Dates Dr. Ganesh Lock MD Primary Care Provider Active Start: December 01, 2024 End: December 01, 2024 Marcos VÁSQUEZ PA Attending Provider Active Sta rt: December 01, 2024 End: December 01, 2024 Marcos VÁSQUEZ PA Referring Provider Active Sta rt: December 01, 2024 End: December 01, 2024 Team Status: Active Member Role/Relationship Status Dates Dr. Nabila Paris MD Family Provider Active Dr. Ganesh Lock MD Primary Care Provider Active Team Status: Inactive Member Role/Relationship Status Dates Dr. Nabila Paris MD Primary Care Provider Active Start: August 22, 2024 End: August 22, 2024 Dr. Nabila Paris MD Referring Provider Active Start: August 22, 2024 End: August 22, 2024 Saravanan Mcdermott PA, PA Attending Provider Active Start: August 22, 2024 End: August 22, 2024 Team Status: Inactive Member Role/Relationship Status Dates Dr. Nabila Paris MD Primary Care Provider Active Start: December 01, 2024 End: December 01, 2024 Dr. Nabila Paris MD Referring Provider Active Start: December 01, 2024 End: December 01, 2024 THALIA Patel Attending Provider Active Sta rt: December 01, 2024 End: December 01, 2024 Team Status: Inactive Member Role/Relationship Status Dates Dr. Ganesh Lock MD Primary Care Provider Active Start: December 01, 2024 End: December 01, 2024 THALIA Patel Attending Provider Active Sta rt: December 01, 2024 End: December 01, 2024 THALIA Patel Referring Provider Active Sta rt: December 01, 2024 End: December 01, 2024 Team Status: Inactive Member Role/Relationship Status Dates Dr. Ganesh Lock MD Primary Care Provider Active Start: December 16, 2024 End: December 16, 2024 Dr. Ganesh Lock MD Referring Provider Active Start: December 16, 2024 End: December 16, 2024 THALIA Patel Attending Provider Active Sta rt: December 16, 2024 End: December 16, 2024 FOR RECORDS PERTAINING TO PATIENTS WHO [...] BE BASED ON THE PRIMARY CLINICAL RECORDS. [facility] [employer] [facility]. provides no warranty or guarantee of the accuracy or completeness of information in this document.
--- NOTE | 2024-12-17 08:29 | EDS_ITS ---
HPI History of Present Illness Chief Complaint: Cough Informant: patient Onset/Context/Timing Onset: Days (5-6) Context: Gradual Onset Timing: Continuous Quality: Moist cough Location: Chest Worsened by: Laying flat Relieved by: Sitting upright Narrative Narrative: Patient presents with shortness of breath and cough that has been getting worse over the past 5 to 6 days. Patient states she went to urgent care yesterday and was given prescriptions for Zithromax, Solu-Medrol, DuoNeb aerosols, and albuterol inhaler. Patient states she has been taking these without any improvement. Patient states her breathing is worse when she lays flat and better when she sits upright. Patient admits to some subjective fevers and chills. Patient admits to a cough with yellow sputum production. Patient admits to some nausea and vomiting. [facility] Medical History COVID-19 Strain of right rotator cuff capsule Right shoulder strain Chronic neck and back pain Shoulder pain Right renal mass Renal lesion Paroxysmal atrial fibrillation Essential hypertension Gastroenteritis Diarrhea Hay fever Arthritis Asthma Shortness of breath Chronic cough Bronchitis Wheezing Eosinophilia Obesity Hypokalemia Asthma with acute exacerbation in adult Hypoxemia Noncompliance with CPAP treatment Obstructive sleep apnea Seasonal allergies Home Medications ?Medication ?Instructions ?Recorded ?Last Taken ?Type sertraline 50 mg tablet 50 mg PO DAILY 10/09/16 Unkn own History albuterol sulfate 90 mcg/actuation 1 - 2 puff inhalati on Q4H PRN PRN 06/13/23 Unknown Rx aerosol inhaler (Ventolin HFA) Wheezing 30 days #6.7 g raghu apixaban 5 mg tablet (Eliquis) 5 mg PO BID #60 tabs Unknown Rx lisinopril 5 mg tablet 5 mg PO DAILY #90 tabs 06/13 Unknown Rx benzonatate 200 mg capsule 200 mg PO TID PRN cough #20 caps 08/22/24 Unknown Rx gabapentin 300 mg capsule 300 mg PO TID PRN 08/22/24 U nknown History metoprolol succinate 50 mg 50 mg PO DAILY #90 TABLETS 12/09/24 Unknown Rx tablet,extended release 24 hr albuterol sulfate 90 mcg/actuation 2 puff inhalation Q 4-6H PRN 12/16/24 Unknown Rx aerosol inhaler (Ventolin HFA) shortness of breath or wheezing #6.7 grams azithromycin 250 mg tablet See Rx Instructions PO .COM PLEX #6 12/16/24 Unknown Rx tabs ipratropium 0.5 mg-albuterol 3 mg 3 ml inhalation Q6H 5 days #90 mL 12/16/24 Unknown Rx (2.5 mg base)/3 mL nebulization soln methylprednisolone 4 mg tablets in 4 mg PO PER PKG DIR 6 days #21 tabs 12/16/24 Unknown Rx a dose pack (Medrol (Jose)) Allergy/AdvReac Type Severity Reaction Status Date / Time chocolate Allergy Other Verified 12/16/24 14:49 dog dander Allergy Unknown Verified 12/16/24 14:49 strawberry Allergy Food Verified 12/16/24 14:49 Allergy tree and shrub pollen Allergy Unknown Verified 12/16/24 14:49 Family History Father Heart disease Sister CAD (coronary artery disease) stent Surgical History History of hysterectomy History of cholecystectomy (05/2019) H/O section Social History Smoking Status: Never smoker second hand exposure: No alcohol intake: current alcohol intake frequency: holidays/special occasions only substance use type: does not use caffeine: Yes Type: coffee Number of servings: 1 what type of physical activity do you participate in: none ROS ROS ED Constitutional Constitutional ED: Reports chills, fever(s) and subjective Eyes Eyes: Denies blurry vision or change in vision ENT ENT ED: Denies rhinorrhea or sore throat Cardiovascular Cardiovascular: Denies chest pain or palpitations Respiratory/Chest Respiratory/Chest: Reports cough, dyspnea and sputum Gastrointestinal Gastrointestinal: Reports nausea and vomiting Genitourinary Genitourinary ED: Denies dysuria or hematuria Musculoskeletal Musculoskeletal: Denies back pain or neck pain Integumentary Denies abscess or rash Neurologic Neurologic: Denies headache(s) or weakness Allergic/Immunologic Allergic/Immunologic ED: Denies mouth swelling or urticaria EXAM Physical Exam Const Vital Signs: 12/17/24 07:24 12/17/24 09:13 Temperature 98.9 F Temperature Source Oral Pulse Rate 81 81 Respiratory Rate 18 18 Respiratory Pattern Normal Blood Pressure 151/78 H Blood Pressure Mean 102 Pulse Ox 92 Oxygen Delivery Method Room Air Positive well nourished and well developed General Appearance ED: well developed and NAD HEENT Reports moist mucous membranes Neck supple and no JVD Resp normal respiratory effort Auscultation: rhonchi and wheezes Cardio regular rate and regular rhythm GI non-tender and non-distended Palpation: soft Neuro oriented x3, CN's II-XII intact bilaterally and no sensory deficits noted Sensorium / Orientation: alert Motor Exam: strength 5/5 throughout Psych mental status grossly normal MDM MDM MDM Narrative Medical decision making narrative: Differential diagnosis includes pneumonia, bronchitis, asthma exacerbation, and COPD. Chest x-ray will be obtained to assess for pneumonia, bronchitis, and COPD. History & Record Review Additional record(s) reviewed:: Prior outpatient record Radiography Chest X-Ray - ED: 2 View, Read by ED Physician, Read by Radiologist and Chronic Changes Diagnostic Testing: Clinical Impression(s) from Imaging Studies Chest X-Ray 12/17/24 08:58 IMPRESSION: No focal consolidations. There is hyperinflation of the lungs consistent with chronic obstructive lung disease (COPD). Reading Location: [facility] PA and lateral chest x-ray was obtained. There are 2 views. On my independent interpretation, lung de la o show chronic changes and hyperinflation. There is normal cardiac silhouette. Bony thorax is normal. There is no acute process noted. Radiologist also interpreted the x-ray and agrees. Management Discussion w/another healthcare provider: canvas worker/Case management Treatment and Re-Evaluation :: Patient was given a DuoNeb aerosol here. Patient is feeling better on reevaluation. Patient was advised of her findings. Patient was instructed to continue her prescriptions as previously prescribed. Social work was able to arrange for a home aerosol machine so that she can use the DuoNeb aerosols that she was prescribed yesterday. Patient was instructed to follow-up with her primary care physician in 5 to 7 days. Patient was instructed to return if wor se in any way. Patient understood and was agreeable with the plan. All questions were answered. Discharge Plan Triage Chief Complaint: Cough ED Provider: Schwiger,Cristofer Dx/Rx/DC Orders Clinical Impression: Acute bronchitis, Asthma Instructions: ED Bronchitis with Wheezing (Adult) Prescriptions: No Action gabapentin 300 mg capsule 300 mg PO TID PRN benzonatate 200 mg capsule 200 mg PO TID PRN (Reason: cough) Qty: 20 0RF methylprednisolone [Medrol (Jose)] 4 mg tablets,dose pack 4 mg PO PER PKG DIR 6 Days Qty: 21 0RF azithromycin 250 mg tablet See Rx Instructions PO .COMPLEX Qty: 6 0RF Rx Instructions: take 500 mg today (day 1), then 250 mg for 4 days (days 2-5) PO albuterol sulfate [Ventolin HFA] 90 mcg/actuation HFA aerosol inhaler 2 puff inhalation Q4-6H PRN (Reason: shortness of breath or wheezing) Qty: 6.7 0RF ipratropium-albuterol 0.5 mg-3 mg(2.5 mg base)/3 mL solution for nebulization 3 ml inhalation Q6H 5 Days Qty: 90 0RF sertraline 50 MG tablet 50 mg PO DAILY albuterol sulfate [Ventolin HFA] 90 mcg/actuation HFA aerosol inhaler 1 - 2 puff inhalation Q4H PRN PRN (Reason: Wheezing) 30 Days Qty: 6.7 0RF Eliquis 5 mg tablet 5 mg PO BID Qty: 60 12RF lisinopril 5 mg tablet 5 mg PO DAILY Qty: 90 3RF Rx Instructions: Take 1 tablet by mouth once daily metoprolol succinate 50 mg tablet extended release 24 hr 50 mg PO DAILY Qty: 90 0RF Primary Care Provider: Ganesh Lock Referrals: Ganesh Lock MD [Primary Care Provider] - Print Language: Malawian Disposition Disposition: Home, Self Care
--- NOTE | 2024-12-17 08:58 | RAD_ITS ---
PROCEDURE: CHEST PA AND LATERAL 12/17/2024 REASON FOR EXAM: COUGH TECHNIQUE: CHEST PA AND LATERAL COMPARISON: 06/13/2023 FINDINGS: There is hyperinflation of the lungs consistent with chronic obstructive lung disease (COPD). No focal consolidation. No pleural effusion or pneumothorax. Cardiac silhouette is within normal limits. Calcific tendinopathy of the left shoulder. RAD/Chest PA and Lateral IMPRESSION: No focal consolidations. There is hyperinflation of the lungs consistent with c hronic obstructive lung disease (COPD). Reading Location: [id number]
[2024-12-17] MEDS: Ipratropium/Albuterol Sulfate 3 ML AMPUL.NEB INHALATION (09:12)
[2024-12-17 09:13] VITALS: PULSE 81; RESP 18
--- NOTE | 2024-12-17 11:10 | CM.ED ---
Social Work Date of referral: 12/17/24 Reason for referral: Discharge planning Referred by: ED Doctor Patient provided consent to social work visit. Product Safety Specialist was requested to provide assistance with securing an at-home nebulizer for patient. signal worker made phone contact with [facility], and was able to verify all required steps in order to send patient home with a nebulizer. With the assistance of color control supervisor Edmundo, Product Safety Specialist was given the nebulizer for patient from the Liaison's office, got the quick script/consignment form signed and faxed back over to [facility]. Respiratory Therapist then provided education to patient on the nebulizer. No other needs identified at this time. Janice Flood, TRANS ROUTER, AIRBRUSH ARTIST PHOTOGRAPHY
[2024-12-17 11:19] VITALS: O2SAT 97
== END 2024-12-17 11:19 | disposition home or self-care (01) ==
PROVIDERS: Emergency Provider Emergency Medicine; PCP Family Medicine; Visit Provider Emergency Medicine
DX: J20.9 Acute bronchitis, unspecified (principal); I48.0 Paroxysmal atrial fibrillation; J45.909 Unspecified asthma, uncomplicated; I10 Essential (primary) hypertension; Z79.01 Long term (current) use of anticoagulants; Z79.899 Other long term (current) drug therapy; Z86.16 Personal history of COVID-19
CPT/HCPCS: 71046; 94640; 99282

== ENCOUNTER → 2025-03-15 | Outpatient (CLI) | payer MEDICARE, SELFPAY ==
[2025-03-15 15:21] LABS: Hematocrit 44.5 % (37-47); Hemoglobin 14.9 g/dL (12.0-15.0); Immature Granulocytes Count 0.010 X10^3/uL (0.0-0.0); Mean Corp Hgb Conc 33.5 g/dL (32-36); Mean Corpuscular Volume 88.5 fL (81-99); Mean Platelet Vol. 11.9 fl (6.2-12.0); NRBC Flagged by Analyzer 0 % (0-5); Platelet Count 222 K/mm3 (150-450); RBC Distribution Width CV 13.1 % (11.6-14.6); RBC Distribution Width SD 42.3 fl (35.1-43.9); Red Blood Count 5.03 M/mm3 (4.2-5.4); White Blood Count 5.9 K/mm3 (4.4-11.0)
[2025-03-15 16:06] LABS: Anion Gap 11 (5-15); BUN 15 mg/dL (4-19); BUN/Creat Ratio 18.3 RATIO (10-20); Calcium,Total 9.4 mg/dL (7.6-11.0); Carbon Dioxide 23.9 mmol/L (21.0-32.0); Chloride 103 mmol/L (98-108); Glucose 105 mg/dL (70-99); Potassium 4.4 mmol/L (3.3-5.1)
[2025-03-15 16:57] LABS: Microalbumin,Random Urine < 12.0 mg/L (<20 mg/L)
== END | disposition home or self-care (01) ==
PROVIDERS: PCP Family Medicine; Referring Provider Family Medicine; Visit Provider Family Medicine
DX: Z00.00 Encounter for general adult medical examination without abnormal findings (principal); I48.0 Paroxysmal atrial fibrillation; I10 Essential (primary) hypertension
CPT/HCPCS: 36415; 80048; 82043; 84443; 85025